=== PATIENT | female | born 1980 | race Caucasian/White ===

== ENCOUNTER 2016-11-12 07:32 | Emergency (ER) | payer OTHER ==
[2016-11-12 07:40] VITALS: TEMP 98.8
[2016-11-12] MEDS ORDERED: LEVOFLOXACIN 750MG-D5W PMX 750 MG in DEXTROSE/WATER 1 150ML.BAG IVPB STA (08:13)
[2016-11-12] MEDS ORDERED: IPRATROPIUM 0.5 MG/2.5 ML NEBU INHALATION STA ×2 (08:13→09:27)
[2016-11-12] MEDS ORDERED: SODIUM CHLORIDE 0.9% 1,000 ML IV STA ×2 (08:13)
[2016-11-12] MEDS ORDERED: LEVALBUTEROL NEB 1.25 MG/3 ML AMP INHALATION STA ×2 (08:13→09:27)
[2016-11-12] MEDS ORDERED: methylPREDNISolone SOD SUCCI 125 MG/2 ML VIAL IV STA (08:13)
[2016-11-12] MEDS ORDERED: MAGNESIUM SULFATE-D5W PMX 2 GM in DEXTROSE/WATER 1 100ML.BAG IVPB STA (08:13)
[2016-11-12] MEDS ORDERED: LORazepam 2 MG/ML SYRINGE IV STA (08:14)
[2016-11-12] MEDS ORDERED: KETOROLAC 30 MG/ML 1 ML VIAL IVP STA (08:15)
--- NOTE | 2016-11-12 08:19 | ED ---
SOB HPI - General Chief Complaint: Shortness of Breath Stated Complaint: RBIT Time Seen by Provider: 11/12/16 08:09 Source: patient Mode of arrival: wheelchair Limitations: no limitations - History of Present Illness Initial Comments: This 36-year-old white female presents with a complaint of shortness of breath. She has had it for the last 2 days. She does have a history of asthma and has been wheezing. She's been coughing with clear production. She denies any fevers. She has had occasional chest tightness. She feels very anxious as she has a history of previous asthma and COPD exacerbation requiring intubation and tracheostomy and now has posttraumatic stress disorder. She has tried her albuterol inhaler as well as her Symbicort inhaler and her albuterol nebulized treatments without any significant relief. She denies any other complaints or modifying factors. - Related Data Home Medications Medication Instructions Recorded Confirmed Albuterol Inhaler [Ventolin Hfa 2 puff INHALATION RT-Q6H PRN 11/30/14 11/12/16 Inhaler] ALPRAZolam [Xanax XR] 1 mg PO BID 06/09/15 11/12/16 Budesonide/Formoterol Fumarate 2 puff INHALATION RT-BID 06/09/15 11/12/16 [Symbicort 160-4.5 Mcg Inhaler] Doxepin HCl [SINEquan] 200 mg PO BID 06/09/15 11/12/16 Albuterol Nebulized [Ventolin 2.5 mg INHALATION RT-Q8H PRN 11/12/16 11/12/16 Nebulized] Previous Rx's Medication Instructions Recorded Montelukast [Singulair] 10 mg PO HS #30 tab 07/11/14 Doxycycline Hyclate [Vibramycin] 100 mg PO BID #20 cap 11/12/16 predniSONE 20 mg PO BID #10 tab 11/12/16 Allergies Allergy/AdvReac Type Severity Reaction Status Date / Time codeine AdvReac Vomiting Verified 11/12/16 09:12 Review of Systems ROS Statement: Those systems with pertinent positive or pertinent negative responses have been documented in the HPI. ROS Other: All systems not noted in ROS Statement are negative. Past Medical History Past Medical History: Asthma, COPD Additional Past Medical History / Comment(s): bronchitis, anxiety, depression History of Any Multi-Drug Resistant Organisms: MRSA Date of last positivie culture/infection: 2010 MDRO Source:: index finger on right hand Past Surgical History: No Surgical Hx Reported Past Anesthesia/Blood Transfusion Reactions: No Reported Reaction Past Psychological History: Anxiety, Depression Smoking Status: Current every day smoker Past Alcohol Use History: None Reported Past Drug Use History: None Reported - Past Family History Mother Family Medical History: Cancer Additional Family Medical History / Comment(s): Breast and brain CA, Uncle Pancreatic General Exam - General Exam Comments Initial Comments: GENERAL: The patient is well nourished and well hydrated. VITAL SIGNS: Heart rate, blood pressure, respiratory rate reviewed as recorded in nurse's notes. EYES: Pupils are round and reactive. Extraocular movements are intact. No conjunctival / lid redness or swelling. ENT: No external evidence of injury, swelling, or ecchymosis. Airway is patent. Throat is clear. NECK: Nontender. No swelling or evidence of injury. No subcutaneous emphysema. Trachea is midline. No thyroid mass. HEART: Tachycardic heart rate. Good peripheral pulses. LUNGS/CHEST: There is some wheezing noted to the bilateral chest. Patient is tachypneic. No ecchymosis, subcutaneous emphysema, or tenderness. ABDOMEN: Abdomen soft without tenderness. No palpable masses or organomegaly. No peritoneal signs. No abdominal wall swelling or ecchymosis. EXTREMITIES: No extremity tenderness. Normal muscle tone and function. No thoracolumbar tenderness. NEUROLOGIC: Sensation is grossly intact. Cranial nerve exam reveals face is symmetrical, tongue is midline, speech is clear. SKIN: No abrasions or ecchymosis is noted. No induration or masses noted. PSYCHIATRIC: Alert and oriented. Appears very anxious and tearful. Limitations: no limitations Course Vital Signs 11/12/16 11/12/16 11/12/16 07:37 08:03 08:22 Temperature 98.8 F Pulse Rate 141 H 129 H 128 H Respiratory 28 H 26 H Rate Blood Pressure 161/94 160/102 O2 Sat by Pulse 96 95 Oximetry 11/12/16 11/12/16 11/12/16 08:37 08:59 09:50 Temperature Pulse Rate 132 H 130 H 123 H Respiratory 24 Rate Blood Pressure 131/58 O2 Sat by Pulse 96 Oximetry 11/12/16 11/12/16 10:10 11:42 Temperature Pulse Rate 124 H 124 H Respiratory 20 Rate Blood Pressure 135/80 O2 Sat by Pulse 96 Oximetry Medical Decision Making - Medical Decision Making The patient was seen and examined. All diagnostics were reviewed. The EKG shows a sinus tachycardia at a rate of 133. There is no acute ST-T wave changes noted. The VA intervals 138, QRS duration is 70, and QTC intervals 437. An IV is started and she is hydrated. She also receives Solu-Medrol, Toradol, magnesium, and Ativan intravenously. She receives a Xopenex and Atrovent breathing treatment. The laboratory is reviewed and does show some slight decrease in the CO2 and elevation of the blood sugar. The chest x-ray does not show any acute processes. His felt as though she does have another exacerbation of her asthma and COPD. She is wheezing on recheck but this is improved. She states that she feels much improved as well. She did receive 2 Xopenex and Atrovent breathing treatments. Due to her symptom complex it is felt as though she would benefit from admission to the hospital. She refuses. Risks and benefits are discussed and ultimately detail and she leaves AGAINST MEDICAL ADVICE. Return parameters are discussed. Attempts to maximize her outpatient treatment will will be undertaken and she will be prescribed some antibiotics in case she is on underlying bronchitis as well as some steroids. She is instructed to utilize her breathing treatments every 4 hours. - Lab Data Result diagrams: 11/12/16 08:00 11/12/16 08:00 Lab Results 11/12/16 11/12/16 11/12/16 Range/Units 08:00 08:00 08:00 WBC 8.9 (3.8-10.6) k/uL RBC 4.84 (3.80-5.40) m/uL Hgb 14.8 (11.4-16.0) gm/dL Hct 42.4 (34.0-46.0) % MCV 87.6 (80.0-100.0) fL MCH 30.6 (25.0-35.0) pg MCHC 34.9 (31.0-37.0) g/dL RDW 13.8 (11.5-15.5) % Plt Count 317 (150-450) k/uL Neutrophils % 43 % Lymphocytes % 42 % Monocytes % 4 % Eosinophils % 8 % Basophils % 1 % Neutrophils # 3.8 (1.3-7.7) k/uL Lymphocytes # 3.8 (1.0-4.8) k/uL Monocytes # 0.4 (0-1.0) k/uL Eosinophils # 0.7 (0-0.7) k/uL Basophils # 0.1 (0-0.2) k/uL PT (9.0-12.0) sec INR (<1.2) APTT (22.0-30.0) sec Sodium 142 (137-145) mmol/L Potassium 3.7 (3.5-5.1) mmol/L Chloride 110 H (98-107) mmol/L Carbon Dioxide 21 L (22-30) mmol/L Anion Gap 11 mmol/L BUN 8 (7-17) mg/dL Creatinine 0.60 (0.52-1.04) mg/dL Est GFR (MDRD) Af Amer >60 (>60 ml/min/1.73 sqM) Est GFR (MDRD) Non-Af >60 (>60 ml/min/1.73 sqM) Glucose 160 H (74-99) mg/dL Calcium 9.1 (8.4-10.2) mg/dL Total Bilirubin 0.2 (0.2-1.3) mg/dL AST 15 (14-36) U/L ALT 31 (9-52) U/L Alkaline Phosphatase 90 (38-126) U/L Total Creatine Kinase 43 (30-135) U/L CK-MB (CK-2) 0.3 (0.0-2.4) ng/mL CK-MB (CK-2) Rel Index 0.7 Troponin I <0.012 (0.000-0.034) ng/mL Total Protein 6.8 (6.3-8.2) g/dL Albumin 4.0 (3.5-5.0) g/dL 11/12/16 Range/Units 08:00 WBC (3.8-10.6) k/uL RBC (3.80-5.40) m/uL Hgb (11.4-16.0) gm/dL Hct (34.0-46.0) % MCV (80.0-100.0) fL MCH (25.0-35.0) pg MCHC (31.0-37.0) g/dL RDW (11.5-15.5) % Plt Count (150-450) k/uL Neutrophils % % Lymphocytes % % Monocytes % % Eosinophils % % Basophils % % Neutrophils # (1.3-7.7) k/uL Lymphocytes # (1.0-4.8) k/uL Monocytes # (0-1.0) k/uL Eosinophils # (0-0.7) k/uL Basophils # (0-0.2) k/uL PT 10.3 (9.0-12.0) sec INR 1.0 (<1.2) APTT 23.9 (22.0-30.0) sec Sodium (137-145) mmol/L Potassium (3.5-5.1) mmol/L Chloride (98-107) mmol/L Carbon Dioxide (22-30) mmol/L Anion Gap mmol/L BUN (7-17) mg/dL Creatinine (0.52-1.04) mg/dL Est GFR (MDRD) Af Amer (>60 ml/min/1.73 sqM) Est GFR (MDRD) Non-Af (>60 ml/min/1.73 sqM) Glucose (74-99) mg/dL Calcium (8.4-10.2) mg/dL Total Bilirubin (0.2-1.3) mg/dL AST (14-36) U/L ALT (9-52) U/L Alkaline Phosphatase (38-126) U/L Total Creatine Kinase (30-135) U/L CK-MB (CK-2) (0.0-2.4) ng/mL CK-MB (CK-2) Rel Index Troponin I (0.000-0.034) ng/mL Total Protein (6.3-8.2) g/dL Albumin (3.5-5.0) g/dL Disposition Clinical Impression: Acute asthma exacerbation, Anxiety, COPD exacerbation, Bronchitis, Chest pain, Left against medical advice, Sinus tachycardia Disposition: Left Against Medical Advice Condition: Fair Instructions: Asthma (ED), Acute Bronchitis (ED), COPD (Chronic Obstructive Pulmonary Disease) (ED), Anxiety (ED) Prescriptions: Doxycycline Hyclate [Vibramycin] 100 mg PO BID #20 cap predniSONE 20 mg PO BID #10 tab Referrals: Priyanka Ashraf NPC [REFERRING] - 1-2 days Time of Disposition: 12:15
[2016-11-12 08:26] LABS: Basophils # (A) 0.1 k/uL (0-0.2); Basophils % (A) 1 %; CH 30.5; Eosinophils # (A) 0.7 k/uL (0-0.7); Eosinophils % (A) 8 %; HCT 42.4 % (34.0-46.0); HGB 14.8 gm/dL (11.4-16.0); Luc # (Auto) 0.23; Luc % (Auto) 3; Lymphocytes # (A) 3.8 k/uL (1.0-4.8); Lymphocytes % (A) 42 %; MCH 30.6 pg (25.0-35.0); MCHC 34.9 g/dL (31.0-37.0); MCV 87.6 fL (80.0-100.0); Monocytes # (A) 0.4 k/uL (0-1.0); Monocytes % (A) 4 %; Neutrophils # (A) 3.8 k/uL (1.3-7.7); Neutrophils % (A) 43 %; RBC 4.84 m/uL (3.80-5.40); RDW 13.8 % (11.5-15.5); WBC 8.9 k/uL (3.8-10.6); WBC (Perox) 8.76
[2016-11-12 08:35] LABS: Partial Thromboplastin Time 23.9 sec (22.0-30.0); Prothrombin Time 10.3 sec (9.0-12.0)
[2016-11-12 08:39] LABS: ALT 31 U/L (9-52); AST 15 U/L (14-36); Alkaline Phosphatase 90 U/L (38-126); Anion Gap 11 mmol/L; Blood Urea Nitrogen 8 mg/dL (7-17); Calcium 9.1 mg/dL (8.4-10.2); Carbon Dioxide 21 mmol/L (22-30); Chloride 110 mmol/L (98-107); Glucose 160 mg/dL (74-99); Non-African American GFR(MDRD) >60 (>60 ml/min/1.73 sqM); Potassium 3.7 mmol/L (3.5-5.1); Sodium 142 mmol/L (137-145); Total Bilirubin 0.2 mg/dL (0.2-1.3); Total Protein 6.8 g/dL (6.3-8.2)
[2016-11-12 08:49] LABS: Creatine Kinase 43 U/L (30-135)
[2016-11-12 09:01] LABS: Creatine Kinase MB 0.3 ng/mL (0.0-2.4); Troponin I <0.012 ng/mL (0.000-0.034)
--- NOTE | 2016-11-12 09:35 | XR ---
EXAMINATION TYPE: XR chest 2V DATE OF EXAM: 11/12/2016 CLINICAL HISTORY: difficulty breathing TECHNIQUE: Frontal and lateral views of the chest are obtained. COMPARISON: 12/13/14 FINDINGS: There is no focal air space opacity, pleural effusion, or pneumothorax seen. The cardiac silhouette size is within normal limits. The osseous structures are intact. IMPRESSION: No acute cardiopulmonary process.
[2016-11-12 12:53] VITALS: BP 123/71; PULSE 120; RESP 24
== END 2016-11-12 12:53 | disposition left against medical advice (07) ==
LOC: EC 07:32
DX: J44.1 Chronic obstructive pulmonary disease with (acute) exacerbation (principal); J45.901 Unspecified asthma with (acute) exacerbation; F41.9 Anxiety disorder, unspecified; R00.0 Tachycardia, unspecified; F32.9 Major depressive disorder, single episode, unspecified; Z86.14 Personal history of Methicillin resistant Staphylococcus aureus infection; Z79.51 Long term (current) use of inhaled steroids; Z79.899 Other long term (current) drug therapy; Z88.5 Allergy status to narcotic agent
CPT/HCPCS: 36415; 94640 ×2; 93005; 80053; 82550; 82553; 84484; 85025; 85610; 85730; 87040; 71020; 99285; 96365; 96368; 96375 ×3; J2060; J2930; J1885; J1956; J3475

== ENCOUNTER 2017-05-10 07:56 | Emergency (ER) | payer OTHER ==
[2017-05-10] MEDS ORDERED: ACETAMINOPHEN IV (For NPO) 1,000 MG in EMPTY BAG 1 BAG IVPB STA (08:16)
[2017-05-10] MEDS ORDERED: ONDANSETRON 4 MG/2 ML VIAL IVP STA (08:16)
[2017-05-10] MEDS ORDERED: SODIUM CHLORIDE 0.9% 1,000 ML IV STA (08:16)
--- NOTE | 2017-05-10 08:25 | ED ---
General Adult HPI - General Chief complaint: Nausea/Vomiting/Diarrhea Stated complaint: POSS FLU, WELTS ALL OVER Time Seen by Provider: 05/10/17 08:10 Source: family, RN notes reviewed Mode of arrival: ambulatory Limitations: no limitations - History of Present Illness Initial comments: Patient 37-year-old female who presents emergency room today with chief complaint of symptoms of body aches, fever, nausea vomiting diarrhea over the last 2 days. Patient does admit that she's had several bouts of nausea vomiting diarrhea no signs of blood. Does admit to cramping abdominal pain. Patient does admit to fever and chills and joint pain. Patient doesn't that she 's been trying ibuprofen with little relief the symptoms. Denies any other complaints. Patient denies any recent fever, chills, shortness of breath, chest pain, numbness or tingling, dysuria or hematuria, constipation, headaches or visual changes, or any other complaints. - Related Data Home Medications Medication Instructions Recorded Confirmed Albuterol Inhaler [Ventolin Hfa 2 puff INHALATION RT-Q6H PRN 11/30/14 11/12/16 Inhaler] ALPRAZolam [Xanax XR] 1 mg PO BID 06/09/15 11/12/16 Budesonide/Formoterol Fumarate 2 puff INHALATION RT-BID 06/09/15 11/12/16 [Symbicort 160-4.5 Mcg Inhaler] Doxepin HCl [SINEquan] 200 mg PO BID 06/09/15 11/12/16 Albuterol Nebulized [Ventolin 2.5 mg INHALATION RT-Q8H PRN 11/12/16 11/12/16 Nebulized] Previous Rx's Medication Instructions Recorded Montelukast [Singulair] 10 mg PO HS #30 tab 07/11/14 Doxycycline Hyclate [Vibramycin] 100 mg PO BID #20 cap 11/12/16 predniSONE 20 mg PO BID #10 tab 11/12/16 Nitrofurantoin Monohyd/M-Cryst 100 mg PO Q12HR #14 cap 05/10/17 [Macrobid] Allergies Allergy/AdvReac Type Severity Reaction Status Date / Time codeine AdvReac Vomiting Verified 05/10/17 08:06 Review of Systems ROS Statement: Those systems with pertinent positive or pertinent negative responses have been documented in the HPI. ROS Other: All systems not noted in ROS Statement are negative. Past Medical History Past Medical History: Asthma, COPD Additional Past Medical History / Comment(s): bronchitis, anxiety, depression History of Any Multi-Drug Resistant Organisms: MRSA Date of last positivie culture/infection: 2010 MDRO Source:: index finger on right hand Past Surgical History: No Surgical Hx Reported Past Anesthesia/Blood Transfusion Reactions: No Reported Reaction Past Psychological History: Anxiety, Depression Smoking Status: Current every day smoker Past Alcohol Use History: None Reported Past Drug Use History: None Reported - Past Family History Mother Family Medical History: Cancer Additional Family Medical History / Comment(s): Breast and brain CA, Uncle Pancreatic General Exam - General Exam Comments Initial Comments: General: The patient is awake and alert, in no distress, and does not appear acutely ill. Eye: Pupils are equal, round and reactive to light, extra-ocular movements are intact. No nystagmus. There is normal conjunctiva bilaterally. No signs of icterus. Ears, nose, mouth and throat: There are moist mucous membranes and no oral lesions. Neck: The neck is supple, there is no tenderness or JVD. Cardiovascular: Tachycardic. No murmur, rub or gallop is appreciated. Respiratory: Lungs are clear to auscultation, respirations are non-labored, breath sounds are equal. No wheezes, stridor, rales, or rhonchi. Gastrointestinal: Soft, non-distended. Mild tenderness epigastric. There is no rebound or guarding present. No CVA tenderness. Bowel sounds are unremarkable. Musculoskeletal: Normal ROM, no tenderness. Strength 5/5. Sensation intact. Pulses equal bilaterally 2+. Neurological: A&O x 3. CN II-XII intact, There are no obvious motor or sensory deficits. Coordination appears grossly intact. Speech is normal. Skin: Skin is warm and dry and no rashes or lesions are noted. Psychiatric: Cooperative, appropriate mood & affect, normal judgment. Limitations: no limitations Course Vital Signs 05/10/17 05/10/17 08:02 09:14 Temperature 98.2 F Pulse Rate 136 H 100 Respiratory 20 18 Rate Blood Pressure 133/100 123/58 O2 Sat by Pulse 98 100 Oximetry Medical Decision Making - Medical Decision Making Case discussed in detail with attending physician Dr. Pierre. Patient reexamined at this time shows no signs of distress resting comfortably. Patient 's labs shows evidence for urinary tract infection. Given 2 g Rocephin here in the emergency room. She is doing well at this time shows comfortable feeling better would like to be discharged home. Patient will be continued on antibiotics for urinary tract infection. She is advised close follow-up the family doctor over the next 2 days. Advised return to emergency room if any symptoms increase or worsen. She states understanding and is in agreement. - Lab Data Result diagrams: 05/10/17 08:29 05/10/17 08:29 Lab Results 05/10/17 05/10/17 05/10/17 Range/Units 08:29 08:29 08:29 WBC 13.8 H (3.8-10.6) k/uL RBC 4.69 (3.80-5.40) m/uL Hgb 14.2 (11.4-16.0) gm/dL Hct 41.3 (34.0-46.0) % MCV 88.0 (80.0-100.0) fL MCH 30.3 (25.0-35.0) pg MCHC 34.5 (31.0-37.0) g/dL RDW 13.5 (11.5-15.5) % Plt Count 289 (150-450) k/uL Neutrophils % 82 % Lymphocytes % 12 % Monocytes % 3 % Eosinophils % 2 % Basophils % 0 % Neutrophils # 11.3 H (1.3-7.7) k/uL Lymphocytes # 1.6 (1.0-4.8) k/uL Monocytes # 0.4 (0-1.0) k/uL Eosinophils # 0.3 (0-0.7) k/uL Basophils # 0.0 (0-0.2) k/uL Sodium 139 (137-145) mmol/L Potassium 3.3 L (3.5-5.1) mmol/L Chloride 109 H (98-107) mmol/L Carbon Dioxide 17 L (22-30) mmol/L Anion Gap 13 mmol/L BUN 9 (7-17) mg/dL Creatinine 0.65 (0.52-1.04) mg/dL Est GFR (MDRD) Af Amer >60 (>60 ml/min/1.73 sqM) Est GFR (MDRD) Non-Af >60 (>60 ml/min/1.73 sqM) Glucose 143 H (74-99) mg/dL Calcium 9.5 (8.4-10.2) mg/dL Total Bilirubin 0.7 (0.2-1.3) mg/dL AST 12 L (14-36) U/L ALT 24 (9-52) U/L Alkaline Phosphatase 111 (38-126) U/L Total Protein 6.9 (6.3-8.2) g/dL Albumin 3.9 (3.5-5.0) g/dL Lipase 56 (23-300) U/L Urine Color Urine Appearance (Clear) Urine pH (5.0-8.0) Ur Specific [place] (1.001-1.035) Urine Protein (Negative) Urine Glucose (UA) (Negative) Urine Ketones (Negative) Urine Blood (Negative) Urine Nitrite (Negative) Urine Bilirubin (Negative) Urine Urobilinogen (<2.0) mg/dL Ur Leukocyte Esterase (Negative) Urine RBC (0-5) /hpf Urine WBC (0-5) /hpf Urine WBC Clumps (None) /hpf Ur Squamous Epith Cells (0-4) /hpf Urine Bacteria (None) /hpf Hyaline Casts (0-2) /lpf Urine Mucus (None) /hpf Urine HCG, Qual Not Detected (Not Detectd) 05/10/17 Range/Units 08:29 WBC (3.8-10.6) k/uL RBC (3.80-5.40) m/uL Hgb (11.4-16.0) gm/dL Hct (34.0-46.0) % MCV (80.0-100.0) fL MCH (25.0-35.0) pg MCHC (31.0-37.0) g/dL RDW (11.5-15.5) % Plt Count (150-450) k/uL Neutrophils % % Lymphocytes % % Monocytes % % Eosinophils % % Basophils % % Neutrophils # (1.3-7.7) k/uL Lymphocytes # (1.0-4.8) k/uL Monocytes # (0-1.0) k/uL Eosinophils # (0-0.7) k/uL Basophils # (0-0.2) k/uL Sodium (137-145) mmol/L Potassium (3.5-5.1) mmol/L Chloride (98-107) mmol/L Carbon Dioxide (22-30) mmol/L Anion Gap mmol/L BUN (7-17) mg/dL Creatinine (0.52-1.04) mg/dL Est GFR (MDRD) Af Amer (>60 ml/min/1.73 sqM) Est GFR (MDRD) Non-Af (>60 ml/min/1.73 sqM) Glucose (74-99) mg/dL Calcium (8.4-10.2) mg/dL Total Bilirubin (0.2-1.3) mg/dL AST (14-36) U/L ALT (9-52) U/L Alkaline Phosphatase (38-126) U/L Total Protein (6.3-8.2) g/dL Albumin (3.5-5.0) g/dL Lipase (23-300) U/L Urine Color Yellow Urine Appearance Cloudy H (Clear) Urine pH 6.0 (5.0-8.0) Ur Specific [place] 1.018 (1.001-1.035) Urine Protein 1+ H (Negative) Urine Glucose (UA) Negative (Negative) Urine Ketones 1+ H (Negative) Urine Blood Negative (Negative) Urine Nitrite Positive H (Negative) Urine Bilirubin Negative (Negative) Urine Urobilinogen <2.0 (<2.0) mg/dL Ur Leukocyte Esterase Large H (Negative) Urine RBC 6 H (0-5) /hpf Urine WBC 59 H (0-5) /hpf Urine WBC Clumps Moderate H (None) /hpf Ur Squamous Epith Cells 4 (0-4) /hpf Urine Bacteria Rare H (None) /hpf Hyaline Casts 10 H (0-2) /lpf Urine Mucus Many H (None) /hpf Urine HCG, Qual (Not Detectd) Disposition Clinical Impression: UTI (urinary tract infection) Disposition: HOME SELF-CARE Condition: Good Instructions: Urinary Tract Infection in Women (ED) Additional Instructions: Please use medication as discussed. Please follow-up with family doctor in the next 2 days. Please return to emergency room if the symptoms increase or worsen or for any other concerns. Prescriptions: Nitrofurantoin Monohyd/M-Cryst [Macrobid] 100 mg PO Q12HR #14 cap Referrals: Stevenson Dunlap DO [Primary Care Provider] - 1-2 days Time of Disposition: 09:57
[2017-05-10 08:42] LABS: Basophils % (A) 0 %; Eosinophils # (A) 0.3 k/uL (0-0.7); Eosinophils % (A) 2 %; HCT 41.3 % (34.0-46.0); HGB 14.2 gm/dL (11.4-16.0); Lymphocytes # (A) 1.6 k/uL (1.0-4.8); Lymphocytes % (A) 12 %; MCH 30.3 pg (25.0-35.0); MCHC 34.5 g/dL (31.0-37.0); Mean Platelet Volume 7.2; Monocytes # (A) 0.4 k/uL (0-1.0); Monocytes % (A) 3 %; Neutrophils # (A) 11.3 k/uL (1.3-7.7); Neutrophils % (A) 82 %; Platelet Count 289 k/uL (150-450); RBC 4.69 m/uL (3.80-5.40); RDW 13.5 % (11.5-15.5); WBC 13.8 k/uL (3.8-10.6)
[2017-05-10 08:52] LABS: Appearance,Urine Cloudy (Clear); Bacteria,Urine Rare /hpf; Bilirubin,Urine Negative (Negative); Blood,Urine Negative (Negative); Color,Urine Yellow; Glucose,Urine (UA) Negative (Negative); Hyaline Casts,Urine 10 /lpf (0-2); Ketones,Urine 1+ (Negative); Leukocyte Esterase,Urine Large (Negative); Mucus,Urine Many /hpf; Nitrite,Urine Positive (Negative); Protein,Urine 1+ (Negative); RBC,Urine 6 /hpf (0-5); Specific Gravity,Urine 1.018 (1.001-1.035); Squamous Epithelial Cell,Urine 4 /hpf (0-4); Urobilinogen,Urine <2.0 mg/dL (<2.0); WBC,Urine 59 /hpf (0-5)
[2017-05-10 08:56] LABS: ALT 24 U/L (9-52); AST 12 U/L (14-36); Albumin 3.9 g/dL (3.5-5.0); Alkaline Phosphatase 111 U/L (38-126); Anion Gap 13 mmol/L; Blood Urea Nitrogen 9 mg/dL (7-17); Calcium 9.5 mg/dL (8.4-10.2); Carbon Dioxide 17 mmol/L (22-30); Chloride 109 mmol/L (98-107); Glucose 143 mg/dL (74-99); Lipase 56 U/L (23-300); Sodium 139 mmol/L (137-145); Total Bilirubin 0.7 mg/dL (0.2-1.3); Total Protein 6.9 g/dL (6.3-8.2)
[2017-05-10 08:57] LABS: Potassium 3.3 mmol/L (3.5-5.1)
[2017-05-10] MEDS ORDERED: cefTRIAXone IN SWFI 2,000 MG/20 ML SYRINGE IVP STA (09:08)
[2017-05-10 09:15] VITALS: RESP 18
[2017-05-10 10:18] VITALS: BP 106/64; PULSE 99; TEMP 97
== END 2017-05-10 10:18 | disposition home or self-care (01) ==
LOC: EC 07:56
DX: N39.0 Urinary tract infection, site not specified (principal); R00.0 Tachycardia, unspecified; R11.2 Nausea with vomiting, unspecified; R19.7 Diarrhea, unspecified; M25.50 Pain in unspecified joint; R50.9 Fever, unspecified; J44.9 Chronic obstructive pulmonary disease, unspecified; F32.9 Major depressive disorder, single episode, unspecified; F41.9 Anxiety disorder, unspecified; F17.200 Nicotine dependence, unspecified, uncomplicated; Z79.51 Long term (current) use of inhaled steroids; Z79.899 Other long term (current) drug therapy; Z88.5 Allergy status to narcotic agent; Z86.14 Personal history of Methicillin resistant Staphylococcus aureus infection
CPT/HCPCS: 99284; 96374; 96375 ×2; 96361; 36415; 80053; 83690; 85025; 81001; 81025; 87040; 87086; J2405; J0696; J0131; 87077; 87186

== ENCOUNTER 2017-05-11 16:48 | Emergency (ER) | payer OTHER ==
[2017-05-11 16:50] VITALS: TEMP 97.7
[2017-05-11] MEDS ORDERED: methylPREDNISolone SOD SUCCI 125 MG/2 ML VIAL IV STA (16:58)
[2017-05-11] MEDS ORDERED: FAMOTIDINE 20 MG/2 ML VIAL IV STA (16:58)
[2017-05-11] MEDS ORDERED: diphenhydrAMINE 50 MG/ML 1 ML VIAL IVP STA (16:58)
[2017-05-11] MEDS ORDERED: IPRATROPIUM-ALBUTEROL 3 ML NEB INHALATION STA (16:58)
--- NOTE | 2017-05-11 17:12 | ED ---
General Adult HPI - General Chief complaint: Allergic Reaction Stated complaint: Allergic Reaction Time Seen by Provider: 05/11/17 16:55 Source: patient, RN notes reviewed Mode of arrival: ambulatory Limitations: no limitations - History of Present Illness Initial comments: Patient 37-year-old female who presents emergency room today with a chief complaint of ALLERGIC reaction. Patient was seen here in the emergency room yesterday diagnosed with urinary tract infection. She was discharged home on Macrobid. She states she took 1 dose yesterday 1 dose earlier today. Physician of his hives earlier in the day and some swelling to the top of her lip. Patient does admit to a history of asthma also admits to some increased tightness in her chest. She denies any other complaints or associated symptoms at this time. Does not that she did take Benadryl approximate 1 PM. Patient denies any recent fever, chills, shortness of breath, chest pain, back pain, abdominal pain, nausea or vomiting, numbness or tingling, dysuria or hematuria, constipation or diarrhea, headaches or visual changes, or any other complaints. - Related Data Home Medications Medication Instructions Recorded Confirmed Albuterol Inhaler [Ventolin Hfa 2 puff INHALATION RT-Q6H PRN 11/30/14 05/11/17 Inhaler] ALPRAZolam [Xanax XR] 2 mg PO BID PRN 06/09/15 05/11/17 Budesonide/Formoterol Fumarate 2 puff INHALATION RT-BID 06/09/15 05/11/17 [Symbicort 160-4.5 Mcg Inhaler] Doxepin HCl [SINEquan] 200 mg PO HS 06/09/15 05/11/17 Albuterol Nebulized [Ventolin 2.5 mg INHALATION RT-Q8H PRN 11/12/16 05/11/17 Nebulized] Cholecalciferol [Vitamin D3] 1,000 unit PO DAILY 05/11/17 05/11/17 diphenhydrAMINE HCL [Benadryl] 50 mg PO ONCE PRN 05/11/17 05/11/17 Previous Rx's Medication Instructions Recorded Montelukast [Singulair] 10 mg PO HS #30 tab 07/11/14 Sulfamethox-Tmp 800-160Mg [Bactrim 1 tab PO Q12HR #20 tab 05/11/17 DS 800-160 mg] predniSONE 60 mg PO DAILY 5 Days tab 05/11/17 Allergies Allergy/AdvReac Type Severity Reaction Status Date / Time nitrofurantoin Allergy Swelling Verified 05/11/17 17:15 [From Macrobid] codeine AdvReac Vomiting Verified 05/11/17 17:15 Review of Systems ROS Statement: Those systems with pertinent positive or pertinent negative responses have been documented in the HPI. ROS Other: All systems not noted in ROS Statement are negative. Past Medical History Past Medical History: Asthma, COPD Additional Past Medical History / Comment(s): bronchitis, anxiety, depression History of Any Multi-Drug Resistant Organisms: MRSA Date of last positivie culture/infection: 2010 MDRO Source:: index finger on right hand Past Surgical History: No Surgical Hx Reported Past Anesthesia/Blood Transfusion Reactions: No Reported Reaction Past Psychological History: Anxiety, Depression Smoking Status: Current every day smoker Past Alcohol Use History: None Reported Past Drug Use History: None Reported - Past Family History Mother Family Medical History: Cancer Additional Family Medical History / Comment(s): Breast and brain CA, Uncle Pancreatic General Exam - General Exam Comments Initial Comments: General: The patient is awake and alert, in no distress, and does not appear acutely ill. Eye: Pupils are equal, round and reactive to light, extra-ocular movements are intact. No nystagmus. There is normal conjunctiva bilaterally. No signs of icterus. Ears, nose, mouth and throat: There are moist mucous membranes and no oral lesions. Angioedema. No togue swelling. no difficulty swallowing. tolerating oral secretions. Neck: The neck is supple, there is no tenderness or JVD. Cardiovascular: There is a regular rate and rhythm. No murmur, rub or gallop is appreciated. Respiratory: Lungs are clear to auscultation, respirations are non-labored, breath sounds are equal. No wheezes, stridor, rales, or rhonchi. Musculoskeletal: Normal ROM, no tenderness. Strength 5/5. Sensation intact. Pulses equal bilaterally 2+. Neurological: A&O x 3. CN II-XII intact, There are no obvious motor or sensory deficits. Coordination appears grossly intact. Speech is normal. Skin: Patient does have few scattered hives on the upper extremities and torso. Limitations: no limitations Course Vital Signs 05/11/17 05/11/17 16:48 17:07 Temperature 97.7 F Pulse Rate 128 H 114 H Respiratory 20 Rate Blood Pressure 151/93 O2 Sat by Pulse 97 Oximetry Medical Decision Making - Medical Decision Making Patient reexamined at this time shows no signs of distress. Patient swelling has improved. Redness has gone away. Patient feeling much better at this time after steroids, Benadryl, Pepcid urine emergency room. Patient will be discharged home with a starter pack of Bactrim to cover for her urinary tract infection which was diagnosed yesterday. She does not that the symptoms of UTI aren't improving. Patient advised to discontinue Macrobid. Advised to continue with Benadryl one to 2 tabs every 6 hours. Will be given a prescription for steroids continue over the next 3-5 days. Also advised to use Pepcid twice daily. Advised return if any symptoms increase worsen or for any other concerns. Disposition Clinical Impression: Allergic reaction Disposition: HOME SELF-CARE Condition: Good Instructions: Anaphylaxis (ED) Additional Instructions: Please discontinue Macrobid and begin Bactrim. Please use Benadryl 1- 2 tabs every 6 hours. Please use Pepcid twice daily as discussed. Please use steroids as prescribed. Please return to emergency room if any symptoms increase or worsen. Please continue follow-up the family doctor have repeat urinalysis as discussed. Please return to emergency room for new concerns. Prescriptions: predniSONE 60 mg PO DAILY 5 Days tab Sulfamethox-Tmp 800-160Mg [Bactrim DS 800-160 mg] 1 tab PO Q12HR #20 tab Referrals: Stevenson Dunlap DO [Primary Care Provider] - 1-2 days Time of Disposition: 17:51
[2017-05-11] MEDS ORDERED: SULFAMETH-TMP DS STARTER PACK 2 TAB BTL PO STA (17:52)
[2017-05-11 18:18] VITALS: BP 128/83; PULSE 112; RESP 16
== END 2017-05-11 18:36 | disposition home or self-care (01) ==
LOC: EC 16:48
DX: L50.0 Allergic urticaria (principal); T37.8X5A Adverse effect of other specified systemic anti-infectives and antiparasitics, initial encounter; N39.0 Urinary tract infection, site not specified; J44.9 Chronic obstructive pulmonary disease, unspecified; F32.9 Major depressive disorder, single episode, unspecified; F41.9 Anxiety disorder, unspecified; F17.200 Nicotine dependence, unspecified, uncomplicated; Z79.51 Long term (current) use of inhaled steroids; Z79.899 Other long term (current) drug therapy; Z88.1 Allergy status to other antibiotic agents; Z88.5 Allergy status to narcotic agent; Z86.14 Personal history of Methicillin resistant Staphylococcus aureus infection
CPT/HCPCS: 94640; 99284; 96374; 96375 ×2; J1200; J2930

== ENCOUNTER 2017-08-26 23:13 | Inpatient (IN) | payer MEDICAID, OTHER ==
[2017-08-26 23:19] VITALS: RESP 18
--- NOTE | 2017-08-26 23:20 | ED ---
General Adult HPI - General Source: patient, police, EMS, RN notes reviewed, old records reviewed Mode of arrival: EMS Limitations: no limitations <Herrera Pierre - Last Filed: 08/26/17 23:19> <Eloisa Pena - Last Filed: 08/27/17 03:10> - General Chief complaint: Psychiatric Symptoms Stated complaint: mental health Time Seen by Provider: 08/26/17 23:16 - History of Present Illness Initial comments: This is a 37-year-old female the ER for evaluation. This patient presents for evaluation regards to psychiatric illness, patient presented with PD petitioning patient for psychiatric evaluation and treatment (Herrera Pierre) - Related Data Home Medications Medication Instructions Recorded Confirmed Albuterol Inhaler [Ventolin Hfa 2 puff INHALATION RT-Q6H PRN 11/30/14 05/11/17 Inhaler] ALPRAZolam [Xanax XR] 2 mg PO BID PRN 06/09/15 05/11/17 Budesonide/Formoterol Fumarate 2 puff INHALATION RT-BID 06/09/15 05/11/17 [Symbicort 160-4.5 Mcg Inhaler] Doxepin HCl [SINEquan] 200 mg PO HS 06/09/15 05/11/17 Albuterol Nebulized [Ventolin 2.5 mg INHALATION RT-Q8H PRN 11/12/16 05/11/17 Nebulized] Cholecalciferol [Vitamin D3] 1,000 unit PO DAILY 05/11/17 05/11/17 diphenhydrAMINE HCL [Benadryl] 50 mg PO ONCE PRN 05/11/17 05/11/17 Previous Rx's Medication Instructions Recorded Montelukast [Singulair] 10 mg PO HS #30 tab 07/11/14 Sulfamethox-Tmp 800-160Mg [Bactrim 1 tab PO Q12HR #20 tab 05/11/17 DS 800-160 mg] predniSONE 60 mg PO DAILY 5 Days tab 05/11/17 Allergies Allergy/AdvReac Type Severity Reaction Status Date / Time nitrofurantoin Allergy Swelling Verified 08/26/17 23:15 [From Macrobid] codeine AdvReac Vomiting Verified 08/26/17 23:15 Review of Systems ROS Other: All systems not noted in ROS Statement are negative. <GabbyHerrera B - Last Filed: 08/26/17 23:19> ROS Other: All systems not noted in ROS Statement are negative. <Eloisa Pena - Last Filed: 08/27/17 03:10> ROS Statement: Those systems with pertinent positive or pertinent negative responses have been documented in the HPI. Past Medical History Past Medical History: Asthma, COPD Additional Past Medical History / Comment(s): bronchitis History of Any Multi-Drug Resistant Organisms: MRSA Date of last positivie culture/infection: 2010 MDRO Source:: index finger on right hand Past Surgical History: No Surgical Hx Reported Additional Past Surgical History / Comment(s): tracheotomy, cysts to wrist removed Past Anesthesia/Blood Transfusion Reactions: No Reported Reaction Past Psychological History: Anxiety, Bipolar, Depression Smoking Status: Current every day smoker Past Alcohol Use History: None Reported Past Drug Use History: Marijuana - Past Family History Mother Family Medical History: Cancer Additional Family Medical History / Comment(s): Breast and brain CA, Uncle Pancreatic <GabbyHerrera Katelyn - Last Filed: 08/26/17 23:19> General Exam Limitations: no limitations General appearance: alert, in no apparent distress Head exam: Present: atraumatic, normocephalic, normal inspection Eye exam: Present: normal appearance, PERRL, EOMI. Absent: scleral icterus, conjunctival injection, periorbital swelling ENT exam: Present: normal exam, mucous membranes moist Neck exam: Present: normal inspection. Absent: tenderness, meningismus, lymphadenopathy Respiratory exam: Present: normal lung sounds bilaterally. Absent: respiratory distress, wheezes, rales, rhonchi, stridor Cardiovascular Exam: Present: regular rate, normal rhythm, normal heart sounds. Absent: systolic murmur, diastolic murmur, rubs, gallop, clicks GI/Abdominal exam: Present: soft, normal bowel sounds. Absent: distended, tenderness, guarding, rebound, rigid Extremities exam: Present: normal inspection, full ROM, normal capillary refill. Absent: tenderness, pedal edema, joint swelling, calf tenderness Back exam: Present: normal inspection Neurological exam: Present: alert, oriented X3, CN II-XII intact Psychiatric exam: Present: normal affect, normal mood Skin exam: Present: warm, dry, intact, normal color. Absent: rash <Herrera Pierre - Last Filed: 08/26/17 23:19> Course <Herrera Pierre - Last Filed: 08/26/17 23:19> <Eloisa Pena - Last Filed: 08/27/17 03:10> Vital Signs 08/26/17 23:15 Temperature 97.1 F L Pulse Rate 111 H Respiratory 18 Rate Blood Pressure 137/95 O2 Sat by Pulse 98 Oximetry EPS informed me about their assessment they felt she ought to be admitted for inpatient treatment and evaluation (Eloisa Pena) - Reevaluation(s) Reevaluation #1: 08/26/17 23:20 Medically clear for psychiatric evaluation (Herrera Pierre) Disposition <Herrera Pierre - Last Filed: 08/26/17 23:19> <Eloisa Pena - Last Filed: 08/27/17 03:10> Clinical Impression: Suicidal ideation Disposition: ADMITTED IP TO THIS HOSP Referrals: Stevenson Dunlap DO [Primary Care Provider] - 1-2 days
[2017-08-27] MEDS ORDERED: ZIPRASIDONE 20 MG VIAL IM PRN (03:28)
[2017-08-27] MEDS ORDERED: MAGNESIUM HYDROXIDE 2,400 MG/10 ML CUP PO PRN (03:28)
[2017-08-27] MEDS ORDERED: ACETAMINOPHEN TAB 325 MG TAB PO PRN (03:28)
[2017-08-27] MEDS ORDERED: MAG HYDROX/AL HYDROX/SIMETH 30 ML CUP PO PRN (03:28)
[2017-08-27] MEDS: LORazepam 1 MG TAB PO PRN ×3 (03:55→22:12)
[2017-08-27 04:07] VITALS: BMI 30.2
[2017-08-27] MEDS ORDERED: ALBUTEROL NEBULIZED 2.5 MG/3 ML INHALATION PRN (11:23)
[2017-08-27] MEDS ORDERED: ALBUTEROL INHALER 60 PUFF/8 GM INHALER INHALATION PRN (11:23)
[2017-08-27 11:30] LABS: Basophils # (A) 0.1 k/uL (0-0.2); Basophils % (A) 1 %; Eosinophils # (A) 0.4 k/uL (0-0.7); Eosinophils % (A) 5 %; HCT 42.4 % (34.0-46.0); HGB 14.4 gm/dL (11.4-16.0); Lymphocytes # (A) 2.9 k/uL (1.0-4.8); Lymphocytes % (A) 39 %; MCH 29.8 pg (25.0-35.0); MCV 87.6 fL (80.0-100.0); Mean Platelet Volume 7.3; Monocytes # (A) 0.3 k/uL (0-1.0); Monocytes % (A) 5 %; Neutrophils # (A) 3.6 k/uL (1.3-7.7); Neutrophils % (A) 48 %; Platelet Count 282 k/uL (150-450); RBC 4.84 m/uL (3.80-5.40); RDW 14.1 % (11.5-15.5); WBC 7.4 k/uL (3.8-10.6)
[2017-08-27 11:42] LABS: ALT 28 U/L (9-52); AST 17 U/L (14-36); Albumin 4.1 g/dL (3.5-5.0); Alkaline Phosphatase 86 U/L (38-126); Anion Gap 15 mmol/L; Blood Urea Nitrogen 11 mg/dL (7-17); Calcium 9.3 mg/dL (8.4-10.2); Carbon Dioxide 19 mmol/L (22-30); Chloride 110 mmol/L (98-107); Cholesterol 163 mg/dL (<200); Glucose 83 mg/dL (74-99); HDL Cholesterol 28 mg/dL (40-60); LDL Cholesterol,Calculated 75 mg/dL (0-99); Potassium 4.1 mmol/L (3.5-5.1); Sodium 144 mmol/L (137-145); Total Bilirubin 0.3 mg/dL (0.2-1.3); Total Protein 6.7 g/dL (6.3-8.2); Triglycerides 302 mg/dL (<150)
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
[2017-08-27] MEDS ORDERED: NICOTINE 7MG/24HR PATCH TRANSDERM SCH (16:15)
[2017-08-27] MEDS: NICOTINE 21MG/24HR PATCH TRANSDERM SCH (17:12)
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
[2017-08-27] MEDS: SYMBICORT 160-4.5 MCG INHALER INHALATION SCH (20:55)
[2017-08-27] MEDS ORDERED: MONTELUKAST 10 MG TAB PO SCH (21:00)
[2017-08-27] MEDS ORDERED: DOXEPIN 25 MG CAP PO SCH (21:00)
[2017-08-28 07:35] VITALS: BP 123/70; PULSE 99; TEMP 98.2
[2017-08-28] MEDS: SYMBICORT 160-4.5 MCG INHALER INHALATION SCH (08:11)
[2017-08-28] MEDS: NICOTINE 21MG/24HR PATCH TRANSDERM SCH (08:37)
[2017-08-28] MEDS: LORazepam 1 MG TAB PO PRN (08:37)
[2017-08-28] MEDS ORDERED: CHOLECALCIFEROL 1,000 UNIT TAB PO SCH (09:00)
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
== END 2017-08-28 15:38 | disposition home or self-care (01) | DRG 881 ==
LOC: EC 23:13 → 3MHU 08-27 03:21
PROVIDERS: ADMIT Psychiatry & Neurology Psychiatry; ATTEND Psychiatry & Neurology Psychiatry
DX: F32.9 Major depressive disorder, single episode, unspecified (principal); R45.851 Suicidal ideations; J44.1 Chronic obstructive pulmonary disease with (acute) exacerbation; F12.90 Cannabis use, unspecified, uncomplicated; F17.210 Nicotine dependence, cigarettes, uncomplicated; F41.9 Anxiety disorder, unspecified; F51.04 Psychophysiologic insomnia; N39.3 Stress incontinence (female) (male); Z63.8 Other specified problems related to primary support group; Z65.3 Problems related to other legal circumstances; Z79.51 Long term (current) use of inhaled steroids; Z79.899 Other long term (current) drug therapy; Z80.0 Family history of malignant neoplasm of digestive organs; Z80.8 Family history of malignant neoplasm of other organs or systems; Z86.14 Personal history of Methicillin resistant Staphylococcus aureus infection; Z88.1 Allergy status to other antibiotic agents; Z88.5 Allergy status to narcotic agent; Z79.52 Long term (current) use of systemic steroids; Z71.6 Tobacco abuse counseling
CPT/HCPCS: 80053; 80061; 82075; 83036; 84443; 85025; 94640; 99285

== ENCOUNTER 2017-11-25 22:38 | Emergency (ER) | payer OTHER ==
[2017-11-25 22:46] VITALS: TEMP 98.3
[2017-11-25 23:48] VITALS: RESP 16
[2017-11-26] MEDS ORDERED: SODIUM CHLORIDE 0.9% 1,000 ML IV STA (00:36)
[2017-11-26] MEDS ORDERED: IPRATROPIUM-ALBUTEROL 3 ML NEB INHALATION STA (00:36)
[2017-11-26 01:10] LABS: Basophils % (A) 1 %; Eosinophils # (A) 0.2 k/uL (0-0.7); Eosinophils % (A) 3 %; HCT 40.1 % (34.0-46.0); Lymphocytes # (A) 3.3 k/uL (1.0-4.8); Lymphocytes % (A) 45 %; MCH 30.4 pg (25.0-35.0); MCHC 34.9 g/dL (31.0-37.0); MCV 87.2 fL (80.0-100.0); Mean Platelet Volume 7.6; Monocytes # (A) 0.3 k/uL (0-1.0); Monocytes % (A) 5 %; Neutrophils # (A) 3.3 k/uL (1.3-7.7); Neutrophils % (A) 45 %; Platelet Count 270 k/uL (150-450); RDW 13.2 % (11.5-15.5); WBC 7.4 k/uL (3.8-10.6)
[2017-11-26 01:19] LABS: ALT 40 U/L (9-52); AST 21 U/L (14-36); Albumin 3.9 g/dL (3.5-5.0); Alkaline Phosphatase 73 U/L (38-126); Anion Gap 8 mmol/L; Blood Urea Nitrogen 12 mg/dL (7-17); Calcium 9.4 mg/dL (8.4-10.2); Carbon Dioxide 22 mmol/L (22-30); Chloride 109 mmol/L (98-107); Glucose 96 mg/dL (74-99); Potassium 3.5 mmol/L (3.5-5.1); Sodium 139 mmol/L (137-145); Total Bilirubin 0.4 mg/dL (0.2-1.3); Total Protein 6.5 g/dL (6.3-8.2)
[2017-11-26] MEDS ORDERED: ALBUTEROL NEBULIZED 2.5 MG/3 ML INHALATION STA ×2 (01:26→02:53)
[2017-11-26 01:29] LABS: D-Dimer <0.17 mg/L FEU (<0.60); INR 1.1 (<1.2); Partial Thromboplastin Time 23.3 sec (22.0-30.0); Prothrombin Time 10.3 sec (9.0-12.0)
[2017-11-26 01:31] LABS: Creatine Kinase 26 U/L (30-135)
[2017-11-26 01:43] LABS: Creatine Kinase MB <0.2 ng/mL (0.0-2.4); Troponin I <0.012 ng/mL (0.000-0.034)
--- NOTE | 2017-11-26 02:29 | XR ---
EXAMINATION TYPE: XR chest 2V DATE OF EXAM: 11/26/2017 COMPARISON: 11/12/2016 HISTORY: Short of breath TECHNIQUE: Frontal and lateral views of the chest are obtained. FINDINGS: Heart and mediastinum are normal. Lungs are clear of consolidation. There is mild pulmonar y hyperinflation. Bony thorax is intact. IMPRESSION: There is probably some COPD. No acute lung disease. No change.
[2017-11-26] MEDS ORDERED: predniSONE 20 MG TAB PO STA (02:53)
[2017-11-26 03:10] LABS: Appearance,Urine Turbid (Clear); Bacteria,Urine Few /hpf; Bilirubin,Urine Negative (Negative); Blood,Urine Negative (Negative); Color,Urine Yellow; Glucose,Urine (UA) Negative (Negative); Ketones,Urine Negative (Negative); Leukocyte Esterase,Urine Trace (Negative); Mucus,Urine Many /hpf; Nitrite,Urine Negative (Negative); PH, Urine 5.5 (5.0-8.0); Protein,Urine Trace (Negative); Specific Gravity,Urine 1.023 (1.001-1.035); Squamous Epithelial Cell,Urine 7 /hpf (0-4); Urobilinogen,Urine <2.0 mg/dL (<2.0); WBC,Urine 8 /hpf (0-5)
[2017-11-26 03:20] VITALS: BP 120/72; PULSE 95
--- NOTE | 2017-12-04 08:20 | ED ---
SOB HPI - General Chief Complaint: Shortness of Breath Stated Complaint: Shortness of Breath Time Seen by Provider: 11/25/17 23:26 Source: patient Mode of arrival: wheelchair Limitations: no limitations - History of Present Illness Initial Comments: This patient is 37-year-old woman who presents for cough, rib pain with coughing , and shortness of breath as well as some upper respiratory symptoms that are been going on for nearly 2 days now. MD Complaint: shortness of breath, cough, chest pain Onset/Timin -: days(s) Quality: aching Consistency: constant Improves With: nothing Worsens With: coughing Context: recent URI - Related Data Home Medications Medication Instructions Recorded Confirmed Albuterol Inhaler [Ventolin Hfa 2 puff INHALATION RT-Q6H PRN 11/30/14 11/25/17 Inhaler] Budesonide/Formoterol Fumarate 2 puff INHALATION RT-BID 06/09/15 11/25/17 [Symbicort 160-4.5 Mcg Inhaler] Albuterol Nebulized [Ventolin 2.5 mg INHALATION RT-Q8H PRN 11/12/16 11/25/17 Nebulized] Cholecalciferol [Vitamin D3] 1,000 unit PO DAILY 05/11/17 11/25/17 diphenhydrAMINE HCL [Benadryl] 50 mg PO HS 05/11/17 11/25/17 Previous Rx's Medication Instructions Recorded Montelukast [Singulair] 10 mg PO HS #30 tab 07/11/14 Allergies Allergy/AdvReac Type Severity Reaction Status Date / Time nitrofurantoin Allergy Swelling Verified 11/25/17 23:26 [From Macrobid] codeine AdvReac Vomiting Verified 11/25/17 23:26 Review of Systems ROS Statement: Those systems with pertinent positive or pertinent negative responses have been documented in the HPI. ROS Other: All systems not noted in ROS Statement are negative. Constitutional: Reports: chills. Denies: fever ENT: Reports: congestion. Denies: throat pain Respiratory: Reports: cough, dyspnea, wheezes Cardiovascular: Denies: chest pain, palpitations, edema, syncope Gastrointestinal: Denies: abdominal pain, nausea, vomiting Genitourinary: Denies: dysuria, hematuria Musculoskeletal: Denies: back pain Skin: Denies: rash Neurological: Denies: headache, weakness Past Medical History Past Medical History: Asthma, COPD Additional Past Medical History / Comment(s): bronchitis History of Any Multi-Drug Resistant Organisms: MRSA Date of last positivie culture/infection: 2010 MDRO Source:: index finger on right hand Past Surgical History: No Surgical Hx Reported Additional Past Surgical History / Comment(s): tracheotomy, cysts to wrist removed Past Anesthesia/Blood Transfusion Reactions: No Reported Reaction Past Psychological History: Anxiety, Bipolar, Depression Smoking Status: Current every day smoker Past Alcohol Use History: None Reported Past Drug Use History: Marijuana - Past Family History Mother Family Medical History: Cancer Additional Family Medical History / Comment(s): Breast and brain CA, Uncle Pancreatic General Exam Limitations: no limitations General appearance: alert, in no apparent distress Head exam: Present: atraumatic, normocephalic Eye exam: Present: normal appearance. Absent: scleral icterus, conjunctival injection ENT exam: Present: normal oropharynx Neck exam: Present: normal inspection, full ROM Respiratory exam: Present: wheezes, chest wall tenderness. Absent: normal lung sounds bilaterally, respiratory distress, rales, rhonchi, stridor Cardiovascular Exam: Present: regular rate, normal rhythm, normal heart sounds. Absent: systolic murmur, diastolic murmur, rubs, gallop GI/Abdominal exam: Present: soft. Absent: distended, tenderness, guarding, rebound, rigid, mass Extremities exam: Present: normal inspection, normal capillary refill. Absent: pedal edema, calf tenderness Back exam: Present: normal inspection. Absent: CVA tenderness (R), CVA tenderness (L) Neurological exam: Present: alert Skin exam: Present: warm, dry, intact, normal color. Absent: rash Course Vital Signs 11/25/17 11/25/17 11/25/17 22:43 23:45 23:47 Temperature 98.3 F Pulse Rate 93 90 Respiratory 18 16 16 Rate Blood Pressure 127/81 106/65 O2 Sat by Pulse 97 96 Oximetry 11/26/17 11/26/17 11/26/17 01:21 01:28 01:29 Temperature Pulse Rate 88 85 83 Respiratory Rate Blood Pressure O2 Sat by Pulse Oximetry 11/26/17 11/26/17 11/26/17 01:37 03:07 03:17 Temperature Pulse Rate 83 80 84 Respiratory Rate Blood Pressure O2 Sat by Pulse Oximetry 11/26/17 03:19 Temperature Pulse Rate 95 Respiratory 16 Rate Blood Pressure 120/72 O2 Sat by Pulse 97 Oximetry Medical Decision Making - Medical Decision Making Patient is 37-year-old woman presenting with cough, wheezing, shortness of breath. History and physical are consistent with acute bronchitis. Patient did receive multiple treatments and then she requests to be discharged on seeing another patient. The patient did not want to wait until was available, however she had improved and was - Lab Data Result diagrams: 11/26/17 01:02 11/26/17 01:02 Lab Results 11/26/17 11/26/17 11/26/17 Range/Units 01:02 01:02 01:02 WBC 7.4 (3.8-10.6) k/uL RBC 4.60 (3.80-5.40) m/uL Hgb 14.0 (11.4-16.0) gm/dL Hct 40.1 (34.0-46.0) % MCV 87.2 (80.0-100.0) fL MCH 30.4 (25.0-35.0) pg MCHC 34.9 (31.0-37.0) g/dL RDW 13.2 (11.5-15.5) % Plt Count 270 (150-450) k/uL Neutrophils % 45 % Lymphocytes % 45 % Monocytes % 5 % Eosinophils % 3 % Basophils % 1 % Neutrophils # 3.3 (1.3-7.7) k/uL Lymphocytes # 3.3 (1.0-4.8) k/uL Monocytes # 0.3 (0-1.0) k/uL Eosinophils # 0.2 (0-0.7) k/uL Basophils # 0.0 (0-0.2) k/uL PT (9.0-12.0) sec INR (<1.2) APTT (22.0-30.0) sec D-Dimer (<0.60) mg/L FEU Sodium 139 (137-145) mmol/L Potassium 3.5 (3.5-5.1) mmol/L Chloride 109 H (98-107) mmol/L Carbon Dioxide 22 (22-30) mmol/L Anion Gap 8 mmol/L BUN 12 (7-17) mg/dL Creatinine 0.50 L (0.52-1.04) mg/dL Est GFR (CKD-EPI)AfAm >90 (>60 ml/min/1.73 sqM) Est GFR (CKD-EPI)NonAf >90 (>60 ml/min/1.73 sqM) Glucose 96 (74-99) mg/dL Calcium 9.4 (8.4-10.2) mg/dL Magnesium 2.0 (1.6-2.3) mg/dL Total Bilirubin 0.4 (0.2-1.3) mg/dL AST 21 (14-36) U/L ALT 40 (9-52) U/L Alkaline Phosphatase 73 (38-126) U/L Total Creatine Kinase 26 L (30-135) U/L CK-MB (CK-2) <0.2 (0.0-2.4) ng/mL CK-MB (CK-2) Rel Index Troponin I <0.012 (0.000-0.034) ng/mL Total Protein 6.5 (6.3-8.2) g/dL Albumin 3.9 (3.5-5.0) g/dL Urine Color Urine Appearance (Clear) Urine pH (5.0-8.0) Ur Specific [place] (1.001-1.035) Urine Protein (Negative) Urine Glucose (UA) (Negative) Urine Ketones (Negative) Urine Blood (Negative) Urine Nitrite (Negative) Urine Bilirubin (Negative) Urine Urobilinogen (<2.0) mg/dL Ur Leukocyte Esterase (Negative) Urine WBC (0-5) /hpf Ur Squamous Epith Cells (0-4) /hpf Urine Bacteria (None) /hpf Urine Mucus (None) /hpf Urine HCG, Qual (Not Detectd) 11/26/17 11/26/17 11/26/17 Range/Units 01:02 02:48 02:48 WBC (3.8-10.6) k/uL RBC (3.80-5.40) m/uL Hgb (11.4-16.0) gm/dL Hct (34.0-46.0) % MCV (80.0-100.0) fL MCH (25.0-35.0) pg MCHC (31.0-37.0) g/dL RDW (11.5-15.5) % Plt Count (150-450) k/uL Neutrophils % % Lymphocytes % % Monocytes % % Eosinophils % % Basophils % % Neutrophils # (1.3-7.7) k/uL Lymphocytes # (1.0-4.8) k/uL Monocytes # (0-1.0) k/uL Eosinophils # (0-0.7) k/uL Basophils # (0-0.2) k/uL PT 10.3 (9.0-12.0) sec INR 1.1 (<1.2) APTT 23.3 (22.0-30.0) sec D-Dimer <0.17 (<0.60) mg/L FEU Sodium (137-145) mmol/L Potassium (3.5-5.1) mmol/L Chloride (98-107) mmol/L Carbon Dioxide (22-30) mmol/L Anion Gap mmol/L BUN (7-17) mg/dL Creatinine (0.52-1.04) mg/dL Est GFR (CKD-EPI)AfAm (>60 ml/min/1.73 sqM) Est GFR (CKD-EPI)NonAf (>60 ml/min/1.73 sqM) Glucose (74-99) mg/dL Calcium (8.4-10.2) mg/dL Magnesium (1.6-2.3) mg/dL Total Bilirubin (0.2-1.3) mg/dL AST (14-36) U/L ALT (9-52) U/L Alkaline Phosphatase (38-126) U/L Total Creatine Kinase (30-135) U/L CK-MB (CK-2) (0.0-2.4) ng/mL CK-MB (CK-2) Rel Index Troponin I (0.000-0.034) ng/mL Total Protein (6.3-8.2) g/dL Albumin (3.5-5.0) g/dL Urine Color Yellow Urine Appearance Turbid H (Clear) Urine pH 5.5 (5.0-8.0) Ur Specific [place] 1.023 (1.001-1.035) Urine Protein Trace H (Negative) Urine Glucose (UA) Negative (Negative) Urine Ketones Negative (Negative) Urine Blood Negative (Negative) Urine Nitrite Negative (Negative) Urine Bilirubin Negative (Negative) Urine Urobilinogen <2.0 (<2.0) mg/dL Ur Leukocyte Esterase Trace H (Negative) Urine WBC 8 H (0-5) /hpf Ur Squamous Epith Cells 7 H (0-4) /hpf Urine Bacteria Few H (None) /hpf Urine Mucus Many H (None) /hpf Urine HCG, Qual Not Detected (Not Detectd) Disposition Clinical Impression: Acute asthma exacerbation, Bronchitis Disposition: Left Against Medical Advice Condition: Fair Is patient prescribed a controlled substance at d/c from ED?: No Referrals: Stevenson Dunlap DO [Primary Care Provider] - 1-2 days
== END 2017-11-26 03:30 | disposition left against medical advice (07) ==
LOC: EC 22:38
DX: J45.901 Unspecified asthma with (acute) exacerbation (principal); F17.200 Nicotine dependence, unspecified, uncomplicated; Z88.1 Allergy status to other antibiotic agents; Z88.5 Allergy status to narcotic agent; Z79.51 Long term (current) use of inhaled steroids; Z79.899 Other long term (current) drug therapy; Z86.14 Personal history of Methicillin resistant Staphylococcus aureus infection; Z93.0 Tracheostomy status
CPT/HCPCS: 36415; 94640 ×2; 93005; 85379; 80053; 82550; 82553; 83735; 84484; 85025; 85610; 85730; 81001; 81025; 71046; 99285; 96360; J7512

== ENCOUNTER 2018-03-12 19:53 | Emergency (ER) | payer OTHER ==
[2018-03-12] MEDS ORDERED: methylPREDNISolone SOD SUCCI 125 MG/2 ML VIAL IV STA (20:11)
[2018-03-12] MEDS ORDERED: IPRATROPIUM 0.5 MG/2.5 ML NEBU INHALATION STA (20:11)
[2018-03-12] MEDS ORDERED: ALBUTEROL NEBULIZED 2.5 MG/3 ML INHALATION STA (20:11)
--- NOTE | 2018-03-12 20:21 | ED ---
General Adult HPI - General Chief complaint: Upper Respiratory Infection Stated complaint: Cough, chest tightness, SOB Time Seen by Provider: 03/12/18 20:05 Source: patient Mode of arrival: ambulatory Limitations: no limitations - History of Present Illness Initial comments: 38-year-old female patient presents to the emergency department today for evaluation of shortness of breath and wheezing. Patient states that she has a history of COPD and asthma. States that she has had to have emergent tracheostomy in the past. Patient states that for the last 2-3 days she has had increased cough with sputum production. States that today she has been very short of breath has felt her heart racing. Patient states that she does feel chest tightness. States that she has done 3 breathing treatments at home prior to arrival, last one was 45 minutes ago. States she is not currently taking any steroids. She denies any fevers or chills. Denies any sweats, nausea, or vomiting. Patient denies any recent rash, abdominal pain, diarrhea, constipation, back pain, numbness, tingling, dizziness, weakness, hematuria, dysuria, urinary urgency, urinary frequency, headache, visual changes, or any other complaints. - Related Data Home Medications Medication Instructions Recorded Confirmed Albuterol Inhaler [Ventolin Hfa 2 puff INHALATION RT-Q4H PRN 11/30/14 03/12/18 Inhaler] Budesonide/Formoterol Fumarate 2 puff INHALATION RT-DAILY 06/09/15 03/12/18 [Symbicort 160-4.5 Mcg Inhaler] ALPRAZolam [Xanax] 1 mg PO BID PRN 03/12/18 03/12/18 Escitalopram [Lexapro] 20 mg PO HS 03/12/18 03/12/18 traZODone HCL 50 mg PO HS 03/12/18 03/12/18 Previous Rx's Medication Instructions Recorded Montelukast [Singulair] 10 mg PO HS #30 tab 07/11/14 Azithromycin [Zithromax Z-pack] 0 mg PO DIRECTED #6 tab 03/12/18 guaiFENesin-DM 600/30MG [Mucinex 1 each PO Q12HR #10 tab.er.12h 03/12/18 Dm] predniSONE 50 mg PO DAILY #5 tablet 03/12/18 Allergies Allergy/AdvReac Type Severity Reaction Status Date / Time nitrofurantoin Allergy Swelling Verified 03/12/18 20:51 [From Macrobid] codeine AdvReac Vomiting Verified 03/12/18 20:51 Review of Systems ROS Statement: Those systems with pertinent positive or pertinent negative responses have been documented in the HPI. ROS Other: All systems not noted in ROS Statement are negative. Past Medical History Past Medical History: Asthma, COPD Additional Past Medical History / Comment(s): bronchitis History of Any Multi-Drug Resistant Organisms: MRSA Date of last positivie culture/infection: 2010 MDRO Source:: index finger on right hand Past Surgical History: No Surgical Hx Reported Additional Past Surgical History / Comment(s): tracheotomy, cysts to wrist removed Past Anesthesia/Blood Transfusion Reactions: No Reported Reaction Past Psychological History: Anxiety, Bipolar, Depression Smoking Status: Current every day smoker Past Alcohol Use History: None Reported Past Drug Use History: Marijuana - Past Family History Mother Family Medical History: Cancer Additional Family Medical History / Comment(s): Breast and brain CA, Uncle Pancreatic General Exam Limitations: no limitations General appearance: alert, in no apparent distress, other (This is a well- developed, well-nourished adult female patient in mild respiratory distress. Vital signs upon presentation are temperature 97.8F, pulse 111, respirations 22 , blood pressure 137/94, pulse ox 97% on room air.) Eye exam: Present: normal appearance, PERRL, EOMI. Absent: scleral icterus, conjunctival injection, periorbital swelling ENT exam: Present: normal exam, normal oropharynx, mucous membranes moist Respiratory exam: Present: wheezes (There are coarse expiratory wheezes to all posterior lung briceno), other (Tachypnea). Absent: normal lung sounds bilaterally, respiratory distress, rales, rhonchi, stridor Cardiovascular Exam: Present: regular rate, normal rhythm, normal heart sounds. Absent: systolic murmur, diastolic murmur, rubs, gallop, clicks GI/Abdominal exam: Present: soft, normal bowel sounds. Absent: distended, tenderness, guarding, rebound, rigid Neurological exam: Present: alert, oriented X3, CN II-XII intact Psychiatric exam: Present: normal affect, normal mood Skin exam: Present: warm, dry, intact, normal color. Absent: rash Course Vital Signs 03/12/18 03/12/18 03/12/18 19:55 20:48 21:07 Temperature 97.8 F Pulse Rate 111 H 84 80 Respiratory 22 Rate Blood Pressure 137/94 O2 Sat by Pulse 97 Oximetry 03/12/18 03/12/18 21:39 22:36 Temperature 98.0 F Pulse Rate 78 100 Respiratory 18 Rate Blood Pressure 143/88 O2 Sat by Pulse 96 Oximetry EKG Findings - EKG Comments: EKG Findings:: EKG obtained at 2025 shows normal sinus rhythm with a ventricular rate of 91, NE interval 152, QRS duration 72, QT 370, QTC 455. No evidence of ST elevation or depression. Medical Decision Making - Medical Decision Making 38-year-old female patient with past medical history significant for asthma and COPD presents to the emergency department today for evaluation of shortness of breath and cough. Physical examination did reveal coarse expiratory wheezing throughout posterior lung briceno. Oxygen saturation was 97% on room air upon arrival. Labs reviewed and are unremarkable. Chest x-ray showed no acute cardiopulmonary process. Patient was given Solu-Medrol, a 7.5 mg albuterol breathing treatment with 1 mg of DuoNeb. Upon reevaluation patient states she is feeling much better. Symptoms are consistent with acute bronchitis and COPD exacerbation. We'll give prescription for azithromycin, prednisone, and Mucinex DM for cough. She is instructed to follow-up with her primary care physician for recheck as soon as possible. Return parameters are discussed in detail. She is discharged in stable condition. She verbalizes understanding and agrees with this plan. - Lab Data Result diagrams: 03/12/18 20:55 03/12/18 20:55 Lab Results 03/12/18 03/12/18 03/12/18 Range/Units 20:55 20:55 20:55 WBC 10.2 (3.8-10.6) k/uL RBC 5.00 (3.80-5.40) m/uL Hgb 14.6 (11.4-16.0) gm/dL Hct 43.9 (34.0-46.0) % MCV 87.8 (80.0-100.0) fL MCH 29.3 (25.0-35.0) pg MCHC 33.4 (31.0-37.0) g/dL RDW 13.5 (11.5-15.5) % Plt Count 308 (150-450) k/uL Neutrophils % 52 % Lymphocytes % 31 % Monocytes % 4 % Eosinophils % 11 % Basophils % 1 % Neutrophils # 5.3 (1.3-7.7) k/uL Lymphocytes # 3.2 (1.0-4.8) k/uL Monocytes # 0.4 (0-1.0) k/uL Eosinophils # 1.1 H (0-0.7) k/uL Basophils # 0.1 (0-0.2) k/uL PT (9.0-12.0) sec INR (<1.2) APTT (22.0-30.0) sec Sodium 140 (137-145) mmol/L Potassium 3.8 (3.5-5.1) mmol/L Chloride 111 H (98-107) mmol/L Carbon Dioxide 19 L (22-30) mmol/L Anion Gap 10 mmol/L BUN 8 (7-17) mg/dL Creatinine 0.52 (0.52-1.04) mg/dL Est GFR (CKD-EPI)AfAm >90 (>60 ml/min/1.73 sqM) Est GFR (CKD-EPI)NonAf >90 (>60 ml/min/1.73 sqM) Glucose 92 (74-99) mg/dL Calcium 9.8 (8.4-10.2) mg/dL Magnesium 2.0 (1.6-2.3) mg/dL Total Bilirubin 0.5 (0.2-1.3) mg/dL AST 14 (14-36) U/L ALT 18 (9-52) U/L Alkaline Phosphatase 94 (38-126) U/L Total Creatine Kinase 41 (30-135) U/L CK-MB (CK-2) <0.2 (0.0-2.4) ng/mL CK-MB (CK-2) Rel Index Troponin I <0.012 (0.000-0.034) ng/mL Total Protein 7.2 (6.3-8.2) g/dL Albumin 4.1 (3.5-5.0) g/dL TSH 4.120 (0.465-4.680) mIU/L 18 Range/Units 20:55 WBC (3.8-10.6) k/uL RBC (3.80-5.40) m/uL Hgb (11.4-16.0) gm/dL Hct (34.0-46.0) % MCV (80.0-100.0) fL MCH (25.0-35.0) pg MCHC (31.0-37.0) g/dL RDW (11.5-15.5) % Plt Count (150-450) k/uL Neutrophils % % Lymphocytes % % Monocytes % % Eosinophils % % Basophils % % Neutrophils # (1.3-7.7) k/uL Lymphocytes # (1.0-4.8) k/uL Monocytes # (0-1.0) k/uL Eosinophils # (0-0.7) k/uL Basophils # (0-0.2) k/uL PT 10.3 (9.0-12.0) sec INR 1.0 (<1.2) APTT 24.6 (22.0-30.0) sec Sodium (137-145) mmol/L Potassium (3.5-5.1) mmol/L Chloride (98-107) mmol/L Carbon Dioxide (22-30) mmol/L Anion Gap mmol/L BUN (7-17) mg/dL Creatinine (0.52-1.04) mg/dL Est GFR (CKD-EPI)AfAm (>60 ml/min/1.73 sqM) Est GFR (CKD-EPI)NonAf (>60 ml/min/1.73 sqM) Glucose (74-99) mg/dL Calcium (8.4-10.2) mg/dL Magnesium (1.6-2.3) mg/dL Total Bilirubin (0.2-1.3) mg/dL AST (14-36) U/L ALT (9-52) U/L Alkaline Phosphatase (38-126) U/L Total Creatine Kinase (30-135) U/L CK-MB (CK-2) (0.0-2.4) ng/mL CK-MB (CK-2) Rel Index Troponin I (0.000-0.034) ng/mL Total Protein (6.3-8.2) g/dL Albumin (3.5-5.0) g/dL TSH (0.465-4.680) mIU/L - Radiology Data Radiology results: report reviewed, image reviewed Two-view x-ray of the chest is obtained. Report was reviewed in its entirety. Impression by Dr. Antonio shows no acute cardiopulmonary findings. Disposition Clinical Impression: Acute bronchitis, COPD exacerbation Disposition: HOME SELF-CARE Condition: Good Instructions: Acute Bronchitis (ED), COPD (Chronic Obstructive Pulmonary Disease) (ED) Additional Instructions: Increase fluids. Rest. Do breathing treatments every 4 hours. Complete antibiotic and steroid prescription and full. Return immediately for any new, worsening, or concerning symptoms. Prescriptions: Azithromycin [Zithromax Z-pack] 0 mg PO DIRECTED #6 tab guaiFENesin-DM 600/30MG [Mucinex Dm] 1 each PO Q12HR #10 tab.er.12h predniSONE 50 mg PO DAILY #5 tablet Is patient prescribed a controlled substance at d/c from ED?: No Referrals: Stevenson Dunlap DO [Primary Care Provider] - 1-2 days Time of Disposition: 22:29
[2018-03-12 21:20] LABS: Basophils # (A) 0.1 k/uL (0-0.2); Basophils % (A) 1 %; Eosinophils # (A) 1.1 k/uL (0-0.7); Eosinophils % (A) 11 %; HCT 43.9 % (34.0-46.0); HGB 14.6 gm/dL (11.4-16.0); Lymphocytes # (A) 3.2 k/uL (1.0-4.8); Lymphocytes % (A) 31 %; MCH 29.3 pg (25.0-35.0); MCHC 33.4 g/dL (31.0-37.0); MCV 87.8 fL (80.0-100.0); Mean Platelet Volume 6.8; Monocytes # (A) 0.4 k/uL (0-1.0); Monocytes % (A) 4 %; Neutrophils # (A) 5.3 k/uL (1.3-7.7); Neutrophils % (A) 52 %; Platelet Count 308 k/uL (150-450); RDW 13.5 % (11.5-15.5); WBC 10.2 k/uL (3.8-10.6)
[2018-03-12 21:22] LABS: Partial Thromboplastin Time 24.6 sec (22.0-30.0); Prothrombin Time 10.3 sec (9.0-12.0)
[2018-03-12 21:25] LABS: ALT 18 U/L (9-52); AST 14 U/L (14-36); Albumin 4.1 g/dL (3.5-5.0); Alkaline Phosphatase 94 U/L (38-126); Anion Gap 10 mmol/L; Blood Urea Nitrogen 8 mg/dL (7-17); Calcium 9.8 mg/dL (8.4-10.2); Carbon Dioxide 19 mmol/L (22-30); Chloride 111 mmol/L (98-107); Glucose 92 mg/dL (74-99); Potassium 3.8 mmol/L (3.5-5.1); Sodium 140 mmol/L (137-145); Total Bilirubin 0.5 mg/dL (0.2-1.3); Total Protein 7.2 g/dL (6.3-8.2)
[2018-03-12 21:27] LABS: Creatine Kinase 41 U/L (30-135)
[2018-03-12 21:40] LABS: Creatine Kinase MB <0.2 ng/mL (0.0-2.4); Troponin I <0.012 ng/mL (0.000-0.034)
[2018-03-12 22:37] VITALS: BP 143/88; PULSE 100; RESP 18; TEMP 98
--- NOTE | 2018-03-12 23:33 | XR ---
EXAM: XR Chest, 2 Views CLINICAL HISTORY: ITS.REASON XR Reason: Chest Pain TECHNIQUE: Frontal and lateral views of the chest. COMPARISON: No relevant prior studies available. FINDINGS: Lungs: Unremarkable. No consolidation. Pleural space: Unremarkable. No pneumothorax. Heart: Unremarkable. No cardiomegaly. Mediastinum: Unremarkable. Bones/joints: Unremarkable. IMPRESSION: No acute cardiopulmonary findings..
== END 2018-03-12 22:42 | disposition home or self-care (01) ==
LOC: EC 19:53
DX: J44.0 Chronic obstructive pulmonary disease with (acute) lower respiratory infection (principal); J44.1 Chronic obstructive pulmonary disease with (acute) exacerbation; J20.9 Acute bronchitis, unspecified; F31.9 Bipolar disorder, unspecified; F41.9 Anxiety disorder, unspecified; F17.200 Nicotine dependence, unspecified, uncomplicated; Z88.1 Allergy status to other antibiotic agents; Z88.5 Allergy status to narcotic agent; Z79.899 Other long term (current) drug therapy; Z86.14 Personal history of Methicillin resistant Staphylococcus aureus infection; Z93.0 Tracheostomy status
CPT/HCPCS: 36415; 94644; 93005; 80053; 84443; 82550; 82553; 83735; 84484; 85025; 85610; 85730; 71046; 99285; 96374; J2930

== ENCOUNTER 2018-08-12 19:59 | Inpatient (IN) | payer OTHER ==
[2018-08-12] MEDS ORDERED: IPRATROPIUM 0.5 MG/2.5 ML NEBU INHALATION STA (21:27)
[2018-08-12] MEDS ORDERED: SODIUM CHLORIDE 0.9% 1,000 ML IV STA ×2 (21:27→23:13)
[2018-08-12] MEDS ORDERED: ALBUTEROL NEBULIZED 2.5 MG/3 ML INHALATION STA (21:27)
[2018-08-12] MEDS ORDERED: methylPREDNISolone SOD SUCCI 125 MG/2 ML VIAL IV STA (21:27)
[2018-08-12] MEDS ORDERED: AZITHROMYCIN 500 MG in SODIUM CHLORIDE 0.9% 250 ML IVPB STA (21:27)
[2018-08-12] MEDS ORDERED: KETOROLAC 30 MG/ML 1 ML VIAL IVP STA (21:28)
--- NOTE | 2018-08-12 21:37 | ED ---
General Adult HPI - General Chief complaint: Shortness of Breath Stated complaint: Diff Breathing Time Seen by Provider: 08/12/18 21:22 Source: patient, family, RN notes reviewed, old records reviewed Mode of arrival: ambulatory Limitations: no limitations - History of Present Illness Initial comments: 38-year-old female history of COPD, current smoker presents for evaluation of cough and dyspnea. Patient has had progressive dyspnea over the past 3 days. She is complaining of generalized pain including pain worse with cough. She's had subjective fever and chills. She reports productive cough with white sputum. Denies central radiating chest pain. Denies abdominal pain or vomiting. Denies lower extremity pain or swelling. - Related Data Home Medications Medication Instructions Recorded Confirmed Albuterol Inhaler [Ventolin Hfa 2 puff INHALATION RT-Q4H PRN 11/30/14 03/12/18 Inhaler] Budesonide/Formoterol Fumarate 2 puff INHALATION RT-DAILY 06/09/15 03/12/18 [Symbicort 160-4.5 Mcg Inhaler] ALPRAZolam [Xanax] 1 mg PO BID PRN 03/12/18 03/12/18 Escitalopram [Lexapro] 20 mg PO HS 03/12/18 03/12/18 traZODone HCL 50 mg PO HS 03/12/18 03/12/18 Previous Rx's Medication Instructions Recorded Montelukast [Singulair] 10 mg PO HS #30 tab 07/11/14 Azithromycin [Zithromax Z-pack] 0 mg PO DIRECTED #6 tab 03/12/18 guaiFENesin-DM 600/30MG [Mucinex 1 each PO Q12HR #10 tab.er.12h 03/12/18 Dm] predniSONE 50 mg PO DAILY #5 tablet 03/12/18 Allergies Allergy/AdvReac Type Severity Reaction Status Date / Time nitrofurantoin Allergy Swelling Verified 08/12/18 22:00 [From Macrobid] codeine AdvReac Vomiting Verified 08/12/18 22:00 Review of Systems ROS Statement: Those systems with pertinent positive or pertinent negative responses have been documented in the HPI. ROS Other: All systems not noted in ROS Statement are negative. Past Medical History Past Medical History: Asthma, COPD Additional Past Medical History / Comment(s): bronchitis History of Any Multi-Drug Resistant Organisms: MRSA Date of last positivie culture/infection: 2010 MDRO Source:: index finger on right hand Past Surgical History: No Surgical Hx Reported Additional Past Surgical History / Comment(s): tracheotomy, cysts to wrist removed Past Anesthesia/Blood Transfusion Reactions: No Reported Reaction Past Psychological History: Anxiety, Bipolar, Depression Smoking Status: Current every day smoker Past Alcohol Use History: None Reported Past Drug Use History: Marijuana - Past Family History Mother Family Medical History: Cancer Additional Family Medical History / Comment(s): Breast and brain CA, Uncle Pancreatic General Exam Limitations: no limitations General appearance: alert, in no apparent distress Head exam: Present: atraumatic, normocephalic Eye exam: Present: normal appearance, PERRL ENT exam: Present: mucous membranes dry Neck exam: Present: normal inspection. Absent: tenderness, meningismus Respiratory exam: Present: respiratory distress, wheezes, rhonchi, decreased breath sounds, prolonged expiratory Cardiovascular Exam: Present: normal rhythm, tachycardia GI/Abdominal exam: Present: soft. Absent: distended, tenderness, guarding, rebound Extremities exam: Present: normal inspection, normal capillary refill. Absent: pedal edema Neurological exam: Present: alert, oriented X3 Psychiatric exam: Present: normal affect, normal mood Skin exam: Present: warm, dry, intact. Absent: cyanosis, diaphoretic Course Vital Signs 08/12/18 08/12/18 08/12/18 20:31 21:27 22:11 Temperature 100.7 F H Pulse Rate 122 H 120 H 139 H Respiratory 24 Rate Blood Pressure 143/96 O2 Sat by Pulse 94 L Oximetry 08/12/18 22:17 Temperature Pulse Rate 95 Respiratory 22 Rate Blood Pressure 110/76 O2 Sat by Pulse 95 Oximetry EKG Findings - EKG Comments: EKG Findings:: Sinus tachycardia, PVC, rate of 135, OH interval 134, QRS duration 66, QTC 438, right atrial enlargement. Medical Decision Making - Medical Decision Making 38-year-old female history COPD current smoker presenting with cough and dyspnea. Patient is in moderate to severe respiratory distress with reduced air entry and expiratory wheeze, rhonchi bilaterally. Treatment is initiated emergency department. Chest x-ray negative for focal pneumonia although I suspect this patient is developing pneumonia with fever, white count of 20. Lactic acid normal. Electrolytes normal. After 3 treatments in the emergency department she has persistent wheezing and mild respiratory distress. Will be admitted for treatment of COPD exacerbation. - Lab Data Result diagrams: 08/12/18 21:05 08/12/18 21:05 Lab Results 08/12/18 08/12/18 08/12/18 Range/Units 21:05 21:05 21:05 WBC 20.1 H (3.8-10.6) k/uL RBC 5.27 (3.80-5.40) m/uL Hgb 15.7 (11.4-16.0) gm/dL Hct 47.0 H (34.0-46.0) % MCV 89.2 (80.0-100.0) fL MCH 29.8 (25.0-35.0) pg MCHC 33.4 (31.0-37.0) g/dL RDW 12.9 (11.5-15.5) % Plt Count 236 (150-450) k/uL Neutrophils % 85 % Lymphocytes % 9 % Monocytes % 4 % Eosinophils % 1 % Basophils % 0 % Neutrophils # 17.0 H (1.3-7.7) k/uL Lymphocytes # 1.9 (1.0-4.8) k/uL Monocytes # 0.7 (0-1.0) k/uL Eosinophils # 0.3 (0-0.7) k/uL Basophils # 0.0 (0-0.2) k/uL Sodium 137 (137-145) mmol/L Potassium 3.8 (3.5-5.1) mmol/L Chloride 107 (98-107) mmol/L Carbon Dioxide 19 L (22-30) mmol/L Anion Gap 11 mmol/L BUN 6 L (7-17) mg/dL Creatinine 0.50 L (0.52-1.04) mg/dL Est GFR (CKD-EPI)AfAm >90 (>60 ml/min/1.73 sqM) Est GFR (CKD-EPI)NonAf >90 (>60 ml/min/1.73 sqM) Glucose 100 H (74-99) mg/dL Plasma Lactic Acid Adelfo (0.7-2.0) mmol/L Calcium 9.5 (8.4-10.2) mg/dL Magnesium 1.8 (1.6-2.3) mg/dL Total Bilirubin 0.6 (0.2-1.3) mg/dL AST 15 (14-36) U/L ALT 12 (9-52) U/L Alkaline Phosphatase 102 (38-126) U/L Troponin I <0.012 (0.000-0.034) ng/mL Total Protein 7.0 (6.3-8.2) g/dL Albumin 4.1 (3.5-5.0) g/dL 08/12/18 Range/Units 22:00 WBC (3.8-10.6) k/uL RBC (3.80-5.40) m/uL Hgb (11.4-16.0) gm/dL Hct (34.0-46.0) % MCV (80.0-100.0) fL MCH (25.0-35.0) pg MCHC (31.0-37.0) g/dL RDW (11.5-15.5) % Plt Count (150-450) k/uL Neutrophils % % Lymphocytes % % Monocytes % % Eosinophils % % Basophils % % Neutrophils # (1.3-7.7) k/uL Lymphocytes # (1.0-4.8) k/uL Monocytes # (0-1.0) k/uL Eosinophils # (0-0.7) k/uL Basophils # (0-0.2) k/uL Sodium (137-145) mmol/L Potassium (3.5-5.1) mmol/L Chloride (98-107) mmol/L Carbon Dioxide (22-30) mmol/L Anion Gap mmol/L BUN (7-17) mg/dL Creatinine (0.52-1.04) mg/dL Est GFR (CKD-EPI)AfAm (>60 ml/min/1.73 sqM) Est GFR (CKD-EPI)NonAf (>60 ml/min/1.73 sqM) Glucose (74-99) mg/dL Plasma Lactic Acid Adelfo 0.9 (0.7-2.0) mmol/L Calcium (8.4-10.2) mg/dL Magnesium (1.6-2.3) mg/dL Total Bilirubin (0.2-1.3) mg/dL AST (14-36) U/L ALT (9-52) U/L Alkaline Phosphatase (38-126) U/L Troponin I (0.000-0.034) ng/mL Total Protein (6.3-8.2) g/dL Albumin (3.5-5.0) g/dL Critical Care Time Critical Care Time: Yes Total Critical Care Time: 35 Disposition Clinical Impression: Acute exacerbation of chronic obstructive airways disease Disposition: ADMITTED IP TO THIS [facility] Condition: Stable Is patient prescribed a controlled substance at d/c from ED?: No Referrals: Stevenson Dunlap DO [Primary Care Provider] - 1-2 days Decision to Admit Reason: Admit from EC Decision Date: 08/12/18 Decision Time: 23:07
[2018-08-12 21:51] LABS: ALT 12 U/L (9-52); AST 15 U/L (14-36); Albumin 4.1 g/dL (3.5-5.0); Alkaline Phosphatase 102 U/L (38-126); Anion Gap 11 mmol/L; Blood Urea Nitrogen 6 mg/dL (7-17); Calcium 9.5 mg/dL (8.4-10.2); Carbon Dioxide 19 mmol/L (22-30); Chloride 107 mmol/L (98-107); Glucose 100 mg/dL (74-99); Magnesium 1.8 mg/dL (1.6-2.3); Potassium 3.8 mmol/L (3.5-5.1); Sodium 137 mmol/L (137-145); Total Bilirubin 0.6 mg/dL (0.2-1.3)
[2018-08-12 22:01] LABS: Basophils % (A) 0 %; Eosinophils # (A) 0.3 k/uL (0-0.7); Eosinophils % (A) 1 %; HGB 15.7 gm/dL (11.4-16.0); Lymphocytes # (A) 1.9 k/uL (1.0-4.8); Lymphocytes % (A) 9 %; MCH 29.8 pg (25.0-35.0); MCHC 33.4 g/dL (31.0-37.0); MCV 89.2 fL (80.0-100.0); Mean Platelet Volume 8.3; Monocytes # (A) 0.7 k/uL (0-1.0); Monocytes % (A) 4 %; Neutrophils % (A) 85 %; Platelet Count 236 k/uL (150-450); RBC 5.27 m/uL (3.80-5.40); RDW 12.9 % (11.5-15.5); WBC 20.1 k/uL (3.8-10.6)
--- NOTE | 2018-08-12 22:37 | XR ---
EXAM: XR Chest, 2 Views CLINICAL HISTORY: Difficulty breathing TECHNIQUE: Frontal and lateral views of the chest. COMPARISON: Chest x-ray dated 03/12/2018 FINDINGS: Lungs: Unremarkable. No consolidation. Pleural space: Unremarkable. No pneumothorax. Heart: Unremarkable. No cardiomegaly. Mediastinum: Unremarkable. Bones/joints: Unremarkable. IMPRESSION: Normal chest x-rays.
[2018-08-12] MEDS ORDERED: HYDROmorphone 1 MG/ML 1 ML SYRINGE IVP STA (23:03)
[2018-08-12] MEDS ORDERED: IPRATROPIUM-ALBUTEROL 3 ML NEB INHALATION PRN (23:04)
[2018-08-12] MEDS ORDERED: SODIUM CHLORIDE 0.9% 1,000 ML IV ONE (23:04)
[2018-08-13] MEDS: methylPREDNISolone SOD SUCCI 125 MG/2 ML VIAL IV SCH ×3 (01:44→12:25)
[2018-08-13] MEDS: SODIUM CHLORIDE 0.9% 1,000 ML IV SCH ×2 (02:13→17:18)
[2018-08-13] MEDS: IPRATROPIUM-ALBUTEROL 3 ML NEB INHALATION SCH ×4 (08:02→20:15)
[2018-08-13 12:01] VITALS: BMI 23.3
[2018-08-13] MEDS ORDERED: ALPRAZolam 1 MG TAB PO PRN (15:41)
[2018-08-13] MEDS ORDERED: ALBUTEROL INHALER 60 PUFF/8 GM INHALER INHALATION PRN (15:41)
[2018-08-13] MEDS ORDERED: ENOXAPARIN 40 MG/0.4 ML SYRINGE SQ SCH (15:45)
[2018-08-13] MEDS ORDERED: ALBUTEROL NEBULIZED 2.5 MG/3 ML INHALATION SCH (16:00)
[2018-08-13] MEDS ORDERED: ACETAMINOPHEN TAB 325 MG TAB PO PRN (20:54)
[2018-08-13] MEDS ORDERED: MONTELUKAST 10 MG TAB PO SCH (21:00)
[2018-08-13] MEDS ORDERED: ESCITALOPRAM 20 MG TAB PO SCH (21:00)
[2018-08-13] MEDS ORDERED: traZODone HCL 50 MG TAB PO SCH (21:00)
[2018-08-13] MEDS: methylPREDNISolone SOD SUCCI 40 MG/ML 1 ML VIAL IV SCH (21:05)
[2018-08-13] MEDS: ACETAMINOPHEN TAB 325 MG TAB PO PRN (21:06)
[2018-08-13 22:06] VITALS: RESP 16; TEMP 97.8
[2018-08-13] MEDS ORDERED: guaiFENesin 600 MG TABLET.ER PO SCH (22:45)
[2018-08-13] MEDS ORDERED: LACTATED RINGERS 1,000 ML IV SCH (22:45)
[2018-08-13] MEDS ORDERED: CEFDINIR 300 MG CAP PO SCH (22:45)
[2018-08-13] MEDS ORDERED: LORATADINE-PSEUDOEPH 5-120 MG 1 EACH TAB.ER.12H PO SCH (22:45)
--- NOTE | 2018-08-13 23:38 | HP ---
HISTORY AND PHYSICAL DATE OF ADMISSION: 08/12/2018 DATE OF SERVICE: 08/13/2018 PRESENTING COMPLAINT: Cough, congested. HISTORY OF PRESENTING COMPLAINT: This is a pleasant 38-year-old patient of Dr. Dunlap who has a longstanding history of COPD and is a smoker. The patient for 3 days was becoming more and more congested, with a cough, bringing up some phlegm that was green in color. Also she has been been wheezing. She has had a fever, though was not able to take her temperature at home; does not have a thermometer. Tired, rundown. Wheezing quite a bit. Feeling tired and exhausted when I saw this patient this morning. Appetite has been okay. Bowel movements have been okay. She has continued to smoke. REVIEW OF SYSTEMS: CONSTITUTIONAL: Weak, tired, febrile. HEENT: Nasal congestion. RESPIRATORY: As above. CARDIOVASCULAR: None. GASTROINTESTINAL: None. GENITOURINARY: None. MUSCULOSKELETAL: None. DERMATOLOGICAL: None. HEMATOLOGICAL: None. LYMPHATICS: None. PSYCHIATRY: Slightly anxious. NEUROLOGICAL: None. PAST MEDICAL HISTORY: 1. COPD. 2. Medical comorbidities due to breathing issues. 3. Infection of index finger on the right hand. PAST SURGICAL HISTORY: 1. Tracheostomy. 2. Cyst on the wrist removed. 3. PEG tube that was removed. PSYCH HISTORY: Bipolar disorder. SOCIAL HISTORY: Lives home with 4 kids. Smokes anywhere from about a pack and a half a day for close to 25 years. Does marijuana about twice a week. No alcohol. FAMILY HISTORY: Lung and brain cancer. Uncle had pancreatic cancer. HOME MEDICATIONS: 1. Vitamin D3 3000 units p.o. daily. 2. Ventolin HFA 2 puffs q.4 p.r.n. 3. Spiriva 1 capsule p.o. daily. 4. Singulair 10 mg at bedtime. 5. Lexapro 20 mg p.o. at bedtime. 6. Symbicort 160/4.5 two puffs daily. 7. Ventolin 2.5 nebulizer q.8. 8. Xanax 1 mg p.o. b.i.d. p.r.n. ALLERGIES: 1. MACROBID. 2. CODEINE. PHYSICAL EXAMINATION: VITAL SIGNS ON PRESENTATION: Temperature 100.7, pulse 122, respiration 24, blood pressure 143/96, pulse ox 94% on room air. GENERAL APPEARANCE: Average built, sitting up. Congested. Tired. EYES: Pupils equal. Conjunctivae normal. HEENT: External appearance of nose and ears normal. Oral cavity normal. NECK: JVD not raised. Mass not palpable. RESPIRATORY: Effort increased. LUNGS: Diminished breath sounds. Accessory muscles are working. Not able to in full sentences. Prolonged expiration and wheezing. CARDIOVASCULAR: First and second sounds normal. No edema. ABDOMEN: Soft, nontender. Liver and spleen not palpable. LYMPHATIC: No lymph node palpable in neck or axillae. PSYCHIATRY: Alert and oriented x3. Mood and affect slightly anxious-appearing. NEUROLOGICAL: Pupils equal. Cranial nerves grossly intact. Power and sensation grossly intact. INVESTIGATIONS: White count 20.1, hemoglobin 15.7, potassium 3.8, BUN 6, creatinine 0.50. Influenza A and B negative. EKG tracing, personally reviewed by me, shows sinus tachycardia, some right atrial enlargement. Chest x-ray film, personally reviewed by me, shows hyperinflation, no obvious infiltrate. Chest is hyperinflated. ASSESSMENT: 1. Acute severe chronic obstructive pulmonary disease exacerbation in a patient who is a smoker. 2. Acute tracheobronchitis causing sepsis, POA. 3. Chronic nicotine dependence. Patient is a cigarette smoker. PLAN: Patient is started on nebulized bronchodilators, IV steroids, Mucinex. We will keep the patient on IV ceftriaxone, also. The patient is getting IV fluids. Other home medications are resumed. Care was discussed with the patient. Smoking cessation counseling: This was done with the patient. The patient was given a nicotine patch. More than 3 minutes was spent on this aspect of the case. MMODL / IJN: [id number] /
[2018-08-14] MEDS: IPRATROPIUM-ALBUTEROL 3 ML NEB INHALATION SCH ×2 (00:29→04:54)
[2018-08-14 05:37] VITALS: BP 115/76; PULSE 96
[2018-08-14] MEDS: methylPREDNISolone SOD SUCCI 40 MG/ML 1 ML VIAL IV SCH (05:38)
[2018-08-14] MEDS: ACETAMINOPHEN TAB 325 MG TAB PO PRN (05:52)
--- NOTE | 2018-08-15 05:16 | DS ---
DISCHARGE SUMMARY DATE OF ADMISSION: 08/12/2018. DATE LEFT AGAINST MEDICAL ADVICE: 08/14/2018. FINAL DIAGNOSES: 1. Acute severe chronic obstructive pulmonary disease exacerbation in a smoker. 2. Acute tracheobronchitis causing sepsis. 3. Chronic nicotine dependence, patient is a cigarette smoker. HOSPITAL COURSE: This patient presented with severe COPD exacerbation with tracheobronchitis causing sepsis. The patient is a smoker. The patient is started on bronchodilators, steroids, IV ceftriaxone. This morning, patient informed the nurse that she had to leave for an urgent matter at home and left AGAINST MEDICAL ADVICE. Copy to Dr. Stevenson Dunlap. MMODL / IJN: [id number] /
== END 2018-08-14 07:40 | disposition left against medical advice (07) | DRG 872 ==
LOC: EC 19:59 → 3NMEDONC 23:04
PROVIDERS: ADMIT Hospitalist; ATTEND Hospitalist
DX: A41.9 Sepsis, unspecified organism (principal); J44.0 Chronic obstructive pulmonary disease with (acute) lower respiratory infection; J44.1 Chronic obstructive pulmonary disease with (acute) exacerbation; E11.9 Type 2 diabetes mellitus without complications; F17.210 Nicotine dependence, cigarettes, uncomplicated; Z71.6 Tobacco abuse counseling; F31.9 Bipolar disorder, unspecified; J20.9 Acute bronchitis, unspecified; Z79.51 Long term (current) use of inhaled steroids; Z79.899 Other long term (current) drug therapy; Z80.0 Family history of malignant neoplasm of digestive organs; Z80.8 Family history of malignant neoplasm of other organs or systems; Z88.1 Allergy status to other antibiotic agents; Z88.5 Allergy status to narcotic agent
CPT/HCPCS: 36415; 71046; 80053; 83605; 83735; 84484; 85025; 87040; 87502; 93005; 94640; 94760; 96365; 96366; 96368; 96375; 99291

== ENCOUNTER 2019-10-14 21:54 | Emergency (ER) | payer OTHER ==
[2019-10-14 22:13] VITALS: RESP 18
[2019-10-14] MEDS ORDERED: KETOROLAC 30 MG/ML 1 ML VIAL IM STA (23:22)
[2019-10-14] MEDS ORDERED: IPRATROPIUM-ALBUTEROL 3 ML NEB INHALATION STA (23:22)
[2019-10-14] MEDS ORDERED: methylPREDNISolone SOD SUCCI 125 MG/2 ML VIAL IM ONE (23:23)
--- NOTE | 2019-10-15 00:18 | XR ---
EXAMINATION TYPE: XR chest 2V DATE OF EXAM: 10/14/2019 COMPARISON: 08/12/2018 HISTORY: Cough TECHNIQUE: FINDINGS: Heart and mediastinum are normal. Lungs are clear. Costophrenic angles are clear. There are no hilar masses. Bony thorax is intact. IMPRESSION: No active cardiopulmonary disease. Normal heart. There is clearing of minimal infiltrate at the left and right lung base compared to old exam.
[2019-10-15] MEDS ORDERED: LIDOCAINE 5% PATCH TOPICAL STA (00:27)
--- NOTE | 2019-10-15 00:29 | ED ---
Back Pain HPI - General Chief Complaint: Shortness of Breath Stated Complaint: Back Pain Time Seen by Provider: 10/14/19 22:39 Source: patient Limitations: no limitations - History of Present Illness Initial Comments: 39-year-old female patient presents to the emergency department today for evaluation of the left upper back pain. Patient states yesterday she was having a coughing fit when she developed a sharp pain that radiates around her shoulder blade. Patient states that the pain worsens whenever she moves the left arm her neck or takes a deep breath. States he has been having coughing today but does have a history of asthma and COPD. She does admit to smoking cigarettes. Patient denies any fever or chills. Denies any sputum production. She denies any abdominal pain, nausea, vomiting, or sweats. Denies any chest pain in the front. She did take a baclofen and a Neurontin at home today which did not help her symptoms. Patient denies any recent rash, diarrhea, constipation, back pain, numbness, tingling, dizziness, weakness, hematuria, dysuria, urinary urgency, urinary frequency, headache, visual changes, or any other complaints. - Related Data Home Medications Medication Instructions Recorded Confirmed Albuterol Inhaler (Mhu) [Ventolin 2 puff INHALATION RT-Q4H PRN 11/30/14 08/13/18 Hfa Inhaler (Mhu)] Budesonide/Formoterol Fumarate 2 puff INHALATION RT-DAILY 06/09/15 08/13/18 [Symbicort 160-4.5 Mcg Inhaler] ALPRAZolam [Xanax] 1 mg PO BID PRN 03/12/18 08/13/18 Escitalopram [Lexapro] 20 mg PO HS 03/12/18 08/13/18 Albuterol Nebulized [Ventolin 2.5 mg INHALATION RT-Q8H 08/13/18 08/13/18 Nebulized] Cholecalciferol [Vitamin D3 (25 3,000 unit PO DAILY 08/13/18 08/13/18 Mcg = 1000 Iu)] Tiotropium [place] [Spiriva] 1 cap INHALATION RT-DAILY 08/13/18 08/13/18 Previous Rx's Medication Instructions Recorded Montelukast [Singulair] 10 mg PO HS #30 tab 07/11/14 Cyclobenzaprine [Flexeril] 10 mg PO TID #15 tab 10/15/19 Famotidine [Pepcid] 20 mg PO DAILY #5 tablet 10/15/19 Ibuprofen [Motrin] 600 mg PO Q8HR PRN #30 tab 10/15/19 Lidocaine 5% Patch [Lidoderm] 1 patch TOPICAL DAILY #30 patch 10/15/19 predniSONE 50 mg PO DAILY #5 tablet 10/15/19 Allergies Allergy/AdvReac Type Severity Reaction Status Date / Time nitrofurantoin Allergy Swelling Verified 10/14/19 22:13 [From Macrobid] codeine AdvReac Vomiting Verified 10/14/19 22:13 Review of Systems ROS Statement: Those systems with pertinent positive or pertinent negative responses have been documented in the HPI. ROS Other: All systems not noted in ROS Statement are negative. Past Medical History Past Medical History: Asthma, COPD Additional Past Medical History / Comment(s): Bronchitis, medical coma due to breathing issues History of Any Multi-Drug Resistant Organisms: MRSA Date of last positivie culture/infection: 2010 MDRO Source:: index finger on right hand Past Surgical History: No Surgical Hx Reported Additional Past Surgical History / Comment(s): tracheotomy, cysts to wrist removed, peg tube(removed) Past Anesthesia/Blood Transfusion Reactions: No Reported Reaction Past Psychological History: Anxiety, Bipolar, Depression Smoking Status: Current every day smoker Past Alcohol Use History: None Reported Past Drug Use History: Marijuana - Past Family History Mother Family Medical History: Cancer Additional Family Medical History / Comment(s): Lung and brain CA, Uncle Pancreatic General Exam Limitations: no limitations General appearance: alert, in no apparent distress, other (This is a well- developed, well-nourished adult female patient in no acute distress. Vital signs upon presentation are temperature 98.1F, pulse 102, respirations 18, blood pressure 126/70, pulse ox 98% on room air.) Eye exam: Present: normal appearance, PERRL, EOMI. Absent: scleral icterus, conjunctival injection, periorbital swelling ENT exam: Present: normal exam, normal oropharynx, mucous membranes moist Respiratory exam: Present: wheezes (There is coarse inspiratory and expiratory wheezing noted in the posterior lung briceno). Absent: normal lung sounds bilaterally, respiratory distress, rales, rhonchi, stridor Cardiovascular Exam: Present: regular rate, normal rhythm, normal heart sounds. Absent: systolic murmur, diastolic murmur, rubs, gallop, clicks GI/Abdominal exam: Present: soft, normal bowel sounds. Absent: distended, tenderness, guarding, rebound, rigid Neurological exam: Present: alert, oriented X3, CN II-XII intact Psychiatric exam: Present: normal affect, normal mood Skin exam: Present: warm, dry, intact, normal color. Absent: rash Course Vital Signs 10/14/19 10/14/19 10/15/19 22:09 22:56 00:01 Temperature 98.1 F Pulse Rate 102 H 104 H Respiratory 18 18 Rate Blood Pressure 126/70 O2 Sat by Pulse 98 Oximetry 10/15/19 10/15/19 00:06 00:53 Temperature 98.8 F Pulse Rate 104 H 80 Respiratory 18 Rate Blood Pressure 145/91 O2 Sat by Pulse 98 Oximetry Medical Decision Making - Medical Decision Making 39-year-old female patient presents to the emergency department today for evaluation of left posterior shoulder pain. Pain worsens with movement of the left arm and the neck. States this started after coughing. Physical examination did reveal normal neurovascular status of the left arm. She did have tenderness surrounding the left scapula. Lungs did reveal coarse expiratory wheezing. Vital signs showed no major abnormalities. X-ray was obtained and was negative. EKG showed normal sinus rhythm. Patient was given Toradol, steroids, and a breathing treatment. Upon reevaluation she does report improvement of symptoms. She'll be discharged with anti-inflammatory medication for pain. A muscle relaxer and a course of steroids. We will give pepcid while on the medication. She also be given a Lidoderm patch. She is instructed to follow-up with her primary care physician for recheck in 1-2 days. Return parameters discussed in detail. She verbalizes understanding and agrees with this plan. - EKG Data -: EKG Interpreted by Me EKG Comments: EKG obtained at 2251 shows normal sinus rhythm with a ventricular rate of 92, CA interval 154, QRS duration 72, QT 362, QTc 447. No evidence of ST elevation or depression. - Radiology Data Radiology results: report reviewed, image reviewed Two-view x-ray of the chest is obtained. Report was reviewed in its entirety. Impression by Dr. Kerr shows no active cardiopulmonary disease. Normal heart. There is clearing of minimal infiltrate at the left and right lung base compared to old exam. Disposition Clinical Impression: Muscle spasm of left shoulder, Asthma exacerbation Disposition: HOME SELF-CARE Condition: Good Instructions (If sedation given, give patient instructions): Asthma (ED), Muscle Spasm (ED) Additional Instructions: Take medications as directed. Try warm moist heat to the shoulder and perform gentle range of motion of the neck and left arm. Follow-up with your primary care physician for recheck in 1-2 days. Return to the emergency department immediately for any new, worsening, or concerning symptoms. Prescriptions: Cyclobenzaprine [Flexeril] 10 mg PO TID #15 tab Lidocaine 5% Patch [Lidoderm] 1 patch TOPICAL DAILY #30 patch Ibuprofen [Motrin] 600 mg PO Q8HR PRN #30 tab PRN Reason: Pain Famotidine [Pepcid] 20 mg PO DAILY #5 tablet predniSONE 50 mg PO DAILY #5 tablet Is patient prescribed a controlled substance at d/c from ED?: No Referrals: Stevenson Dunlap DO [Primary Care Provider] - 1-2 days Time of Disposition: 00:28
[2019-10-15 00:55] VITALS: BP 145/91; PULSE 80; TEMP 98.8
== END 2019-10-15 00:54 | disposition home or self-care (01) ==
LOC: EC 21:54
DX: J45.901 Unspecified asthma with (acute) exacerbation (principal); M62.838 Other muscle spasm; M54.6 Pain in thoracic spine; F41.9 Anxiety disorder, unspecified; F32.9 Major depressive disorder, single episode, unspecified; F17.210 Nicotine dependence, cigarettes, uncomplicated; Z86.14 Personal history of Methicillin resistant Staphylococcus aureus infection; Z93.0 Tracheostomy status; Z79.51 Long term (current) use of inhaled steroids; Z79.899 Other long term (current) drug therapy; Z88.1 Allergy status to other antibiotic agents; Z88.5 Allergy status to narcotic agent
CPT/HCPCS: 94640; 93005; 71046; 99285; 96372 ×2; J2930; J1885

== ENCOUNTER 2020-01-25 12:58 | Emergency (ER) | payer OTHER ==
[2020-01-25 13:39] VITALS: BP 123/82; PULSE 85
[2020-01-25 13:51] VITALS: TEMP 99.2
[2020-01-25 13:53] VITALS: RESP 16
--- NOTE | 2020-01-25 14:11 | ED ---
URI HPI - General Chief Complaint: Upper Respiratory Infection Stated Complaint: COVID exposure Time Seen by Provider: 01/25/20 13:46 Source: patient, family Mode of arrival: ambulatory Limitations: no limitations - History of Present Illness Initial Comments: Patient is a 39-year-old female with history of asthma, presenting to the emergency Department with complaints of having flulike symptoms that started yesterday. Patient states her stepmother recently tested positive for coated and they are around them all the time. Patient started having body aches, night sweats, cough and shortness of breath that started yesterday. Patient has been doing at home nebulizer treatments with some relief of symptoms. She has been taking Tylenol for discomfort. She denies any chest pains, nausea, vomiting, abdominal pain. She does have some mild loss of taste. She denies any headaches or dizziness, blurry vision. She has no other complaints at this time. Upon arrival to the ER her vital signs are stable. - Related Data Home Medications Medication Instructions Recorded Confirmed Albuterol Inhaler (Mhu) [Ventolin 2 puff INHALATION RT-Q4H PRN 11/30/14 08/13/18 Hfa Inhaler (Mhu)] Budesonide/Formoterol Fumarate 2 puff INHALATION RT-DAILY 06/09/15 08/13/18 [Symbicort 160-4.5 Mcg Inhaler] ALPRAZolam [Xanax] 1 mg PO BID PRN 03/12/18 08/13/18 Escitalopram [Lexapro] 20 mg PO HS 03/12/18 08/13/18 Albuterol Nebulized [Ventolin 2.5 mg INHALATION RT-Q8H 08/13/18 08/13/18 Nebulized] Cholecalciferol [Vitamin D3 (25 3,000 unit PO DAILY 08/13/18 08/13/18 Mcg = 1000 Iu)] Tiotropium [place] [Spiriva] 1 cap INHALATION RT-DAILY 08/13/18 08/13/18 Previous Rx's Medication Instructions Recorded Montelukast [Singulair] 10 mg PO HS #30 tab 07/11/14 Cyclobenzaprine [Flexeril] 10 mg PO TID #15 tab 10/15/19 Famotidine [Pepcid] 20 mg PO DAILY #5 tablet 10/15/19 Ibuprofen [Motrin] 600 mg PO Q8HR PRN #30 tab 10/15/19 Lidocaine 5% Patch [Lidoderm] 1 patch TOPICAL DAILY #30 patch 10/15/19 predniSONE 50 mg PO DAILY #5 tablet 10/15/19 Allergies Allergy/AdvReac Type Severity Reaction Status Date / Time nitrofurantoin Allergy Swelling Verified 01/25/20 13:06 [From Macrobid] codeine AdvReac Vomiting Verified 01/25/20 13:06 Review of Systems ROS Statement: Those systems with pertinent positive or pertinent negative responses have been documented in the HPI. ROS Other: All systems not noted in ROS Statement are negative. Past Medical History Past Medical History: Asthma, COPD Additional Past Medical History / Comment(s): Bronchitis, medical coma due to breathing issues History of Any Multi-Drug Resistant Organisms: MRSA Date of last positivie culture/infection: 2010 MDRO Source:: index finger on right hand Past Surgical History: No Surgical Hx Reported Additional Past Surgical History / Comment(s): tracheotomy, cysts to wrist removed, peg tube(removed) Past Anesthesia/Blood Transfusion Reactions: No Reported Reaction Past Psychological History: Anxiety, Bipolar, Depression Smoking Status: Current every day smoker Past Alcohol Use History: None Reported Past Drug Use History: Marijuana - Past Family History Mother Family Medical History: Cancer Additional Family Medical History / Comment(s): Lung and brain CA, Uncle Pancreatic General Exam - General Exam Comments Initial Comments: GENERAL: Patient is well-developed and well-nourished. Patient is nontoxic and in no acute distress. HEAD: Atraumatic, normocephalic. EYES: Pupils equal round and reactive to light, extraocular movements intact, sclera anicteric, conjunctiva are normal. Eyelids were unremarkable. ENT: TMs normal, nares patent, oropharynx clear without exudates. Moist mucous membranes. NECK: Normal range of motion, supple without lymphadenopathy or JVD. LUNGS: Unlabored respirations. Scattered wheezes throughout, congestion mild improvement with cough. HEART: Regular rate and rhythm without murmurs, rubs or gallops. ABDOMEN: Soft, nontender, normoactive bowel sounds. No guarding, no rebound. No masses appreciated. : Deferred MUSCULOSKELETAL: Normal extremities with adequate strength and normal range of motion, no pitting or edema. No clubbing or cyanosis. NEUROLOGICAL: Patient is alert and oriented x 3. Motor and sensory are also intact. Normal speech, normal gait. PSYCH: Normal mood, normal affect. SKIN: Warm, Dry, normal turgor, no rashes or lesions noted. Limitations: no limitations Course Vital Signs 01/25/20 01/25/20 01/25/20 13:03 13:50 13:51 Temperature 97.0 F L 99.2 F Pulse Rate 85 Respiratory 18 16 Rate Blood Pressure 123/82 O2 Sat by Pulse 99 Oximetry Medical Decision Making - Medical Decision Making Patient is 39-year-old female here with flulike symptoms that started yesterday. She does have positive covert exposure to her stepmother. Her also developed symptoms yesterday as well. Her vital signs are stable. She does have scattered wheezes throughout, history of asthma. I did highly recommend a chest x-ray however patient refused stating she only wants a COVID test and wants to go home. I did discuss the risk of her having a severe infection, patient continues to refuse. Patient will be tested for covid and sent home. Recommended to continue to self quarantine. She does have nebulizer treatments at home. She is stable for discharge. Disposition Clinical Impression: Cough, Body aches, Exposure to COVID-19 virus Disposition: HOME SELF-CARE Condition: Stable Instructions (If sedation given, give patient instructions): Upper Respiratory Infection (ED) Additional Instructions: Please return to the Emergency Department if symptoms worsen or any other concerns. COVID test is pending. Recommended alternating between Tylenol and Motrin for fever and/or discomfort. Continue with breathing treatments as needed. Increase fluid intake. Follow up with PCP. Is patient prescribed a controlled substance at d/c from ED?: No Referrals: Stevenson Dunlap DO [Primary Care Provider] - 1-2 days
== END 2020-01-25 14:30 | disposition home or self-care (01) ==
LOC: EC 12:58
DX: R05 Cough (principal); R52 Pain, unspecified; R06.02 Shortness of breath; Z20.828 Contact with and (suspected) exposure to other viral communicable diseases; F41.9 Anxiety disorder, unspecified; F31.9 Bipolar disorder, unspecified; J44.9 Chronic obstructive pulmonary disease, unspecified; F17.200 Nicotine dependence, unspecified, uncomplicated; Z79.51 Long term (current) use of inhaled steroids; Z79.899 Other long term (current) drug therapy; Z88.5 Allergy status to narcotic agent; Z88.1 Allergy status to other antibiotic agents
CPT/HCPCS: 99283; U0003

== ENCOUNTER 2020-06-26 23:13 | Emergency (ER) | payer OTHER ==
[2020-06-26 23:58] VITALS: TEMP 98.2
[2020-06-27] MEDS ORDERED: methylPREDNISolone SOD SUCCI 125 MG/2 ML VIAL IV STA ×2 (00:11→01:36)
[2020-06-27] MEDS ORDERED: IPRATROPIUM-ALBUTEROL 3 ML NEB INHALATION STA (00:11)
--- NOTE | 2020-06-27 00:34 | XR ---
EXAM: XR Chest, 1 View CLINICAL HISTORY: ITS.REASON XR Reason: Suspected COVID-19 pneumonia TECHNIQUE: Frontal view of the chest. COMPARISON: Chest radiograph 10/14/2019. FINDINGS: Lungs: Hazy right lower lobe opacity may represent pneumonia in the appropriate clinical scenario. Pleural space: Unremarkable. No pneumothorax. Heart: Unremarkable. No cardiomegaly. Mediastinum: Unremarkable. Bones/joints: Unremarkable. IMPRESSION: Hazy right lower lobe opacity may represent pneumonia in the appropriate clinical scenario.
[2020-06-27 01:50] LABS: Basophils # (A) 0.1 k/uL (0-0.2); Basophils % (A) 1 %; Eosinophils # (A) 0.8 k/uL (0-0.7); Eosinophils % (A) 7 %; HCT 41.8 % (34.0-46.0); HGB 14.7 gm/dL (11.4-16.0); Lymphocytes # (A) 3.9 k/uL (1.0-4.8); Lymphocytes % (A) 36 %; MCH 31.6 pg (25.0-35.0); MCHC 35.3 g/dL (31.0-37.0); MCV 89.7 fL (80.0-100.0); Mean Platelet Volume 8.1; Monocytes # (A) 0.4 k/uL (0-1.0); Monocytes % (A) 4 %; Neutrophils # (A) 5.6 k/uL (1.3-7.7); Neutrophils % (A) 51 %; Platelet Count 286 k/uL (150-450); RBC 4.66 m/uL (3.80-5.40); RDW 12.6 % (11.5-15.5)
[2020-06-27 01:58] LABS: D-Dimer 0.24 mg/L FEU (<0.60); Partial Thromboplastin Time 24.5 sec (22.0-30.0); Prothrombin Time 10.3 sec (9.0-12.0)
[2020-06-27 02:13] LABS: ALT 9 U/L (4-34); AST 19 U/L (14-36); African American GFR (CKD) >90 (>60 ml/min/1.73 sqM); Alkaline Phosphatase 78 U/L (38-126); Anion Gap 6 mmol/L; Blood Urea Nitrogen 12 mg/dL (7-17); C Reactive Protein 7.2 mg/L (<10.0); Calcium 9.5 mg/dL (8.4-10.2); Carbon Dioxide 21 mmol/L (22-30); Chloride 111 mmol/L (98-107); Glucose 93 mg/dL (74-99); LDH 432 U/L (313-618); Magnesium 1.7 mg/dL (1.6-2.3); Non-African American GFR(CKD) >90 (>60 ml/min/1.73 sqM); Potassium 3.8 mmol/L (3.5-5.1); Sodium 138 mmol/L (137-145); Total Bilirubin 0.3 mg/dL (0.2-1.3); Total Protein 6.8 g/dL (6.3-8.2)
--- NOTE | 2020-06-27 02:41 | ED ---
SOB HPI - General Chief Complaint: Shortness of Breath Stated Complaint: BRIT Time Seen by Provider: 06/27/20 00:01 Source: patient Mode of arrival: ambulatory Limitations: no limitations - History of Present Illness Initial Comments: 40-year-old female history of asthma, COPD and previous tracheostomy secondary to respiratory failure that was reversed presents emergency department today for chief complaint of wheezing shortness of breath cough. Patient states she has had some wheezing shortness breath and cough today. Patient states she believes her asthma is acting up. Patient states he cough sounds wet. patient denies leg swelling, chest pain, jaw pain, diaphoresis, calf pain swelling, hemoptysis, pain with a deep breathing, hx of DVT/PE. Denies fevers, chills. Pt denies additional complaints. Pt is making a sound that sounds intentional from the upper airway initially once back in room resting she has stopped making this sound. - Related Data Home Medications Medication Instructions Recorded Confirmed Albuterol Inhaler (Mhu) [Ventolin 2 puff INHALATION RT-Q4H PRN 11/30/14 08/13/18 Hfa Inhaler (Mhu)] Budesonide/Formoterol Fumarate 2 puff INHALATION RT-DAILY 06/09/15 08/13/18 [Symbicort 160-4.5 Mcg Inhaler] ALPRAZolam [Xanax] 1 mg PO BID PRN 03/12/18 08/13/18 Escitalopram [Lexapro] 20 mg PO HS 03/12/18 08/13/18 Albuterol Nebulized [Ventolin 2.5 mg INHALATION RT-Q8H 08/13/18 08/13/18 Nebulized] Cholecalciferol [Vitamin D3 (25 3,000 unit PO DAILY 08/13/18 08/13/18 Mcg = 1000 Iu)] Tiotropium [place] [Spiriva] 1 cap INHALATION RT-DAILY 08/13/18 08/13/18 Previous Rx's Medication Instructions Recorded Montelukast [Singulair] 10 mg PO HS #30 tab 07/11/14 Cyclobenzaprine [Flexeril] 10 mg PO TID #15 tab 10/15/19 Famotidine [Pepcid] 20 mg PO DAILY #5 tablet 10/15/19 Ibuprofen [Motrin] 600 mg PO Q8HR PRN #30 tab 10/15/19 Lidocaine 5% Patch [Lidoderm] 1 patch TOPICAL DAILY #30 patch 10/15/19 predniSONE 50 mg PO DAILY #5 tablet 10/15/19 Azithromycin [Zithromax Z-pack (6 0 mg PO DIRECTED 5 Days #6 tab 06/27/20 tabs)] predniSONE 50 mg PO DAILY 5 Days #5 tab 06/27/20 Allergies Allergy/AdvReac Type Severity Reaction Status Date / Time nitrofurantoin Allergy Swelling Verified 06/26/20 23:53 [From Macrobid] codeine AdvReac Vomiting Verified 06/26/20 23:53 Review of Systems ROS Statement: Those systems with pertinent positive or pertinent negative responses have been documented in the HPI. ROS Other: All systems not noted in ROS Statement are negative. Past Medical History Past Medical History: Asthma, COPD Additional Past Medical History / Comment(s): Bronchitis, medical coma due to breathing issues History of Any Multi-Drug Resistant Organisms: MRSA Date of last positivie culture/infection: 2010 MDRO Source:: index finger on right hand Past Surgical History: No Surgical Hx Reported Additional Past Surgical History / Comment(s): tracheotomy, cysts to wrist removed, peg tube(removed) Past Anesthesia/Blood Transfusion Reactions: No Reported Reaction Past Psychological History: Anxiety, Bipolar, Depression Smoking Status: Current every day smoker Past Alcohol Use History: None Reported Past Drug Use History: Marijuana - Past Family History Mother Family Medical History: Cancer Additional Family Medical History / Comment(s): Lung and brain CA, Uncle Pancreatic General Exam - General Exam Comments Initial Comments: General: The patient is awake and alert, in no distress, and does not appear acutely ill. Eye: Pupils are equal, round and reactive to light, extra-ocular movements are intact. No nystagmus. There is normal conjunctiva bilaterally. No signs of icterus. Ears, nose, mouth and throat: There are moist mucous membranes and no oral lesions. Neck: The neck is supple, there is no tenderness or JVD. Scar anterior mid neck Cardiovascular: There is a regular rate and rhythm. No murmur, rub or gallop is appreciated. Respiratory: respirations are non-labored, breath sounds are equal. some minor expiratory wheeze, overall there is good air movement. No stridor, rales, or rhonchi. Gastrointestinal: Soft, non-distended, non-tender abdomen without masses or organomegaly noted. There is no rebound or guarding present. Musculoskeletal: Normal ROM, no tenderness. Strength 5/5. Sensation intact. Pulses equal bilaterally 2+. Neurological: A&O x 3. CN II-XII intact, There are no obvious motor or sensory deficits. Coordination appears grossly intact. Speech is normal. Skin: Skin is warm and dry and no rashes or lesions are noted. Psychiatric: Cooperative, appropriate mood & affect, normal judgment. Limitations: no limitations Course Vital Signs 06/26/20 06/27/20 06/27/20 23:53 00:39 00:48 Temperature 98.2 F Pulse Rate 89 82 84 Respiratory 28 H 18 Rate Blood Pressure 145/96 O2 Sat by Pulse 99 Oximetry 06/27/20 06/27/20 01:22 02:53 Temperature Pulse Rate 85 Respiratory 26 H 17 Rate Blood Pressure 153/90 O2 Sat by Pulse 96 Oximetry Medical Decision Making - Medical Decision Making Labs stable. calm once in room. only one treatment given, however there is significant air movement with mild wheeze on inital exam. pt cxr possible pneumonia. no fevers, or white count. patient requesting discharge/attempting to take IV out. felt patient needed one more treatment but she states she will do it at home and doesnt feel like she needs it because she is feeling better. patient discharged on rx for azithromycin for CAP, and prednisone. pt is to use home nebulizer and return for worsening symptoms. pt agreeable. - Lab Data Result diagrams: 06/27/20 00:46 06/27/20 00:46 Lab Results 06/27/20 06/27/20 06/27/20 Range/Units 00:46 00:46 00:46 WBC 11.0 H (3.8-10.6) k/uL RBC 4.66 (3.80-5.40) m/uL Hgb 14.7 (11.4-16.0) gm/dL Hct 41.8 (34.0-46.0) % MCV 89.7 (80.0-100.0) fL MCH 31.6 (25.0-35.0) pg MCHC 35.3 (31.0-37.0) g/dL RDW 12.6 (11.5-15.5) % Plt Count 286 (150-450) k/uL MPV 8.1 Neutrophils % 51 % Lymphocytes % 36 % Monocytes % 4 % Eosinophils % 7 % Basophils % 1 % Neutrophils # 5.6 (1.3-7.7) k/uL Lymphocytes # 3.9 (1.0-4.8) k/uL Monocytes # 0.4 (0-1.0) k/uL Eosinophils # 0.8 H (0-0.7) k/uL Basophils # 0.1 (0-0.2) k/uL PT 10.3 (9.0-12.0) sec INR 1.0 (<1.2) APTT 24.5 (22.0-30.0) sec D-Dimer 0.24 (<0.60) mg/L FEU Sodium 138 (137-145) mmol/L Potassium 3.8 (3.5-5.1) mmol/L Chloride 111 H (98-107) mmol/L Carbon Dioxide 21 L (22-30) mmol/L Anion Gap 6 mmol/L BUN 12 (7-17) mg/dL Creatinine 0.58 (0.52-1.04) mg/dL Est GFR (CKD-EPI)AfAm >90 (>60 ml/min/1.73 sqM) Est GFR (CKD-EPI)NonAf >90 (>60 ml/min/1.73 sqM) Glucose 93 (74-99) mg/dL Plasma Lactic Acid [place] (0.7-2.0) mmol/L Calcium 9.5 (8.4-10.2) mg/dL Magnesium 1.7 (1.6-2.3) mg/dL Total Bilirubin 0.3 (0.2-1.3) mg/dL AST 19 (14-36) U/L ALT 9 (4-34) U/L Alkaline Phosphatase 78 (38-126) U/L Lactate Dehydrogenase 432 (313-618) U/L Troponin I (0.000-0.034) ng/mL C-Reactive Protein 7.2 (<10.0) mg/L NT-Pro-B Natriuret Pep pg/mL Total Protein 6.8 (6.3-8.2) g/dL Albumin 4.0 (3.5-5.0) g/dL 06/27/20 06/27/20 06/27/20 Range/Units 00:46 00:46 00:46 WBC (3.8-10.6) k/uL RBC (3.80-5.40) m/uL Hgb (11.4-16.0) gm/dL Hct (34.0-46.0) % MCV (80.0-100.0) fL MCH (25.0-35.0) pg MCHC (31.0-37.0) g/dL RDW (11.5-15.5) % Plt Count (150-450) k/uL MPV Neutrophils % % Lymphocytes % % Monocytes % % Eosinophils % % Basophils % % Neutrophils # (1.3-7.7) k/uL Lymphocytes # (1.0-4.8) k/uL Monocytes # (0-1.0) k/uL Eosinophils # (0-0.7) k/uL Basophils # (0-0.2) k/uL PT (9.0-12.0) sec INR (<1.2) APTT (22.0-30.0) sec D-Dimer (<0.60) mg/L FEU Sodium (137-145) mmol/L Potassium (3.5-5.1) mmol/L Chloride (98-107) mmol/L Carbon Dioxide (22-30) mmol/L Anion Gap mmol/L BUN (7-17) mg/dL Creatinine (0.52-1.04) mg/dL Est GFR (CKD-EPI)AfAm (>60 ml/min/1.73 sqM) Est GFR (CKD-EPI)NonAf (>60 ml/min/1.73 sqM) Glucose (74-99) mg/dL Plasma Lactic Acid [place] 1.3 (0.7-2.0) mmol/L Calcium (8.4-10.2) mg/dL Magnesium (1.6-2.3) mg/dL Total Bilirubin (0.2-1.3) mg/dL AST (14-36) U/L ALT (4-34) U/L Alkaline Phosphatase (38-126) U/L Lactate Dehydrogenase (313-618) U/L Troponin I <0.012 (0.000-0.034) ng/mL C-Reactive Protein (<10.0) mg/L NT-Pro-B Natriuret Pep 51 pg/mL Total Protein (6.3-8.2) g/dL Albumin (3.5-5.0) g/dL Disposition Clinical Impression: Dyspnea, Wheezing, Pneumonia Disposition: HOME SELF-CARE Condition: Good Instructions (If sedation given, give patient instructions): Asthma (ED) Additional Instructions: Please use medication as discussed. Please follow-up with family doctor in the next 2 days. Please return to emergency room if the symptoms increase or worsen or for any other concerns. Prescriptions: predniSONE 50 mg PO DAILY 5 Days #5 tab Azithromycin [Zithromax Z-pack (6 tabs)] 0 mg PO DIRECTED 5 Days #6 tab Is patient prescribed a controlled substance at d/c from ED?: No Referrals: Stevenson Dunlap DO [Primary Care Provider] - 1-2 days Time of Disposition: 02:41
[2020-06-27 02:54] VITALS: BP 153/90; PULSE 85; RESP 17
[2020-06-27 14:20] LABS: Ferritin 15.1 ng/mL (10.0-291.0)
== END 2020-06-27 02:53 | disposition home or self-care (01) ==
LOC: EC 23:13
DX: J18.9 Pneumonia, unspecified organism (principal); R06.00 Dyspnea, unspecified; R06.2 Wheezing; F17.200 Nicotine dependence, unspecified, uncomplicated; J44.0 Chronic obstructive pulmonary disease with (acute) lower respiratory infection; Z79.1 Long term (current) use of non-steroidal anti-inflammatories (NSAID); F41.9 Anxiety disorder, unspecified; F32.9 Major depressive disorder, single episode, unspecified; F12.90 Cannabis use, unspecified, uncomplicated
CPT/HCPCS: 36415; 71045; 80053; 82728; 83605; 83615; 83735; 83880; 84145; 84484; 85025; 85379; 85610; 85730; 86140; 87040; 87635; 93005; 94640; 96374; 96375; 99285

== ENCOUNTER 2020-08-27 18:16 | Emergency (ER) | payer OTHER ==
[2020-08-27 18:23] VITALS: BP 139/89; TEMP 98.7
[2020-08-27] MEDS ORDERED: IPRATROPIUM 0.5 MG/2.5 ML NEBU INHALATION STA (18:34)
[2020-08-27] MEDS ORDERED: methylPREDNISolone SOD SUCCI 125 MG/2 ML VIAL IV STA (18:34)
[2020-08-27] MEDS ORDERED: ALBUTEROL NEBULIZED 2.5 MG/3 ML INHALATION STA (18:34)
--- NOTE | 2020-08-27 18:38 | ED ---
General Adult HPI - General Chief complaint: Shortness of Breath Stated complaint: SOB Time Seen by Provider: 08/27/20 18:20 Source: patient, RN notes reviewed, old records reviewed Mode of arrival: ambulatory Limitations: no limitations - History of Present Illness Initial comments: This is a 40-year-old female with past medical history significant for COPD. Patient states she still smokes. Patient states she's had difficulty breathing last couple days she continues to use her breathing treatments and states that her breathing is not getting any better and in fact she believes asking worse per patient states she has quite a bit of chest tightness but no chest pain. Patient denies any palpitations. Patient denies any lightheadedness or dizzi ness per patient denies headache patient denies numbness weakness per patient denies any calf tenderness or leg swelling. Patient denies any fever chills or cough. - Related Data Home Medications Medication Instructions Recorded Confirmed Albuterol Inhaler (Mhu) [Ventolin 2 puff INHALATION RT-Q4H PRN 11/30/14 08/13/18 Hfa Inhaler (Mhu)] Budesonide/Formoterol Fumarate 2 puff INHALATION RT-DAILY 06/09/15 08/13/18 [Symbicort 160-4.5 Mcg Inhaler] ALPRAZolam [Xanax] 1 mg PO BID PRN 03/12/18 08/13/18 Escitalopram [Lexapro] 20 mg PO HS 03/12/18 08/13/18 Albuterol Nebulized [Ventolin 2.5 mg INHALATION RT-Q8H 08/13/18 08/13/18 Nebulized] Cholecalciferol [Vitamin D3 (25 3,000 unit PO DAILY 08/13/18 08/13/18 Mcg = 1000 Iu)] Tiotropium [place] [Spiriva] 1 cap INHALATION RT-DAILY 08/13/18 08/13/18 Previous Rx's Medication Instructions Recorded Montelukast [Singulair] 10 mg PO HS #30 tab 07/11/14 Cyclobenzaprine [Flexeril] 10 mg PO TID #15 tab 10/15/19 Famotidine [Pepcid] 20 mg PO DAILY #5 tablet 10/15/19 Ibuprofen [Motrin] 600 mg PO Q8HR PRN #30 tab 10/15/19 Lidocaine 5% Patch [Lidoderm] 1 patch TOPICAL DAILY #30 patch 10/15/19 predniSONE 50 mg PO DAILY #5 tablet 10/15/19 Azithromycin [Zithromax Z-pack (6 0 mg PO DIRECTED 5 Days #6 tab 06/27/20 tabs)] predniSONE 50 mg PO DAILY 5 Days #5 tab 06/27/20 Allergies Allergy/AdvReac Type Severity Reaction Status Date / Time nitrofurantoin Allergy Swelling Verified 08/27/20 18:23 [From Macrobid] codeine AdvReac Vomiting Verified 08/27/20 18:23 Review of Systems ROS Statement: Those systems with pertinent positive or pertinent negative responses have been documented in the HPI. ROS Other: All systems not noted in ROS Statement are negative. Past Medical History Past Medical History: Asthma, COPD Additional Past Medical History / Comment(s): Bronchitis, medical coma due to breathing issues History of Any Multi-Drug Resistant Organisms: MRSA Date of last positivie culture/infection: 2010 MDRO Source:: index finger on right hand Past Surgical History: No Surgical Hx Reported Additional Past Surgical History / Comment(s): tracheotomy, cysts to wrist removed, peg tube(removed) Past Anesthesia/Blood Transfusion Reactions: No Reported Reaction Past Psychological History: Anxiety, Bipolar, Depression Smoking Status: Current every day smoker Past Alcohol Use History: None Reported Past Drug Use History: Marijuana - Past Family History Mother Family Medical History: Cancer Additional Family Medical History / Comment(s): Lung and brain CA, Uncle Pancreatic General Exam - General Exam Comments Initial Comments: GENERAL: Patient is well-developed and well-nourished. Patient is nontoxic and well- hydrated and is in mild distress. ENT: Neck is soft and supple. No significant lymphadenopathy is noted. Oropharynx is clear. Moist mucous membranes. Neck has full range of motion without eliciting any pain. EYES: The sclera were anicteric and conjunctiva were pink and moist. Extraocular movements were intact and pupils were equal round and reactive to light. Eyelids were unremarkable. PULMONARY: Unlabored respirations. Expiratory Wheezing diffusely with some crackles bilaterally CARDIOVASCULAR: Patient is mildly tachycardic at 100 beats a minute ABDOMEN: Soft and nontender with normal bowel sounds. SKIN: Skin is clear with no lesions or rashes and otherwise unremarkable. NEUROLOGIC: Patient is alert and oriented x3. Cranial nerves II through XII are grossly intact. Motor and sensory are also intact. Normal speech, volume and content. Symmetrical smile. MUSCULOSKELETAL: Normal extremities with adequate strength and full range of motion. No lower extremity swelling or edema. No calf tenderness. LYMPHATICS: No significant lymphadenopathy is noted PSYCHIATRIC: Normal psychiatric evaluation. Limitations: no limitations Course Vital Signs 08/27/20 08/27/20 08/27/20 18:21 18:47 19:15 Temperature 98.7 F Pulse Rate 103 H 102 H 102 H Respiratory 26 H Rate Blood Pressure 139/89 O2 Sat by Pulse 100 Oximetry 08/27/20 19:21 Temperature Pulse Rate Respiratory 18 Rate Blood Pressure O2 Sat by Pulse Oximetry Medical Decision Making - Medical Decision Making EKG shows normal sinus rhythm at 90 bpm LA interval 250 QRS is 72 QT interval 360 QTC is 450. Patient's EKG shows no ST segment elevation or depression. Patient's chest x-ray shows no acute abnormality. Patient received steroids in the emergency department as well as 2 albuterol treatments with and one Atrovent. I will back and reevaluated the patient she continued to wheeze diffusely. Was at this point time I spoke with Dr. gardiner he agreed to admit the patient admitted the patient wrote admitting orders. - Lab Data Result diagrams: 08/27/20 19:02 08/27/20 19:02 Lab Results 08/27/20 08/27/20 08/27/20 Range/Units 19:02 19:02 19:02 WBC 8.1 (3.8-10.6) k/uL RBC 4.90 (3.80-5.40) m/uL Hgb 15.2 (11.4-16.0) gm/dL Hct 44.7 (34.0-46.0) % MCV 91.2 (80.0-100.0) fL MCH 31.1 (25.0-35.0) pg MCHC 34.1 (31.0-37.0) g/dL RDW 12.7 (11.5-15.5) % Plt Count 286 (150-450) k/uL MPV 8.2 Neutrophils % 53 % Lymphocytes % 35 % Monocytes % 4 % Eosinophils % 6 % Basophils % 1 % Neutrophils # 4.3 (1.3-7.7) k/uL Lymphocytes # 2.8 (1.0-4.8) k/uL Monocytes # 0.3 (0-1.0) k/uL Eosinophils # 0.5 (0-0.7) k/uL Basophils # 0.1 (0-0.2) k/uL PT 10.7 (9.0-12.0) sec INR 1.0 (<1.2) APTT 24.9 (22.0-30.0) sec Sodium 139 (137-145) mmol/L Potassium 4.0 (3.5-5.1) mmol/L Chloride 109 H (98-107) mmol/L Carbon Dioxide 21 L (22-30) mmol/L Anion Gap 9 mmol/L BUN 10 (7-17) mg/dL Creatinine 0.54 (0.52-1.04) mg/dL Est GFR (CKD-EPI)AfAm >90 (>60 ml/min/1.73 sqM) Est GFR (CKD-EPI)NonAf >90 (>60 ml/min/1.73 sqM) Glucose 84 (74-99) mg/dL Plasma Lactic Acid [place] (0.7-2.0) mmol/L Calcium 9.9 (8.4-10.2) mg/dL Magnesium 1.7 (1.6-2.3) mg/dL Total Bilirubin 0.7 (0.2-1.3) mg/dL AST 22 (14-36) U/L ALT 8 (4-34) U/L Alkaline Phosphatase 78 (38-126) U/L Troponin I (0.000-0.034) ng/mL Total Protein 6.9 (6.3-8.2) g/dL Albumin 4.3 (3.5-5.0) g/dL 08/27/20 08/27/20 Range/Units 19:02 19:02 WBC (3.8-10.6) k/uL RBC (3.80-5.40) m/uL Hgb (11.4-16.0) gm/dL Hct (34.0-46.0) % MCV (80.0-100.0) fL MCH (25.0-35.0) pg MCHC (31.0-37.0) g/dL RDW (11.5-15.5) % Plt Count (150-450) k/uL MPV Neutrophils % % Lymphocytes % % Monocytes % % Eosinophils % % Basophils % % Neutrophils # (1.3-7.7) k/uL Lymphocytes # (1.0-4.8) k/uL Monocytes # (0-1.0) k/uL Eosinophils # (0-0.7) k/uL Basophils # (0-0.2) k/uL PT (9.0-12.0) sec INR (<1.2) APTT (22.0-30.0) sec Sodium (137-145) mmol/L Potassium (3.5-5.1) mmol/L Chloride (98-107) mmol/L Carbon Dioxide (22-30) mmol/L Anion Gap mmol/L BUN (7-17) mg/dL Creatinine (0.52-1.04) mg/dL Est GFR (CKD-EPI)AfAm (>60 ml/min/1.73 sqM) Est GFR (CKD-EPI)NonAf (>60 ml/min/1.73 sqM) Glucose (74-99) mg/dL Plasma Lactic Acid [place] 0.8 (0.7-2.0) mmol/L Calcium (8.4-10.2) mg/dL Magnesium (1.6-2.3) mg/dL Total Bilirubin (0.2-1.3) mg/dL AST (14-36) U/L ALT (4-34) U/L Alkaline Phosphatase (38-126) U/L Troponin I <0.012 (0.000-0.034) ng/mL Total Protein (6.3-8.2) g/dL Albumin (3.5-5.0) g/dL Disposition Clinical Impression: Acute exacerbation of chronic obstructive pulmonary disease, Anxiety Disposition: ADMITTED IP TO THIS HOSP Referrals: Stevenson Dunlap DO [Primary Care Provider] - 1-2 days Time of Disposition: 20:05
--- NOTE | 2020-08-27 19:03 | XR ---
EXAMINATION TYPE: XR chest 2V DATE OF EXAM: 08/27/2020 COMPARISON: NONE HISTORY: Difficulty breathing TECHNIQUE: 2 views FINDINGS: Heart and mediastinum are normal. Lungs are clear. Diaphragm is normal. Bony thorax is norm al. IMPRESSION: Normal chest.
[2020-08-27 19:17] LABS: Basophils # (A) 0.1 k/uL (0-0.2); Basophils % (A) 1 %; Eosinophils # (A) 0.5 k/uL (0-0.7); Eosinophils % (A) 6 %; HCT 44.7 % (34.0-46.0); HGB 15.2 gm/dL (11.4-16.0); Lymphocytes # (A) 2.8 k/uL (1.0-4.8); Lymphocytes % (A) 35 %; MCH 31.1 pg (25.0-35.0); MCHC 34.1 g/dL (31.0-37.0); MCV 91.2 fL (80.0-100.0); Mean Platelet Volume 8.2; Monocytes # (A) 0.3 k/uL (0-1.0); Monocytes % (A) 4 %; Neutrophils # (A) 4.3 k/uL (1.3-7.7); Neutrophils % (A) 53 %; Platelet Count 286 k/uL (150-450); RDW 12.7 % (11.5-15.5); WBC 8.1 k/uL (3.8-10.6)
[2020-08-27 19:21] VITALS: RESP 18
[2020-08-27 19:25] LABS: ALT 8 U/L (4-34); AST 22 U/L (14-36); African American GFR (CKD) >90 (>60 ml/min/1.73 sqM); Albumin 4.3 g/dL (3.5-5.0); Alkaline Phosphatase 78 U/L (38-126); Anion Gap 9 mmol/L; Blood Urea Nitrogen 10 mg/dL (7-17); Calcium 9.9 mg/dL (8.4-10.2); Carbon Dioxide 21 mmol/L (22-30); Chloride 109 mmol/L (98-107); Glucose 84 mg/dL (74-99); Magnesium 1.7 mg/dL (1.6-2.3); Non-African American GFR(CKD) >90 (>60 ml/min/1.73 sqM); Sodium 139 mmol/L (137-145); Total Bilirubin 0.7 mg/dL (0.2-1.3); Total Protein 6.9 g/dL (6.3-8.2)
[2020-08-27 19:31] VITALS: PULSE 102
[2020-08-27 19:43] LABS: Partial Thromboplastin Time 24.9 sec (22.0-30.0); Prothrombin Time 10.7 sec (9.0-12.0)
[2020-08-27] MEDS ORDERED: LORazepam 2 MG/ML INJ IV STA (20:04)
[2020-08-27] MEDS ORDERED: IPRATROPIUM-ALBUTEROL 3 ML NEB INHALATION PRN (20:05)
[2020-08-27] MEDS ORDERED: LORazepam 2 MG/ML INJ IV PRN (20:21)
[2020-08-28] MEDS ORDERED: methylPREDNISolone SOD SUCCI 125 MG/2 ML VIAL IV SCH
== END 2020-08-27 20:55 | disposition other institution (70) ==
LOC: EC 18:16 → UNDOADMOB 20:13 → 1SOBS 20:13 → EC 20:55
DX: J44.1 Chronic obstructive pulmonary disease with (acute) exacerbation (principal); F41.9 Anxiety disorder, unspecified; F32.9 Major depressive disorder, single episode, unspecified; F17.200 Nicotine dependence, unspecified, uncomplicated; F12.90 Cannabis use, unspecified, uncomplicated; Z79.51 Long term (current) use of inhaled steroids
CPT/HCPCS: 36415; 94640; 93005; 80053; 83605; 83735; 84484; 85025; 85610; 85730; 71046; 99285; 96374; J2930

== ENCOUNTER 2020-09-17 21:32 | Emergency (ER) | payer OTHER ==
[2020-09-17 21:43] VITALS: TEMP 98
[2020-09-17] MEDS ORDERED: methylPREDNISolone SOD SUCCI 125 MG/2 ML VIAL IV STA (21:52)
[2020-09-17] MEDS ORDERED: IPRATROPIUM-ALBUTEROL 3 ML NEB INHALATION STA ×2 (21:52→22:52)
[2020-09-17] MEDS ORDERED: LORazepam 2 MG/ML INJ IV STA ×2 (21:53→22:52)
--- NOTE | 2020-09-17 21:54 | ED ---
Anxiety HPI - General Chief Complaint: Anxiety Stated Complaint: BRIT Time Seen by Provider: 09/17/20 21:44 Source: patient Mode of arrival: ambulatory - History of Present Illness Initial Comments: 40-year-old female with history of COPD presents to emergency Department with a chief complaint of shortness of breath and anxiety. Patient reports increased shortness breath over the last day. States her nebulizer machine does not work. She also reports increased anxiety and is not able to get her breathing under control. She also reports increased wheezing. Denies any associated chest pain fevers or chills. She also reports bronchospastic spastic cough but denies any URI-like symptoms. Denies any nausea or vomiting. - Related Data Home Medications: Home Medications Medication Instructions Recorded Confirmed Albuterol Nebulized [Ventolin 2.5 mg INHALATION RT-Q8H PRN 08/13/18 09/17/20 Nebulized] ALPRAZolam [Xanax] 0.5 mg PO BID PRN 08/27/20 09/17/20 Albuterol Sulfate [Proair Hfa] 2 puff INHALATION RT-Q4H PRN 08/27/20 09/17/20 Ipratropium-Albuterol Nebulize 3 ml INHALATION RT-Q4H PRN 08/27/20 09/17/20 [Duoneb 0.5 mg-3 mg/3 ml Soln] Sertraline HCl [Zoloft] 100 mg PO DAILY 08/27/20 09/17/20 Tiotropium Br/Olodaterol HCl 2 puff INHALATION RT-DAILY 08/27/20 09/17/20 [Stiolto Respimat Inhal [place]] Fluticasone Propionate [Flovent 2 puff INHALATION RT-BID 09/17/20 09/17/20 Hfa 110 mcg] hydrOXYzine pamoate [hydrOXYzine 25 mg PO TID PRN 09/17/20 09/17/20 PAMOATE] Previous Rx's Medication Instructions Recorded Albuterol Sulfate [Ventolin HFA] 1 - 2 puff INHALATION Q6H PRN #1 09/17/20 inhaler predniSONE 50 mg PO DAILY #5 tab 09/17/20 Allergies/Adverse Reactions: Allergies Allergy/AdvReac Type Severity Reaction Status Date / Time nitrofurantoin Allergy Swelling Verified 09/17/20 22:34 [From Macrobid] codeine AdvReac Vomiting Verified 09/17/20 22:34 Review of Systems ROS Statement: Those systems with pertinent positive or pertinent negative responses have been documented in the HPI. ROS Other: All systems not noted in ROS Statement are negative. Past Medical History Past Medical History: Asthma, COPD Additional Past Medical History / Comment(s): Bronchitis, medical coma due to breathing issues History of Any Multi-Drug Resistant Organisms: MRSA Date of last positivie culture/infection: 2010 MDRO Source:: index finger on right hand Past Surgical History: No Surgical Hx Reported Additional Past Surgical History / Comment(s): tracheotomy, cysts to wrist removed, peg tube(removed) Past Anesthesia/Blood Transfusion Reactions: No Reported Reaction Past Psychological History: Anxiety, Bipolar, Depression Smoking Status: Current every day smoker Past Alcohol Use History: Occasional Past Drug Use History: Marijuana - Past Family History Mother Family Medical History: Cancer Additional Family Medical History / Comment(s): Lung and brain CA, Uncle Pancreatic General Exam Limitations: no limitations General appearance: alert, in no apparent distress, anxious Head exam: Present: atraumatic, normocephalic, normal inspection Eye exam: Present: normal appearance, PERRL, EOMI Pupils: Present: normal accommodation ENT exam: Present: normal exam, normal oropharynx, mucous membranes moist Neck exam: Present: normal inspection, full ROM. Absent: tenderness, lymphadenopathy Respiratory exam: Present: normal lung sounds bilaterally. Absent: respiratory distress, wheezes, rales, rhonchi, stridor, chest wall tenderness, accessory muscle use Cardiovascular Exam: Present: regular rate, normal rhythm, normal heart sounds. Absent: systolic murmur Extremities exam: Present: normal inspection, full ROM, normal capillary refill. Absent: tenderness, pedal edema, joint swelling Back exam: Present: normal inspection, full ROM. Absent: tenderness, CVA tenderness (R), CVA tenderness (L), muscle spasm, paraspinal tenderness, vert ebral tenderness Neurological exam: Present: alert, oriented X3 Psychiatric exam: Present: normal affect, normal mood, anxious Skin exam: Present: warm, dry, intact, normal color Course Vital Signs 09/17/20 09/17/20 09/17/20 21:38 22:16 22:36 Temperature 98 F Pulse Rate 65 102 H 115 H Respiratory 16 24 22 Rate Blood Pressure 124/59 O2 Sat by Pulse 99 Oximetry 09/17/20 09/17/20 09/18/20 23:28 23:45 00:17 Temperature Pulse Rate 114 H 108 H 110 H Respiratory 18 20 18 Rate Blood Pressure 134/86 134/82 O2 Sat by Pulse 94 L 94 L Oximetry Medical Decision Making - Medical Decision Making 40-year-old female with history of COPD presents to emergency Department with a chief complaint of shortness of breath and anxiety. On physical examination, patient is very anxious and crying throughout the whole examination. She also has diffuse bilateral wheezing. No signs of retractions. CBC shows leukocytosis of 13 K, likely reactive. Chest x-ray is unremarkable. Quite within normal limits. Initial troponins are negative. Patient was given anxiolytics to help with her bleeding. Patient was also given Solu-Medrol and several DuoNeb treatments. On reevaluation, she reports improvement in his symptoms. However, she continues to be still wheezing on auscultation. I did offer admission for further medical management, patient declined. States she has anxiety from the hospital and preferred to go home. Patient will be discharged with prednisone and Ventolin inhaler. Strict return parameters were thoroughly discussed patient was in a sitting ago. Case discussed with Dr. be - Lab Data Result diagrams: 09/17/20 22:15 09/17/20 22:15 Lab Results 09/17/20 09/17/20 09/17/20 Range/Units 22:15 22:15 22:15 WBC 13.8 H (3.8-10.6) k/uL RBC 4.35 (3.80-5.40) m/uL Hgb 13.7 (11.4-16.0) gm/dL Hct 38.7 (34.0-46.0) % MCV 88.9 (80.0-100.0) fL MCH 31.6 (25.0-35.0) pg MCHC 35.5 (31.0-37.0) g/dL RDW 12.2 (11.5-15.5) % Plt Count 319 (150-450) k/uL MPV 7.6 Neutrophils % 75 % Lymphocytes % 15 % Monocytes % 4 % Eosinophils % 5 % Basophils % 1 % Neutrophils # 10.4 H (1.3-7.7) k/uL Lymphocytes # 2.1 (1.0-4.8) k/uL Monocytes # 0.6 (0-1.0) k/uL Eosinophils # 0.6 (0-0.7) k/uL Basophils # 0.1 (0-0.2) k/uL PT 10.5 (9.0-12.0) sec INR 1.0 (<1.2) APTT 23.4 (22.0-30.0) sec Sodium 142 (137-145) mmol/L Potassium 3.6 (3.5-5.1) mmol/L Chloride 112 H (98-107) mmol/L Carbon Dioxide 20 L (22-30) mmol/L Anion Gap 10 mmol/L BUN 6 L (7-17) mg/dL Creatinine 0.51 L (0.52-1.04) mg/dL Est GFR (CKD-EPI)AfAm >90 (>60 ml/min/1.73 sqM) Est GFR (CKD-EPI)NonAf >90 (>60 ml/min/1.73 sqM) Glucose 102 H (74-99) mg/dL Calcium 9.6 (8.4-10.2) mg/dL Total Bilirubin 0.2 (0.2-1.3) mg/dL AST 18 (14-36) U/L ALT 9 (4-34) U/L Alkaline Phosphatase 94 (38-126) U/L Troponin I (0.000-0.034) ng/mL Total Protein 6.8 (6.3-8.2) g/dL Albumin 4.2 (3.5-5.0) g/dL 09/17/20 Range/Units 22:15 WBC (3.8-10.6) k/uL RBC (3.80-5.40) m/uL Hgb (11.4-16.0) gm/dL Hct (34.0-46.0) % MCV (80.0-100.0) fL MCH (25.0-35.0) pg MCHC (31.0-37.0) g/dL RDW (11.5-15.5) % Plt Count (150-450) k/uL MPV Neutrophils % % Lymphocytes % % Monocytes % % Eosinophils % % Basophils % % Neutrophils # (1.3-7.7) k/uL Lymphocytes # (1.0-4.8) k/uL Monocytes # (0-1.0) k/uL Eosinophils # (0-0.7) k/uL Basophils # (0-0.2) k/uL PT (9.0-12.0) sec INR (<1.2) APTT (22.0-30.0) sec Sodium (137-145) mmol/L Potassium (3.5-5.1) mmol/L Chloride (98-107) mmol/L Carbon Dioxide (22-30) mmol/L Anion Gap mmol/L BUN (7-17) mg/dL Creatinine (0.52-1.04) mg/dL Est GFR (CKD-EPI)AfAm (>60 ml/min/1.73 sqM) Est GFR (CKD-EPI)NonAf (>60 ml/min/1.73 sqM) Glucose (74-99) mg/dL Calcium (8.4-10.2) mg/dL Total Bilirubin (0.2-1.3) mg/dL AST (14-36) U/L ALT (4-34) U/L Alkaline Phosphatase (38-126) U/L Troponin I <0.012 (0.000-0.034) ng/mL Total Protein (6.3-8.2) g/dL Albumin (3.5-5.0) g/dL - EKG Data EKG Comments: Sinus tachycardia Ventricular rate 114,. 152, QRS 68, QTC 482 Disposition Clinical Impression: Acute anxiety, Asthma with exacerbation, Acute exacerbation of chronic obstructive pulmonary disease Disposition: HOME SELF-CARE Condition: Stable Instructions (If sedation given, give patient instructions): Generalized Anxiety Disorder (ED) Additional Instructions: Please return to the Emergency Department if symptoms worsen or any other concerns. Prescriptions: predniSONE 50 mg PO DAILY #5 tab Albuterol Sulfate [Ventolin HFA] 1 - 2 puff INHALATION Q6H PRN #1 inhaler PRN Reason: Wheezing Is patient prescribed a controlled substance at d/c from ED?: No Referrals: Stevenson Dunlap DO [Primary Care Provider] - 1-2 days Time of Disposition: 23:58
--- NOTE | 2020-09-17 22:49 | XR ---
EXAMINATION TYPE: XR chest 2V DATE OF EXAM: 09/17/2020 COMPARISON: 08/27/2020 HISTORY: Difficulty breathing TECHNIQUE: FINDINGS: Heart and mediastinum are normal. Lungs are clear. Diaphragm is normal. Bony thorax appears normal. There is no heart failure. IMPRESSION: Normal chest. No change.
[2020-09-17 22:51] LABS: ALT 9 U/L (4-34); AST 18 U/L (14-36); African American GFR (CKD) >90 (>60 ml/min/1.73 sqM); Albumin 4.2 g/dL (3.5-5.0); Alkaline Phosphatase 94 U/L (38-126); Anion Gap 10 mmol/L; Blood Urea Nitrogen 6 mg/dL (7-17); Calcium 9.6 mg/dL (8.4-10.2); Carbon Dioxide 20 mmol/L (22-30); Chloride 112 mmol/L (98-107); Glucose 102 mg/dL (74-99); Non-African American GFR(CKD) >90 (>60 ml/min/1.73 sqM); Potassium 3.6 mmol/L (3.5-5.1); Sodium 142 mmol/L (137-145); Total Bilirubin 0.2 mg/dL (0.2-1.3); Total Protein 6.8 g/dL (6.3-8.2)
[2020-09-17 22:56] LABS: Partial Thromboplastin Time 23.4 sec (22.0-30.0); Prothrombin Time 10.5 sec (9.0-12.0)
[2020-09-17 22:57] LABS: Basophils # (A) 0.1 k/uL (0-0.2); Basophils % (A) 1 %; Eosinophils # (A) 0.6 k/uL (0-0.7); Eosinophils % (A) 5 %; HCT 38.7 % (34.0-46.0); HGB 13.7 gm/dL (11.4-16.0); Lymphocytes # (A) 2.1 k/uL (1.0-4.8); Lymphocytes % (A) 15 %; MCH 31.6 pg (25.0-35.0); MCHC 35.5 g/dL (31.0-37.0); MCV 88.9 fL (80.0-100.0); Mean Platelet Volume 7.6; Monocytes # (A) 0.6 k/uL (0-1.0); Monocytes % (A) 4 %; Neutrophils # (A) 10.4 k/uL (1.3-7.7); Neutrophils % (A) 75 %; Platelet Count 319 k/uL (150-450); RBC 4.35 m/uL (3.80-5.40); RDW 12.2 % (11.5-15.5); WBC 13.8 k/uL (3.8-10.6)
[2020-09-18 00:18] VITALS: BP 134/82; PULSE 110; RESP 18
== END 2020-09-18 00:20 | disposition home or self-care (01) ==
LOC: EC 21:32
DX: J44.1 Chronic obstructive pulmonary disease with (acute) exacerbation (principal); F41.9 Anxiety disorder, unspecified; F31.9 Bipolar disorder, unspecified; F17.200 Nicotine dependence, unspecified, uncomplicated; F12.90 Cannabis use, unspecified, uncomplicated; Z79.52 Long term (current) use of systemic steroids; Z79.51 Long term (current) use of inhaled steroids; Z79.899 Other long term (current) drug therapy; Z88.5 Allergy status to narcotic agent
CPT/HCPCS: 96374 ×2; 96375 ×2; 96376 ×2; 99285 ×2; 36415; 94640 ×2; 93005; 80053; 84484; 85025; 85610; 85730; 71046; J2060; J2930

== ENCOUNTER 2021-01-25 10:19 | Emergency (ER) | payer OTHER ==
[2021-01-25 10:36] VITALS: RESP 18; TEMP 98.1
--- NOTE | 2021-01-25 11:32 | XR ---
EXAMINATION TYPE: XR chest 2V DATE OF EXAM: 01/25/2021 COMPARISON: 09/17/2020 HISTORY: 40-year-old female chest congestion TECHNIQUE: PA and lateral views FINDINGS: The cardiomediastinal silhouette, aorta, and pulmonary vasculature are within normal limits. Lungs an d pleural spaces are clear. IMPRESSION: No acute cardiopulmonary process.
[2021-01-25 12:03] LABS: Appearance,Urine Cloudy (Clear); Bacteria,Urine Occasional /hpf; Bilirubin,Urine Negative (Negative); Blood,Urine Negative (Negative); Color,Urine Yellow; Glucose,Urine (UA) Negative (Negative); Ketones,Urine 1+ (Negative); Leukocyte Esterase,Urine Large (Negative); Mucus,Urine Rare /hpf; Nitrite,Urine Negative (Negative); Protein,Urine Negative (Negative); Specific Gravity,Urine 1.011 (1.001-1.035); Squamous Epithelial Cell,Urine 5 /hpf (0-4); Urobilinogen,Urine <2.0 mg/dL (<2.0); WBC,Urine 137 /hpf (0-5)
[2021-01-25] MEDS ORDERED: cefTRIAXone 1,000 MG VIAL (IM USE) IM STA (12:13)
--- NOTE | 2021-01-25 12:17 | ED ---
General Adult HPI - General Chief complaint: ENT Stated complaint: SOB/not feeling good Time Seen by Provider: 01/25/21 10:39 Source: patient, RN notes reviewed Mode of arrival: ambulatory Limitations: no limitations - History of Present Illness Initial comments: Patient is a 40-year-old female that presents to the emergency room with sinus congestion and postnasal drip and cough. She notes that she does have a history of COPD and has had severe complications the past. She denied any sick contacts. She also notes that she might have a UTI she's had some lower abdomen discomfort with frequency of urination. She is otherwise well-appearing. She denied chest pain shortness of breath headache nausea vomiting diarrhea constipation fever fatigue chills. - Related Data Home Medications Medication Instructions Recorded Confirmed Albuterol Nebulized [Ventolin 2.5 mg INHALATION RT-Q8H PRN 08/13/18 09/17/20 Nebulized] ALPRAZolam [Xanax] 0.5 mg PO BID PRN 08/27/20 09/17/20 Albuterol Sulfate [Proair Hfa] 2 puff INHALATION RT-Q4H PRN 08/27/20 09/17/20 Ipratropium-Albuterol Nebulize 3 ml INHALATION RT-Q4H PRN 08/27/20 09/17/20 [Duoneb 0.5 mg-3 mg/3 ml Soln] Sertraline HCl [Zoloft] 100 mg PO DAILY 08/27/20 09/17/20 Tiotropium Br/Olodaterol HCl 2 puff INHALATION RT-DAILY 08/27/20 09/17/20 [Stiolto Respimat Inhal [place]] Fluticasone Propionate [Flovent 2 puff INHALATION RT-BID 09/17/20 09/17/20 Hfa 110 mcg] hydrOXYzine pamoate [hydrOXYzine 25 mg PO TID PRN 09/17/20 09/17/20 PAMOATE] Previous Rx's Medication Instructions Recorded Albuterol Sulfate [Ventolin HFA] 1 - 2 puff INHALATION Q6H PRN #1 09/17/20 inhaler predniSONE 50 mg PO DAILY #5 tab 09/17/20 Cephalexin [Keflex] 500 mg PO Q6HR #40 cap 01/25/21 Allergies Allergy/AdvReac Type Severity Reaction Status Date / Time nitrofurantoin Allergy Swelling Verified 01/25/21 10:36 [From Macrobid] codeine AdvReac Vomiting Verified 01/25/21 10:36 Review of Systems ROS Statement: Those systems with pertinent positive or pertinent negative responses have been documented in the HPI. ROS Other: All systems not noted in ROS Statement are negative. Past Medical History Past Medical History: Asthma, COPD Additional Past Medical History / Comment(s): Bronchitis, medical coma due to breathing issues History of Any Multi-Drug Resistant Organisms: MRSA Date of last positivie culture/infection: 2010 MDRO Source:: index finger on right hand Past Surgical History: No Surgical Hx Reported Additional Past Surgical History / Comment(s): tracheotomy, cysts to wrist removed, peg tube(removed) Past Anesthesia/Blood Transfusion Reactions: No Reported Reaction Past Psychological History: Anxiety, Bipolar, Depression Smoking Status: Current every day smoker Past Alcohol Use History: Occasional Past Drug Use History: Marijuana - Past Family History Mother Family Medical History: Cancer Additional Family Medical History / Comment(s): Lung and brain CA, Uncle Pancreatic General Exam Limitations: no limitations General appearance: alert, in no apparent distress Head exam: Present: atraumatic, normocephalic, normal inspection Eye exam: Present: normal appearance, PERRL, EOMI. Absent: scleral icterus, conjunctival injection, periorbital swelling ENT exam: Present: normal exam, mucous membranes moist Neck exam: Present: normal inspection Respiratory exam: Present: normal lung sounds bilaterally. Absent: respiratory distress, wheezes, rales, rhonchi, stridor Cardiovascular Exam: Present: regular rate, normal rhythm, normal heart sounds. Absent: systolic murmur, diastolic murmur, rubs, gallop, clicks GI/Abdominal exam: Present: soft, normal bowel sounds. Absent: distended, tenderness, guarding, rebound, rigid Extremities exam: Present: normal inspection, full ROM, normal capillary refill. Absent: tenderness, pedal edema, joint swelling, calf tenderness Neurological exam: Present: alert, oriented X3 Psychiatric exam: Present: normal affect, normal mood Skin exam: Present: warm, dry, intact, normal color. Absent: rash Course Vital Signs 01/25/21 10:34 Temperature 98.1 F Pulse Rate 100 Respiratory 18 Rate Blood Pressure 139/84 O2 Sat by Pulse 98 Oximetry Medical Decision Making - Medical Decision Making 40-year-old female complaining of cough and congestion nasal drip and urinary f requency. Covid test, urinalysis, chest x-ray ordered. X-ray negative for any acute cardio pointer process. Covid test. Urinalysis shows 137 white blood cells and occasional bacteria. 1 g Rocephin ordered. Antibody syndrome for which. Case discussed with Dr. Nur, patient discharge home. - Lab Data Lab Results 01/25/21 01/25/21 Range/Units 11:03 11:03 Urine Color Yellow Urine Appearance Cloudy H (Clear) Urine pH 5.0 (5.0-8.0) Ur Specific [place] 1.011 (1.001-1.035) Urine Protein Negative (Negative) Urine Glucose (UA) Negative (Negative) Urine Ketones 1+ H (Negative) Urine Blood Negative (Negative) Urine Nitrite Negative (Negative) Urine Bilirubin Negative (Negative) Urine Urobilinogen <2.0 (<2.0) mg/dL Ur Leukocyte Esterase Large H (Negative) Urine WBC 137 H (0-5) /hpf Urine WBC Clumps Moderate H (None) /hpf Ur Squamous Epith Cells 5 H (0-4) /hpf Urine Bacteria Occasional H (None) /hpf Urine Mucus Rare H (None) /hpf Coronavirus (PCR) Not Detected (Not Detectd) - Radiology Data Radiology results: report reviewed, image reviewed Chest x-ray: No acute cardiopulmonary process. Disposition Clinical Impression: Postnasal drip, Upper respiratory tract infection, Urinary tract infection Disposition: HOME SELF-CARE Instructions (If sedation given, give patient instructions): Urinary Tract Infection in Women (ED) Additional Instructions: Please return to the Emergency Department if symptoms worsen or any other concerns. Can take [id number] nasal decongestion such as Flonase. Follow-up primary care 1-2 days Take antibiotics as prescribed until complete. Prescriptions: Cephalexin [Keflex] 500 mg PO Q6HR #40 cap Is patient prescribed a controlled substance at d/c from ED?: No Referrals: Stevenson Dunlap DO [Primary Care Provider] - 1-2 days Time of Disposition: 12:17
[2021-01-25 12:30] VITALS: BP 129/85; PULSE 99
== END 2021-01-25 12:30 | disposition home or self-care (01) ==
LOC: EC 10:19
DX: J06.9 Acute upper respiratory infection, unspecified (principal); N39.0 Urinary tract infection, site not specified; J44.9 Chronic obstructive pulmonary disease, unspecified; F31.9 Bipolar disorder, unspecified; F41.9 Anxiety disorder, unspecified; F17.200 Nicotine dependence, unspecified, uncomplicated; F12.90 Cannabis use, unspecified, uncomplicated; Z79.51 Long term (current) use of inhaled steroids; Z79.52 Long term (current) use of systemic steroids; Z88.1 Allergy status to other antibiotic agents; Z88.5 Allergy status to narcotic agent; Z79.899 Other long term (current) drug therapy
CPT/HCPCS: 99284 ×2; 96372 ×2; 81001; 87086; 87077; 87186; 87635; 71046; J0696

== ENCOUNTER → 2021-03-06 | Outpatient (CLI) | payer OTHER | LOC: CPPFTMAIN 08:52 | PROVIDERS: ATTEND Family Medicine | DX: J44.9 Chronic obstructive pulmonary disease, unspecified (principal); F17.200 Nicotine dependence, unspecified, uncomplicated; Z88.5 Allergy status to narcotic agent; Z88.1 Allergy status to other antibiotic agents | CPT/HCPCS: 94060; 94726; 94729 ==

== ENCOUNTER 2021-08-13 22:36 | Inpatient (IN) | payer OTHER ==
[2021-08-13 22:47] LABS: Glucose,Whole Blood 147 mg/dL (75-99)
--- NOTE | 2021-08-13 23:12 | CT ---
EXAMINATION TYPE: CT brain wo con for TPA DATE OF EXAM: 08/13/2021 COMPARISON: 12/08/2014 HISTORY: stroke CT DLP: 1096.8 mGycm Automated exposure control for dose reduction was used. Images obtained of the brain with no contrast. Ventricles have normal size. There is no mass effect or midline shift. No sign of intracranial hemorr deandre. Calvarium is intact. There is fluid levels in the maxillary sinuses. There is normal aeration o f the mastoid sinuses. IMPRESSION: Negative unenhanced head CT scan. Axillary sinusitis noted. Brain is not changed compared to old exam .
--- NOTE | 2021-08-13 23:13 | XR ---
EXAMINATION TYPE: XR chest 1V DATE OF EXAM: 08/13/2021 COMPARISON: NONE HISTORY: Altered mental status TECHNIQUE: Single view FINDINGS: Heart and mediastinum are normal. Lungs are clear. Diaphragm is normal. Bony thorax is inta ct. There are chest leads. IMPRESSION: Normal chest. No change.
[2021-08-13 23:30] LABS: ALT 30 U/L (4-34); AST 27 U/L (14-36); African American GFR (CKD) >90 (>60 ml/min/1.73 sqM); Albumin 3.6 g/dL (3.5-5.0); Alkaline Phosphatase 67 U/L (38-126); Anion Gap 9 mmol/L; Blood Urea Nitrogen 20 mg/dL (7-17); Calcium 8.7 mg/dL (8.4-10.2); Carbon Dioxide 22 mmol/L (22-30); Chloride 101 mmol/L (98-107); Glucose 152 mg/dL (74-99); Non-African American GFR(CKD) >90 (>60 ml/min/1.73 sqM); Potassium 3.9 mmol/L (3.5-5.1); Sodium 132 mmol/L (137-145); Total Bilirubin 0.7 mg/dL (0.2-1.3); Total Protein 6.2 g/dL (6.3-8.2)
[2021-08-13 23:31] LABS: Partial Thromboplastin Time 22.4 sec (22.0-30.0)
[2021-08-13 23:46] LABS: Basophils # (A) 0.1 k/uL (0-0.2); Basophils % (A) 0 %; Eosinophils % (A) 0 %; HCT 44.9 % (34.0-46.0); HGB 15.5 gm/dL (11.4-16.0); Lymphocytes % (A) 4 %; MCH 30.9 pg (25.0-35.0); MCHC 34.4 g/dL (31.0-37.0); MCV 89.9 fL (80.0-100.0); Mean Platelet Volume 8.9; Monocytes # (A) 0.7 k/uL (0-1.0); Monocytes % (A) 3 %; Neutrophils # (A) 22.4 k/uL (1.3-7.7); Neutrophils % (A) 92 %; Platelet Count 236 k/uL (150-450); RDW 12.6 % (11.5-15.5); WBC 24.4 k/uL (3.8-10.6)
--- NOTE | 2021-08-13 23:58 | ED ---
Neuro HPI - General Chief Complaint: Neuro Symptoms/Deficit Stated Complaint: stroke Time Seen by Provider: 08/13/21 22:45 Source: patient Mode of arrival: EMS Limitations: physical limitation - History of Present Illness Is the patient presenting with stroke symptoms?: Yes Initial Comments: 41-year-old female past medical history of COPD, asthma presents emergency department with strokelike symptoms. Reports that 30 minutes prior to hospital arrival she had sudden onset of expressive aphasia and numbness in her lower extremities with the left being worse on the right. No history of stroke. Not on any anticoagulation. No recent head trauma. No fevers. She was hospitalized for several days at [facility] where she was on steroids. He was recently discharged today. Upon arrival his speech is resolving. - Related Data Home Medications: Home Medications Medication Instructions Recorded Confirmed Albuterol Sulfate [Proair Hfa] 2 puff INHALATION RT-Q4H PRN 08/27/20 08/14/21 Ipratropium-Albuterol Nebulize 3 ml INHALATION RT-Q4H PRN 08/27/20 08/14/21 [Duoneb 0.5 mg-3 mg/3 ml Soln] Sertraline HCl [Zoloft] 100 mg PO DAILY 08/27/20 08/14/21 hydrOXYzine pamoate [hydrOXYzine 25 mg PO TID PRN 09/17/20 08/14/21 PAMOATE] Cetirizine HCl 10 mg PO DAILY PRN 03/28/21 08/14/21 Fluticasone Propionate [Flovent 2 puff INHALATION RT-BID 03/28/21 08/14/21 Hfa 220 mcg] Acetaminophen Tab [Tylenol] 650 mg PO Q6H PRN 08/14/21 08/14/21 Diclofenac Sodium Gel [Voltaren 2 gm TOPICAL QID 08/14/21 08/14/21 Gel] Famotidine [Pepcid] 20 mg PO BID 08/14/21 08/14/21 Fluticasone/Umeclidin/Vilanter 1 puff INHALATION RT-DAILY 08/14/21 08/14/21 [Trelegy Ellipta 200-62.5-25] Ibuprofen [Motrin] 600 mg PO Q8HR PRN 08/14/21 08/14/21 Nicotine 14Mg/24Hr Patch [Habitrol] 1 patch TRANSDERM DAILY 08/14/21 08/14/21 Previous Rx's Medication Instructions Recorded Atorvastatin [Lipitor] 40 mg PO DAILY 30 Days #30 tab 08/17/21 Budesonide-Formot 160-4.5 Mcg 2 puff INHALATION RT-BID 30 Days 08/17/21 [Symbicort 160-4.5 Mcg Inhaler] #1 each Furosemide [Lasix] 20 mg PO DAILY 30 Days #30 tab 08/17/21 Ipratropium-Albuterol Nebulize 3 ml INHALATION RT-QID each 08/17/21 [Duoneb 0.5 mg-3 mg/3 ml Soln] carvediloL [Coreg] 6.25 mg PO BID-W/MEALS 30 Days #60 08/17/21 tab Allergies/Adverse Reactions: Allergies Allergy/AdvReac Type Severity Reaction Status Date / Time nitrofurantoin Allergy Swelling Verified 08/14/21 06:56 [From Macrobid] codeine AdvReac Vomiting Verified 08/14/21 06:56 Review of Systems ROS Statement: Those systems with pertinent positive or pertinent negative responses have been documented in the HPI. ROS Other: All systems not noted in ROS Statement are negative. General Exam General appearance: alert, in no apparent distress, anxious Head exam: Present: atraumatic, normocephalic, normal inspection Eye exam: Present: normal appearance, PERRL, EOMI. Absent: scleral icterus, conjunctival injection, periorbital swelling ENT exam: Present: normal exam, mucous membranes moist Neck exam: Present: normal inspection. Absent: tenderness, meningismus, lymphadenopathy Respiratory exam: Present: normal lung sounds bilaterally. Absent: respiratory distress, wheezes, rales, rhonchi, stridor Cardiovascular Exam: Present: regular rate, normal rhythm, normal heart sounds. Absent: systolic murmur, diastolic murmur, rubs, gallop, clicks GI/Abdominal exam: Present: soft, normal bowel sounds. Absent: distended, tenderness, guarding, rebound, rigid Extremities exam: Present: normal inspection, full ROM, normal capillary refill. Absent: tenderness, pedal edema, joint swelling, calf tenderness Back exam: Present: normal inspection Neurological exam: Present: alert, oriented X3, CN II-XII intact Psychiatric exam: Present: normal affect, normal mood Skin exam: Present: warm, dry, intact, normal color. Absent: rash Stroke MDM - Lab Data Result diagrams: 08/15/21 06:29 08/15/21 06:29 Lab Results 08/13/21 08/13/21 08/13/21 Range/Units 22:45 23:05 23:05 WBC 24.4 H (3.8-10.6) k/uL RBC 5.00 (3.80-5.40) m/uL Hgb 15.5 (11.4-16.0) gm/dL Hct 44.9 (34.0-46.0) % MCV 89.9 (80.0-100.0) fL MCH 30.9 (25.0-35.0) pg MCHC 34.4 (31.0-37.0) g/dL RDW 12.6 (11.5-15.5) % Plt Count 236 (150-450) k/uL MPV 8.9 Neutrophils % 92 % Lymphocytes % 4 % Monocytes % 3 % Eosinophils % 0 % Basophils % 0 % Neutrophils # 22.4 H (1.3-7.7) k/uL Lymphocytes # 1.0 (1.0-4.8) k/uL Monocytes # 0.7 (0-1.0) k/uL Eosinophils # 0.0 (0-0.7) k/uL Basophils # 0.1 (0-0.2) k/uL PT 11.0 (9.0-12.0) sec INR 1.0 (<1.2) APTT 22.4 (22.0-30.0) sec Sodium (137-145) mmol/L Potassium (3.5-5.1) mmol/L Chloride (98-107) mmol/L Carbon Dioxide (22-30) mmol/L Anion Gap mmol/L BUN (7-17) mg/dL Creatinine (0.52-1.04) mg/dL Est GFR (CKD-EPI)AfAm (>60 ml/min/1.73 sqM) Est GFR (CKD-EPI)NonAf (>60 ml/min/1.73 sqM) Glucose (74-99) mg/dL POC Glucose (mg/dL) 147 H (75-99) mg/dL POC Glu Grain [employer]ader ID [employer] Calcium (8.4-10.2) mg/dL Total Bilirubin (0.2-1.3) mg/dL AST (14-36) U/L ALT (4-34) U/L Alkaline Phosphatase (38-126) U/L Troponin I (0.000-0.034) ng/mL Total Protein (6.3-8.2) g/dL Albumin (3.5-5.0) g/dL 08/13/21 08/13/21 Range/Units 23:05 23:05 WBC (3.8-10.6) k/uL RBC (3.80-5.40) m/uL Hgb (11.4-16.0) gm/dL Hct (34.0-46.0) % MCV (80.0-100.0) fL MCH (25.0-35.0) pg MCHC (31.0-37.0) g/dL RDW (11.5-15.5) % Plt Count (150-450) k/uL MPV Neutrophils % % Lymphocytes % % Monocytes % % Eosinophils % % Basophils % % Neutrophils # (1.3-7.7) k/uL Lymphocytes # (1.0-4.8) k/uL Monocytes # (0-1.0) k/uL Eosinophils # (0-0.7) k/uL Basophils # (0-0.2) k/uL PT (9.0-12.0) sec INR (<1.2) APTT (22.0-30.0) sec Sodium 132 L (137-145) mmol/L Potassium 3.9 (3.5-5.1) mmol/L Chloride 101 (98-107) mmol/L Carbon Dioxide 22 (22-30) mmol/L Anion Gap 9 mmol/L BUN 20 H (7-17) mg/dL Creatinine 0.54 (0.52-1.04) mg/dL Est GFR (CKD-EPI)AfAm >90 (>60 ml/min/1.73 sqM) Est GFR (CKD-EPI)NonAf >90 (>60 ml/min/1.73 sqM) Glucose 152 H (74-99) mg/dL POC Glucose (mg/dL) (75-99) mg/dL POC Glu Grain Grader ID Calcium 8.7 (8.4-10.2) mg/dL Total Bilirubin 0.7 (0.2-1.3) mg/dL AST 27 (14-36) U/L ALT 30 (4-34) U/L Alkaline Phosphatase 67 (38-126) U/L Troponin I 0.474 H* (0.000-0.034) ng/mL Total Protein 6.2 L (6.3-8.2) g/dL Albumin 3.6 (3.5-5.0) g/dL - Medical Decision Making Upon arrival patient was placed into trauma 2. Thorough history and physical exam was performed. NIH is assessed and is 5. Code alteplase is activated. Patient is over for CT of her brain which demonstrates no acute abnormality. Laboratory studies are conducted. White count 24.4. Troponin 0.474. Patient sent back for CT of her chest abdomen and pelvis due to elevated troponin. No signs of dissection, aneurysm. No PE. Spoke with Dr. Torres regarding heparin in the setting of elevated trop. Does not recommend heparinization with concern that the patient had a stroke. Patient will be admitted with cardiology and neurology consult. She is pending a bed on the floor in stable condition 08/13/21 23:57 EKG demonstrates sinus rhythm with a rate of 94. TN interval 142. QRS 71. QTC 387. J-point elevation 2, 3, aVF as well as V4 through V6. Repeat EKG at 1:15 demonstrates sinus rhythm with a rate of 97. TN interval 143. QRS 82. QTC 411. J-point elevation 2, 3, aVF, V4-6 with no reciprocal changes Past Medical History Past Medical History: Asthma, COPD Additional Past Medical History / Comment(s): Bronchitis, medical coma due to breathing issues History of Any Multi-Drug Resistant Organisms: MRSA Date of last positivie culture/infection: 2010 MDRO Source:: index finger on right hand Past Surgical History: No Surgical Hx Reported Additional Past Surgical History / Comment(s): tracheotomy, cysts to wrist removed, peg tube(removed) Past Anesthesia/Blood Transfusion Reactions: No Reported Reaction Past Psychological History: Anxiety, Bipolar, Depression Smoking Status: Current every day smoker Past Alcohol Use History: Occasional Past Drug Use History: Marijuana - Past Family History Mother Family Medical History: Cancer Additional Family Medical History / Comment(s): Lung and brain CA, Uncle Pancreatic Course Vital Signs 08/13/21 08/13/2122 22:43 22:50 23:00 Temperature 97.9 F Pulse Rate 98 92 106 H Pulse Rate [ Pulse Oximetery ] Respiratory 18 18 18 Rate Blood Pressure 108/92 123/94 143/100 Blood Pressure [Right Arm] O2 Sat by Pulse 94 L 94 L 92 L Oximetry 08/13/21 08/13/21 08/14/21 23:15 23:30 00:00 Temperature Pulse Rate 95 90 100 Pulse Rate [ Pulse Oximetery ] Respiratory 18 18 18 Rate Blood Pressure 141/101 143/97 134/96 Blood Pressure [Right Arm] O2 Sat by Pulse 92 L 94 L 93 L Oximetry 08/14/21 08/14/21 08/14/21 00:30 01:00 02:00 Temperature Pulse Rate 95 113 H 99 Pulse Rate [ Pulse Oximetery ] Respiratory 18 18 18 Rate Blood Pressure 131/91 117/94 143/97 Blood Pressure [Right Arm] O2 Sat by Pulse 94 L 92 L 92 L Oximetry 08/14/21 08/14/21 08/14/21 03:00 08:00 11:44 Temperature 98.1 F Pulse Rate 95 88 Pulse Rate [ 80 Pulse Oximetery ] Respiratory 18 22 Rate Blood Pressure 146/97 Blood Pressure 110/84 [Right Arm] O2 Sat by Pulse 94 L 90 L Oximetry 08/14/21 08/14/21 08/14/21 11:54 12:00 14:00 Temperature Pulse Rate 104 H Pulse Rate [ 75 Pulse Oximetery ] Respiratory 18 22 Rate Blood Pressure Blood Pressure 117/81 [Right Arm] O2 Sat by Pulse 95 Oximetry 08/14/21 08/14/21 08/14/21 16:47 17:00 17:15 Temperature 98.3 F Pulse Rate 84 88 Pulse Rate [ 93 Pulse Oximetery ] Respiratory 19 Rate Blood Pressure Blood Pressure 104/77 [Right Arm] O2 Sat by Pulse 91 L Oximetry - Reevaluation(s) Reevaluation #1: Spoke with Dr. Torres - does not recommend heparin in the setting of concern for ischemic stroke 08/14/21 01:45 Critical Care Time Critical Care Time: Yes Critical Care Time: 35 minutes Disposition Clinical Impression: NSTEMI (non-ST elevated myocardial infarction), Expressive aphasia, Lower extremity weakness Disposition: ADMITTED IP TO THIS [facility] Condition: Stable Is patient prescribed a controlled substance at d/c from ED?: No Time of Disposition: 01:36 Decision to Admit Reason: Admit from EC Decision Date: 08/14/21 Decision Time: 01:36
--- NOTE | 2021-08-14 00:05 | CT ---
EXAMINATION TYPE: CT angio head neck DATE OF EXAM: 08/13/2021 COMPARISON: None HISTORY: stroke like symptoms. lower leg weakness CT DLP: 386.6 mGycm Automated exposure control for dose reduction was used. CONTRAST: Performed with IV Contrast, patient injected with 65ml mL of Isovue 370. Images obtained from the thoracic inlet to the vertex of the brain without IV contrast. There are Thr ee-D postprocessed images. There is normal branching pattern of the great vessels on the aortic arch. There is bilateral arteria l flow in the subclavian arteries. There is arterial flow in the common internal and external carotid arteries bilaterally. There is wide patency of the carotid artery bifurcations. There is arterial fl ow in both vertebral arteries. There is no evidence of carotid or vertebral artery aneurysm or dissection. There is arterial flow in the anterior middle and posterior cerebral arteries. No evidence of intracr anial aneurysm or neovascularity. No mass effect. There is normal enhancement of the venous sinuses. No evidence of intracranial hemodynamic arterial stenosis. There are fluid levels in the maxillary si nuses. IMPRESSION: Normal CT angiogram of the neck. Normal CT angiogram of the brain.
[2021-08-14] MEDS ORDERED: SODIUM CHLORIDE 0.9% 1,000 ML IV ONE (00:33)
[2021-08-14] MEDS ORDERED: ONDANSETRON 4 MG/2 ML VIAL IVP STA (00:47)
[2021-08-14] MEDS ORDERED: LORazepam 2 MG/ML INJ IV STA (00:49)
--- NOTE | 2021-08-14 01:15 | CT ---
EXAMINATION TYPE: CT angio thor/abd pel aorta DATE OF EXAM: 08/14/2021 COMPARISON: None HISTORY: elevated trop and leg numbness CT DLP: 890.1 mGycm Automated exposure control for dose reduction was used. CONTRAST: Performed with IV Contrast, patient injected with 100ml mL of Isovue 370. Images obtained from the thoracic inlet to the floor of the pelvis with and without IV contrast. Ther e are 3-D post processed images. FINDINGS: There is patchy groundglass pulmonary interstitial edema. Heart size is normal. No pericardial effusi on. There are no hilar masses. There is no mediastinal adenopathy. Thoracic aorta is intact. No aneur ysm or dissection. The ascending aorta measures 2.9 cm. There is no evidence of filling defect in the pulmonary arteries. Liver spleen stomach pancreas and gallbladder appear intact. The bile ducts are not dilated. There is no adrenal mass. Kidneys show satisfactory contrast opacification. There is no hydronephrosi s. There is no retroperitoneal adenopathy. Bladder distends smoothly with pre-existing contrast. Uter us is anteverted. No pelvic mass. No free fluid in the pelvis. There is fat-containing 3 x 2 cm umbilical hernia. There is no sign of thickened appendix. Abdominal aorta is intact. There is arterial flow in the celiac artery and superior mesenteric artery . There is arterial flow in the renal and iliac and femoral arteries. No evidence of aneurysm or diss ection. No evidence of stenosis. IMPRESSION: Normal CT angiogram of the chest abdomen pelvis.
[2021-08-14] MEDS ORDERED: NALOXONE 0.4 MG/ML 1 ML VIAL IV PRN (01:40)
[2021-08-14] MEDS ORDERED: ASPIRIN 325 MG TAB PO STA (01:46)
[2021-08-14] MEDS: ATORVASTATIN 40 MG TAB PO SCH ×2 (02:16→11:43)
[2021-08-14 02:51] LABS: Amphetamine Screen,Urine Not Detected (NotDetected); Barbiturate Screen,Urine Not Detected (NotDetected); Benzodiazepines Screen,Urine Detected (NotDetected); Cocaine Screen,Urine Not Detected (NotDetected); Methadone Screen, Urine Not Detected (NotDetected); Opiate Screen,Urine Not Detected (NotDetected); Oxycodone Screen, Urine Not Detected (NotDetected); Phencyclidine Screen,Urine Not Detected (NotDetected); Tricyclic Antidepressant,Urine Not Detected (NotDetected); Urn Cannabinoid Scrn Detected (NotDetected)
[2021-08-14] MEDS ORDERED: HEPARIN SODIUM,PORCINE/PF 5,000 UNIT/0.5 ML SYRINGE SQ SCH (08:00)
[2021-08-14] MEDS ORDERED: IPRATROPIUM-ALBUTEROL 3 ML NEB INHALATION PRN (10:42)
[2021-08-14] MEDS ORDERED: IPRATROPIUM-ALBUTEROL 3 ML NEB INHALATION STA (10:42)
[2021-08-14 10:47] LABS: African American GFR (CKD) >90 (>60 ml/min/1.73 sqM); Anion Gap 8 mmol/L; Basophils # (A) 0.1 k/uL (0-0.2); Basophils % (A) 0 %; Blood Urea Nitrogen 18 mg/dL (7-17); Calcium 8.8 mg/dL (8.4-10.2); Carbon Dioxide 22 mmol/L (22-30); Chloride 107 mmol/L (98-107); Eosinophils # (A) 0.4 k/uL (0-0.7); Eosinophils % (A) 2 %; Glucose 104 mg/dL (74-99); HCT 46.8 % (34.0-46.0); HGB 15.5 gm/dL (11.4-16.0); Lymphocytes % (A) 18 %; MCH 30.5 pg (25.0-35.0); MCV 92.4 fL (80.0-100.0); Monocytes # (A) 0.9 k/uL (0-1.0); Monocytes % (A) 4 %; Neutrophils # (A) 16.8 k/uL (1.3-7.7); Neutrophils % (A) 74 %; Non-African American GFR(CKD) >90 (>60 ml/min/1.73 sqM); Platelet Count 254 k/uL (150-450); Potassium 3.8 mmol/L (3.5-5.1); RBC 5.07 m/uL (3.80-5.40); RDW 12.8 % (11.5-15.5); Sodium 137 mmol/L (137-145); WBC 22.6 k/uL (3.8-10.6)
--- NOTE | 2021-08-14 11:27 | P.CNNES ---
History of Present Illness Consult date: 08/14/21 Requesting physician: Eugenia Galeano Reason for Consult: acute transient expressive aphasia History of Present Illness: This is a 41-year-old woman with history of COPD, tobacco use, remote illicit drug use who presented to the emergency depratment on 08/13/2021 for bilateral lower extremity weakness and paresthesia and speech difficulty. She is accompanied by her step-mother. It seems that the patient had a recent the hospitalization at [facility] and that she was complaining of shortness of breath for the last 1 week and as a result she presented to their facility and that because of worsening of shortness of breath she was intubated then went is extubated and she was discharged yesterday. Yesterday as she took a nap at home for 45 minutes and when she woke up she noticed that she's having numbness and tingling of bilateral lower extremities from the waist down and she noticed weakness in the legs. She noticed this issue around 3 to 3:15 PM yesterday. Then around the between 8 and 9 she noticed that that she's having difficulty getting her words out and possibly he could've a lasted for 1 hour. She also had a bowel incontinence while at [facility] yesterday. She's been having urinary and bowel incontinence. Denies any back pain that is worse. Currently he denies of any headache. She feels her speech is back to baseline. She stated that for her recent flu she got Tamiflu at [facility]. Denies any history of stroke or TIA or seizures. She's not on any antiplatelet or coagulation. She used to smoke a pack and a half a day but the she stated down to less than half a pack a day. Some other workup in the hospital consisted of: Initial white blood cell is 24.4 and it's the neutrophilic. Her initial serum glucose is 147 CT of the head is reported as negative unenhanced head CT scan. I personally reviewed the CT of the head and I agree with the report CT angiography of the head and neck was reported as normal EKG is reported as sinus rhythm. Possible right atrial enlargement. Possible left atrial enlargement. Possible anterior myocardial infarction of indeterminate age. Troponin is 0.474 and a repeat his 0.344. Urine drug train as a positive for benzo as well as marijuana. The ED team notified me about the patient and about starting heparin to him I notified him to hold off for now especially with the patient with acute stroke symptoms to avoid hemorrhagic transformation if possible. Review of Systems Review of system: The 12 point system was reviewed and apparent positive and negative per HPI. Past Medical History Past Medical History: Asthma, COPD Additional Past Medical History / Comment(s): Bronchitis, medical coma due to breathing issues History of Any Multi-Drug Resistant Organisms: MRSA Date of last positivie culture/infection: 2010 MDRO Source:: index finger on right hand Past Surgical History: No Surgical Hx Reported Additional Past Surgical History / Comment(s): tracheotomy, cysts to wrist removed, peg tube(removed) Past Anesthesia/Blood Transfusion Reactions: No Reported Reaction Past Psychological History: Anxiety, Bipolar, Depression Smoking Status: Current every day smoker Past Alcohol Use History: Occasional Past Drug Use History: Marijuana - Past Family History Mother Family Medical History: Cancer Additional Family Medical History / Comment(s): Lung and brain CA, Uncle Pancreatic Medications and Allergies Home Medications Medication Instructions Recorded Confirmed Type Albuterol Sulfate [Proair Hfa] 2 puff INHALATION RT-Q4H PRN 08/27/20 08/14/21 History Ipratropium-Albuterol Nebulize 3 ml INHALATION RT-Q4H PRN 08/27/20 08/14/21 History [Duoneb 0.5 mg-3 mg/3 ml Soln] Sertraline HCl [Zoloft] 100 mg PO DAILY 08/27/20 08/14/21 History Tiotropium Br/Olodaterol HCl 2 puff INHALATION RT-DAILY 08/27/20 08/14/21 History [Stiolto Respimat Inhal [place]] hydrOXYzine pamoate [hydrOXYzine 25 mg PO TID PRN 09/17/20 08/14/21 History PAMOATE] Cetirizine HCl 10 mg PO DAILY PRN 03/28/21 08/14/21 History Fluticasone Propionate [Flovent 2 puff INHALATION RT-BID 03/28/21 08/14/21 History Hfa 220 mcg] predniSONE See Taper PO DAILY 03/28/21 08/14/21 History Acetaminophen Tab [Tylenol] 650 mg PO Q6H PRN 08/14/21 08/14/21 History Diclofenac Sodium Gel [Voltaren 2 gm TOPICAL QID 08/14/21 08/14/21 History Gel] Famotidine [Pepcid] 20 mg PO BID 08/14/21 08/14/21 History Fluticasone/Umeclidin/Vilanter 1 puff INHALATION RT-DAILY 08/14/21 08/14/21 History [Felixlehugh Ellipta 200-62.5-25] Ibuprofen [Motrin] 600 mg PO Q8HR PRN 08/14/21 08/14/21 History Nicotine 14Mg/24Hr Patch [Habitrol 1 patch TRANSDERM DAILY 08/14/21 08/14/21 History 14Mg/24Hr Patch] cloNIDine HCL [Catapres] 0.1 mg PO Q8H 08/14/21 08/14/21 History Allergies Allergy/AdvReac Type Severity Reaction Status Date / Time nitrofurantoin Allergy Swelling Verified 08/14/21 06:56 [From Macrobid] codeine AdvReac Vomiting Verified 08/14/21 06:56 Physical Examination - Vital Signs Vital Signs: Vital Signs Temp Pulse Resp BP Pulse Ox 08/14/21 03:00 95 18 146/97 94 L 08/14/21 02:00 99 18 143/97 92 L 08/14/21 01:00 113 H 18 117/94 92 L 08/14/21 00:30 95 18 131/91 94 L 08/14/21 00:00 100 18 134/96 93 L 08/13/21 23:30 90 18 143/97 94 L 08/13/21 23:15 95 18 141/101 92 L 08/13/21 23:00 106 H 18 143/100 92 L 08/13/21 22:50 92 18 123/94 94 L 08/13/21 22:43 97.9 F 98 18 108/92 94 L Intake and Output 08/13/21 08/14/21 08/14/21 22:59 06:59 14:59 Other: Weight 59.7 kg GENERAL: The patient is lying in bed and is not in acute distress. CHEST: The heart rate is regular rate rhythm. No murmurs to auscultation. No carotid bruit bilaterally. LUNG: Clear to auscultation bilaterally no wheezing noted throughout. Not labored breathing. ABDOMEN/GI: Bowel sounds present in all 4 quadrants. No tenderness to palpation throughout. NEUROLOGICAL: Higher mental function: The patient is awake, alert, oriented to self, place and time. Patient is following commands. No aphasia and no neglect. Cranial nerves: The pupils are round, equal and reactive to light and accommodation. Visual briceno are full to confrontation throughout. Extraocular movement is intact no nystagmus is noted. Facial sensation is normal to touch throughout. The facial strength is normal throughout. Hearing is normal bilaterally to hand rub. Tongue is midline and moved [id number] without any difficulty. No dysarthria is noted. Shoulder shrug is normal bilaterally. Motor: Gait is deferred. The strength is left lower extremity is 3-4. While the right lower is about 5-. Otherwise 5 over 5 throughout upper. Slightly decrease tone over the left lower. Cerebellum: Normal finger to nose bilaterally. Sensation: Sensation is decreased from wait down and feel dull over the right lower while numb on the left lower to touch. Reflexes (right/left): 2+ throughout. Plantars are mute bilaterally. Results - Laboratory Findings CBC and BMP: 08/14/21 09:04 08/14/21 09:04 Abnormal Lab Findings: Abnormal Labs 08/13/21 08/13/21 08/13/21 22:45 23:05 23:05 WBC 24.4 H Neutrophils # 22.4 H Sodium 132 L BUN 20 H Glucose 152 H POC Glucose (mg/dL) 147 H Troponin I Total Protein 6.2 L U Benzodiazepines Scrn U Marijuana (THC) Screen 08/13/21 08/14/21 08/14/21 23:05 02:17 03:05 WBC Neutrophils # Sodium BUN Glucose POC Glucose (mg/dL) Troponin I 0.474 H* 0.344 H* Total Protein U Benzodiazepines Scrn Detected H U Marijuana (THC) Screen Detected H Assessment and Plan Assessment: Acute lower paresthesia and lower extremity weakness and transient expressive aphasia, urinary and bowel incontinence (on examination had weakness over the left lower but had intact reflexes). Possibly stroke. Rule out any Lumbosacral compression/or enhancement. Elevated troponin Leukocytosis and the patient is on steroids seems reactive from medication. Patient is afebrile. COPD Tobacco use Plan: I ordered MRI of the brain and Lumbar spine stat In the ED patient was given aspirin 325 once then started on aspirin 325 daily. As well as the patient was started on Lipitor 40 mg daily. I'll not start the patient on dual antiplatelets for now unless we get more imaging. 2-D echo, lipid panel is ordered and is pending I ordered TSH level, HbA1c, vitamin B12, folate. Continue neuro checks Continue cardiac monitoring PT OT and [employer] DEMONSTRATOR are consulted Cardiology is consulted She was counseled on tobacco cessation for 3 minutes. We'll defer the rest of medical management to the primary team For DVT prophylaxis: Use SCD for now until we get imaging results. The plan is discussed with patient and her nurse. Thank you for the consultation. Mitch Torres M.D. Neuro-hospitalist Time with Patient: Greater than 30
[2021-08-14] MEDS: IPRATROPIUM-ALBUTEROL 3 ML NEB INHALATION SCH ×3 (11:41→19:42)
[2021-08-14] MEDS: carvediloL 3.125 MG TAB PO SCH ×2 (11:45→17:20)
[2021-08-14] MEDS: cloNIDine HCL 0.1 MG TAB PO SCH ×2 (11:45→17:20)
--- NOTE | 2021-08-14 11:53 | P.CRDCN ---
History of Present Illness History of present illness: HISTORY OF PRESENT ILLNESS: This is a 41-year-old female with a past medical history significant for COPD, anxiety, depression, bipolar disorder, and marijuana use. Patient does not follow with a dsp engineer. We have been asked to see the patient in consultation for abnormal troponins. Patient examined at the bedside. Patient's mother at the bedside and providing a portion of the HPI. The patient was just discharged yesterday from [facility]. The patient was admitted there secondary to. Influenza, COPD, and asthma. The patient was intubated. Patient's stepmother says the patient was moved out of ICU yesterday to a general medical floor and was discharged home yesterday afternoon. The patient presented back to the emergency room with weakness of her lower extremities, incontinence, shortness of breath, coughing, and chest discomfort. Patient currently reports mild chest discomfort when she is coughing. * EKG reveals sinus tachycardia with no signs of acute ischemia * Chest xray negative for acute process * CT brain: Negative for acute process * Laboratory data: WBC 24.4. Hemoglobin 15.5. Platelet count 236. Sodium 132. Potassium 3.9. BUN 20. Creatinine 0.54. Troponin 0.474. 0.344. * Current home cardiac medications include Catapres 0.1 mg every 8 hours * Most recent echocardiogram obtained in November 2014 revealed ejection fraction 50-55%, mild mitral regurgitation, septal hypokinesis REVIEW OF SYSTEMS: At the time of my exam: CONSTITUTIONAL: Denies fever or chills. HEENT: Denies blurred vision, vision changes, or eye pain. Denies hemoptysis CARDIOVASCULAR: Denies chest pain. Denies orthopnea. Denies PND. Denies palpitations RESPIRATORY: Denies shortness of breath. GASTROINTESTINAL: Denies abdominal pain. Denies nausea or vomiting. HEMATOLOGIC: Denies bleeding disorders. GENITOURINARY: Denies any blood in urine. SKIN: Denies pruitis. Denies rash. PHYSICAL EXAM: VITAL SIGNS: Reviewed. GENERAL: Well-developed in no acute distress. HEENT: Head is normocephalic. Pupils are equal, round. Sclerae anicteric. Mucous membranes of the mouth are moist. Neck supple. No JVD or thyromegaly LUNGS: Respirations even and unlabored. Lungs diminished with expiratory wheezing noted HEART: Regular rate and rhythm. S1 and S2 heard. ABDOMEN: Soft. Nondistended. Nontender. EXTREMITIES: Normal range of motion. No clubbing or cyanosis. Peripheral pulses intact. No lower extremity edema NEUROLOGIC: Awake and alert. Oriented x 3. ASSESSMENT: Possible TIA/CVA Lower extremity weakness with incontinence Shortness of breath with cough Possible mild CHF, BNP 3250, echo pending Recent influzena and COPD exacerbation requiring mechanical ventilation at [facility] Abnormal troponins COPD Anxiety Depression Bipolar disorder Marijuana use PLAN: Obtain 2-D echo to assess cardiac structure and function Begin carvedilol 3.125 mg twice a day Begin lasix 20mg IV q 12 hours Continue telemetry monitoring Neurology and pulmonary consulted Further recommendations pending patient's course Nurse practitioner note has been reviewed by physician. Signing provider agrees with the documented findings, assessment, and plan of care. Past Medical History Past Medical History: Asthma, COPD Additional Past Medical History / Comment(s): Bronchitis, medical coma due to breathing issues History of Any Multi-Drug Resistant Organisms: MRSA Date of last positivie culture/infection: 2010 MDRO Source:: index finger on right hand Past Surgical History: No Surgical Hx Reported Additional Past Surgical History / Comment(s): tracheotomy, cysts to wrist removed, peg tube(removed) Past Anesthesia/Blood Transfusion Reactions: No Reported Reaction Past Psychological History: Anxiety, Bipolar, Depression Smoking Status: Current every day smoker Past Alcohol Use History: Occasional Past Drug Use History: Marijuana - Past Family History Mother Family Medical History: Cancer Additional Family Medical History / Comment(s): Lung and brain CA, Uncle Pancreatic Medications and Allergies Home Medications Medication Instructions Recorded Confirmed Type Albuterol Sulfate [Proair Hfa] 2 puff INHALATION RT-Q4H PRN 08/27/20 08/14/21 History Ipratropium-Albuterol Nebulize 3 ml INHALATION RT-Q4H PRN 08/27/20 08/14/21 History [Duoneb 0.5 mg-3 mg/3 ml Soln] Sertraline HCl [Zoloft] 100 mg PO DAILY 08/27/20 08/14/21 History Tiotropium Br/Olodaterol HCl 2 puff INHALATION RT-DAILY 08/27/20 08/14/21 History [Stiolto Respimat Inhal [place]] hydrOXYzine pamoate [hydrOXYzine 25 mg PO TID PRN 09/17/20 08/14/21 History PAMOATE] Cetirizine HCl 10 mg PO DAILY PRN 03/28/21 08/14/21 History Fluticasone Propionate [Flovent 2 puff INHALATION RT-BID 03/28/21 08/14/21 History Hfa 220 mcg] predniSONE See Taper PO DAILY 03/28/21 08/14/21 History Acetaminophen Tab [Tylenol] 650 mg PO Q6H PRN 08/14/21 08/14/21 History Diclofenac Sodium Gel [Voltaren 2 gm TOPICAL QID 08/14/21 08/14/21 History Gel] Famotidine [Pepcid] 20 mg PO BID 08/14/21 08/14/21 History Fluticasone/Umeclidin/Vilanter 1 puff INHALATION RT-DAILY 08/14/21 08/14/21 History [Trelegy Ellipta 200-62.5-25] Ibuprofen [Motrin] 600 mg PO Q8HR PRN 08/14/21 08/14/21 History Nicotine 14Mg/24Hr Patch [Habitrol 1 patch TRANSDERM DAILY 08/14/21 08/14/21 History 14Mg/24Hr Patch] cloNIDine HCL [Catapres] 0.1 mg PO Q8H 08/14/21 08/14/21 History Allergies Allergy/AdvReac Type Severity Reaction Status Date / Time nitrofurantoin Allergy Swelling Verified 08/14/21 06:56 [From Macrobid] codeine AdvReac Vomiting Verified 08/14/21 06:56 Physical Exam Vitals: Vital Signs Temp Pulse Resp BP Pulse Ox 08/14/21 03:00 95 18 146/97 94 L 08/14/21 02:00 99 18 143/97 92 L 08/14/21 01:00 113 H 18 117/94 92 L 08/14/21 00:30 95 18 131/91 94 L 08/14/21 00:00 100 18 134/96 93 L 08/13/21 23:30 90 18 143/97 94 L 08/13/21 23:15 95 18 141/101 92 L 08/13/21 23:00 106 H 18 143/100 92 L 08/13/21 22:50 92 18 123/94 94 L 08/13/21 22:43 97.9 F 98 18 108/92 94 L Intake and Output 08/13/21 08/14/21 08/14/21 22:59 06:59 14:59 Other: Weight 59.7 kg Results 08/14/21 09:04 08/14/21 09:04 Cardiac Enzymes 08/13/21 08/13/21 08/14/21 Range/Units 23:05 23:05 03:05 AST 27 (14-36) U/L Troponin I 0.474 H* 0.344 H* (0.000-0.034) ng/mL Coagulation 08/13/21 Range/Units 23:05 PT 11.0 (9.0-12.0) sec APTT 22.4 (22.0-30.0) sec CBC 08/13/21 Range/Units 23:05 WBC 24.4 H (3.8-10.6) k/uL RBC 5.00 (3.80-5.40) m/uL Hgb 15.5 (11.4-16.0) gm/dL Hct 44.9 (34.0-46.0) % Plt Count 236 (150-450) k/uL Comprehensive Metabolic Panel 08/13/21 Range/Units 23:05 Sodium 132 L (137-145) mmol/L Potassium 3.9 (3.5-5.1) mmol/L Chloride 101 (98-107) mmol/L Carbon Dioxide 22 (22-30) mmol/L BUN 20 H (7-17) mg/dL Creatinine 0.54 (0.52-1.04) mg/dL Glucose 152 H (74-99) mg/dL Calcium 8.7 (8.4-10.2) mg/dL AST 27 (14-36) U/L ALT 30 (4-34) U/L Alkaline Phosphatase 67 (38-126) U/L Total Protein 6.2 L (6.3-8.2) g/dL Albumin 3.6 (3.5-5.0) g/dL Current Medications Generic Name Dose Route Start Last Admin Trade Name Freq PRN Reason Stop Dose Admin Aspirin 325 mg 08/15/21 09:00 Aspirin 325 Mg Tab PO DAILY [facility] Atorvastatin Calcium 40 mg 08/14/21 02:00 08/14/21 02:16 Atorvastatin 40 Mg Tab PO 40 mg DAILY [facility] Administration Naloxone HCl 0.2 mg 08/14/21 01:40 Naloxone 0.4 Mg/Ml 1 Ml Vial IV Q2M PRN Opioid Reversal Intake and Output 08/13/21 08/14/21 08/14/21 22:59 06:59 14:59 Other: Weight 59.7 kg 08/13/21 23:05 08/13/21 23:05
[2021-08-14] MEDS: FUROSEMIDE 10 MG/ML 2 ML VIAL IV SCH ×2 (13:17→21:21)
--- NOTE | 2021-08-14 14:41 | MR ---
MR brain without contrast HISTORY: Stroke, aphasia Multiplanar multisequence imaging through the brain and correlated to CT brain 08/13/2021 These: there is artifact, motion on the exam. There is no hemorrhage or hydrocephalus. No restricted diffusion to suggest subacute ischemia. The co rpus callosum, pituitary, cervical medullary junction, cerebellopontine angles are normal. Orbits paula w symmetric appearance. There is inflammatory change within the ethmoid air cells, possible is retent ion cysts within the maxillary sinuses, there is associated mucoperiosteal thickening. Mastoid air ce lls are showing some mild retained fluid. There are expected vascular flow voids. IMPRESSION: Sinus disease. No evident subacute ischemia.
--- NOTE | 2021-08-14 14:54 | P.HPIM ---
History of Present Illness H&P Date: 08/14/21 This is a 41-year-old female who presented to the emergency department with some bilateral lower extremity weakness more so on the left along with expressive aphasia with sudden onset with continued numbness of the left lower extremities. Patient was recently discharged from [facility] after prolonged hospitalization and requiring intubation secondary to COPD/asthma and found to have influenza. Patient reports on discharge she was feeling better and able to walk with no deficits noted. Patient was tired and hungry and had continued coughing spells. Patient was discharged on a prednisone taper from [facility]. Per ER documentation NIH on arrival was 5 and a code alteplase was activated patient underwent CT of the brain which demonstrated no acute abnormality. Patient was also found to have an elevated troponin along with an elevated white count of 24.4 and patient was admitted here for neurology workup and cardiology evaluation. EKG was sinus rhythm. Patient does have a past medical history of asthma and COPD along with bronchitis and reports to being intubated most recently 1 week ago for her extensive asthma. Patient reports to smoking 1-1-1/2 packs of cigarettes and most recently had been cutting down to half a pack a day. Patient has not smoked in over one week. Patient had elevated in troponins and cardiology consulted. Brain MRI was ordered and pending. Imaging: Brain CT: Negative unenhanced head CT axillary sinusitis noted with no mass effect or midline shift and no sign of intracranial hemorrhage Chest x-ray: Normal chest with no change CT angio: Normal CT angiogram of the neck and normal CT angiogram of the brain Thoracic CT: [place] pulmonary interstitial edema heart size is normal with no pericardial effusion no aneurysm or dissection noted the ascending aortic measures 2.9 cm with no evidence of filling defect in the pulmonary arteries and findings are normal of the chest abdomen pelvis EKG: Sinus rhythm Labs: WBC is 24.4, hemoglobin is 15.5, platelets are 236, INR is 1.0, sodium is 132, potassium 3.9, BUN 20, creatinine 0.54, glucose 152 calcium 8.7, troponin 0.474, and Zosyn are detected along with marijuana Review Of Systems: Constitutional: No fever, no chills, no night sweats. No weight change. Reports of weakness and fatigue. No daytime sleepiness. EENT: No headache. No blurred vision or double vision, no loss of vision. No loss of Hearing, no ringing in the ears, no dizziness. No nasal drainage or con gestion. No epistaxis. No sore throat. Lungs: Reports shortness of breath intermittently, reports continued cough, reports frothy sputum production. Reports wheezing. Cardiovascular: Reports chest pain with coughing, no lower extremity edema. No palpitations. No paroxysmal nocturnal dyspnea. No orthopnea. No lightheadedness or dizziness. No syncopal episodes. Abdominal: No abdominal pain. No nausea, vomiting. No diarrhea. No constipation. No bloody or tarry stools.. No loss of appetite. Genitourinary: No dysuria, increased frequency, urgency. No urinary retention. Musculoskeletal: No myalgias. Reports muscle weakness, no gait dysfunction, no frequent falls. No back pain. No neck pain. Reports weakness of bilateral lower extremities more so on the left Integumentary: No wounds, no lesions. No rash or pruritus. No unusual bruising. No change in hair or nails. Neurologic: Reports expressive aphasia on initial ED presentation that has resolved. Reports right facial droop. No change in mentation. No head injury. No headache. No paralysis. No paresthesia. Psychiatric: No depression. Reports some anxiety. No mood swings. Endocrine: No abnormal blood sugars. No weight change. No excessive sweating or thirst. No cold intolerance. Rest of 14 point review of systems are negative except for mentioned above PHYSICAL EXAMINATION: GENERAL: The patient is alert and oriented x4, thin built HEENT: Pupils are round and equally reacting to light. EOMI. no scleral icterus. No conjunctival pallor. Normocephalic, atraumatic. No pharyngeal erythema. No thyromegaly. CARDIOVASCULAR: S1 and S2 muffled PULMONARY: diminished breath sounds bilaterally with expiratory wheezing noted. Frequent coughing spells with dry hacking cough and frothy sputum production ABDOMEN: soft. Nontender on exam. non-distended, normoactive bowel sounds. No palpable organomegaly. MUSCULOSKELETAL: No joint swelling or deformity. EXTREMITIES: No cyanosis, clubbing, or pedal edema. Bilateral lower extremity weakness strength is 4-5 on left strength 5/5 on the right, upper extremities reveal 4/5 strength on left, 5/5 strength on right NEUROLOGICAL: Gross neurological examination did not reveal any focal deficits. Diffuse weakness SKIN: No rashes. Assessment: Bilateral lower extremity paresthesia with weakness and associated transient expressive aphasia along with urine and bowel incontinence, possibly secondary to acute CVA Elevated troponin Leukocytosis possibly reactive as patient has been on high-dose steroids from recent hospitalization and discharged on a prednisone taper COPD, acute exacerbation Continued ongoing tobacco use Gastroesophageal reflux disease History of asthma/COPD and has been intubated in the past requiring tracheostomy THC use Recent hospitalization requiring intubation secondary to COPD exacerbation and hypoxic respiratory failure also secondary to influenza GI prophylaxis DVT prophylaxis Full code Plan: Recommend to continue with current medications and cardiology along with neurology following. 2-D echo is ordered along with BNP and other lab studies. CT of the brain along with thoracic CT and Angio CT was done which are negative and currently an MRI of the brain is ordered and pending. Patient was recently hospitalized at [facility] for a week secondary to COPD exacerbation and influenza requiring intubation and was discharged yesterday and subsequently woke up after a nap after having the symptoms of expressive aphasia and bilateral lower extremity weakness and bowel and bladder incontinence. Ralph rology currently undergoing further workup and will await MRI of the brain. Troponins elevated and cardiology following and 2-D echo is ordered and pending read. Patient continues with weakness and also continued shortness of breath with frequent coughing spells and will consult pulmonary and appreciate input and recommendations. Will add DuoNeb treatments and resume appropriate home medications and continue to monitor closely. Recommend repeat labs and follow- up on MRI of the brain. Due to multiple complex medical issues, prognosis is guarded. The impression and plan of care has been dictated by Darlyn Naranjo, nurse practitioner as directed. Dr. Yusef MD I have performed a history and examination and MDM of this patient, discussed the same with the dictator, and agree with the dictator's assessment and plan as written ,documented as a scribe. Based on total visit time, I have performed more than 50% of the visit. Any additional findings or plans will be noted. Past Medical History Past Medical History: Asthma, COPD Additional Past Medical History / Comment(s): Bronchitis, medical coma due to breathing issues History of Any Multi-Drug Resistant Organisms: MRSA Date of last positivie culture/infection: 2010 MDRO Source:: index finger on right hand Past Surgical History: No Surgical Hx Reported Additional Past Surgical History / Comment(s): tracheotomy, cysts to wrist removed, peg tube(removed) Past Anesthesia/Blood Transfusion Reactions: No Reported Reaction Past Psychological History: Anxiety, Bipolar, Depression Smoking Status: Current every day smoker Past Alcohol Use History: Occasional Past Drug Use History: Marijuana - Past Family History Mother Family Medical History: Cancer Additional Family Medical History / Comment(s): Lung and brain CA, Uncle Pancreatic Medications and Allergies Home Medications Medication Instructions Recorded Confirmed Type Albuterol Sulfate [Proair Hfa] 2 puff INHALATION RT-Q4H PRN 08/27/20 08/14/21 History Ipratropium-Albuterol Nebulize 3 ml INHALATION RT-Q4H PRN 08/27/20 08/14/21 History [Duoneb 0.5 mg-3 mg/3 ml Soln] Sertraline HCl [Zoloft] 100 mg PO DAILY 08/27/20 08/14/21 History Tiotropium Br/Olodaterol HCl 2 puff INHALATION RT-DAILY 08/27/20 08/14/21 History [Stiolto Respimat Inhal [place]] hydrOXYzine pamoate [hydrOXYzine 25 mg PO TID PRN 09/17/20 08/14/21 History PAMOATE] Cetirizine HCl 10 mg PO DAILY PRN 03/28/21 08/14/21 History Fluticasone Propionate [Flovent 2 puff INHALATION RT-BID 03/28/21 08/14/21 History Hfa 220 mcg] predniSONE See Taper PO DAILY 03/28/21 08/14/21 History Acetaminophen Tab [Tylenol] 650 mg PO Q6H PRN 08/14/21 08/14/21 History Diclofenac Sodium Gel [Voltaren 2 gm TOPICAL QID 08/14/21 08/14/21 History Gel] Famotidine [Pepcid] 20 mg PO BID 08/14/21 08/14/21 History Fluticasone/Umeclidin/Vilanter 1 puff INHALATION RT-DAILY 08/14/21 08/14/21 History [Trelegy Ellipta 200-62.5-25] Ibuprofen [Motrin] 600 mg PO Q8HR PRN 08/14/21 08/14/21 History Nicotine 14Mg/24Hr Patch [Habitrol 1 patch TRANSDERM DAILY 08/14/21 08/14/21 History 14Mg/24Hr Patch] cloNIDine HCL [Catapres] 0.1 mg PO Q8H 08/14/21 08/14/21 History Allergies Allergy/AdvReac Type Severity Reaction Status Date / Time nitrofurantoin Allergy Swelling Verified 08/14/21 06:56 [From Macrobid] codeine AdvReac Vomiting Verified 08/14/21 06:56 Physical Exam Vitals: Vital Signs Temp Pulse Resp BP Pulse Ox 08/14/21 03:00 95 18 146/97 94 L 08/14/21 02:00 99 18 143/97 92 L 08/14/21 01:00 113 H 18 117/94 92 L 08/14/21 00:30 95 18 131/91 94 L 08/14/21 00:00 100 18 134/96 93 L 08/13/21 23:30 90 18 143/97 94 L 08/13/21 23:15 95 18 141/101 92 L 08/13/21 23:00 106 H 18 143/100 92 L 08/13/21 22:50 92 18 123/94 94 L 08/13/21 22:43 97.9 F 98 18 108/92 94 L Intake and Output 08/13/21 08/14/21 08/14/21 22:59 06:59 14:59 Other: Weight 59.7 kg Results CBC & Chem 7: 08/14/21 09:04 08/14/21 09:04 Labs: Abnormal Lab Results - Last 24 Hours (Table) 08/13/21 08/13/21 08/13/21 Range/Units 22:45 23:05 23:05 WBC 24.4 H (3.8-10.6) k/uL Neutrophils # 22.4 H (1.3-7.7) k/uL Sodium 132 L (137-145) mmol/L BUN 20 H (7-17) mg/dL Glucose 152 H (74-99) mg/dL POC Glucose (mg/dL) 147 H (75-99) mg/dL Troponin I (0.000-0.034) ng/mL Total Protein 6.2 L (6.3-8.2) g/dL U Benzodiazepines Scrn (NotDetected) U Marijuana (THC) Screen (NotDetected) 08/13/21 08/14/21 08/14/21 Range/Units 23:05 02:17 03:05 WBC (3.8-10.6) k/uL Neutrophils # (1.3-7.7) k/uL Sodium (137-145) mmol/L BUN (7-17) mg/dL Glucose (74-99) mg/dL POC Glucose (mg/dL) (75-99) mg/dL Troponin I 0.474 H* 0.344 H* (0.000-0.034) ng/mL Total Protein (6.3-8.2) g/dL U Benzodiazepines Scrn Detected H (NotDetected) U Marijuana (THC) Screen Detected H (NotDetected)
--- NOTE | 2021-08-14 15:24 | MR ---
EXAMINATION TYPE: MR lumbar spine wo/w con DATE OF EXAM: 08/14/2021 COMPARISON: None HISTORY: Left leg weakness with urinary/bowel issues TECHNIQUE: Multiplanar, multisequence images of the lumbar spine were acquired without and with 6 mL intravenous Gadavist gadolinium contrast. There is some motion, artifact on the exam. L1-L2: Normal disc appearance without desiccation. No herniation, protrusion or disc bulging. No ca nal stenosis is present. Foramina are patent bilaterally. L2-L3: Normal disc appearance without desiccation. No herniation, protrusion or disc bulging. No ca nal stenosis is present. Foramina are patent bilaterally. L3-L4: Loss of disc height signal consistent with disc desiccation. No herniation, protrusion or dis c bulging. No canal stenosis is present. Foramina are patent bilaterally. L4-L5: Normal disc appearance without desiccation. No herniation, protrusion or disc bulging. No ca nal stenosis is present. Foramina are patent bilaterally. L5-S1: Loss of disc height and signal consistent with disc desiccation. No herniation, protrusion or disc bulging. No canal stenosis is present. Foramina are patent bilaterally. Lumbar segments are intact. No paraspinal masses are identified. Conus medullaris has a normal appe arance. Lumbar vertebral bodies show preserved height, alignment, and bone marrow signal. No abnormal enhancement fine contrast administration. IMPRESSION: Mild degenerative disc disease, no evident disc herniation
--- NOTE | 2021-08-14 16:26 | P.CNPUL ---
History of Present Illness Consult date: 08/14/21 Requesting physician: Juliann Camarena Reason for consult: dyspnea Chief complaint: Shortness of breath, acute expressive aphasia, non-ST elevated AL History of present illness: This is a 41-year-old female patient with past medical history of COPD with a component of chronic bronchial asthma, chronic smoker, anxiety, depression, bipolar disorder, marijuana use, recent hospitalization at the [facility] for influenza infection, acute COPD exacerbation, and acute respiratory failure requiring intubation and mechanical support for 6 days. Patient was discharged home yesterday on 08/13/2021. Patient states she was doing well at home after discharge, ambulating. Yesterday afternoon she recently started not feeling good, had an episode of stabbing chest discomfort lasting 15 minutes, accompanied by shortness of breath, she felt like she was going to pass out. Her family assisted her to bed and when she woke up 45 minutes later she was having trouble with speech, and numbness in her bilateral lower extremities left greater than right, weakness, to the point the patient co uld not walk, and patient states she had 2 episodes of bladder and bowel lost control. Today on 08/14/2021 patient was brought into the emergency department for evaluation of stroke like symptoms. Patient had a sudden onset of expressive aphasia, and numbness in her lower extremities with her left side being worse than the right. She has no prior history of CVA, she denies any recent trauma, denies any fever or chills. Not on any anticoagulation. Brain CT without contrast showed negative unenhanced CT of the head. CT angios of the head and neck showed normal CT angiogram of the brain and neck. CT angiogram of the thoracic and abdominal aorta was within normal limits. EKG showed sinus rhythm. Admission blood work showed elevated white count of 24.4, hemoglobin of 15.5, INR of 1.0, sodium of 132, the rest of the electrolytes were within normal limits, BUN is 20, creatinine 0.54, troponin was 0.474, 0.344, 0.191. ProBNP was 3250, TSH was 2.840, urine drug screen was positive for benzodiazepines and marijuana. Addition to neurological symptoms patient was also complaining of s hortness of breath, coughing chest discomfort, and generalized weakness. Chest x-ray was negative for acute pulmonary process. Patient was started on nebulized bronchodilators, she was started on IV Lasix 20 mg every 12 hours, cardiology consultation has been obtained, echocardiogram has been completed, report is pending, neurology services are also following, MR/MRI of the brain and lumbar spine has been ordered. Review of Systems All systems: negative Constitutional: Reports weakness, Denies chills, Denies fever Eyes: denies blurred vision, denies pain Ears, nose, mouth and throat: Denies headache, Denies sore throat Cardiovascular: Denies chest pain, Denies shortness of breath Respiratory: Reports dyspnea, Denies cough Gastrointestinal: Denies abdominal pain, Denies diarrhea, Denies nausea, Denies vomiting Genitourinary: Denies dysuria, Denies hematuria Musculoskeletal: Denies myalgias Integumentary: Denies pruritus, Denies rash Neurological: Reports aphasia, Reports change in mentation, Denies numbness, Denies weakness Psychiatric: Denies anxiety, Denies depression Endocrine: Denies fatigue, Denies weight change Past Medical History Past Medical History: Asthma, COPD Additional Past Medical History / Comment(s): Bronchitis, medical coma due to breathing issues History of Any Multi-Drug Resistant Organisms: MRSA Date of last positivie culture/infection: 2010 MDRO Source:: index finger on right hand Past Surgical History: No Surgical Hx Reported Additional Past Surgical History / Comment(s): tracheotomy, cysts to wrist removed, peg tube(removed) Past Anesthesia/Blood Transfusion Reactions: No Reported Reaction Past Psychological History: Anxiety, Bipolar, Depression Smoking Status: Current every day smoker Past Alcohol Use History: Occasional Past Drug Use History: Marijuana - Past Family History Mother Family Medical History: Cancer Additional Family Medical History / Comment(s): Lung and brain CA, Uncle Pancreatic Medications and Allergies Home Medications Medication Instructions Recorded Confirmed Type Albuterol Sulfate [Proair Hfa] 2 puff INHALATION RT-Q4H PRN 08/27/20 08/14/21 History Ipratropium-Albuterol Nebulize 3 ml INHALATION RT-Q4H PRN 08/27/20 08/14/21 His tory [Duoneb 0.5 mg-3 mg/3 ml Soln] Sertraline HCl [Zoloft] 100 mg PO DAILY 08/27/20 08/14/21 History Tiotropium Br/Olodaterol HCl 2 puff INHALATION RT-DAILY 08/27/20 08/14/21 History [Stiolto Respimat Inhal [place]] hydrOXYzine pamoate [hydrOXYzine 25 mg PO TID PRN 09/17/20 08/14/21 History PAMOATE] Cetirizine HCl 10 mg PO DAILY PRN 03/28/21 08/14/21 History Fluticasone Propionate [Flovent 2 puff INHALATION RT-BID 03/28/21 08/14/21 History Hfa 220 mcg] predniSONE See Taper PO DAILY 03/28/21 08/14/21 History Acetaminophen Tab [Tylenol] 650 mg PO Q6H PRN 08/14/21 08/14/21 History Diclofenac Sodium Gel [Voltaren 2 gm TOPICAL QID 08/14/21 08/14/21 History Gel] Famotidine [Pepcid] 20 mg PO BID 08/14/21 08/14/21 History Fluticasone/Umeclidin/Vilanter 1 puff INHALATION RT-DAILY 08/14/21 08/14/21 History [Trelegy Ellipta 200-62.5-25] Ibuprofen [Motrin] 600 mg PO Q8HR PRN 08/14/21 08/14/21 History Nicotine 14Mg/24Hr Patch [Habitrol 1 patch TRANSDERM DAILY 08/14/21 08/14/21 History 14Mg/24Hr Patch] cloNIDine HCL [Catapres] 0.1 mg PO Q8H 08/14/21 08/14/21 History Allergies Allergy/AdvReac Type Severity Reaction Status Date / Time nitrofurantoin Allergy Swelling Verified 08/14/21 06:56 [From Macrobid] codeine AdvReac Vomiting Verified 08/14/21 06:56 Physical Exam Vitals: Vital Signs Temp Pulse Pulse Resp BP BP Pulse Ox 08/14/21 11:54 104 H 08/14/21 11:44 88 08/14/21 08:00 98.1 F 80 22 110/84 90 L 08/14/21 03:00 95 18 146/97 94 L 08/14/21 02:00 99 18 143/97 92 L 08/14/21 01:00 113 H 18 117/94 92 L 08/14/21 00:30 95 18 131/91 94 L 08/14/21 00:00 100 18 134/96 93 L 08/13/21 23:30 90 18 143/97 94 L 08/13/21 23:15 95 18 141/101 92 L 08/13/21 23:00 106 H 18 143/100 92 L 08/13/21 22:50 92 18 123/94 94 L 08/13/21 22:43 97.9 F 98 18 108/92 94 L Intake and Output 08/13/21 08/14/21 08/14/21 22:59 06:59 14:59 Other: Weight 59.7 kg 59.7 kg GENERAL EXAM: Alert, very pleasant, 41-year-old, white female, room air, with pulse ox of 90% comfortable in no apparent distress. HEAD: Normocephalic/atraumatic. EYES: Normal reaction of pupils, equal size. Conjunctiva pink, sclera white. NOSE: Clear with pink turbinates. THROAT: No erythema or exudates. NECK: No masses, no JVD, no thyroid enlargement, no adenopathy. CHEST: No chest wall deformity. Symmetrical expansion. LUNGS: Equal air entry with scattered wheezes CVS: Regular rate and rhythm, normal S1 and S2, no gallops, no murmurs, no rubs ABDOMEN: Soft, nontender. No hepatosplenomegaly, normal bowel sounds, no guarding or rigidity. EXTREMITIES: No clubbing, no edema, no cyanosis, 2+ pulses and upper and lower extremities. MUSCULOSKELETAL: Muscle strength and tone normal. SPINE: No scoliosis or deformity SKIN: No rashes CENTRAL NERVOUS SYSTEM: Alert and oriented -3. No focal deficits, tone is norm al in all 4 extremities. PSYCHIATRIC: Alert and oriented -3. Appropriate affect. Intact judgment and insight. Results - Laboratory Findings CBC and BMP: 08/15/21 06:29 08/15/21 06:29 PT/INR, D-dimer PT 11.0 sec (9.0-12.0) 08/13/21 23:05 INR 1.0 (<1.2) 08/13/21 23:05 Abnormal lab findings: Abnormal Labs 08/13/21 08/13/21 08/13/21 22:45 23:05 23:05 WBC 24.4 H Hct Neutrophils # 22.4 H Sodium 132 L BUN 20 H Glucose 152 H POC Glucose (mg/dL) 147 H Troponin I Total Protein 6.2 L U Benzodiazepines Scrn U Marijuana (THC) Screen 08/13/21 08/14/21 08/14/21 23:05 02:17 03:05 WBC Hct Neutrophils # Sodium BUN Glucose POC Glucose (mg/dL) Troponin I 0.474 H* 0.344 H* Total Protein U Benzodiazepines Scrn Detected H U Marijuana (THC) Screen Detected H 08/14/21 08/14/21 08/14/21 09:04 09:04 09:04 WBC 22.6 H Hct 46.8 H Neutrophils # 16.8 H Sodium BUN 18 H Glucose 104 H POC Glucose (mg/dL) Troponin I 0.191 H* Total Protein U Benzodiazepines Scrn U Marijuana (THC) Screen 08/14/21 11:46 WBC Hct Neutrophils # Sodium BUN Glucose POC Glucose (mg/dL) Troponin I 0.147 H* Total Protein U Benzodiazepines Scrn U Marijuana (THC) Screen - Diagnostic Findings Chest x-ray: report reviewed, image reviewed Additional studies: CT of the brain, angiography CT, EKG reviewed Assessment and Plan Plan: Assessment: #1. Acute onset of expressive aphasia, urinary and bowel incontinence, lower extremity weakness and paresthesia, rule out possibility of CVA, versus lumbosacral compression or enhancement #2. Recent hospitalization for acute influenza infection, acute COPD/severe persistent bronchial asthma exacerbation and acute respiratory failure requiring mechanical ventilatory support, discharged from the [facility] yesterday of 08/13/2021 #3. Chest pain, dyspnea, related to chronic COPD, rule out possibility of ACS #4. Elevated troponin, rule out possibility of non-ST elevated myocardial inf arction #5. Leukocytosis, possibly related to steroids #6. History of COPD, baseline FEV1 of 1.63 L of 50% predicted, stage III, and component of severe persistent bronchial asthma #7. Chronic and ongoing history of tobacco abuse #8. Anxiety and depression #9. Bipolar disorder #10. Marijuana use #11. Previous episode of acute exacerbation of severe persistent bronchial asthma requiring mechanical ventilator support with subsequent tracheostomy and PEG tube placement for weaning. Patient had since been decannulated and PEG tube had been removed Plan: Continue breathing treatments We will add IV steroids Diuretics per cardiology Echocardiogram is pending Neurology consultation and recommendations Close neurological monitoring Continue to follow I have personally seen and examined the patient, performed the documentation and the assessment and plan as written. Number of minutes spent on the visit: [15] I have personally seen and examined the patient and reviewed the documentation. I performed a joint evaluation with the nurse practitioner in this evaluation was done more than 30 minutes. I fully agree with the documentation above and the plan of care. The patient is very well-known to me. Of taking care of her at [facility] during a recent ventilator-dependent respiratory failure. She is coming in with some new onset neurologic deficits is on that investigation for now. Same time, there is an elevation of troponin consistent with an acute non-STEMI. We'll manage the bronchial asthma for now. We'll admit this patient to the hospital. Neuro workup is in progress. We'll continue to follow. Time with Patient: Greater than 30
[2021-08-14 17:16] LABS: Glucose,Whole Blood 111 mg/dL (75-99)
[2021-08-14] MEDS: methylPREDNISolone SOD SUCCI 40 MG/ML 1 ML VIAL IV SCH ×2 (17:20→21:22)
[2021-08-14] MEDS: INSULIN ASPART (NovoLOG) 100 UNIT/ML VIAL SQ SCH ×2 (17:24→21:23)
[2021-08-14] MEDS: SYMBICORT 160-4.5 MCG INHALER INHALATION SCH (19:41)
[2021-08-14 19:43] LABS: Glucose,Whole Blood 144 mg/dL (75-99)
--- NOTE | 2021-08-14 19:47 | CA ---
Transthoracic Echo Report Name: Bill Faith Age: 41 Gender: F : 1980 Exam Date: 08/14/2021 11:15 Exam Location: [facility] Ht (in): 67 Wt (lb): 131 Ordering Physician: Ruthy Rockwell Attending/Referring Phys: [id number], Moiz Tubing Machine Operator Hellen Díaz, CLAY Procedure CPT: Indications: LV function Cardiac Hx: Technical Quality: Fair Contrast 1: Total Dose (mL): Contrast 2: Total Dose (mL): MEASUREMENTS (Male / Female) Normal Values 2D ECHO LV Diastolic Diameter PLAX 3.8 cm 4.2 - 5.9 / 3.9 - 5.3 cm LV Systolic Diameter PLAX 2.4 cm IVS Diastolic Thickness 1.0 cm 0.6 - 1.0 / 0.6 - 0.9 cm LVPW Diastolic Thickness 0.9 cm 0.6 - 1.0 / 0.6 - 0.9 cm LV Relative Wall Thickness 0.5 RV Internal Dim ED PLAX 2.3 cm LA Systolic Diameter LX 2.4 cm 3.0 - 4.0 / 2.7 - 3.8 cm M-MODE Aortic Root Diameter MM 2.9 cm MV E Point Septal Separation 0.7 cm AV Cusp Separation MM 2.1 cm DOPPLER AV Peak Velocity 108.5 cm/s AV Peak Gradient 4.7 mmHg MV Area PHT 7.1 cm??? Mitral E Point Velocity 70.7 cm/s Mitral A Point Velocity 84.7 cm/s Mitral E to A Ratio 0.8 MV Deceleration Time 106.3 ms TR Peak Velocity 262.1 cm/s TR Peak Gradient 27.5 mmHg Right Ventricular Systolic Press 32.5 mmHg FINDINGS Left Ventricle Left ventricular ejection fraction is estimated at 55-60 %. Left ventricular cavity size normal. Left ventricular wall thickness normal. Right Ventricle Normal right ventricular size and function. Right ventricular systolic pressure within normal limits. Right Atrium Normal right atrial size. Left Atrium Normal left atrial size. No evidence for an atrial septal defect. Mitral Valve Structurally normal mitral valve. No mitral stenosis, regurgitation or prolapse. Aortic Valve Trileaflet aortic valve. No aortic valve stenosis or regurgitation. Tricuspid Valve Mild tricuspid regurgitation. Pulmonic Valve Structurally normal pulmonic valve. Pericardium Normal pericardium. Aorta Normal size aortic root and proximal ascending aorta. CONCLUSIONS Normal LV systolic function without any wall motion abnormalities No significant valvular abnormalities Previewed by: Dr. Sheldon Oden MD (Electronically Signed) Final Date: 14 Aug 2021 19:46
[2021-08-14] MEDS: FAMOTIDINE 20 MG TAB PO SCH (21:21)
[2021-08-14] MEDS ORDERED: ZOLPIDEM 5 MG TAB PO PRN (21:32)
[2021-08-14] MEDS: ONDANSETRON 4 MG/2 ML VIAL IVP PRN (21:57)
[2021-08-15] MEDS: cloNIDine HCL 0.1 MG TAB PO SCH ×3 (03:19→16:17)
[2021-08-15 05:25] LABS: Glucose,Whole Blood 111 mg/dL (75-99)
[2021-08-15] MEDS: INSULIN ASPART (NovoLOG) 100 UNIT/ML VIAL SQ SCH ×2 (06:27→13:51)
[2021-08-15] MEDS: carvediloL 3.125 MG TAB PO SCH ×2 (06:28→16:17)
[2021-08-15 07:25] LABS: Basophils # (A) 0.1 k/uL (0-0.2); Basophils % (A) 1 %; Eosinophils # (A) 0.5 k/uL (0-0.7); Eosinophils % (A) 3 %; HGB 16.5 gm/dL (11.4-16.0); Lymphocytes # (A) 3.6 k/uL (1.0-4.8); Lymphocytes % (A) 22 %; MCH 30.4 pg (25.0-35.0); MCHC 32.9 g/dL (31.0-37.0); MCV 92.3 fL (80.0-100.0); Mean Platelet Volume 8.8; Monocytes # (A) 0.8 k/uL (0-1.0); Monocytes % (A) 5 %; Neutrophils # (A) 11.1 k/uL (1.3-7.7); Neutrophils % (A) 68 %; Platelet Count 280 k/uL (150-450); RBC 5.42 m/uL (3.80-5.40); RDW 12.6 % (11.5-15.5); WBC 16.4 k/uL (3.8-10.6)
[2021-08-15 07:51] LABS: African American GFR (CKD) >90 (>60 ml/min/1.73 sqM); Anion Gap 10 mmol/L; Blood Urea Nitrogen 24 mg/dL (7-17); Calcium 9.2 mg/dL (8.4-10.2); Carbon Dioxide 23 mmol/L (22-30); Chloride 102 mmol/L (98-107); Glucose 97 mg/dL (74-99); Non-African American GFR(CKD) >90 (>60 ml/min/1.73 sqM); Potassium 4.3 mmol/L (3.5-5.1); Sodium 135 mmol/L (137-145)
[2021-08-15] MEDS: FUROSEMIDE 10 MG/ML 2 ML VIAL IV SCH ×2 (08:21→21:06)
[2021-08-15] MEDS: FAMOTIDINE 20 MG TAB PO SCH ×2 (08:22→21:05)
[2021-08-15] MEDS: ASPIRIN 325 MG TAB PO SCH (08:22)
[2021-08-15] MEDS: SERTRALINE 100 MG TAB PO SCH (08:23)
[2021-08-15] MEDS: methylPREDNISolone SOD SUCCI 40 MG/ML 1 ML VIAL IV SCH (08:23)
[2021-08-15] MEDS: ATORVASTATIN 40 MG TAB PO SCH (08:23)
[2021-08-15] MEDS: NICOTINE 14MG/24HR PATCH TRANSDERM SCH (08:42)
[2021-08-15] MEDS: IPRATROPIUM-ALBUTEROL 3 ML NEB INHALATION SCH ×4 (09:00→21:19)
[2021-08-15] MEDS: SYMBICORT 160-4.5 MCG INHALER INHALATION SCH ×2 (09:01→21:19)
--- NOTE | 2021-08-15 10:17 | P.PN ---
Subjective Progress Note Date: 08/15/21 This is a 41-year-old female patient with past medical history of COPD with a c omponent of chronic bronchial asthma, chronic smoker, anxiety, depression, bipolar disorder, marijuana use, recent hospitalization at the [facility] for influenza infection, acute COPD exacerbation, and acute respiratory failure requiring intubation and mechanical support for 6 days. Patient was discharged home yesterday on 08/13/2021. Patient states she was doing well at home after discharge, ambulating. Yesterday afternoon she recently started not feeling good, had an episode of stabbing chest discomfort lasting 15 minutes, accompanied by shortness of breath, she felt like she was going to pass out. Her family assisted her to bed and when she woke up 45 minutes later she was having trouble with speech, and numbness in her bilateral lower extremities left greater than right, weakness, to the point the patient could not walk, and patient states she had 2 episodes of bladder and bowel lost control. Today on 08/14/2021 patient was brought into the emergency department for evaluation of stroke like symptoms. Patient had a sudden onset of expressive aphasia, and numbness in her lower extremities with her left side being worse than the right. She has no prior history of CVA, she denies any recent trauma, denies any fever or chills. Not on any anticoagulation. Brain CT without contrast showed negative unenhanced CT of the head. CT angios of the head and neck showed normal CT angiogram of the brain and neck. CT angiogram of the thoracic and abdominal aorta was within normal limits. EKG showed sinus rhythm. Admission blood work showed elevated white count of 24.4, hemoglobin of 15.5, INR of 1.0, sodium of 132, the rest of the electrolytes were within normal limits, BUN is 20, creatinine 0.54, troponin was 0.474, 0.344, 0.191. ProBNP was 3250, TSH was 2.840, urine drug screen was positive for benzodiazepines and marijuana. Addition to neurological symptoms patient was also complaining of shortness of breath, coughing chest discomfort, and generalized weakness. Chest x-ray was negative for acute pulmonary process. Patient was started on nebul ized bronchodilators, she was started on IV Lasix 20 mg every 12 hours, cardiology consultation has been obtained, echocardiogram has been completed, report is pending, neurology services are also following, MR/MRI of the brain and lumbar spine has been ordered. On today's evaluation, the patient is awake and alert without any significant respiratory distress. Nevertheless, she is experiencing some weakness in the lower extremities bilaterally which is making it difficult for this patient to walk. Reflexes are diminished bilaterally. She was given a walker. MRI of the lumbar spine showed no evidence of any degenerative changes or this disease. MRI of the brain was also negative. No seizure activity has been noted. The patient did complain of some chest discomfort and pain prior to admission and his troponins were positive consistent with acute non-STEMI. ProBNP level was also slightly elevated and the patient is going to undergo a cardio workup. Her COPD/asthma is currently inactive in stable and he sees post ventilator- dependent respiratory failure. Objective - Vital Signs Vital signs: Vital Signs Temp 98 F 08/15/21 08:00 Pulse 110 H 08/15/21 09:13 Resp 16 08/15/21 08:00 BP 97/62 08/15/21 08:00 Pulse Ox 94 L 08/15/21 08:00 FiO2 Intake & Output 08/14/21 08/15/21 08/15/21 18:59 06:59 18:59 Intake Total 658 240 120 Balance 658 240 120 Intake: Oral 658 240 120 - Exam GENERAL EXAM: Alert, very pleasant, 41-year-old, white female, room air, with pulse ox of 90% comfortable in no apparent distress. HEAD: Normocephalic/atraumatic. EYES: Normal reaction of pupils, equal size. Conjunctiva pink, sclera white. NOSE: Clear with pink turbinates. THROAT: No erythema or exudates. NECK: No masses, no JVD, no thyroid enlargement, no adenopathy. CHEST: No chest wall deformity. Symmetrical expansion. LUNGS: Equal air entry with scattered wheezes CVS: Regular rate and rhythm, normal S1 and S2, no gallops, no murmurs, no rubs ABDOMEN: Soft, nontender. No hepatosplenomegaly, normal bowel sounds, no guarding or rigidity. EXTREMITIES: No clubbing, no edema, no cyanosis, 2+ pulses and upper and lower extremities. MUSCULOSKELETAL: Muscle strength and tone normal. SPINE: No scoliosis or deformity SKIN: No rashes CENTRAL NERVOUS SYSTEM: Alert and oriented -3. No focal deficits, tone is normal in all 4 extremities. Water weakness in lower extremities bilaterally and the patient has diminished reflexes. No Babinski. No clonus. Upper extremity strength is within normal limits PSYCHIATRIC: Alert and oriented -3. Appropriate affect. Intact judgment and insight. - Labs CBC & Chem 7: 08/15/21 06:29 08/15/21 06:29 Labs: Abnormal Lab Results - Last 24 Hours (Table) 08/14/21 08/14/21 08/14/21 Range/Units 09:04 09:04 09:04 WBC 22.6 H (3.8-10.6) k/uL RBC (3.80-5.40) m/uL Hgb (11.4-16.0) gm/dL Hct 46.8 H (34.0-46.0) % Neutrophils # 16.8 H (1.3-7.7) k/uL Sodium (137-145) mmol/L BUN 18 H (7-17) mg/dL Glucose 104 H (74-99) mg/dL POC Glucose (mg/dL) (75-99) mg/dL Troponin I 0.191 H* (0.000-0.034) ng/mL Vitamin B12 (200.0-944.0) pg/mL 08/14/21 08/14/21 08/14/21 Range/Units 11:46 11:46 17:14 WBC (3.8-10.6) k/uL RBC (3.80-5.40) m/uL Hgb (11.4-16.0) gm/dL Hct (34.0-46.0) % Neutrophils # (1.3-7.7) k/uL Sodium (137-145) mmol/L BUN (7-17) mg/dL Glucose (74-99) mg/dL POC Glucose (mg/dL) 111 H (75-99) mg/dL Troponin I 0.147 H* (0.000-0.034) ng/mL Vitamin B12 1248.0 H (200.0-944.0) pg/mL 08/14/21 08/15/21 08/15/21 Range/Units 19:42 05:21 06:29 WBC 16.4 H (3.8-10.6) k/uL RBC 5.42 H (3.80-5.40) m/uL Hgb 16.5 H (11.4-16.0) gm/dL Hct 50.0 H (34.0-46.0) % Neutrophils # 11.1 H (1.3-7.7) k/uL Sodium (137-145) mmol/L BUN (7-17) mg/dL Glucose (74-99) mg/dL POC Glucose (mg/dL) 144 H 111 H (75-99) mg/dL Troponin I (0.000-0.034) ng/mL Vitamin B12 (200.0-944.0) pg/mL 08/15/21 Range/Units 06:29 WBC (3.8-10.6) k/uL RBC (3.80-5.40) m/uL Hgb (11.4-16.0) gm/dL Hct (34.0-46.0) % Neutrophils # (1.3-7.7) k/uL Sodium 135 L (137-145) mmol/L BUN 24 H (7-17) mg/dL Glucose (74-99) mg/dL POC Glucose (mg/dL) (75-99) mg/dL Troponin I (0.000-0.034) ng/mL Vitamin B12 (200.0-944.0) pg/mL Assessment and Plan Plan: Assessment: #1. Acute onset of expressive aphasia, urinary and bowel incontinence, lower extremity weakness and paresthesia, and this morning, the patient continues to have some weakness in lower extremities bilaterally with diminished reflexes. Normal strength in upper extremity. Normal mentation. MRI of the brain was negative. MRI of the lumbar spine is also negative. She is still having some weakness in lower extremities, questionable demyelinating process involving lower extremities could be post viral versus autoimmune. We'll be awaiting neurology evaluation. #2. Recent hospitalization for acute influenza infection, acute COPD/severe persistent bronchial asthma exacerbation and acute respiratory failure requiring mechanical ventilatory support, discharged from the [facility] yesterday of 08/13/2021 #3. Chest pain, dyspnea, related to chronic COPD, rule out possibility of ACS #4. Elevated troponin, rule out possibility of non-ST elevated myocardial infarction #5. Leukocytosis, possibly related to steroids #6. History of COPD, baseline FEV1 of 1.63 L of 50% predicted, stage III, and component of severe persistent bronchial asthma #7. Chronic and ongoing history of tobacco abuse #8. Anxiety and depression #9. Bipolar disorder #10. Marijuana use #11. Previous episode of acute exacerbation of severe persistent bronchial asthma requiring mechanical ventilator support with subsequent tracheostomy and PEG tube placement for weaning. Patient had since been decannulated and PEG tube had been removed Plan: Continues to have motor weakness in the lower extremities bilaterally. Awaiting final neurology recommendation. Consider demyelinating process in lower extremities causing motor weakness. Mental status is back to normal. The patient is fully alert and awake an MRI of the brain was essentially within normal limits. May need a lumbar puncture for narrow things down. Awaiting final neurology Continue breathing treatments Put the patient On oral prednisone Diuretics per cardiology Echocardiogram is within normal limits Neurology consultation and recommendations Close neurological monitoring Continue to follow
[2021-08-15] MEDS ORDERED: LORazepam 2 MG/ML INJ IV PRN (11:26)
--- NOTE | 2021-08-15 11:46 | P.PN ---
Subjective Progress Note Date: 08/15/21 The patient is seen at bedside and feels she is minimally improving but continues to have weakness in left leg and her sensation continues to be off in lowers. Denies any issues in uppers. Objective - Vital Signs Vital signs: Vital Signs Temp 98 F 08/15/21 08:00 Pulse 110 H 08/15/21 09:13 Resp 16 08/15/21 08:00 BP 97/62 08/15/21 08:00 Pulse Ox 94 L 08/15/21 08:00 FiO2 Intake & Output 08/14/21 08/15/21 08/15/21 18:59 06:59 18:59 Intake Total 658 240 120 Balance 658 240 120 Intake: Oral 658 240 120 - Exam GENERAL: The patient is lying in bed and is not in acute distress. NEUROLOGICAL: Higher mental function: The patient is awake, alert, oriented to self, place and time. Patient is following commands. No aphasia and no neglect. Cranial nerves: The pupils are round, equal and reactive to light and accommodation. Visual briceno are full to confrontation throughout. Extraocular movement is intact no nystagmus is noted. Facial sensation is normal to touch throughout. The facial strength is normal throughout. Hearing is normal bilaterally to hand rub. Tongue is midline and moved [id number] without any difficulty. No dysarthria is noted. Shoulder shrug is normal bilaterally. Motor: Gait is deferred. The strength is left lower extremity is 4. Otherwise 5 over 5 throughout upper and right lower. Slightly decrease tone over the left lower. Cerebellum: Normal finger to nose bilaterally. Sensation: Sensation is decreased from wait down and feel dull over the right lower while numb on the left lower to touch. Reflexes (right/left): 2+ throughout except ankles are 1-2 bilaterally. Plantars are mute bilaterally. SOME OF THE WORK-UP: Vitamin B12 is at thousand 248 Serum folate is 9.10 Hemoglobin A1c is 5.20 MR the brain is reported as sinus disease. No evidence of subacute ischemia. MRI Lumbar spoine w/ and w/o: Is reported as mild degenerative disc disease. No evidence of disc herniation. No abnormal enhancement. - Labs CBC & Chem 7: 08/15/21 06:29 08/15/21 06:29 Labs: Abnormal Lab Results - Last 24 Hours (Table) 08/14/21 08/14/2122 Range/Units 11:46 11:46 17:14 WBC (3.8-10.6) k/uL RBC (3.80-5.40) m/uL Hgb (11.4-16.0) gm/dL Hct (34.0-46.0) % Neutrophils # (1.3-7.7) k/uL Sodium (137-145) mmol/L BUN (7-17) mg/dL POC Glucose (mg/dL) 111 H (75-99) mg/dL Troponin I 0.147 H* (0.000-0.034) ng/mL Vitamin B12 1248.0 H (200.0-944.0) pg/mL 08/14/21 08/15/21 08/15/21 Range/Units 19:42 05:21 06:29 WBC 16.4 H (3.8-10.6) k/uL RBC 5.42 H (3.80-5.40) m/uL Hgb 16.5 H (11.4-16.0) gm/dL Hct 50.0 H (34.0-46.0) % Neutrophils # 11.1 H (1.3-7.7) k/uL Sodium (137-145) mmol/L BUN (7-17) mg/dL POC Glucose (mg/dL) 144 H 111 H (75-99) mg/dL Troponin I (0.000-0.034) ng/mL Vitamin B12 (200.0-944.0) pg/mL 08/15/21 Range/Units 06:29 WBC (3.8-10.6) k/uL RBC (3.80-5.40) m/uL Hgb (11.4-16.0) gm/dL Hct (34.0-46.0) % Neutrophils # (1.3-7.7) k/uL Sodium 135 L (137-145) mmol/L BUN 24 H (7-17) mg/dL POC Glucose (mg/dL) (75-99) mg/dL Troponin I (0.000-0.034) ng/mL Vitamin B12 (200.0-944.0) pg/mL Assessment and Plan Assessment: Acute lower extremity paresthesia and lower extremity with transient expressive aphasia, urinary and bowel incontinence (on examination had weakness over the left lower but had intact reflexes). Rule out acute inflammatory demylinating polyneuropathy (seem atypical since has intact reflexes) vs post-viral syndrome. Not stroke since Brain is normal Elevated troponin Leukocytosis and the patient is on steroids seems reactive from medication. Patient is afebrile. COPD Tobacco use Plan: I ordered MRI of the cervical and thoracic spine with and without. If those are negative then I will pursue with a lumbar puncture. From a neurologic perspective the patient does not have a stroke and does not need to be on antiplatelets. In the ED patient was given aspirin 325 once then started on aspirin 325 daily. As well as the patient was started on Lipitor 40 mg daily. Continue neuro checks Continue cardiac monitoring PT OT and LINE FIXER are consulted Cardiology is consulted We'll defer the rest of medical management to the primary team For DVT prophylaxis: Use SCD for now since likely will pursue with lumbar puncture. The plan is discussed with patient and her nurse. Mitch Torres M.D. Neuro-hospitalist Time with Patient: Less than 30
[2021-08-15] MEDS: ALPRAZolam 0.25 MG TAB PO PRN ×2 (11:47→23:18)
[2021-08-15 13:33] LABS: Chol/HDL Ratio 4.78 Ratio; LDL Cholesterol,Calculated 106.3 mg/dL (0.0-131.0)
[2021-08-15] MEDS: ONDANSETRON 4 MG/2 ML VIAL IVP PRN (16:18)
[2021-08-15] MEDS ORDERED: NITROGLYCERIN SL TABS 0.4 MG TAB SUBLINGUAL PRN (16:47)
--- NOTE | 2021-08-15 16:47 | P.PN ---
Subjective Progress Note Date: 08/15/21 This is a 41-year-old female with a past medical history significant for COPD, anxiety, depression, bipolar disorder, and marijuana use. 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 We have been asked to see the patient in consultation for abnormal troponins. Patient examined at the bedside. Patient's mother at the bedside and providing a portion of the HPI. The patient was just discharged yesterday from [facility]. The patient was admitted there secondary to. Influenza, COPD, and asthma. The patient was intubated. Patient's stepmother says the patient was moved out of ICU yesterday to a general medical floor and was discharged home yesterday afternoon. The patient presented back to the emergency room with weakness of her lower extremities, incontinence, shortness of breath, coughing, and chest discomfort. Patient currently reports mild chest discomfort when she is coughing. * EKG reveals sinus tachycardia with no signs of acute ischemia * Chest xray negative for acute process * CT brain: Negative for acute process * Laboratory data: WBC 24.4. Hemoglobin 15.5. Platelet count 236. Sodium 132. Potassium 3.9. BUN 20. Creatinine 0.54. Troponin 0.474. 0.344. * Current home cardiac medications include Catapres 0.1 mg every 8 hours * Most recent echocardiogram obtained in November 2014 revealed ejection fraction 50-55%, mild mitral regurgitation, septal hypokinesis. 08/15/2021: This patient seemed to be feeling much better as far as her breathing and chest pain or concern. Lungs show less wheezing. However, she is complaining of weakness and inability to walk. MRI of the spine and brain were normal. Neurology stink of some kind of demyelinization process. Patient BNP was high and patient was started on IV Lasix yesterday. Echo Cardigan showed normal LV function without any segmental wall motion defects. Troponin values are abnormal with a downward trend. The significance of this is not clear. Her chest pain appeared to be very atypical. Patient may need further evaluation in the form of pharmacologic stress test to rule out any underlying ischemic heart disease. As patient is clinically stable at this time, I will defer this e valuation until after her weakness in the legs improves. We'll continue with medical therapy at this time including beta cyril, nitrates, aspirin and nitro as needed Objective - Vital Signs Vital signs: Vital Signs Temp 98.2 F 08/15/21 15:48 Pulse 96 08/15/21 16:17 Resp 16 08/15/21 15:48 BP 100/66 08/15/21 15:48 Pulse Ox 98 08/15/21 15:48 FiO2 Intake & Output 08/14/21 08/15/21 08/15/21 18:59 06:59 18:59 Intake Total 658 240 240 Balance 658 240 240 Intake: Oral 658 240 240 - Exam GENERAL EXAM: Patient is alert and oriented and doesn't appear to be in any acute distress HEENT: Normocephalic. Normal reaction of pupils, equal size, normal range of extraocular motion. No erythema or exudates in the throat. NECK: No masses, no nuchal rigidity. CHEST: No chest wall deformity. LUNGS: Improved aeration and less wheezing HEART: S1 and S2 normal with no audible mumurs or gallops. Regular rhythm, femorals equal on both sides.. ABDOMEN: No hepatosplenomegaly, normal bowel sounds, no guarding or rigidity. SKIN: No rashes CENTRAL NERVOUS SYSTEM: As per neurology EXTREMITIES: No cyanosis, clubbing or edema. - Labs CBC & Chem 7: 08/15/21 06:29 08/15/21 06:29 Labs: Abnormal Lab Results - Last 24 Hours (Table) 08/14/21 08/14/21 08/14/21 Range/Units 11:46 17:14 19:42 WBC (3.8-10.6) k/uL RBC (3.80-5.40) m/uL Hgb (11.4-16.0) gm/dL Hct (34.0-46.0) % Neutrophils # (1.3-7.7) k/uL Sodium (137-145) mmol/L BUN (7-17) mg/dL POC Glucose (mg/dL) 111 H 144 H (75-99) mg/dL Triglycerides (0.00-149.00) mg/dL HDL Cholesterol (40.00-60.00) mg/dL Vitamin B12 1248.0 H (200.0-944.0) pg/mL 08/15/21 08/15/21 08/15/21 Range/Units 05:21 06:29 06:29 WBC 16.4 H (3.8-10.6) k/uL RBC 5.42 H (3.80-5.40) m/uL Hgb 16.5 H (11.4-16.0) gm/dL Hct 50.0 H (34.0-46.0) % Neutrophils # 11.1 H (1.3-7.7) k/uL Sodium 135 L (137-145) mmol/L BUN 24 H (7-17) mg/dL POC Glucose (mg/dL) 111 H (75-99) mg/dL Triglycerides 188.00 H (0.00-149.00) mg/dL HDL Cholesterol 38.10 L (40.00-60.00) mg/dL Vitamin B12 (200.0-944.0) pg/mL Assessment and Plan (1) Troponin level elevated Current Visit: Yes Status: Acute Code(s): R77.8 - OTHER SPECIFIED ABNORMALITIES OF PLASMA PROTEINS SNOMED Code(s): 496593542 (2) Acute exacerbation of chronic obstructive airways disease Current Visit: No Status: Acute Code(s): J44.1 - CHRONIC OBSTRUCTIVE PULMONARY DISEASE W (ACUTE) EXACERBATION SNOMED Code(s): 455260630 (3) Diastolic CHF Current Visit: Yes Status: Acute Code(s): I50.30 - UNSPECIFIED DIASTOLIC (CONGESTIVE) HEART FAILURE SNOMED Code(s): 363560930 (4) Lower extremity weakness Current Visit: Yes Status: Acute Code(s): R29.898 - OTH SYMPTOMS AND SIGNS INVOLVING THE MUSCULOSKELETAL SYSTEM SNOMED Code(s): 485153507 Plan: Patient is clinically doing well except weakness in the legs. Continued to further evaluation by neurology. From a cardiac standpoint, will continue medical therapy at this time. Patient will require further evaluation to rule out an underlying ischemic heart disease which will be carried out in the future once her neurological status stable. Meanwhile, we'll continue medical therapy including beta cyril, nitrates, aspirin and lipid-lowering agent
--- NOTE | 2021-08-15 17:40 | MR ---
EXAMINATION TYPE: MR cspine/tspine wo/w con DATE OF EXAM: 08/15/2021 COMPARISON: None HISTORY: Acute expressive aphasia, numbness left leg. CONTRAST: Standard multiplanar, multisequence MRI departmental protocol images were obtained without contrast a nd with 6 mL intravenous Gadavist gadolinium contrast. Multiplanar multiecho imaging of the cervical and thoracic spine without and with IV contrast. The cervical vertebra show a mild kyphotic deformity. There is minor degenerative disc space narrowin g at C4-5 and C5-6 and C6-7. There is posterior mild disc bulging at C4-5. There is developmentally a dequate spinal canal. The spinal canal measures 8.4 mm at C4-5 which is the narrowest point. Cervical spinal cord has normal signal pattern. No edema. The brainstem appears intact. No cervical compressi on fracture. Facet joints are intact. There is no cervical paraspinal mass. Thoracic Vertebra have normal spacing and alignment. No compression fracture. No evidence of focal diann ne destruction. Thoracic spinal cord has normal signal pattern. No edema. There is no thoracic spinal stenosis. There is developmentally large thoracic spinal canal. No thoracic paraspinal mass. Contrast images show no pathologic enhancement of the thoracic and cervical spine. IMPRESSION: Normal MR scan of the thoracic spine. There is cervical kyphotic deformity that could relate to old ligamentous injury. Small posterior dis c herniations present at C4-5 and C5-6 and C6-7 without impingement on the neural elements.
--- NOTE | 2021-08-15 19:25 | P.PN ---
Subjective Progress Note Date: 08/15/21 This is a 41-year-old female who presented to the emergency department with some bilateral lower extremity weakness more so on the left along with expressive aphasia with sudden onset with continued numbness of the left lower extremities. Patient was recently discharged from [facility] after prolonged hospitalization and requiring intubation secondary to COPD/asthma and found to have influenza. Patient reports on discharge she was feeling better and able to walk with no deficits noted. Patient was tired and hungry and had continued coughing spells. Patient was discharged on a prednisone taper from [facility]. Per ER documentation NIH on arrival was 5 and a code alteplase was activated patient underwent CT of the brain which demonstrated no acute abnormality. Patient was also found to have an elevated troponin along with an elevated white count of 24.4 and patient was admitted here for neurology workup and cardiology evaluation. EKG was sinus rhythm. Patient does have a past medical history of asthma and COPD along with bronchitis and reports to being intubated most recent ly 1 week ago for her extensive asthma. Patient reports to smoking 1-1-1/2 packs of cigarettes and most recently had been cutting down to half a pack a day. Patient has not smoked in over one week. Patient had elevated in troponins and cardiology consulted. Brain MRI was ordered and pending. 08/15/2021 Patient is seen this morning and is anxious and tearful on exam. Patient is frustrated as she continues with lower extremity weakness and all tests thus far have been negative. Neurology, cardiology, and pulmonary following closely. Patient is continued on current medication regimen and also breathing inhalational treatments and will continue. Neurology ordered thoracic mri which is pending for today. Patient is anxious. Patient denies worsening chest pain or shortness of breath. Patient is afebrile. Patient denies nausea or vomiting. BNP was elevated and was initiated on IV lasix. Imaging: Brain CT: Negative unenhanced head CT axillary sinusitis noted with no mass effect or midline shift and no sign of intracranial hemorrhage brain MRI: negative Chest x-ray: Normal chest with no change CT angio: Normal CT angiogram of the neck and normal CT angiogram of the brain Thoracic CT: Groundglass pulmonary interstitial edema heart size is normal with no pericardial effusion no aneurysm or dissection noted the ascending aortic measures 2.9 cm with no evidence of filling defect in the pulmonary arteries and findings are normal of the chest abdomen pelvis EKG: Sinus rhythm Review Of Systems: Constitutional: No fever, no chills, no night sweats. No weight change. Reports of weakness and fatigue. No daytime sleepiness. Lungs: Reports shortness of breath intermittently, reports continued cough, reports frothy sputum production. Reports wheezing. Cardiovascular: Reports chest pain with coughing, no lower extremity edema. No palpitations. No paroxysmal nocturnal dyspnea. No orthopnea. No lightheadedness or dizziness. No syncopal episodes. Abdominal: No abdominal pain. No nausea, vomiting. No diarrhea. No constipation. No bloody or tarry stools.. No loss of appetite. Genitourinary: No dysuria, increased frequency, urgency. No urinary retention. Musculoskeletal: No myalgias. Reports muscle weakness, no gait dysfunction, no frequent falls. No back pain. No neck pain. Reports weakness of bilateral lower extremities more so on the left Neurologic: Reports expressive aphasia on initial ED presentation that has resolved. Reports right facial droop. No change in mentation. No head injury. No headache. No paralysis. No paresthesia. Active Medications Albuterol/Ipratropium (Ipratropium-Albuterol 3 Ml Neb) 3 ml INHALATION RT-Q4H PRN PRN Reason: Shortness Of Breath Or Wheezing Albuterol/Ipratropium (Ipratropium-Albuterol 3 Ml Neb) 3 ml INHALATION RT-QID [facility] Last Admin: 08/15/21 16:07 Dose: 3 ml Alprazolam (Alprazolam 0.25 Mg Tab) 0.25 mg PO BID PRN PRN Reason: Anxiety Last Admin: 08/15/21 11:47 Dose: 0.25 mg Aspirin (Aspirin 325 Mg Tab) 325 mg PO DAILY [facility] Last Admin: 08/15/21 08:22 Dose: 325 mg Atorvastatin Calcium (Atorvastatin 40 Mg Tab) 40 mg PO DAILY [facility] Last Admin: 08/15/21 08:23 Dose: 40 mg Budesonide/Formoterol Fumarate (Symbicort 160-4.5 Mcg Inhaler) 2 puff INHALATION RT-BID [facility] Last Admin: 08/15/21 09:01 Dose: 2 puff Carvedilol (Carvedilol 3.125 Mg Tab) 3.125 mg PO BID-W/MEALS [facility] Last Admin: 05/25/22 16:17 Dose: 3.125 mg Clonidine (Clonidine Hcl 0.1 Mg Tab) 0.1 mg PO Q8H [facility] Last Admin: 08/15/21 16:17 Dose: 0.1 mg Famotidine (Famotidine 20 Mg Tab) 20 mg PO BID [facility] Last Admin: 08/15/21 08:22 Dose: 20 mg Furosemide (Furosemide 10 Mg/Ml 2 Ml Vial) 20 mg IV Q12HR [facility] Last Admin: 08/15/21 08:21 Dose: 20 mg Lorazepam (Lorazepam 2 Mg/Ml Inj) 1 mg IV ONCE PRN PRN Reason: for mri Last Admin: 08/15/21 16:17 Dose: 1 mg Naloxone HCl (Naloxone 0.4 Mg/Ml 1 Ml Vial) 0.2 mg IV Q2M PRN PRN Reason: Opioid Reversal Nicotine (Nicotine 14mg/24hr Patch) 1 patch TRANSDERM DAILY [facility] Last Admin: 08/15/21 08:42 Dose: Not Given Nitroglycerin (Nitroglycerin Sl Tabs 0.4 Mg Tab) 0.4 mg SUBLINGUAL Q5M PRN PRN Reason: Chest Pain Ondansetron HCl (Ondansetron 4 Mg/2 Ml Vial) 4 mg IVP Q6HR PRN PRN Reason: Nausea And Vomiting Stop: 08/19/21 21:32 Last Admin: 08/15/21 16:18 Dose: 4 mg Prednisone (Prednisone 20 Mg Tab) 40 mg PO DAILY [facility] Sertraline HCl (Sertraline 100 Mg Tab) 100 mg PO DAILY [facility] Last Admin: 08/15/21 08:23 Dose: 100 mg Zolpidem Tartrate (Zolpidem 5 Mg Tab) 5 mg PO HS PRN PRN Reason: Insomnia Stop: 08/15/21 21:33 Last Admin: 08/14/21 21:57 Dose: 5 mg PHYSICAL EXAMINATION: GENERAL: The patient is alert and oriented x4, thin built HEENT: Pupils are round and equally reacting to light. EOMI. no scleral icterus. No conjunctival pallor. Normocephalic, atraumatic. No pharyngeal erythema. No thyromegaly. CARDIOVASCULAR: S1 and S2 muffled PULMONARY: diminished breath sounds bilaterally with expiratory wheezing noted. less wheezy and room air ABDOMEN: soft. Nontender on exam. non-distended, normoactive bowel sounds. No palpable organomegaly. MUSCULOSKELETAL: No joint swelling or deformity. EXTREMITIES: No cyanosis, clubbing, or pedal edema. Bilateral lower extremity weakness strength is 4-5 on left strength 5/5 on the right, upper extremities reveal 4/5 strength on left, 5/5 strength on right NEUROLOGICAL: Gross neurological examination did not reveal any focal deficits. Diffuse weakness SKIN: No rashes. Assessment: Bilateral lower extremity paresthesia with weakness and associated transient expressive aphasia along with urine and bowel incontinence, possibly secondary to acute TIA, CVA less likely per neuro and brain mri is negative Elevated troponin, ruled out acs Leukocytosis possibly reactive as patient has been on high-dose steroids from recent hospitalization and discharged on a prednisone taper COPD, acute exacerbation Continued ongoing tobacco use Gastroesophageal reflux disease History of asthma/COPD and has been intubated in the past requiring tracheostomy THC use Recent hospitalization requiring intubation secondary to COPD exacerbation and hypoxic respiratory failure also secondary to influenza anxiety GI prophylaxis DVT prophylaxis Full code Plan: Recommend to continue with current medications and cardiology along with neurology following. 2-D echo was done and bnp was elevated and maintained on IV lasix. MRI of the brain and L spine was negative. MRI of the thoracic spine ordered and if negative, neurology suggesting lumbar puncture. Patient continues with weakness and will continue PT/OT therapy. continue to monitor closely. Recommend repeat labs and follow-up on MRI of the spine. Due to multiple complex medical issues, prognosis is guarded. The impression and plan of care has been dictated by Darlyn Naranjo, nurse practitioner as directed. Dr. iMgue MD I have performed a history and examination and MDM of this patient, discussed the same with the dictator, and agree with the dictator's assessment and plan as written ,documented as a scribe. Based on total visit time, I have performed more than 50% of the visit. Any additional findings or plans will be noted. Objective - Vital Signs Vital signs: Vital Signs Temp 98 F 08/15/21 08:00 Pulse 110 H 08/15/21 09:13 Resp 16 08/15/21 08:00 BP 97/62 08/15/21 08:00 Pulse Ox 94 L 08/15/21 08:00 FiO2 Intake & Output 08/14/21 08/15/21 08/15/21 18:59 06:59 18:59 Intake Total 658 240 Balance 658 240 Intake: Oral 658 240 - Labs CBC & Chem 7: 08/15/21 06:29 08/15/21 06:29 Labs: Abnormal Lab Results - Last 24 Hours (Table) 08/14/21 08/14/21 08/14/21 Range/Units 09:04 09:04 09:04 WBC 22.6 H (3.8-10.6) k/uL RBC (3.80-5.40) m/uL Hgb (11.4-16.0) gm/dL Hct 46.8 H (34.0-46.0) % Neutrophils # 16.8 H (1.3-7.7) k/uL Sodium (137-145) mmol/L BUN 18 H (7-17) mg/dL Glucose 104 H (74-99) mg/dL POC Glucose (mg/dL) (75-99) mg/dL Troponin I 0.191 H* (0.000-0.034) ng/mL Vitamin B12 (200.0-944.0) pg/mL 08/14/21 08/14/21 08/14/21 Range/Units 11:46 11:46 17:14 WBC (3.8-10.6) k/uL RBC (3.80-5.40) m/uL Hgb (11.4-16.0) gm/dL Hct (34.0-46.0) % Neutrophils # (1.3-7.7) k/uL Sodium (137-145) mmol/L BUN (7-17) mg/dL Glucose (74-99) mg/dL POC Glucose (mg/dL) 111 H (75-99) mg/dL Troponin I 0.147 H* (0.000-0.034) ng/mL Vitamin B12 1248.0 H (200.0-944.0) pg/mL 08/14/21 08/15/21 08/15/21 Range/Units 19:42 05:21 06:29 WBC 16.4 H (3.8-10.6) k/uL RBC 5.42 H (3.80-5.40) m/uL Hgb 16.5 H (11.4-16.0) gm/dL Hct 50.0 H (34.0-46.0) % Neutrophils # 11.1 H (1.3-7.7) k/uL Sodium (137-145) mmol/L BUN (7-17) mg/dL Glucose (74-99) mg/dL POC Glucose (mg/dL) 144 H 111 H (75-99) mg/dL Troponin I (0.000-0.034) ng/mL Vitamin B12 (200.0-944.0) pg/mL 08/15/21 Range/Units 06:29 WBC (3.8-10.6) k/uL RBC (3.80-5.40) m/uL Hgb (11.4-16.0) gm/dL Hct (34.0-46.0) % Neutrophils # (1.3-7.7) k/uL Sodium 135 L (137-145) mmol/L BUN 24 H (7-17) mg/dL Glucose (74-99) mg/dL POC Glucose (mg/dL) (75-99) mg/dL Troponin I (0.000-0.034) ng/mL Vitamin B12 (200.0-944.0) pg/mL
[2021-08-16] MEDS: cloNIDine HCL 0.1 MG TAB PO SCH ×3 (02:57→15:12)
[2021-08-16] MEDS: IPRATROPIUM-ALBUTEROL 3 ML NEB INHALATION SCH ×4 (07:50→21:25)
[2021-08-16] MEDS: SYMBICORT 160-4.5 MCG INHALER INHALATION SCH ×2 (07:50→21:26)
[2021-08-16] MEDS: NICOTINE 14MG/24HR PATCH TRANSDERM SCH (08:13)
[2021-08-16] MEDS: carvediloL 3.125 MG TAB PO SCH (08:23)
[2021-08-16] MEDS: ASPIRIN 325 MG TAB PO SCH (08:24)
[2021-08-16] MEDS: SERTRALINE 100 MG TAB PO SCH (08:28)
[2021-08-16] MEDS: predniSONE 20 MG TAB PO SCH (08:31)
[2021-08-16] MEDS: FAMOTIDINE 20 MG TAB PO SCH ×2 (08:32→20:08)
[2021-08-16] MEDS: ATORVASTATIN 40 MG TAB PO SCH (08:32)
--- NOTE | 2021-08-16 09:48 | P.PN ---
Subjective Progress Note Date: 08/16/21 HISTORY OF PRESENT ILLNESS: This is a 41-year-old female with a past medical history significant for COPD, anxiety, depression, bipolar disorder, and marijuana use. Patient does not follow with a tube cleaner. We have been asked to see the patient in consultation for abnormal troponins. Patient examined at the bedside. Patient's mother at the bedside and providing a portion of the HPI. The patient was just discharged yesterday from [facility]. The patient was admitted there secondary to. Influenza, COPD, and asthma. The patient was intubated. Patient's stepmother says the patient was moved out of ICU yesterday to a general medical floor and was discharged home yesterday afternoon. The patient presented back to the emergency room with weakness of her lower extremities, incontinence, shortness of breath, coughing, and chest discomfort. Patient currently reports mild chest discomfort when she is coughing. * EKG reveals sinus tachycardia with no signs of acute ischemia * Chest xray negative for acute process * CT brain: Negative for acute process * Laboratory data: WBC 24.4. Hemoglobin 15.5. Platelet count 236. Sodium 132. Potassium 3.9. BUN 20. Creatinine 0.54. Troponin 0.474. 0.344. * Current home cardiac medications include Catapres 0.1 mg every 8 hours * Most recent echocardiogram obtained in November 2014 revealed ejection fraction 50-55%, mild mitral regurgitation, septal hypokinesis 08/15/2021: This patient seemed to be feeling much better as far as her breathing and chest pain or concern. Lungs show less wheezing. However, she is complaining of weakness and inability to walk. MRI of the spine and brain were normal. Neurology stink of some kind of demyelinization process. Patient BNP was high and patient was started on IV Lasix yesterday. Echo Cardigan showed normal LV function without any segmental wall motion defects. Troponin values are abnormal with a downward trend. The significance of this is not clear. Her chest pain appeared to be very atypical. Patient may need further evaluation in the form of pharmacologic stress test to rule out any underlying ischemic heart disease. As patient is clinically stable at this time, I will defer this evaluation until after her weakness in the legs improves. We'll continue with medical therapy at this time including beta cyril, nitrates, aspirin and nitro as needed 08/16/2021 Patient examined this morning at the bedside. Patient denies chest pain or pressure. She denies shortness of breath. She states that her right leg feels normal this morning and she has regained her strength. However she continues to have weakness in her left leg. Patient is scheduled for lumbar puncture today. Patient's blood pressures are running on the low side with a systolic in the 90s. PHYSICAL EXAM: VITAL SIGNS: Reviewed. GENERAL: Well-developed in no acute distress. HEENT: Head is normocephalic. Pupils are equal, round. Sclerae anicteric. Mucous membranes of the mouth are moist. Neck supple. No JVD or thyromegaly LUNGS: Respirations even and unlabored. Lungs diminished with expiratory wheezing noted HEART: Regular rate and rhythm. S1 and S2 heard. ABDOMEN: Soft. Nondistended. Nontender. EXTREMITIES: Normal range of motion. No clubbing or cyanosis. Peripheral pulses intact. No lower extremity edema NEUROLOGIC: Awake and alert. Oriented x 3. ASSESSMENT: Possible TIA/CVA Lower extremity weakness with incontinence Shortness of breath with cough Mild congestive heart failure with preserved EF Recent influzena and COPD exacerbation requiring mechanical ventilation at [facility] Abnormal troponins COPD Anxiety Depression Bipolar disorder Marijuana use PLAN: Increase carvedilol to 6.25 mg twice a day Wean down Catapres to once daily and ultimately will discontinue Hold blood pressure medications for systolic blood pressure less than 90 Discontinue IV Lasix Begin oral Lasix 20 mg daily Patient will likely require stress test to be performed when appropriate. She is scheduled for lumbar puncture today. Further recommendations pending patient's course Nurse practitioner note has been reviewed by physician. Signing provider agrees with the documented findings, assessment, and plan of care. Objective - Vital Signs Vital signs: Vital Signs Temp 97.5 F L 08/16/21 08:00 Pulse 97 08/16/21 08:07 Resp 16 08/16/21 08:00 BP 102/68 08/16/21 08:00 Pulse Ox 97 08/16/21 08:00 FiO2 Intake & Output 08/15/21 08/16/21 08/16/21 18:59 06:59 18:59 Intake Total 360 Balance 360 Intake: Oral 360 - Labs CBC & Chem 7: 08/15/21 06:29 08/15/21 06:29 Labs: Abnormal Lab Results - Last 24 Hours (Table) 08/15/21 Range/Units 06:29 Triglycerides 188.00 H (0.00-149.00) mg/dL HDL Cholesterol 38.10 L (40.00-60.00) mg/dL
--- NOTE | 2021-08-16 10:16 | P.PN ---
Subjective Progress Note Date: 08/16/21 This is a 41-year-old female patient with past medical history of COPD with a c omponent of chronic bronchial asthma, chronic smoker, anxiety, depression, bipolar disorder, marijuana use, recent hospitalization at the [facility] for influenza infection, acute COPD exacerbation, and acute respiratory failure requiring intubation and mechanical support for 6 days. Patient was discharged home yesterday on 08/13/2021. Patient states she was doing well at home after discharge, ambulating. Yesterday afternoon she recently started not feeling good, had an episode of stabbing chest discomfort lasting 15 minutes, accompanied by shortness of breath, she felt like she was going to pass out. Her family assisted her to bed and when she woke up 45 minutes later she was having trouble with speech, and numbness in her bilateral lower extremities left greater than right, weakness, to the point the patient could not walk, and patient states she had 2 episodes of bladder and bowel lost control. Today on 08/14/2021 patient was brought into the emergency department for evaluation of stroke like symptoms. Patient had a sudden onset of expressive aphasia, and numbness in her lower extremities with her left side being worse than the right. She has no prior history of CVA, she denies any recent trauma, denies any fever or chills. Not on any anticoagulation. Brain CT without contrast showed negative unenhanced CT of the head. CT angios of the head and neck showed normal CT angiogram of the brain and neck. CT angiogram of the thoracic and abdominal aorta was within normal limits. EKG showed sinus rhythm. Admission blood work showed elevated white count of 24.4, hemoglobin of 15.5, INR of 1.0, sodium of 132, the rest of the electrolytes were within normal limits, BUN is 20, creatinine 0.54, troponin was 0.474, 0.344, 0.191. ProBNP was 3250, TSH was 2.840, urine drug screen was positive for benzodiazepines and marijuana. Addition to neurological symptoms patient was also complaining of shortness of breath, coughing chest discomfort, and generalized weakness. Chest x-ray was negative for acute pulmonary process. Patient was started on nebul ized bronchodilators, she was started on IV Lasix 20 mg every 12 hours, cardiology consultation has been obtained, echocardiogram has been completed, report is pending, neurology services are also following, MR/MRI of the brain and lumbar spine has been ordered. On today's evaluation, the patient is awake and alert without any significant respiratory distress. Nevertheless, she is experiencing some weakness in the lower extremities bilaterally which is making it difficult for this patient to walk. Reflexes are diminished bilaterally. She was given a walker. MRI of the lumbar spine showed no evidence of any degenerative changes or this disease. MRI of the brain was also negative. No seizure activity has been noted. The patient did complain of some chest discomfort and pain prior to admission and his troponins were positive consistent with acute non-STEMI. ProBNP level was also slightly elevated and the patient is going to undergo a cardio workup. Her COPD/asthma is currently inactive in stable and he sees post ventilator- dependent respiratory failure. His evaluation of 08/16/2021, the patient reports some improvement in the motor functions in the legs. The strength on the left has improved. Meanwhile, the patient underwent an MRI of the thoracic spine and the patient was also given MRI of the cervical spine. There is cervical kyphosis/deformity and small posterior disc herniation at the level of C4-C5 and C5-C6 and C6-C7. There was no nerve impingement. The T-spine was also within normal limits. There was no evidence of any compressions or any other abnormalities. As such, the patient is still being investigated for her lower extremity motor weakness. The respiratory status is stable. White cell count 16.4 with hemoglobin 16.6. The LDL cholesterol was 106. Electrolytes are all within normal limits. The vitamin B12 level was also adequate and the serum folate was adequate. HbA1c was at 5.2. As mentioned, there is a possibility of demyelinating polyneuropathy and the patient may benefit from a lumbar puncture. Other comorbid conditions are stable for now. The patient is moving around without help of a walker. Objective - Vital Signs Vital signs: Vital Signs Temp 97.5 F L 08/16/21 08:00 Pulse 97 08/16/21 08:07 Resp 16 08/16/21 08:00 BP 102/68 08/16/21 08:00 Pulse Ox 97 08/16/21 08:00 FiO2 Intake & Output 08/15/21 08/16/21 08/16/21 18:59 06:59 18:59 Intake Total 360 Balance 360 Intake: Oral 360 - Exam GENERAL EXAM: Alert, very pleasant, 41-year-old, white female, room air, with pulse ox of 90% comfortable in no apparent distress. HEAD: Normocephalic/atraumatic. EYES: Normal reaction of pupils, equal size. Conjunctiva pink, sclera white. NOSE: Clear with pink turbinates. THROAT: No erythema or exudates. NECK: No masses, no JVD, no thyroid enlargement, no adenopathy. CHEST: No chest wall deformity. Symmetrical expansion. LUNGS: Equal air entry with scattered wheezes CVS: Regular rate and rhythm, normal S1 and S2, no gallops, no murmurs, no rubs ABDOMEN: Soft, nontender. No hepatosplenomegaly, normal bowel sounds, no guarding or rigidity. EXTREMITIES: No clubbing, no edema, no cyanosis, 2+ pulses and upper and lower extremities. MUSCULOSKELETAL: Muscle strength and tone normal. SPINE: No scoliosis or deformity SKIN: No rashes CENTRAL NERVOUS SYSTEM: Alert and oriented -3. No focal deficits, tone is normal in all 4 extremities. motor weakness in lower extremities bilaterally and the patient has diminished reflexes. No Babinski. No clonus. Upper extremity strength is within normal limits PSYCHIATRIC: Alert and oriented -3. Appropriate affect. Intact judgment and insight. - Labs CBC & Chem 7: 08/15/21 06:29 08/15/21 06:29 Labs: Abnormal Lab Results - Last 24 Hours (Table) 08/15/21 Range/Units 06:29 Triglycerides 188.00 H (0.00-149.00) mg/dL HDL Cholesterol 38.10 L (40.00-60.00) mg/dL Assessment and Plan Plan: Assessment: #1. Acute onset of expressive aphasia, urinary and bowel incontinence, lower ex tremity weakness and paresthesia, and this morning, the patient continues to have some weakness in lower extremities bilaterally with diminished reflexes. Normal strength in upper extremity. Normal mentation. MRI of the brain was negative. MRI of the lumbar spine is also negative. Further investigation with an MRI of the thoracic spine and the cervical spine showed no significant abnormalities or nerve impingement. There is concern for demyelinating polyneuropathy and the patient may benefit from lumbar puncture. Neurologist on the case. Meanwhile, the patient reports improvement in the motor function the right was essentially back to baseline. There is still some weakness on the l eft although she has adequate sensation on the left. No issues with pain. Neurologist on the case. #2. Recent hospitalization for acute influenza infection, acute COPD/severe persistent bronchial asthma exacerbation and acute respiratory failure requiring mechanical ventilatory support, discharged from the [facility] yesterday of 08/13/2021 #3. Chest pain, dyspnea, related to chronic COPD, rule out possibility of ACS #4. Elevated troponin, rule out possibility of non-ST elevated myocardial infarction #5. Leukocytosis, possibly related to steroids #6. History of COPD, baseline FEV1 of 1.63 L of 50% predicted, stage III, and component of severe persistent bronchial asthma #7. Chronic and ongoing history of tobacco abuse #8. Anxiety and depression #9. Bipolar disorder #10. Marijuana use #11. Previous episode of acute exacerbation of severe persistent bronchial asthma requiring mechanical ventilator support with subsequent tracheostomy and PEG tube placement for weaning. Patient had since been decannulated and PEG tube had been removed Plan: Her status is stable Continue the prednisone burst taper Possible lumbar puncture regarding the possibility of demyelinating process involving the lower extremity which could be essentially post viral in nature. MRI of the brain and the spine was essentially within normal limits. Diuretics per cardiology Echocardiogram is within normal limits Neurology consultation and recommendations Close neurological monitoring Continue to follow
[2021-08-16] MEDS ORDERED: ALPRAZolam 0.25 MG TAB ONE (13:10)
--- NOTE | 2021-08-16 14:44 | P.PN ---
Subjective Progress Note Date: 08/16/21 The patient is seen at bedside and feels somewhat better today compared to yesterday. She continues to have weakness over the left leg. MRI of the thoracic is reported as normal. We'll MRI of the cervical is reported as small posterior disc herniation at the level of C4-C5 and C5-C6 and C6-C7 there is no nerve impingement. I personally reviewed it and I felt was moderate cervical spondylosis. There is no myelopathy noted. Objective - Vital Signs Vital signs: Vital Signs Temp 97.5 F L 08/16/21 08:00 Pulse 97 08/16/21 08:07 Resp 16 08/16/21 08:05 BP 102/68 08/16/21 08:00 Pulse Ox 97 08/16/21 08:00 FiO2 Intake & Output 08/15/21 08/16/21 08/16/21 18:59 06:59 18:59 Intake Total 360 Balance 360 Intake: Oral 360 - Exam GENERAL: The patient is lying in bed and is not in acute distress. NEUROLOGICAL: Higher mental function: The patient is awake, alert, oriented to self, place and time. Patient is following commands. No aphasia and no neglect. Cranial nerves: The pupils are round, equal and reactive to light and ac commodation. Visual briceno are full to confrontation throughout. Extraocular movement is intact no nystagmus is noted. Facial sensation is normal to touch throughout. The facial strength is normal throughout. Hearing is normal bilaterally to hand rub. Tongue is midline and moved [id number] without any difficulty. No dysarthria is noted. Shoulder shrug is normal bilaterally. Motor: Gait is deferred. The strength is left lower extremity is 4. Otherwise 5 over 5 throughout upper and right lower. Slightly decrease tone over the left lower. Cerebellum: Normal finger to nose bilaterally. Sensation: Sensation is decreased from wait down and feel dull over the right lower while numb on the left lower to touch. Reflexes (right/left): 2+ throughout except ankles are 1-2 bilaterally. Plantars are mute bilaterally. SOME OF THE WORK-UP: Vitamin B12 is at thousand 248 Serum folate is 9.10 Hemoglobin A1c is 5.20 MR the brain is reported as sinus disease. No evidence of subacute ischemia. MRI Lumbar spoine w/ and w/o: Is reported as mild degenerative disc disease. No evidence of disc herniation. No abnormal enhancement. MRI of the thoracic is reported as normal. We'll MRI of the cervical is reported as small posterior disc herniation at the level of C4-C5 and C5-C6 and C6-C7 there is no nerve impingement. I personally reviewed it and I felt was moderate cervical spondylosis. There is no myelopathy noted. - Labs CBC & Chem 7: 08/15/21 06:29 08/15/21 06:29 Labs: Abnormal Lab Results - Last 24 Hours (Table) 08/15/21 Range/Units 06:29 Triglycerides 188.00 H (0.00-149.00) mg/dL HDL Cholesterol 38.10 L (40.00-60.00) mg/dL Assessment and Plan Assessment: Acute lower extremity paresthesia and lower extremity with transient expressive aphasia, urinary and bowel incontinence (on examination had weakness over the left lower but had intact reflexes). Rule out acute inflammatory demylinating polyneuropathy (seem atypical since has intact reflexes) vs post-viral syndrome. Not stroke since Brain is normal Has moderate cervical spondylosis C5-C7 region Elevated troponin--trending down--likely reactive. Leukocytosis and the patient is on steroids seems reactive from medication. Patient is afebrile. COPD Tobacco use Plan: Today patient is going for lumbar puncture. If shows albuminocytological dissociation then recommend IVIG for 3-5 days. Recommend EMG with NCS of lowers as outpatient. Consulted Dr. Trammell for her cervical spondylosis. From a neurologic perspective the patient does not have a stroke and does not need to be on antiplatelets. In the ED patient was given aspirin 325 once then started on aspirin 325 daily. As well as the patient was started on Lipitor 40 mg daily. Continue neuro checks Continue cardiac monitoring PT OT and INDUSTRIAL PRODUCTION MANAGER are consulted Cardiology is consulted Pulmonary team is on board. We'll defer the rest of medical management to the primary team For DVT prophylaxis: Use SCD for now since likely will pursue with lumbar puncture. The plan is discussed with patient and her nurse. Mitch Torres M.D. Neuro-hospitalist Time with Patient: Less than 30
[2021-08-16 14:50] LABS: West Nile Virus IgM Antibody <0.01 INDEX (<0.90)
[2021-08-16 16:27] LABS: Glucose,Whole Blood 158 mg/dL (75-99)
[2021-08-16] MEDS: FUROSEMIDE 20 MG TAB PO SCH (16:28)
[2021-08-16 16:53] LABS: Glucose,CSF 73 mg/dL (40-70); Total Protein,CSF 62 mg/dL (12-60)
[2021-08-16 17:31] LABS: Appearance,CSF Clear; CSF Tube Number 4; Nucleated Cells, CSF 0 u/L (0-5); Red Blood Cell,CSF 0 u/L (0-10)
--- NOTE | 2021-08-16 17:35 | P.CNOR ---
History of Present Illness - [facility] Consult date: 08/16/21 Consult reason: other (Cervical stenosis) History of present illness: History of Presenting Illness Patient is a 41 year old female that presents with BLE weakness. The patient had a recent hospitalization at [facility] due to a complaint of shortness of breath for the last week and as a result she presented to their facility and that because of worsening of shortness of breath she was intubated then went is extubated and she was discharged yesterday. Yesterday as she took a nap at home for 45 minutes and when she woke up she noticed that she's having numbness and tingling of bilateral lower extremities from the waist down and she noticed weakness in the legs. She currently states today that her right lower extremity has improved. She does present with left lower extremity weakness. Encouraged patient to continue to do nerve gliding exercises while in bed, and encourage ambulation. Patient has full range of motion of bilateral upper extremities. She denies any neck pain at this time. Review of imaging does not permit any surgical intervention at this time.. Review of Systems Pertinent positives and negatives as discussed in HPI, a complete review of s ystems was performed and all other systems are negative. Physical Examination General: The patient is awake and alert, in no acute distress Skin: Skin is warm and dry with no obvious rashes or lesions. Hairy patches absent, no dorsal skin dimples, no cafe au lait spots, and no surgical incisions. Eye: Pupils are equal, round and reactive to light, extra-ocular movements are intact; there is normal conjunctiva bilaterally. Neck: The neck is supple, there is no tenderness and ROM intact. Cardiovascular: There is a regular rate and rhythm. No murmur, rub or gallop is appreciated. Respiratory: Lungs are clear to auscultation, respirations are non-labored, breath sounds are equal. Gastrointestinal: Soft, non-distended, non-tender abdomen. Back: There is no tenderness to palpation in the midline, paralumbar, parathoracic or buttocks region. There is no obvious deformity. Musculoskeletal: FROM and 5/5 in all major muscle groups except Left lower extremity is 4/5. Neurological: CN 2-12 intact. There are no obvious motor or sensory deficits. Movement and coordination equal and intact. Sensory exam to light touch intact C5-T1 and intact from L2-S1. Reflexes 2/4 in bilateral upper and lower extremities. Negative Hoffmans, babinski, and clonus signs. Psychiatric: Cooperative, appropriate mood & affect, normal judgment. Assessment and Plan Plan: -Appreciate it solutions sales consultant and team management. -Activity: Ambulate QID, OOB all meals, up and about. Use walker or cane if needed for stability. -Daily PT/OT, increase ambulation strength and balance. -Encourage IS 10x/hr -No surgical intervention at this time. Patient is cleared from Orthopedics standpoint. Patient may follow up in office after discharge as needed. *I reviewed and discussed this case with my attending Dr. Trammell, whom has reviewed this chart and films and is in agreement with assessment and plan of care as outlined above. I have personally seen and examined the patient, performed the documentation and the assessment and plan as written. Number of minutes spent on the visit: 20m. Past Medical History Past Medical History: Asthma, COPD Additional Past Medical History / Comment(s): Bronchitis, medical coma due to breathing issues History of Any Multi-Drug Resistant Organisms: MRSA Year Discovered:: 2010 MDRO Source:: index finger on right hand Past Surgical History: No Surgical Hx Reported Additional Past Surgical History / Comment(s): tracheotomy, cysts to wrist re moved, peg tube(removed) Past Anesthesia/Blood Transfusion Reactions: No Reported Reaction Past Psychological History: Anxiety, Bipolar, Depression Smoking Status: Current every day smoker Past Alcohol Use History: Occasional Past Drug Use History: Marijuana - Past Family History Mother Family Medical History: Cancer Additional Family Medical History / Comment(s): Lung and brain CA, Uncle Pa ncreatic Medications and Allergies Home Medications Medication Instructions Recorded Confirmed Type Albuterol Sulfate [Proair Hfa] 2 puff INHALATION RT-Q4H PRN 08/27/20 08/14/21 History Ipratropium-Albuterol Nebulize 3 ml INHALATION RT-Q4H PRN 08/27/20 08/14/21 History [Duoneb 0.5 mg-3 mg/3 ml Soln] Sertraline HCl [Zoloft] 100 mg PO DAILY 08/27/20 08/14/21 History Tiotropium Br/Olodaterol HCl 2 puff INHALATION RT-DAILY 08/27/20 08/14/21 History [Stiolto Respimat Inhal [place]] hydrOXYzine pamoate [hydrOXYzine 25 mg PO TID PRN 09/17/20 08/14/21 History PAMOATE] Cetirizine HCl 10 mg PO DAILY PRN 03/28/21 08/14/21 History Fluticasone Propionate [Flovent 2 puff INHALATION RT-BID 03/28/21 08/14/21 History Hfa 220 mcg] predniSONE See Taper PO DAILY 03/28/21 08/14/21 History Acetaminophen Tab [Tylenol] 650 mg PO Q6H PRN 08/14/21 08/14/21 History Diclofenac Sodium Gel [Voltaren 2 gm TOPICAL QID 08/14/21 08/14/21 History Gel] Famotidine [Pepcid] 20 mg PO BID 08/14/21 08/14/21 History Fluticasone/Umeclidin/Vilanter 1 puff INHALATION RT-DAILY 08/14/21 08/14/21 History [Trelegy Ellipta 200-62.5-25] Ibuprofen [Motrin] 600 mg PO Q8HR PRN 08/14/21 08/14/21 History Nicotine 14Mg/24Hr Patch [Habitrol 1 patch TRANSDERM DAILY 08/14/21 08/14/21 History 14Mg/24Hr Patch] cloNIDine HCL [Catapres] 0.1 mg PO Q8H 08/14/21 08/14/21 History Allergies Allergy/AdvReac Type Severity Reaction Status Date / Time nitrofurantoin Allergy Swelling Verified 08/14/21 06:56 [From Macrobid] codeine AdvReac Vomiting Verified 08/14/21 06:56 Results - Labs Labs: Abnormal Lab Results - Last 24 Hours (Table) 08/16/21 08/16/21 Range/Units 15:30 16:25 POC Glucose (mg/dL) 158 H (75-99) mg/dL CSF Glucose 73 H (40-70) mg/dL CSF Total Protein 62 H (12-60) mg/dL H & H 08/13/21 08/14/21 08/15/21 Range/Units 23:05 09:04 06:29 Hgb 15.5 15.5 16.5 H (11.4-16.0) gm/dL Hct 44.9 46.8 H 50.0 H (34.0-46.0) % Coagulation 08/13/21 Range/Units 23:05 INR 1.0 (<1.2) Result Diagrams: 08/15/21 06:29 08/15/21 06:29
[2021-08-16] MEDS: carvediloL 6.25 MG TAB PO SCH (17:48)
[2021-08-16 20:43] LABS: Glucose,Whole Blood 88 mg/dL (75-99)
[2021-08-16] MEDS: ALPRAZolam 0.25 MG TAB PO PRN (23:11)
--- NOTE | 2021-08-17 03:12 | P.PN ---
Subjective Progress Note Date: 08/16/21 This is a 41-year-old female who presented to the emergency department with some bilateral lower extremity weakness more so on the left along with expressive aphasia with sudden onset with continued numbness of the left lower extremities. Patient was recently discharged from [facility] after prolonged hospitalization and requiring intubation secondary to COPD/asthma and found to have influenza. Patient reports on discharge she was feeling better and able to walk with no deficits noted. Patient was tired and hungry and had continued coughing spells. Patient was discharged on a prednisone taper from [facility]. Per ER documentation NIH on arrival was 5 and a code alteplase was activated patient underwent CT of the brain which demonstrated no acute abnormality. Patient was also found to have an elevated troponin along with an elevated white count of 24.4 and patient was admitted here for neurology workup and cardiology evaluation. EKG was sinus rhythm. Patient does have a past medical history of asthma and COPD along with bronchitis and reports to being intubated most recent ly 1 week ago for her extensive asthma. Patient reports to smoking 1-1-1/2 packs of cigarettes and most recently had been cutting down to half a pack a day. Patient has not smoked in over one week. Patient had elevated in troponins and cardiology consulted. Brain MRI was ordered and pending. 08/15/2021 Patient is seen this morning and is anxious and tearful on exam. Patient is frustrated as she continues with lower extremity weakness and all tests thus far have been negative. Neurology, cardiology, and pulmonary following closely. Patient is continued on current medication regimen and also breathing inhalational treatments and will continue. Neurology ordered thoracic mri which is pending for today. Patient is anxious. Patient denies worsening chest pain or shortness of breath. Patient is afebrile. Patient denies nausea or vomiting. BNP was elevated and was initiated on IV lasix. 08/16/2021 Patient continues with lower extremity weakness and awaiting lumbar puncture today. Patient being followed by cardiology and pulmonary along with neurology and ortho consulted for stenosis noted on thoracic MRI. No plans for surgical intervention and will follow up outpatient. Patient is afebrile and denies any chest pain or shortness of breath. Patient continues to be anxious and wants to go home. Awaiting LP. Patient transitioned to oral lasix. Imaging: Brain CT: Negative unenhanced head CT axillary sinusitis noted with no mass effect or midline shift and no sign of intracranial hemorrhage brain MRI: negative Chest x-ray: Normal chest with no change CT angio: Normal CT angiogram of the neck and normal CT angiogram of the brain Thoracic CT: Ground[place] pulmonary interstitial edema heart size is normal with no pericardial effusion no aneurysm or dissection noted the ascending aortic measures 2.9 cm with no evidence of filling defect in the pulmonary arteries and findings are normal of the chest abdomen pelvis EKG: Sinus rhythm Review Of Systems: Constitutional: No fever, no chills, no night sweats. No weight change. Reports of weakness and fatigue. No daytime sleepiness. Lungs: Reports shortness of breath intermittently, reports continued cough, reports frothy sputum production. Reports wheezing. Cardiovascular: Reports chest pain with coughing, no lower extremity edema. No palpitations. No paroxysmal nocturnal dyspnea. No orthopnea. No lightheadedness or dizziness. No syncopal episodes. Abdominal: No abdominal pain. No nausea, vomiting. No diarrhea. No constipation. No bloody or tarry stools.. No loss of appetite. Genitourinary: No dysuria, increased frequency, urgency. No urinary retention. Musculoskeletal: No myalgias. Reports muscle weakness, no gait dysfunction, no frequent falls. No back pain. No neck pain. Reports weakness of bilateral lower extremities more so on the left Neurologic: Reports expressive aphasia on initial ED presentation that has resolved. Reports right facial droop. No change in mentation. No head injury. No headache. No paralysis. No paresthesia. Active Medications Albuterol/Ipratropium (Ipratropium-Albuterol 3 Ml Neb) 3 ml INHALATION RT-Q4H PRN PRN Reason: Shortness Of Breath Or Wheezing Albuterol/Ipratropium (Ipratropium-Albuterol 3 Ml Neb) 3 ml INHALATION RT-QID S Last Admin: 08/15/21 16:07 Dose: 3 ml Alprazolam (Alprazolam 0.25 Mg Tab) 0.25 mg PO BID PRN PRN Reason: Anxiety Last Admin: 08/15/21 11:47 Dose: 0.25 mg Aspirin (Aspirin 325 Mg Tab) 325 mg PO DAILY [facility] Last Admin: 08/15/21 08:22 Dose: 325 mg Atorvastatin Calcium (Atorvastatin 40 Mg Tab) 40 mg PO DAILY [facility] Last Admin: 08/15/21 08:23 Dose: 40 mg Budesonide/Formoterol Fumarate (Symbicort 160-4.5 Mcg Inhaler) 2 puff INHALATION RT-BID [facility] Last Admin: 08/15/21 09:01 Dose: 2 puff Carvedilol (Carvedilol 3.125 Mg Tab) 3.125 mg PO BID-W/MEALS [facility] Last Admin: 08/15/21 16:17 Dose: 3.125 mg Clonidine (Clonidine Hcl 0.1 Mg Tab) 0.1 mg PO Q8H [facility] Last Admin: 08/15/21 16:17 Dose: 0.1 mg Famotidine (Famotidine 20 Mg Tab) 20 mg PO BID [facility] Last Admin: 08/15/21 08:22 Dose: 20 mg Furosemide (Furosemide 10 Mg/Ml 2 Ml Vial) 20 mg IV Q12HR [facility] Last Admin: 08/15/21 08:21 Dose: 20 mg Lorazepam (Lorazepam 2 Mg/Ml Inj) 1 mg IV ONCE PRN PRN Reason: for mri Last Admin: 08/15/21 16:17 Dose: 1 mg Naloxone HCl (Naloxone 0.4 Mg/Ml 1 Ml Vial) 0.2 mg IV Q2M PRN PRN Reason: Opioid Reversal Nicotine (Nicotine 14mg/24hr Patch) 1 patch TRANSDERM DAILY [facility] Last Admin: 08/15/21 08:42 Dose: Not Given Nitroglycerin (Nitroglycerin Sl Tabs 0.4 Mg Tab) 0.4 mg SUBLINGUAL Q5M PRN PRN Reason: Chest Pain Ondansetron HCl (Ondansetron 4 Mg/2 Ml Vial) 4 mg IVP Q6HR PRN PRN Reason: Nausea And Vomiting Stop: 08/19/21 21:32 Last Admin: 08/15/21 16:18 Dose: 4 mg Prednisone (Prednisone 20 Mg Tab) 40 mg PO DAILY [facility] Sertraline HCl (Sertraline 100 Mg Tab) 100 mg PO DAILY [facility] Last Admin: 08/15/21 08:23 Dose: 100 mg Zolpidem Tartrate (Zolpidem 5 Mg Tab) 5 mg PO HS PRN PRN Reason: Insomnia Stop: 08/15/21 21:33 Last Admin: 08/14/21 21:57 Dose: 5 mg PHYSICAL EXAMINATION: GENERAL: The patient is alert and oriented x4, thin built HEENT: Pupils are round and equally reacting to light. EOMI. no scleral icterus. No conjunctival pallor. Normocephalic, atraumatic. No pharyngeal erythema. No thyromegaly. CARDIOVASCULAR: S1 and S2 muffled PULMONARY: diminished breath sounds bilaterally with minimal wheezing noted. less wheezy and room air ABDOMEN: soft. Nontender on exam. non-distended, normoactive bowel sounds. No palpable organomegaly. MUSCULOSKELETAL: No joint swelling or deformity. EXTREMITIES: No cyanosis, clubbing, or pedal edema. Bilateral lower extremity weakness strength is 4-5 on left strength 5/5 on the right, upper extremities reveal 4/5 strength on left, 5/5 strength on right NEUROLOGICAL: Gross neurological examination did not reveal any focal deficits. Diffuse weakness SKIN: No rashes. Assessment: Bilateral lower extremity paresthesia with weakness and associated transient expressive aphasia along with urine and bowel incontinence, possibly secondary to acute TIA, CVA less likely per neuro and brain mri is negative Elevated troponin, ruled out acs Leukocytosis possibly reactive as patient has been on high-dose steroids from recent hospitalization and discharged on a prednisone taper COPD, acute exacerbation Continued ongoing tobacco use Gastroesophageal reflux disease History of asthma/COPD and has been intubated in the past requiring tracheostomy THC use Recent hospitalization requiring intubation secondary to COPD exacerbation and hypoxic respiratory failure also secondary to influenza anxiety GI prophylaxis DVT prophylaxis Full code Plan: Recommend to continue with current medications and cardiology along with neurology following. 2-D echo was done and bnp was elevated and maintained on IV lasix now transitioned to oral lasix. MRI of the brain and L spine was negative. MRI of the thoracic spine negative, neurology suggesting lumbar puncture which will be done today. Patient continues with weakness and will continue PT/OT therapy. continue to monitor closely. Patient is anxious to leave and was told if LP is negative could be discharged. Will await LP. Discussed with neuro that patient will need outpatient follow up with ortho and neuro. Due to multiple complex medical issues, prognosis is guarded. Possible discharge later today or in am if LP is done and negative. The impression and plan of care has been dictated by Darlyn Naranjo, nurse practitioner as directed. Dr. Migue MD I have performed a history and examination and MDM of this patient, discussed the same with the dictator, and agree with the dictator's assessment and plan as written ,documented as a scribe. Based on total visit time, I have performed more than 50% of the visit. Any additional findings or plans will be noted. Objective - Vital Signs Vital signs: Vital Signs Temp 97.5 F L 08/16/21 08:00 Pulse 97 08/16/21 08:07 Resp 16 08/16/21 08:00 BP 102/68 08/16/21 08:00 Pulse Ox 97 08/16/21 08:00 FiO2 Intake & Output 08/15/21 08/16/21 08/16/21 18:59 06:59 18:59 Intake Total 360 Balance 360 Intake: Oral 360 - Labs CBC & Chem 7: 08/15/21 06:29 08/15/21 06:29 Labs: Abnormal Lab Results - Last 24 Hours (Table) 08/15/21 Range/Units 06:29 Triglycerides 188.00 H (0.00-149.00) mg/dL HDL Cholesterol 38.10 L (40.00-60.00) mg/dL
[2021-08-17 04:23] VITALS: RESP 18
[2021-08-17 05:41] LABS: Glucose,Whole Blood 107 mg/dL (75-99)
[2021-08-17] MEDS: carvediloL 6.25 MG TAB PO SCH (06:23)
[2021-08-17] MEDS: SYMBICORT 160-4.5 MCG INHALER INHALATION SCH (07:47)
[2021-08-17] MEDS: IPRATROPIUM-ALBUTEROL 3 ML NEB INHALATION SCH (07:47)
[2021-08-17] MEDS ORDERED: ACETAMINOPHEN TAB 325 MG TAB PO PRN (07:56)
[2021-08-17] MEDS: FUROSEMIDE 20 MG TAB PO SCH (08:12)
[2021-08-17] MEDS: ALPRAZolam 0.25 MG TAB PO PRN (08:13)
[2021-08-17] MEDS: cloNIDine HCL 0.1 MG TAB PO SCH (08:13)
[2021-08-17] MEDS: FAMOTIDINE 20 MG TAB PO SCH (08:13)
[2021-08-17] MEDS: NICOTINE 14MG/24HR PATCH TRANSDERM SCH ×2 (08:13→09:08)
[2021-08-17] MEDS: predniSONE 20 MG TAB PO SCH (08:13)
[2021-08-17] MEDS: ATORVASTATIN 40 MG TAB PO SCH (08:13)
[2021-08-17] MEDS: SERTRALINE 100 MG TAB PO SCH (08:13)
[2021-08-17] MEDS: ASPIRIN 325 MG TAB PO SCH (08:13)
--- NOTE | 2021-08-17 09:49 | P.PN ---
Subjective Progress Note Date: 08/17/21 HISTORY OF PRESENT ILLNESS: This is a 41-year-old female with a past medical history significant for COPD, anxiety, depression, bipolar disorder, and marijuana use. 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 We have been asked to see the patient in consultation for abnormal troponins. Patient examined at the bedside. Patient's mother at the bedside and providing a portion of the HPI. The patient was just discharged yesterday from [facility]. The patient was admitted there secondary to. Influenza, COPD, and asthma. The patient was intubated. Patient's stepmother says the patient was moved out of ICU yesterday to a general medical floor and was discharged home yesterday afternoon. The patient presented back to the emergency room with weakness of her lower extremities, incontinence, shortness of breath, coughing, and chest discomfort. Patient currently reports mild chest discomfort when she is coughing. * EKG reveals sinus tachycardia with no signs of acute ischemia * Chest xray negative for acute process * CT brain: Negative for acute process * Laboratory data: WBC 24.4. Hemoglobin 15.5. Platelet count 236. Sodium 132. Potassium 3.9. BUN 20. Creatinine 0.54. Troponin 0.474. 0.344. * Current home cardiac medications include Catapres 0.1 mg every 8 hours * Most recent echocardiogram obtained in November 2014 revealed ejection fraction 50-55%, mild mitral regurgitation, septal hypokinesis 08/15/2021: This patient seemed to be feeling much better as far as her breathing and chest pain or concern. Lungs show less wheezing. However, she is complaining of weakness and inability to walk. MRI of the spine and brain were normal. Neurology stink of some kind of demyelinization process. Patient BNP was high and patient was started on IV Lasix yesterday. Echo Cardigan showed normal LV function without any segmental wall motion defects. Troponin values are abnormal with a downward trend. The significance of this is not clear. Her chest pain appeared to be very atypical. Patient may need further evaluation in the form of pharmacologic stress test to rule out any underlying ischemic heart disease. As patient is clinically stable at this time, I will defer this evaluation until after her weakness in the legs improves. We'll continue with medical therapy at this time including beta cyril, nitrates, aspirin and nitro as needed 08/16/2021 Patient examined this morning at the bedside. Patient denies chest pain or pressure. She denies shortness of breath. She states that her right leg feels normal this morning and she has regained her strength. However she continues to have weakness in her left leg. Patient is scheduled for lumbar puncture today. Patient's blood pressures are running on the low side with a systolic in the 90s. 08/17/2021 Patient examined this morning at the bedside. Patient denies chest pain or pressure. She denies shortness of breath. She continues to report increased strength in her lower extremities. She underwent LP yesterday. Results are not available at this time. PHYSICAL EXAM: VITAL SIGNS: Reviewed. GENERAL: Well-developed in no acute distress. HEENT: Head is normocephalic. Pupils are equal, round. Sclerae anicteric. Mucous membranes of the mouth are moist. Neck supple. No JVD or thyromegaly LUNGS: Respirations even and unlabored. Lungs diminished with expiratory wheezing noted HEART: Regular rate and rhythm. S1 and S2 heard. ABDOMEN: Soft. Nondistended. Nontender. EXTREMITIES: Normal range of motion. No clubbing or cyanosis. Peripheral pulses intact. No lower extremity edema NEUROLOGIC: Awake and alert. Oriented x 3. ASSESSMENT: Possible TIA/CVA, ruled out per neurology Lower extremity weakness with incontinence, s/p lumbar puncture Shortness of breath with cough Mild congestive heart failure with preserved EF Recent influzena and COPD exacerbation requiring mechanical ventilation at [facility] Abnormal troponins COPD Anxiety Depression Bipolar disorder Marijuana use PLAN: Discontinue catapres Continue additional cardiac medications Await LP results Patient will require Dobutamine stress test to be performed on an outpatient basis Further recommendations pending patient's course Nurse practitioner note has been reviewed by physician. Signing provider agrees with the documented findings, assessment, and plan of care. Objective - Vital Signs Vital signs: Vital Signs Temp 98.4 F 08/16/21 20:10 Pulse 91 08/17/21 08:00 Resp 18 08/17/21 03:50 BP 94/63 08/17/21 03:50 Pulse Ox 95 08/17/21 03:50 FiO2 Intake & Output 08/16/21 08/17/21 08/17/21 18:59 06:59 18:59 Weight 59.9 kg - Labs CBC & Chem 7: 08/15/21 06:29 08/15/21 06:29 Labs: Abnormal Lab Results - Last 24 Hours (Table) 08/16/21 08/16/21 08/17/21 Range/Units 15:30 16:25 05:34 POC Glucose (mg/dL) 158 H 107 H (75-99) mg/dL CSF Glucose 73 H (40-70) mg/dL CSF Total Protein 62 H (12-60) mg/dL Microbiology - Last 24 Hours (Table) 08/16/21 15:30 CSF Gram Stain - Preliminary Cerebral Spinal Fluid CSF Culture - Preliminary
--- NOTE | 2021-08-17 11:28 | P.PN ---
Subjective Progress Note Date: 08/17/21 This is a 41-year-old female patient with past medical history of COPD with a c omponent of chronic bronchial asthma, chronic smoker, anxiety, depression, bipolar disorder, marijuana use, recent hospitalization at the [facility] for influenza infection, acute COPD exacerbation, and acute respiratory failure requiring intubation and mechanical support for 6 days. Patient was discharged home yesterday on 08/13/2021. Patient states she was doing well at home after discharge, ambulating. Yesterday afternoon she recently started not feeling good, had an episode of stabbing chest discomfort lasting 15 minutes, accompanied by shortness of breath, she felt like she was going to pass out. Her family assisted her to bed and when she woke up 45 minutes later she was having trouble with speech, and numbness in her bilateral lower extremities left greater than right, weakness, to the point the patient could not walk, and patient states she had 2 episodes of bladder and bowel lost control. Today on 08/14/2021 patient was brought into the emergency department for evaluation of stroke like symptoms. Patient had a sudden onset of expressive aphasia, and numbness in her lower extremities with her left side being worse than the right. She has no prior history of CVA, she denies any recent trauma, denies any fever or chills. Not on any anticoagulation. Brain CT without contrast showed negative unenhanced CT of the head. CT angios of the head and neck showed normal CT angiogram of the brain and neck. CT angiogram of the thoracic and abdominal aorta was within normal limits. EKG showed sinus rhythm. Admission blood work showed elevated white count of 24.4, hemoglobin of 15.5, INR of 1.0, sodium of 132, the rest of the electrolytes were within normal limits, BUN is 20, creatinine 0.54, troponin was 0.474, 0.344, 0.191. ProBNP was 3250, TSH was 2.840, urine drug screen was positive for benzodiazepines and marijuana. Addition to neurological symptoms patient was also complaining of shortness of breath, coughing chest discomfort, and generalized weakness. Chest x-ray was negative for acute pulmonary process. Patient was started on nebul ized bronchodilators, she was started on IV Lasix 20 mg every 12 hours, cardiology consultation has been obtained, echocardiogram has been completed, report is pending, neurology services are also following, MR/MRI of the brain and lumbar spine has been ordered. On today's evaluation, the patient is awake and alert without any significant respiratory distress. Nevertheless, she is experiencing some weakness in the lower extremities bilaterally which is making it difficult for this patient to walk. Reflexes are diminished bilaterally. She was given a walker. MRI of the lumbar spine showed no evidence of any degenerative changes or this disease. MRI of the brain was also negative. No seizure activity has been noted. The patient did complain of some chest discomfort and pain prior to admission and his troponins were positive consistent with acute non-STEMI. ProBNP level was also slightly elevated and the patient is going to undergo a cardio workup. Her COPD/asthma is currently inactive in stable and he sees post ventilator- dependent respiratory failure. His evaluation of 08/16/2021, the patient reports some improvement in the motor functions in the legs. The strength on the left has improved. Meanwhile, the patient underwent an MRI of the thoracic spine and the patient was also given MRI of the cervical spine. There is cervical kyphosis/deformity and small posterior disc herniation at the level of C4-C5 and C5-C6 and C6-C7. There was no nerve impingement. The T-spine was also within normal limits. There was no evidence of any compressions or any other abnormalities. As such, the patient is still being investigated for her lower extremity motor weakness. The respiratory status is stable. White cell count 16.4 with hemoglobin 16.6. The LDL cholesterol was 106. Electrolytes are all within normal limits. The vitamin B12 level was also adequate and the serum folate was adequate. HbA1c was at 5.2. As mentioned, there is a possibility of demyelinating polyneuropathy and the patient may benefit from a lumbar puncture. Other comorbid conditions are stable for now. The patient is moving around without help of a walker. 08/17/2021, no active respiratory issues. The motor weakness is improving her lower extremities and the patient is being considered for discharge. Lumbar puncture showed no major abnormalities. Neurology is not concerned about GBS. There is also requested a rapid taper of the steroids which I think his stool but as long as the patient's respiratory status is stable. The patient will likely go home today. No cough. No chest tightness. No wheezing. No other significant issues otherwise for now. Motor function is improving and the reflexes seems to be preserved in the lower extremities. Objective - Vital Signs Vital signs: Vital Signs Temp 98.4 F 08/16/21 20:10 Pulse 91 08/17/21 08:00 Resp 18 08/17/21 03:50 BP 94/63 08/17/21 03:50 Pulse Ox 95 08/17/21 03:50 FiO2 Intake & Output 08/16/21 08/17/21 08/17/21 18:59 06:59 18:59 Weight 59.9 kg - Exam GENERAL EXAM: Alert, very pleasant, 41-year-old, white female, room air, with pulse ox of 90% comfortable in no apparent distress. HEAD: Normocephalic/atraumatic. EYES: Normal reaction of pupils, equal size. Conjunctiva pink, sclera white. NOSE: Clear with pink turbinates. THROAT: No erythema or exudates. NECK: No masses, no JVD, no thyroid enlargement, no adenopathy. CHEST: No chest wall deformity. Symmetrical expansion. LUNGS: Equal air entry with scattered wheezes CVS: Regular rate and rhythm, normal S1 and S2, no gallops, no murmurs, no rubs ABDOMEN: Soft, nontender. No hepatosplenomegaly, normal bowel sounds, no guarding or rigidity. EXTREMITIES: No clubbing, no edema, no cyanosis, 2+ pulses and upper and lower extremities. MUSCULOSKELETAL: Muscle strength and tone normal. SPINE: No scoliosis or deformity SKIN: No rashes CENTRAL NERVOUS SYSTEM: Alert and oriented -3. No focal deficits, tone is normal in all 4 extremities. motor weakness in lower extremities bilaterally and the patient has adequate reflexes. No Babinski. No clonus. Upper extremity strength is within normal limits PSYCHIATRIC: Alert and oriented -3. Appropriate affect. Intact judgment and insight. - Labs CBC & Chem 7: 08/15/21 06:29 08/15/21 06:29 Labs: Abnormal Lab Results - Last 24 Hours (Table) 08/16/21 08/16/21 08/17/21 Range/Units 15:30 16:25 05:34 POC Glucose (mg/dL) 158 H 107 H (75-99) mg/dL CSF Glucose 73 H (40-70) mg/dL CSF Total Protein 62 H (12-60) mg/dL Microbiology - Last 24 Hours (Table) 08/16/21 15:30 CSF Gram Stain - Preliminary Cerebral Spinal Fluid CSF Culture - Preliminary Assessment and Plan Plan: Assessment: #1. Acute onset of expressive aphasia, urinary and bowel incontinence, lower extremity weakness and paresthesia, and this morning, the patient continues to have some weakness in lower extremities bilaterally with diminished reflexes. Normal strength in upper extremity. Normal mentation. MRI of the brain was negative. MRI of the lumbar spine is also negative. Further investigation with an MRI of the thoracic spine and the cervical spine showed no significant abnormalities or nerve impingement. There is concern for demyelinating polyneuropathy and the patient may benefit from lumbar puncture. Neurologist on the case. Meanwhile, the patient reports improvement in the motor function the right was essentially back to baseline. The motor function is improving at this point in time. Reflexes are preserved in the lumbar puncture was nonrevealing. Neurologically, the patient is awake and alert. #2. Recent hospitalization for acute influenza infection, acute COPD/severe pe rsistent bronchial asthma exacerbation and acute respiratory failure requiring mechanical ventilatory support, discharged from the [facility] yesterday of 08/13/2021 #3. Chest pain, dyspnea, related to chronic COPD, rule out possibility of ACS #4. Elevated troponin, rule out possibility of non-ST elevated myocardial infarction #5. Leukocytosis, possibly related to steroids #6. History of COPD, baseline FEV1 of 1.63 L of 50% predicted, stage III, and component of severe persistent bronchial asthma #7. Chronic and ongoing history of tobacco abuse #8. Anxiety and depression #9. Bipolar disorder #10. Marijuana use #11. Previous episode of acute exacerbation of severe persistent bronchial asthma requiring mechanical ventilator support with subsequent tracheostomy and PEG tube placement for weaning. Patient had since been decannulated and PEG tube had been removed Plan: Her pulmonary status is stable Continue the prednisone burst taper, we'll put the patient 20 mg of prednisone for 3 days and 10 mg for 3 days and stop. As far as outpatient therapy, the patient will use Symbicort 2 puffs twice a day, albuterol as needed, no smoking, and this includes marijuana. The patient will see her back in the office in a few weeks time for a follow-up. She will contact me should there be any worsening shortness of breath. Neurology has cleared the patient. The patient will also need an outpatient neurology evaluation regarding the motor weakness. Dr. Torres has cleared this patient regarding the lower extremity weakness which is essentially improving. Echocardiogram is within normal limits Neurology consultation and recommendations Close neurological monitoring discharge today.
[2021-08-17 12:00] VITALS: BP 115/76; PULSE 98; TEMP 97.9
[2021-08-17 12:02] LABS: Glucose,Whole Blood 114 mg/dL (75-99)
--- NOTE | 2021-08-17 15:45 | P.PN ---
Subjective Progress Note Date: 08/17/21 The patient is seen at bedside and feeling she is improving on a daily basis. She feels her left leg strength is improving but not back to baseline. Continues to have numbness in lower extremities. Objective - Vital Signs Vital signs: Vital Signs Temp 97.9 F 08/17/21 08:00 Pulse 98 08/17/21 08:00 Resp 18 08/17/21 08:00 BP 115/76 08/17/21 08:00 Pulse Ox 96 08/17/21 08:00 FiO2 Intake & Output 08/16/21 08/17/21 08/17/21 18:59 06:59 18:59 Weight 59.9 kg - Exam GENERAL: The patient is lying in bed and is not in acute distress. NEUROLOGICAL: Higher mental function: The patient is awake, alert, oriented to self, place and time. Patient is following commands. No aphasia and no neglect. Cranial nerves: The pupils are round, equal and reactive to light and accommodation. Visual briceno are full to confrontation throughout. Extraocular movement is intact no nystagmus is noted. Facial sensation is normal to touch throughout. The facial strength is normal throughout. Hearing is normal bilaterally to hand rub. Tongue is midline and moved [id number] without any difficulty. No dysarthria is noted. Shoulder shrug is normal bilaterally. Motor: Gait is deferred. The strength is left lower extremity is 4. Otherwise 5 over 5 throughout upper and right lower. Slightly decrease tone over the left lower. Cerebellum: Normal finger to nose bilaterally. Sensation: Sensation is decreased from wait down and feel dull over the right lower while numb on the left lower to touch. Reflexes (right/left): 2+ throughout except ankles are 1-2 bilaterally. Plantars are mute bilaterally. SOME OF THE WORK-UP: Vitamin B12 is at thousand 248 Serum folate is 9.10 Hemoglobin A1c is 5.20 MR the brain is reported as sinus disease. No evidence of subacute ischemia. MRI Lumbar spoine w/ and w/o: Is reported as mild degenerative disc disease. No evidence of disc herniation. No abnormal enhancement. MRI of the thoracic is reported as normal. We'll MRI of the cervical is reported as small posterior disc herniation at the level of C4-C5 and C5-C6 and C6-C7 there is no nerve impingement. I personally reviewed it and I felt was moderate cervical spondylosis. There is no myelopathy noted. CSF: Clear, colorless, rbc 0, total nucleated cells 0, glucose 73 (normal 40-70) and protein 62 (normal is 12-60). CSF gram stain is no organism seen. - Labs CBC & Chem 7: 08/15/21 06:29 08/15/21 06:29 Labs: Abnormal Lab Results - Last 24 Hours (Table) 08/16/21 08/16/21 08/17/21 Range/Units 15:30 16:25 05:34 POC Glucose (mg/dL) 158 H 107 H (75-99) mg/dL CSF Glucose 73 H (40-70) mg/dL CSF Total Protein 62 H (12-60) mg/dL 08/17/21 Range/Units 12:00 POC Glucose (mg/dL) 114 H (75-99) mg/dL CSF Glucose (40-70) mg/dL CSF Total Protein (12-60) mg/dL Microbiology - Last 24 Hours (Table) 08/16/21 15:30 CSF Gram Stain - Preliminary Cerebral Spinal Fluid CSF Culture - Preliminary Assessment and Plan Assessment: * Acute lower extremity paresthesia and lower extremity with transient expressive aphasia, urinary and bowel incontinence (on examination had weakness over the left lower but had intact reflexes). Unsure exact cause Does not appear Acute inflammatory demylinating polyneuropathy (since has intact reflexes of lowers. Cannot rule out Atypical. Her CSF was inconclusive and had protein and glucose was minimally elevated and could be due to post-viral syndrome vs Acute COPD exacerbation and she received ster oids as outpatient). Not stroke since Brain is normal * Has moderate cervical spondylosis C5-C7 region * Elevated troponin--trending down--likely reactive. * Leukocytosis and the patient is on steroids seems reactive from medication. Patient is afebrile. * COPD * Tobacco use Plan: Recommend EMG with NCS of lowers as outpatient. Consulted Dr. Trammell. I spoke with and does not feel cervical is significant or any spinal region and I agree with him. From a neurologic perspective the patient does not have a stroke and does not need to be on antiplatelets. In the ED patient was given aspirin 325 once then started on aspirin 325 daily. As well as the patient was started on Lipitor 40 mg daily. Continue neuro checks Continue cardiac monitoring PT OT and ALARM FIELD TECHNICIAN are consulted Cardiology is consulted Pulmonary team is on board. We'll defer the rest of medical management to the primary team Patient needs to follow-up with a neurologist as outpatient within 1-2 weeks. Patient is clear for discharge from neurological perspective. Mitch Torres M.D. Neuro-hospitalist Time with Patient: Less than 30
--- NOTE | 2021-08-22 09:41 | P.DS ---
Providers Date of admission: 08/14/21 01:40 Expected date of discharge: 08/17/21 Attending physician: Juliann Camarena Consults: 08/14/21 01:42 Consult Physician Urgent Consulting Provider: Mitch Torres Consult Reason/Comments: acute transient expressive aphasia Do you want consulting provider notified?: Yes Consult Physician Urgent Consulting Provider: [facility] Consult Reason/Comments: nstemi Do you want consulting provider notified?: Yes 08/14/21 09:53 Consult Physician Routine Consulting Provider: Ben Torres Consult Reason/Comments: sob, recent intubation Do you want consulting provider notified?: Yes 08/16/21 07:55 Consult Physician Routine Consulting Provider: Venkatesh Trammell Consult Reason/Comments: cervical spondylosis Do you want consulting provider notified?: Yes Primary care physician: Stevenson Dunlap Hospital Course: Final diagnosis Bilateral lower extremity paresthesia with weakness and associated transient expressive aphasia along with urine and bowel incontinence, possibly secondary to acute TIA, CVA less likely per neuro and brain mri is negative Elevated troponin, ruled out acs Leukocytosis possibly reactive as patient has been on high-dose steroids from recent hospitalization and discharged on a prednisone taper COPD, acute exacerbation Continued ongoing tobacco use Gastroesophageal reflux disease History of asthma/COPD and has been intubated in the past requiring tracheostomy THC use Recent hospitalization requiring intubation secondary to COPD exacerbation and hypoxic respiratory failure also secondary to influenza anxiety GI prophylaxis DVT prophylaxis Full code Discharge disposition Patient is being discharged in a stable condition with guarded prognosis to home with home care. Patient will follow-up with Dr. Dunlap in the outpatient setting upon discharge. Patient is to follow-up with cardiology and pulmonary and neurology as scheduled. Patient will continue with Lasix 20 mg daily, statin, and also finish her prednisone taper Total time taken is greater than 35 minutes. Hospital course This is a 41-year-old female who was recently admitted with some bilateral lower extremity weakness worse on the left along with expressive aphasia and send onset with continued numbness of the left lower extremities. Patient also reports to being incontinent of urine and stool requiring diapers. Patient was recently discharged from [facility] and had been on mechanical vent for COPD and influenza exacerbation for 1 week. Patient underwent extensive neuro workup including LP and all workup has been negative. Patient encouraged and instructed to follow-up with neurology for further EMG studies. Patient was seen and evaluated by physical therapy along with pulmonary and cardiology and will follow-up in the outpatient setting. Patient will have home care on discharge. Patient reports to feeling much better and continues with some weakness but is extremely anxious about going home. Patient has been cleared by neurology and will follow up with neurology as scheduled. Currently no reports of chest pain, shortness of breath, or palpitations. Patient is afebrile. No reports of nausea or vomiting and patient is tolerating diet. Patient will be discharged home today. Guarded prognosis. On exam vital signs are stable. Cardio S1, S2 are muffled. Respiratory system shows diminished breath sounds at the bases with no wheezing or rhonchi noted. Abdomen is soft and nontender. Nervous system shows diffuse weakness Please refer to medication reconciliation sheet for a list of medications. The impression and plan of care has been dictated by Darlyn Naranjo, Nurse Practitioner as directed. Dr. Apoorva MD I have performed a history and examination and MDM of this patient, discussed the same with the dictator, and agree with the dictator's assessment and plan as written ,documented as a scribe. Based on total visit time, I have performed more than 50% of the visit. Patient Condition at Discharge: Stable Plan - Discharge Summary New Discharge Prescriptions: New Furosemide [Lasix] 20 mg PO DAILY 30 Days #30 tab Atorvastatin [Lipitor] 40 mg PO DAILY 30 Days #30 tab Budesonide-Formot 160-4.5 Mcg [Symbicort 160-4.5 Mcg Inhaler] 2 puff INHALATION RT-BID 30 Days #1 each carvediloL [Coreg] 6.25 mg PO BID-W/MEALS 30 Days #60 tab Ipratropium-Albuterol Nebulize [Duoneb 0.5 mg-3 mg/3 ml Soln] 3 ml INHALATION RT-QID each Continue hydrOXYzine pamoate [hydrOXYzine PAMOATE] 25 mg PO TID PRN PRN Reason: Anxiety Fluticasone Propionate [Flovent Hfa 220 mcg] 2 puff INHALATION RT-BID Acetaminophen Tab [Tylenol] 650 mg PO Q6H PRN PRN Reason: Pain Or Fever > 100.5 Sertraline HCl [Zoloft] 100 mg PO DAILY Albuterol Sulfate [Proair Hfa] 2 puff INHALATION RT-Q4H PRN PRN Reason: Shortness Of Breath Ipratropium-Albuterol Nebulize [Duoneb 0.5 mg-3 mg/3 ml Soln] 3 ml INHALATION RT-Q4H PRN PRN Reason: Shortness Of Breath Cetirizine HCl 10 mg PO DAILY PRN PRN Reason: Allergy Symptoms Diclofenac Sodium Gel [Voltaren Gel] 2 gm TOPICAL QID Famotidine [Pepcid] 20 mg PO BID Fluticasone/Umeclidin/Vilanter [Trelegy Ellipta 200-62.5-25] 1 puff INHALATION RT-DAILY Ibuprofen [Motrin] 600 mg PO Q8HR PRN PRN Reason: Pain Or Fever > 100.5 Nicotine 14Mg/24Hr Patch [Habitrol] 1 patch TRANSDERM DAILY Discontinued Tiotropium Br/Olodaterol HCl [Stiolto Respimat Inhal [place]] 2 puff INHALATION RT-DAILY predniSONE See Taper PO DAILY cloNIDine HCL [Catapres] 0.1 mg PO Q8H Discharge Medication List Albuterol Sulfate [Proair Hfa] 2 puff INHALATION RT-Q4H PRN 08/27/20 [History] Ipratropium-Albuterol Nebulize [Duoneb 0.5 mg-3 mg/3 ml Soln] 3 ml INHALATION RT-Q4H PRN 08/27/20 [History] Sertraline HCl [Zoloft] 100 mg PO DAILY 08/27/20 [History] hydrOXYzine pamoate [hydrOXYzine PAMOATE] 25 mg PO TID PRN 09/17/20 [History] Cetirizine HCl 10 mg PO DAILY PRN 03/28/21 [History] Fluticasone Propionate [Flovent Hfa 220 mcg] 2 puff INHALATION RT-BID 03/28/21 [History] Acetaminophen Tab [Tylenol] 650 mg PO Q6H PRN 08/14/21 [History] Diclofenac Sodium Gel [Voltaren Gel] 2 gm TOPICAL QID 08/14/21 [History] Famotidine [Pepcid] 20 mg PO BID 08/14/21 [History] Fluticasone/Umeclidin/Vilanter [Trelegy Ellipta 200-62.5-25] 1 puff INHALATION RT-DAILY 08/14/21 [History] Ibuprofen [Motrin] 600 mg PO Q8HR PRN 08/14/21 [History] Nicotine 14Mg/24Hr Patch [Habitrol] 1 patch TRANSDERM DAILY 08/14/21 [History] Atorvastatin [Lipitor] 40 mg PO DAILY 30 Days #30 tab 08/17/21 [Rx] Budesonide-Formot 160-4.5 Mcg [Symbicort 160-4.5 Mcg Inhaler] 2 puff INHALATION RT-BID 30 Days #1 each 08/17/21 [Rx] Furosemide [Lasix] 20 mg PO DAILY 30 Days #30 tab 08/17/21 [Rx] Ipratropium-Albuterol Nebulize [Duoneb 0.5 mg-3 mg/3 ml Soln] 3 ml INHALATION RT-QID each 08/17/21 [Rx] carvediloL [Coreg] 6.25 mg PO BID-W/MEALS 30 Days #60 tab 08/17/21 [Rx] Follow up Appointment(s)/Referral(s): Guy Kessler MD [STAFF PHYSICIAN] - 1 Week (Please call and make appointment for follow up ) [facility], [NON-STAFF] - 1 Week Stevenson Dunlap DO [Primary Care Provider] - 1-2 days (Please call and make appointment for follow up ) Judy Anthony MD [Medical Doctor] - 1 Week (please call to make appointment for follow up appointment) Parth Love MD [STAFF PHYSICIAN] - 1 Week (Please call to make follow up appointment ) Activity/Diet/Wound Care/Special Instructions: Please provide work note for the patient Activity Limited until follow-up Follow-up with primary care provider on discharge Follow-up with neurology in 1-2 weeks Follow-up with pulmonary outpatient in 1-2 weeks Follow-up cardiology outpatient for stress testing Continue taking medications as prescribed Continue to avoid smoking Discharge Disposition: HOME WITH HOME HEALTH SERVICES
== END 2021-08-17 14:27 | disposition home health service (06) | DRG 69 ==
LOC: EC 22:36 → 3SCARD 08-14 01:40
PROVIDERS: ADMIT Hospitalist; ATTEND Hospitalist
PROC: 009U3ZX Drainage of Spinal Canal, Percutaneous Approach, Diagnostic (ICD-10-PCS; principal; 2021-08-16 11:45)
DX: G45.9 Transient cerebral ischemic attack, unspecified (principal); I50.30 Unspecified diastolic (congestive) heart failure; R47.01 Aphasia; G93.3 Postviral and related fatigue syndromes; F17.210 Nicotine dependence, cigarettes, uncomplicated; F31.9 Bipolar disorder, unspecified; F41.9 Anxiety disorder, unspecified; I34.0 Nonrheumatic mitral (valve) insufficiency; R77.8 Other specified abnormalities of plasma proteins; Z93.0 Tracheostomy status; K21.9 Gastro-esophageal reflux disease without esophagitis; J44.9 Chronic obstructive pulmonary disease, unspecified; J45.50 Severe persistent asthma, uncomplicated; M40.202 Unspecified kyphosis, cervical region; M47.812 Spondylosis without myelopathy or radiculopathy, cervical region; M48.02 Spinal stenosis, cervical region; M50.221 Other cervical disc displacement at C4-C5 level; M50.222 Other cervical disc displacement at C5-C6 level; M50.223 Other cervical disc displacement at C6-C7 level; R32 Unspecified urinary incontinence; R15.9 Full incontinence of feces; Z79.51 Long term (current) use of inhaled steroids; Z79.899 Other long term (current) drug therapy; Z80.8 Family history of malignant neoplasm of other organs or systems; Z80.0 Family history of malignant neoplasm of digestive organs; Z80.1 Family history of malignant neoplasm of trachea, bronchus and lung; Z28.310 Unvaccinated for COVID-19; D72.829 Elevated white blood cell count, unspecified; T38.0X5A Adverse effect of glucocorticoids and synthetic analogues, initial encounter; Z86.14 Personal history of Methicillin resistant Staphylococcus aureus infection; Z87.09 Personal history of other diseases of the respiratory system
CPT/HCPCS: 36415; 62270; 70450; 70496; 70498; 70551; 71045; 71275; 72156; 72157; 72158; 74174; 80048; 80053; 80061; 80306; 82607; 82746; 82945; 83036; 83873; 83880; 84157; 84443; 84484; 84702; 85025; 85610; 85730; 86788; 86789; 87070; 87205; 87252; 89050; 93005; 93306; 94640; 96361; 96374; 96375; 99285

== ENCOUNTER 2022-01-10 12:14 | Observation (INO) | payer OTHER ==
[2022-01-10] MEDS ORDERED: methylPREDNISolone SOD SUCCI 125 MG/2 ML VIAL IV STA (12:20)
[2022-01-10] MEDS ORDERED: IPRATROPIUM-ALBUTEROL 3 ML NEB INHALATION STA (12:20)
[2022-01-10] MEDS ORDERED: SODIUM CHLORIDE 0.9% 1,000 ML IV STA (12:20)
[2022-01-10] MEDS ORDERED: SODIUM CHLORIDE 0.9% 2,000 ML IV STA (12:22)
[2022-01-10] MEDS ORDERED: ALBUTEROL NEBULIZED 2.5 MG/3 ML INHALATION STA ×2 (12:29)
[2022-01-10] MEDS ORDERED: MAGNESIUM SULFATE-D5W PMX 1 GM in DEXTROSE/WATER 1 100ML.BAG IVPB ONE (12:30)
--- NOTE | 2022-01-10 12:39 | ED ---
SOB HPI - General Chief Complaint: Shortness of Breath Stated Complaint: BRIT Time Seen by Provider: 01/10/22 12:20 Source: patient Mode of arrival: wheelchair Limitations: no limitations - History of Present Illness Initial Comments: 41-year-old female past medical history of asthma, COPD who presents to the emergency room for shortness of breath. Patient has been intubated twice for increased worker breathing. 7 years ago the patient had a trach and PEG due to inability to wean off the vent. She continues to smoke half pack a day. States that she woke and at 6 AM this morning she had significant worsening breathing. She has been using her inhalers without improvement. 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 Love was going to see her in office at 1245. States that she could not wait and therefore called an ambulance. Has not had any antibiotics or steroids since July. Denies fevers, chills or cough. No sick contacts no history of cardiac problems. She denies any chest pain. No peripheral swelling. No history of DVT or PE. No other alleviating, precipitating or modifying factors - Related Data Home Medications Medication Instructions Recorded Confirmed Ipratropium-Albuterol Nebulize 3 ml INHALATION RT-Q4H PRN 08/27/20 01/10/22 [Duoneb 0.5 mg-3 mg/3 ml Soln] Sertraline HCl [Zoloft] 100 mg PO DAILY 08/27/20 01/10/22 hydrOXYzine pamoate [hydrOXYzine 25 mg PO TID PRN 09/17/20 01/10/22 PAMOATE] Cetirizine HCl 10 mg PO DAILY 03/28/21 01/10/22 Ibuprofen [Motrin] 600 mg PO Q8HR PRN 08/14/21 01/10/22 ALPRAZolam [Xanax] 0.25 mg PO TID PRN 01/10/22 01/10/22 Previous Rx's Medication Instructions Recorded Albuterol Sulfate [Proair Hfa] 2 puff INHALATION RT-Q4H PRN 30 01/11/22 Days #1 each Budesonide-Formot 160-4.5 Mcg 2 puff INHALATION RT-BID 30 Days 01/11/22 [Symbicort 160-4.5 Mcg Inhaler] #1 each Doxycycline [Vibramycin] 100 mg PO BID 6 Days #12 cap 01/11/22 Nicotine 21Mg/24Hr Patch [Habitrol] 1 patch TRANSDERM DAILY 30 Days 01/11/22 #30 patch predniSONE See Taper PO DIRECTED 20 Days 01/11/22 #50 tab Allergies Allergy/AdvReac Type Severity Reaction Status Date / Time codeine Allergy Swelling & Verified 01/10/22 13:49 vomiting nitrofurantoin Allergy Swelling & Verified 01/10/22 13:49 [From Macrobid] vomiting Review of Systems ROS Statement: Those systems with pertinent positive or pertinent negative responses have been documented in the HPI. ROS Other: All systems not noted in ROS Statement are negative. Past Medical History Past Medical History: Asthma, COPD Additional Past Medical History / Comment(s): Bronchitis, medical coma due to breathing issues History of Any Multi-Drug Resistant Organisms: MRSA Date of last positivie culture/infection: 2010 MDRO Source:: index finger on right hand Past Surgical History: No Surgical Hx Reported Additional Past Surgical History / Comment(s): tracheotomy, cysts to wrist removed, peg tube(removed) Past Anesthesia/Blood Transfusion Reactions: No Reported Reaction Past Psychological History: Anxiety, Bipolar, Depression Smoking Status: Current every day smoker Past Alcohol Use History: Occasional Past Drug Use History: Marijuana - Past Family History Mother Family Medical History: Cancer Additional Family Medical History / Comment(s): Lung and brain CA, Uncle Pancreatic General Exam Limitations: no limitations General appearance: alert, anxious Eye exam: Present: normal appearance, PERRL, EOMI. Absent: scleral icterus, conjunctival injection, periorbital swelling ENT exam: Present: normal exam, mucous membranes moist Respiratory exam: Present: respiratory distress, wheezes, accessory muscle use Cardiovascular Exam: Present: normal rhythm, tachycardia GI/Abdominal exam: Present: soft, normal bowel sounds. Absent: distended, tenderness, guarding, rebound, rigid Extremities exam: Present: normal inspection, full ROM, normal capillary refill. Absent: tenderness, pedal edema, joint swelling, calf tenderness Neurological exam: Present: alert, oriented X3, CN II-XII intact Psychiatric exam: Present: anxious Course Vital Signs 01/10/22 01/10/22 01/10/22 12:16 12:18 12:20 Temperature 98 F Pulse Rate 149 H Respiratory 26 H 24 Rate Blood Pressure 93/51 O2 Sat by Pulse 95 98 Oximetry 10/01/10/22 01/10/22 12:25 13:00 13:18 Temperature Pulse Rate 147 H 112 H 117 H Respiratory 24 18 20 Rate Blood Pressure 143/89 156/105 O2 Sat by Pulse 97 98 98 Oximetry 01/10/22 01/10/22 01/10/22 13:41 14:00 15:00 Temperature Pulse Rate 125 H 122 H 120 H Respiratory 20 22 Rate Blood Pressure 152/96 123/92 O2 Sat by Pulse 98 95 Oximetry 01/10/22 01/10/22 01/10/22 15:27 15:39 16:00 Temperature Pulse Rate 122 H 126 H 125 H Respiratory 18 Rate Blood Pressure 150/106 O2 Sat by Pulse 98 Oximetry 01/10/22 01/10/22 01/10/22 17:00 18:00 20:03 Temperature Pulse Rate 128 H 133 H 130 H Respiratory 21 20 Rate Blood Pressure 150/98 148/97 O2 Sat by Pulse 98 98 Oximetry 01/10/22 01/10/22 20:14 20:51 Temperature Pulse Rate 134 H 117 H Respiratory 19 Rate Blood Pressure 147/92 O2 Sat by Pulse 96 Oximetry - Reevaluation(s) Reevaluation #1: Recommended admission. Patient requests to think about it 01/10/22 13:55 Medical Decision Making - Medical Decision Making Vital patient was placed in room 1. Thorough history and physical exam was per formed. IV access is established. Patient was given a DuoNeb breathing treatment followed by 2 albuterol treatments. Labs were conducted. Chest x-ray was performed. Covid and influenza are negative. Chest x-ray demonstrates possible reactive airway disease. Patient was reevaluated and continues to be diffusely wheezy. Recommended admission for which the patient was agreeable. Spoke with Dr. Kelly who was agreeable to admission. - Lab Data Result diagrams: 01/11/22 05:47 01/11/22 05:47 Lab Results 01/10/22 01/10/22 01/10/22 Range/Units 12:36 12:36 12:36 WBC 8.2 (3.8-10.6) k/uL RBC 5.34 (3.80-5.40) m/uL Hgb 16.5 H (11.4-16.0) gm/dL Hct 47.4 H (34.0-46.0) % MCV 88.8 (80.0-100.0) fL MCH 31.0 (25.0-35.0) pg MCHC 34.9 (31.0-37.0) g/dL RDW 12.6 (11.5-15.5) % Plt Count 354 (150-450) k/uL MPV 8.1 Neutrophils % 52 % Lymphocytes % 32 % Monocytes % 3 % Eosinophils % 11 % Basophils % 1 % Neutrophils # 4.2 (1.3-7.7) k/uL Lymphocytes # 2.6 (1.0-4.8) k/uL Monocytes # 0.3 (0-1.0) k/uL Eosinophils # 0.9 H (0-0.7) k/uL Basophils # 0.1 (0-0.2) k/uL PT (9.0-12.0) sec INR (<1.2) APTT (22.0-30.0) sec Sodium (137-145) mmol/L Potassium (3.5-5.1) mmol/L Chloride (98-107) mmol/L Carbon Dioxide (22-30) mmol/L Anion Gap mmol/L BUN (7-17) mg/dL Creatinine (0.52-1.04) mg/dL Est GFR (CKD-EPI)AfAm (>60 ml/min/1.73 sqM) Est GFR (CKD-EPI)NonAf (>60 ml/min/1.73 sqM) Glucose (74-99) mg/dL Plasma Lactic Acid Adelfo (0.7-2.0) mmol/L Calcium (8.4-10.2) mg/dL Total Bilirubin (0.2-1.3) mg/dL AST (14-36) U/L ALT (4-34) U/L Alkaline Phosphatase (38-126) U/L Troponin I (0.000-0.034) ng/mL Total Protein (6.3-8.2) g/dL Albumin (3.5-5.0) g/dL Coronavirus (PCR) Not Detected (Not Detectd) Influenza Type A RNA Not Detected (Not Detectd) Influenza Type B (PCR) Not Detected (Not Detectd) 01/10/22 01/10/22 01/10/22 Range/Units 12:36 12:57 12:57 WBC (3.8-10.6) k/uL RBC (3.80-5.40) m/uL Hgb (11.4-16.0) gm/dL Hct (34.0-46.0) % MCV (80.0-100.0) fL MCH (25.0-35.0) pg MCHC (31.0-37.0) g/dL RDW (11.5-15.5) % Plt Count (150-450) k/uL MPV Neutrophils % % Lymphocytes % % Monocytes % % Eosinophils % % Basophils % % Neutrophils # (1.3-7.7) k/uL Lymphocytes # (1.0-4.8) k/uL Monocytes # (0-1.0) k/uL Eosinophils # (0-0.7) k/uL Basophils # (0-0.2) k/uL PT 10.3 (9.0-12.0) sec INR 0.9 (<1.2) APTT 25.1 (22.0-30.0) sec Sodium (137-145) mmol/L Potassium (3.5-5.1) mmol/L Chloride (98-107) mmol/L Carbon Dioxide (22-30) mmol/L Anion Gap mmol/L BUN (7-17) mg/dL Creatinine (0.52-1.04) mg/dL Est GFR (CKD-EPI)AfAm (>60 ml/min/1.73 sqM) Est GFR (CKD-EPI)NonAf (>60 ml/min/1.73 sqM) Glucose (74-99) mg/dL Plasma Lactic Acid Adelfo 1.9 (0.7-2.0) mmol/L Calcium (8.4-10.2) mg/dL Total Bilirubin (0.2-1.3) mg/dL AST (14-36) U/L ALT (4-34) U/L Alkaline Phosphatase (38-126) U/L Troponin I <0.012 (0.000-0.034) ng/mL Total Protein (6.3-8.2) g/dL Albumin (3.5-5.0) g/dL Coronavirus (PCR) (Not Detectd) Influenza Type A RNA (Not Detectd) Influenza Type B (PCR) (Not Detectd) 01/10/22 Range/Units 12:57 WBC (3.8-10.6) k/uL RBC (3.80-5.40) m/uL Hgb (11.4-16.0) gm/dL Hct (34.0-46.0) % MCV (80.0-100.0) fL MCH (25.0-35.0) pg MCHC (31.0-37.0) g/dL RDW (11.5-15.5) % Plt Count (150-450) k/uL MPV Neutrophils % % Lymphocytes % % Monocytes % % Eosinophils % % Basophils % % Neutrophils # (1.3-7.7) k/uL Lymphocytes # (1.0-4.8) k/uL Monocytes # (0-1.0) k/uL Eosinophils # (0-0.7) k/uL Basophils # (0-0.2) k/uL PT (9.0-12.0) sec INR (<1.2) APTT (22.0-30.0) sec Sodium 140 (137-145) mmol/L Potassium 4.0 (3.5-5.1) mmol/L Chloride 110 H (98-107) mmol/L Carbon Dioxide 20 L (22-30) mmol/L Anion Gap 10 mmol/L BUN 8 (7-17) mg/dL Creatinine 0.50 L (0.52-1.04) mg/dL Est GFR (CKD-EPI)AfAm >90 (>60 ml/min/1.73 sqM) Est GFR (CKD-EPI)NonAf >90 (>60 ml/min/1.73 sqM) Glucose 121 H (74-99) mg/dL Plasma Lactic Acid Adelfo (0.7-2.0) mmol/L Calcium 8.9 (8.4-10.2) mg/dL Total Bilirubin 0.4 (0.2-1.3) mg/dL AST 16 (14-36) U/L ALT 16 (4-34) U/L Alkaline Phosphatase 88 (38-126) U/L Troponin I (0.000-0.034) ng/mL Total Protein 6.7 (6.3-8.2) g/dL Albumin 4.2 (3.5-5.0) g/dL Coronavirus (PCR) (Not Detectd) Influenza Type A RNA (Not Detectd) Influenza Type B (PCR) (Not Detectd) - EKG Data EKG Comments: EKG demonstrates sinus tachycardia with a rate of 140. MI interval 120. QRS 70. QTC of 410. Significant baseline artifact. No acute ST segment elevations or depressions. Disposition Clinical Impression: Acute exacerbation of chronic obstructive airways disease Disposition: ADMITTED IP TO THIS HOSP Condition: Stable Is patient prescribed a controlled substance at d/c from ED?: No Time of Disposition: 14:36 Decision to Admit Reason: Admit from EC Decision Date: 01/10/22 Decision Time: 14:36
[2022-01-10 12:51] LABS: Basophils # (A) 0.1 k/uL (0-0.2); Basophils % (A) 1 %; Eosinophils # (A) 0.9 k/uL (0-0.7); Eosinophils % (A) 11 %; HCT 47.4 % (34.0-46.0); HGB 16.5 gm/dL (11.4-16.0); Lymphocytes # (A) 2.6 k/uL (1.0-4.8); Lymphocytes % (A) 32 %; MCHC 34.9 g/dL (31.0-37.0); MCV 88.8 fL (80.0-100.0); Mean Platelet Volume 8.1; Monocytes # (A) 0.3 k/uL (0-1.0); Monocytes % (A) 3 %; Neutrophils # (A) 4.2 k/uL (1.3-7.7); Neutrophils % (A) 52 %; Platelet Count 354 k/uL (150-450); RBC 5.34 m/uL (3.80-5.40); RDW 12.6 % (11.5-15.5); WBC 8.2 k/uL (3.8-10.6)
[2022-01-10 13:14] LABS: INR 0.9 (<1.2); Partial Thromboplastin Time 25.1 sec (22.0-30.0); Prothrombin Time 10.3 sec (9.0-12.0)
[2022-01-10 13:27] LABS: ALT 16 U/L (4-34); AST 16 U/L (14-36); African American GFR (CKD) >90 (>60 ml/min/1.73 sqM); Albumin 4.2 g/dL (3.5-5.0); Alkaline Phosphatase 88 U/L (38-126); Anion Gap 10 mmol/L; Blood Urea Nitrogen 8 mg/dL (7-17); Calcium 8.9 mg/dL (8.4-10.2); Carbon Dioxide 20 mmol/L (22-30); Chloride 110 mmol/L (98-107); Glucose 121 mg/dL (74-99); Non-African American GFR(CKD) >90 (>60 ml/min/1.73 sqM); Sodium 140 mmol/L (137-145); Total Bilirubin 0.4 mg/dL (0.2-1.3); Total Protein 6.7 g/dL (6.3-8.2)
--- NOTE | 2022-01-10 13:27 | XR ---
EXAMINATION TYPE: XR chest 2V DATE OF EXAM: 01/10/2022 COMPARISON: Chest x-ray 08/13/2021 HISTORY: Difficulty breathing TECHNIQUE: Frontal and lateral views of the chest are obtained on 3 images. FINDINGS: There is questionable patchy basilar density, right middle lobee. The cardiac silhouette size is within normal limits. Mild pectus deformity is present. The osseous structures are intact. T here are overlying leads. Prominent lung volume may be indicative of underlying COPD, correlate. Bron chial wall thickening noted. IMPRESSION: Correlate for possible reactive airways disease, bronchitis, difficult to exclude pneumo chan, additional findings above, consider follow-up as indicated.
[2022-01-10] MEDS ORDERED: NALOXONE 0.4 MG/ML 1 ML VIAL IV PRN (14:37)
[2022-01-10] MEDS ORDERED: IBUPROFEN 600 MG TAB PO PRN (14:47)
[2022-01-10] MEDS ORDERED: hydrOXYzine pamoate 25 MG CAP PO PRN (14:47)
[2022-01-10] MEDS ORDERED: IPRATROPIUM-ALBUTEROL 3 ML NEB INHALATION PRN (14:59)
[2022-01-10] MEDS ORDERED: IPRATROPIUM-ALBUTEROL 3 ML NEB INHALATION SCH ×2 (15:00→16:00)
[2022-01-10] MEDS ORDERED: LORazepam 2 MG/ML INJ IV STA (15:28)
--- NOTE | 2022-01-10 15:35 | P.HPIM ---
History of Present Illness H&P Date: 01/10/22 History of Presenting Illness: Patient is a very pleasant 41-year-old female with a past medical history of COPD and asthma with continued nicotine dependence smoking half a pack of cigarettes daily. Patient reports she awoke around 6 AM experiencing increased shortness of breath. Patient reports she was using her inhalers and trying to calm herself down but states the more she tried the more she panicked and the worse her breathing became so she came to the emergency department for evaluation. Patient reports history of 2 previous intubations secondary to asthma/COPD exacerbations with the last being in July. Patient reports that shortness of breath awoke in her from a sleep and states that it is accompanied by a dry cough and wheezing but denies having any dizziness, lightheadedness, fevers, chills, diaphoresis, chest pain, palpitations, or experiencing any numb ness/tingling/swelling in her extremities. She underwent full evaluation in the emergency department. Upon arrival to the emergency department patient was tachypneic with respiratory rate of 26 and labored with heart rate of 149. She was provided with IV steroids Solu-Medrol, multiple DuoNeb treatments, and placed on supplemental oxygen. CBC revealed elevated hemoglobin of 16.5. CMP revealing hypocarbia with carbon dioxide of 20. Covid PCR, influenza A, and influenza B were all negative. Chest x-ray revealing reactive airway disease with prominent lung volumes indicative of COPD, bronchitis and unable to rule out pneumonia with patchy basilar density in the right middle lobe. EKG rev ealed sinus tachycardia at 140 bpm. Patient admitted under our services with consultation to pulmonology. Review of systems: Pertinent positives and negatives as discussed in HPI, a complete review of systems was performed and all other systems are negative. Physical exam: Vital signs reviewed and stable. General: Nontoxic, appears stated age. Mild distress secondary to increased respiratory effort. Derm: Skin warm and dry, normal coloration for ethnicity. Head: Atraumatic, normocephalic and symmetric. Eyes: EOMs intact, no lid lag, and anicteric sclera Mouth: no lip lesions, mucus membranes moist Cardiovascular: Tachycardic rate with regular rhythm, normal S1S2, no murmur, positive posterior tibial pulses bilaterally, and cap refill < 2 seconds. Lungs: Respirations tachypneic with increased effort on 2 L. Lungs tight with moderate diffuse expiratory wheezes throughout all briceno Abdominal: soft, nontender to palpation, no guarding, no appreciable organomegaly Ext: ROM intact. No gross muscle atrophy, no edema, no contractures Neuro: Speech clear, face symmetrical and CN II-XII grossly intact with no noted focal neuro deficits Psych: Alert and oriented to person, place, time, and situation. Appropriate and pleasant affect, anxious regarding hospital stay. Assessment and Plan of Care: Acute on chronic respiratory failure secondary to COPD exacerbation Community-acquired pneumonia Sinus tachycardia secondary to above -Consult to Pulmonology -Oxygenation to be administered and titrated as needed to maintain SPO2 equal to or greater than 92% -Telemetry monitoring. -Monitor Pulse-oximetry -Duonebs scheduled and as needed for SOB and/or wheezing -Symbicort -Incentive Spirometry -Steroids: Solu-Medrol -Antibiotics: Doxycycline Nicotine dependence -Recommend smoking cessation. Patient reports previously smoking 1-2 packs of cigarettes per day but since her last intubation in July she has cut down to half of a pack per day. -Nicotine patch CODE STATUS: Full code DVT prophylaxis: Heparin Discussed with: Patient and patient's daughter at bedside Anticipated discharge date: 1-[address]: Home A total of 44 minutes was spent on the care of this complex patient more than 50% of the time was spent in counseling and care coordination. I reviewed the documentation as provided by the MARY above, who is the original author of this note. I agree with the documented assessment and plan, with the following changes: none Past Medical History Past Medical History: Asthma, COPD Additional Past Medical History / Comment(s): Bronchitis, medical coma due to breathing issues History of Any Multi-Drug Resistant Organisms: MRSA Date of last positivie culture/infection: 2010 MDRO Source:: index finger on right hand Past Surgical History: No Surgical Hx Reported Additional Past Surgical History / Comment(s): tracheotomy, cysts to wrist removed, peg tube(removed) Past Anesthesia/Blood Transfusion Reactions: No Reported Reaction Past Psychological History: Anxiety, Bipolar, Depression Smoking Status: Current every day smoker Past Alcohol Use History: Occasional Past Drug Use History: Marijuana - Past Family History Mother Family Medical History: Cancer Additional Family Medical History / Comment(s): Lung and brain CA, Uncle Pancreatic Medications and Allergies Home Medications Medication Instructions Recorded Confirmed Type Albuterol Sulfate [Proair Hfa] 2 puff INHALATION RT-Q4H PRN 08/27/20 01/10/22 History Ipratropium-Albuterol Nebulize 3 ml INHALATION RT-Q4H PRN 08/27/20 01/10/22 History [Duoneb 0.5 mg-3 mg/3 ml Soln] Sertraline HCl [Zoloft] 100 mg PO DAILY 08/27/20 01/10/22 History hydrOXYzine pamoate [hydrOXYzine 25 mg PO TID PRN 09/17/20 01/10/22 History PAMOATE] Cetirizine HCl 10 mg PO DAILY 03/28/21 01/10/22 History Ibuprofen [Motrin] 600 mg PO Q8HR PRN 08/14/21 01/10/22 History Budesonide-Formot 160-4.5 Mcg 2 puff INHALATION RT-BID 30 Days 08/17/21 01/10/22 Rx [Symbicort 160-4.5 Mcg Inhaler] #1 each ALPRAZolam [Xanax] 0.25 mg PO TID PRN 01/10/22 01/10/22 History Allergies Allergy/AdvReac Type Severity Reaction Status Date / Time codeine Allergy Swelling & Verified 01/10/22 13:49 vomiting nitrofurantoin Allergy Swelling & Verified 01/10/22 13:49 [From Macrobid] vomiting Physical Exam Osteopathic Statement: *. No significant issues noted on an osteopathic structural exam other than those noted in the History and Physical/Consult. Vitals: Vital Signs Temp Pulse Resp BP Pulse Ox 01/10/22 14:00 122 H 20 152/96 98 01/10/22 13:18 117 H 20 98 01/10/22 13:00 112 H 18 156/105 98 01/10/22 12:25 147 H 24 143/89 97 01/10/22 12:20 98 01/10/22 12:18 24 01/10/22 12:16 98 F 149 H 26 H 93/51 95 Intake and Output 01/09/22 01/10/22 01/10/22 22:59 06:59 14:59 Other: Weight 70.307 kg Results CBC & Chem 7: 01/10/22 12:36 01/10/22 12:57 Labs: Abnormal Lab Results - Last 24 Hours (Table) 01/10/22 01/10/22 Range/Units 12:36 12:57 Hgb 16.5 H (11.4-16.0) gm/dL Hct 47.4 H (34.0-46.0) % Eosinophils # 0.9 H (0-0.7) k/uL Chloride 110 H (98-107) mmol/L Carbon Dioxide 20 L (22-30) mmol/L Creatinine 0.50 L (0.52-1.04) mg/dL Glucose 121 H (74-99) mg/dL
[2022-01-10] MEDS: NICOTINE 21MG/24HR PATCH TRANSDERM SCH (16:21)
[2022-01-10] MEDS: methylPREDNISolone SOD SUCCI 40 MG/ML 1 ML VIAL IV SCH ×2 (16:21→22:53)
[2022-01-10] MEDS: HEPARIN SODIUM,PORCINE/PF 5,000 UNIT/0.5 ML SYRINGE SQ SCH ×2 (16:25→22:53)
[2022-01-10] MEDS: IPRATROPIUM-ALBUTEROL 3 ML NEB INHALATION SCH ×2 (20:02→23:34)
[2022-01-10] MEDS: SYMBICORT 160-4.5 MCG INHALER INHALATION SCH (20:02)
[2022-01-10] MEDS ORDERED: ONDANSETRON 4 MG/2 ML VIAL IVP STA (22:36)
[2022-01-10] MEDS: DOXYCYCLINE 100 MG CAP PO SCH (22:53)
[2022-01-10] MEDS ORDERED: ONDANSETRON 4 MG/2 ML VIAL IVP PRN (23:01)
[2022-01-10] MEDS ORDERED: PANTOPRAZOLE 40 MG TABLET PO STA (23:03)
[2022-01-10] MEDS ORDERED: NAPROXEN 250 MG TAB PO STA (23:03)
[2022-01-11] MEDS: IPRATROPIUM-ALBUTEROL 3 ML NEB INHALATION SCH ×4 (03:46→15:47)
[2022-01-11] MEDS ORDERED: PANTOPRAZOLE 40 MG TABLET PO SCH (07:30)
[2022-01-11] MEDS: SYMBICORT 160-4.5 MCG INHALER INHALATION SCH (08:27)
[2022-01-11] MEDS: methylPREDNISolone SOD SUCCI 125 MG/2 ML VIAL IV SCH ×2 (08:34→15:24)
[2022-01-11] MEDS: HEPARIN SODIUM,PORCINE/PF 5,000 UNIT/0.5 ML SYRINGE SQ SCH ×2 (08:35→15:24)
[2022-01-11] MEDS: DOXYCYCLINE 100 MG CAP PO SCH (08:35)
[2022-01-11] MEDS: NICOTINE 21MG/24HR PATCH TRANSDERM SCH (08:35)
[2022-01-11] MEDS ORDERED: diphenhydrAMINE 50 MG/ML 1 ML VIAL IVP STA (08:59)
[2022-01-11] MEDS ORDERED: PROCHLORPERAZINE INJ 10 MG/2 ML VIAL IVP STA (08:59)
[2022-01-11] MEDS ORDERED: KETOROLAC 15 MG/ML 1 ML VIAL IVP STA (08:59)
[2022-01-11] MEDS ORDERED: LORATADINE 10 MG TAB PO SCH (09:00)
[2022-01-11] MEDS ORDERED: SERTRALINE 100 MG TAB PO SCH (09:00)
[2022-01-11] MEDS: ALPRAZolam 0.25 MG TAB PO PRN ×2 (09:03→15:24)
[2022-01-11 09:23] LABS: HCT 41.1 % (37.2-46.3); HGB 14.3 g/dL (12.0-15.0); MCH 30.6 pg (27.0-32.0); MCHC 34.8 g/dL (32.0-37.0); Mean Platelet Volume 10.4 fL (9.5-12.2); NRBC Per 100 WBC 0 /100 WBCS (0.0-0.0); Platelet Count 380 X 10*3/uL (140-440); RBC 4.67 X 10*6/uL (4.10-5.20); RDW 12.8 % (11.5-14.5); WBC 30.15 X 10*3/uL (4.50-10.00)
[2022-01-11 09:44] LABS: African American GFR (CKD) 132.1 (60.0-200.0); Anion Gap 12.4 mmol/L (10.00-18.00); BUN/Creat Ratio 18.17 Ratio (12.00-20.00); Blood Urea Nitrogen 10.9 mg/dL (9.0-27.0); Calcium 9.6 mg/dL (8.7-10.3); Carbon Dioxide 18.6 mmol/L (20.0-27.5); Potassium 4.5 mmol/L (3.5-5.5)
[2022-01-11 10:25] LABS: Basophils # (A) 0.03 X 10*3/uL (0.00-0.10); Basophils % (A) 0.1 %; Eosinophils # (A) 0 X 10*3/uL (0.04-0.35); Eosinophils % (A) 0 %; Immature Grans, Automated 0.9 %; Lymphocytes # (A) 1.14 X 10*3/uL (0.90-5.00); Lymphocytes % (A) 3.8 %; Monocytes # (A) 0.46 X 10*3/uL (0.20-1.00); Monocytes % (A) 1.5 %; Neutrophils # (A) 28.25 X 10*3/uL (1.80-7.70); Neutrophils % (A) 93.7 %
--- NOTE | 2022-01-11 11:37 | P.CNPUL ---
History of Present Illness Consult date: 01/11/22 Requesting physician: Risa Leslie Reason for consult: dyspnea, COPD Chief complaint: Redness of breath, cough, congestion History of present illness: This is a very pleasant 41-year-old female patient who has a history of moderate persistent chronic bronchial asthma, chronic obstructive pulmonary disease with an FEV1 value 50% of predicted which is 1.63 L. She had been maintained on Sy mbicort, Singulair, pro-air and nebulized treatments. She does have a previous history of hypoxemic respiratory failure requiring intubation mechanical ventilation, prolonged requiring tracheostomy and PEG tube placements with subsequent removal. She had also been hospitalized and on mechanical ventilator at [facility] in July 2021. She does continue to smoke. She has a marijuana user. She has a history of anxiety/depression. She presented here to the emergency room yesterday with increasing shortness of breath, cough and congestion. She states she has been without her inhalers for some time now. She had loaned her daughter her nebulizer and did not have that available either. A fever chills. No nausea vomiting. Positive for headache. Chest x- ray revealed no acute pulmonary process. Evidence of bronchitis. White count 8.2. Hemoglobin 16.5. D-dimer 0.51. Sodium 138. Potassium 4.5. BUN 10. Creatinine 0.6. Glucose 149. Power virus by PCR negative. Influenza screen negative. She's been initiated on Symbicort, DuoNeb inhalations, IV Solu- Medrol. Empiric antibiotics in the form of doxycycline. NicoDerm patch in place. She is seen today in consultation on the regular medical floor. She is currently sitting up in the bed side having breakfast. Awake and alert in no acute distress. Feeling a bit better today compared to yesterday. She still has a dry nonproductive cough. She is maintaining good O2 saturations in the mid 90s on room air. She's afebrile. Slightly tachycardic. Blood pressure stable. She is quite anxious to go home. Review of Systems REVIEW OF SYSTEMS: CONSTITUTIONAL: Denies any recent significant weight loss or weight gain. EYES: Denies change in vision. EARS, NOSE, MOUTH, THROAT: Denies headaches, denies sore throat. CARDIOVASCULAR: Denies chest pain, palpitations or syncopal episodes. RESPIRATORY: Positive for shortness of breath, cough, congestion no hemoptysis. GASTROINTESTINAL: Denies change in appetite, denies abdominal pain GENITOURINARY: Denies hematuria, denies infections. MUSKULOSKELETAL: Denies pain, denies swelling. INTEGUMENTARY: Denies rash, denies eczema. NEUROLOGICAL: Denies recent memory loss, no recent seizure activity. PSYCHIATRIC: Positive for anxiety, depression. HEMATOLOGIC/LYMPHATIC: Denies anemia, denies enlarged lymph nodes. Past Medical History Past Medical History: Asthma, COPD Additional Past Medical History / Comment(s): Bronchitis, medical coma due to breathing issues History of Any Multi-Drug Resistant Organisms: MRSA Date of last positivie culture/infection: 2010 MDRO Source:: index finger on right hand Past Surgical History: No Surgical Hx Reported Additional Past Surgical History / Comment(s): tracheotomy, cysts to wrist removed, peg tube(removed) Past Anesthesia/Blood Transfusion Reactions: No Reported Reaction Past Psychological History: Anxiety, Bipolar, Depression Smoking Status: Current every day smoker Past Alcohol Use History: Occasional Past Drug Use History: Marijuana - Past Family History Mother Family Medical History: Cancer Additional Family Medical History / Comment(s): Lung and brain CA, Uncle Pancreatic Medications and Allergies Home Medications Medication Instructions Recorded Confirmed Type Albuterol Sulfate [Proair Hfa] 2 puff INHALATION RT-Q4H PRN 08/27/20 01/10/22 History Ipratropium-Albuterol Nebulize 3 ml INHALATION RT-Q4H PRN 08/27/20 01/10/22 History [Duoneb 0.5 mg-3 mg/3 ml Soln] Sertraline HCl [Zoloft] 100 mg PO DAILY 08/27/20 01/10/22 History hydrOXYzine pamoate [hydrOXYzine 25 mg PO TID PRN 09/17/20 01/10/22 History PAMOATE] Cetirizine HCl 10 mg PO DAILY 03/28/21 01/10/22 History Ibuprofen [Motrin] 600 mg PO Q8HR PRN 08/14/21 01/10/22 History Budesonide-Formot 160-4.5 Mcg 2 puff INHALATION RT-BID 30 Days 08/17/21 01/10/22 Rx [Symbicort 160-4.5 Mcg Inhaler] #1 each ALPRAZolam [Xanax] 0.25 mg PO TID PRN 01/10/22 01/10/22 History Allergies Allergy/AdvReac Type Severity Reaction Status Date / Time codeine Allergy Swelling & Verified 01/10/22 13:49 vomiting nitrofurantoin Allergy Swelling & Verified 01/10/22 13:49 [From Macrobid] vomiting Physical Exam Vitals: Vital Signs Temp Pulse Pulse Resp BP BP Pulse Ox 01/11/22 08:39 128 H 01/11/22 08:35 21 01/11/22 08:27 128 H 01/11/22 07:23 98.2 F 132 H 21 128/81 95 01/11/22 03:57 103 H 01/11/22 03:46 100 01/11/22 01:28 18 01/10/22 23:41 98.0 F 124 H 22 163/86 94 L 01/10/22 20:51 117 H 19 147/92 96 01/10/22 20:14 134 H 01/10/22 20:03 130 H 01/10/22 18:00 133 H 20 148/97 98 01/10/22 17:00 128 H 21 150/98 98 01/10/22 16:00 125 H 18 150/106 98 01/10/22 15:39 126 H 01/10/22 15:27 122 H 01/10/22 15:00 120 H 22 123/92 95 01/10/22 14:00 122 H 20 152/96 98 01/10/22 13:41 125 H 01/10/22 13:18 117 H 20 98 01/10/22 13:00 112 H 18 156/105 98 01/10/22 12:25 147 H 24 143/89 97 01/10/22 12:20 98 01/10/22 12:18 24 01/10/22 12:16 98 F 149 H 26 H 93/51 95 Intake and Output 01/10/22 01/11/22 01/11/22 22:59 06:59 14:59 Intake Total 500 Balance 500 Intake: Oral 500 Other: Voiding Method Toilet Toilet Weight 70.307 kg GENERAL EXAM: Alert, pleasant 41-year-old female, on room air, comfortable in no apparent distress. HEAD: Normocephalic. EYES: Normal reaction of pupils, equal size. NOSE: Clear with pink turbinates. THROAT: No erythema or exudates. NECK: No masses, no JVD. CHEST: No chest wall deformity. LUNGS: Equal air entry with bilateral end expiratory wheeze, diminished. CVS: S1 and S2 normal with no audible murmur, regular rhythm. Tachycardic. ABDOMEN: No hepatosplenomegaly, normal bowel sounds, no guarding or rigidity. SPINE: No scoliosis or deformity SKIN: No rashes CENTRAL NERVOUS SYSTEM: No focal deficits, tone is normal in all 4 extremities. EXTREMITIES: There is no peripheral edema. No clubbing, no cyanosis. Peripheral pulses are intact. Results - Laboratory Findings CBC and BMP: 01/11/22 05:47 01/11/22 05:47 PT/INR, D-dimer PT 10.3 sec (9.0-12.0) 01/10/22 12:36 INR 0.9 (<1.2) 01/10/22 12:36 D-Dimer 0.51 mg/L FEU (<0.60) 01/11/22 10:18 Abnormal lab findings: Abnormal Labs 01/10/22 01/10/22 01/11/22 12:36 12:57 05:47 WBC 30.15 H Hgb 16.5 H Hct 47.4 H Immature Gran # 0.27 H Neutrophils # 28.25 H Eosinophils # 0.9 H 0 L Chloride 110 H Carbon Dioxide 20 L Creatinine 0.50 L Glucose 121 H 01/11/22 05:47 WBC Hgb Hct Immature Gran # Neutrophils # Eosinophils # Chloride Carbon Dioxide 18.6 L Creatinine Glucose 149 H - Diagnostic Findings Chest x-ray: image reviewed Assessment and Plan Assessment: Acute exacerbation of chronic obstructive pulmonary disease, complicated by purulent tracheobronchitis History of moderate chronic obstructive pulmonary disease with an FEV1 value 50% of predicted which is 1.63 L History of moderate persistent chronic bronchial asthma Chronic and ongoing tobacco dependence Recent hospitalization requiring intubation and mechanical ventilator support in July 2021 History of oxygen dependent respiratory failure requiring intubation mechanical ventilation subsequent tracheostomy and PEG tube placements with reversal History of anxiety/depression History of marijuana use Lang: The patient was seen and evaluated Chest x-ray, labs and medications reviewed The patient is quite anxious to go home Complete a prednisone taper starting at 40 mg daily 5 days Complete a course of doxycycline 7 days Symbicort, Singulair, pro-air and DuoNeb inhalations to be reordered Educated regarding the importance of complete smoking cessation Continue with NicoDerm patches as tolerated Follow up in our office in 1 week I have personally seen and examined the patient, performed the documentation and the assessment and plan as written. Number of minutes spent on the visit: 20.
[2022-01-11 15:04] VITALS: BP 128/75; RESP 20; TEMP 97.8
--- NOTE | 2022-01-11 15:44 | P.DS ---
Providers Date of admission: 01/10/22 14:37 Expected date of discharge: 01/11/22 Attending physician: Risa Leslie MD Consults: 01/10/22 14:43 Consult Physician Urgent Consulting Provider: Cynthia Hale Consult Reason/Comments: aecopd Do you want consulting provider notified?: Yes Primary care physician: [facility] Course: Discharge Diagnosis: Acute on chronic respiratory failure secondary to COPD exacerbation Community-acquired pneumonia Sinus tachycardia secondary to above Nicotine dependence. Recommend smoking cessation. Hospital Course: Patient is a very pleasant 41-year-old female with a past medical history of COPD and asthma with continued nicotine dependence smoking half a pack of cigarettes daily. Patient reports she awoke around 6 AM experiencing increased shortness of breath. Patient reports she was using her inhalers and trying to calm herself down but states the more she tried the more she panicked and the worse her breathing became so she came to the emergency department for evaluation. Patient reports history of 2 previous intubations secondary to asthma/COPD exacerbations with the last being in July. Patient reports that shortness of breath awoke in her from a sleep and states that it is accompanied by a dry cough and wheezing but denies having any dizziness, lightheadedness, fevers, chills, diaphoresis, chest pain, palpitations, or experiencing any numbness/tingling/swelling in her extremities. She underwent full evaluation in the emergency department. Upon arrival to the emergency department patient was tachypneic with respiratory rate of 26 and labored with heart rate of 149. She was provided with IV steroids Solu-Medrol, multiple DuoNeb treatments, and placed on supplemental oxygen. CBC revealed elevated hemoglobin of 16.5. CMP revealing hypocarbia with carbon dioxide of 20. Covid PCR, influenza A, and influenza B were all negative. Chest x-ray revealing reactive airway disease with prominent lung volumes indicative of COPD, bronchitis and unable to rule out pneumonia with patchy basilar density in the right middle lobe. EKG revealed sinus tachycardia at 140 bpm. Patient admitted under our services with consultation to pulmonology. Patient underwent 24 hours of IV steroids as well as scheduled and as needed breathing treatments. Patient very anxious throughout her entire hospitalization. A d-dimer was obtained and was negative. Patient's heart rate maintained in 120s occasionally dropping down to 1 teens. Patient again very anxious throughout hospitalization stating that she has a 9-year-old disabled son at home that requires 24-7 care and that he is currently in the care of her 20 year old daughter and she needs to get home to take care of him. Patient being discharged per her request at this time. Patient was strongly encouraged to avoid any nicotine use or exposure to secondhand smoke. Patient educated on the importance of continuing scheduled and as needed breathing treatments over the next 5-7 days and may then resume as needed. Patient being discharged home on prednisone taper, doxycycline, and a refill was provided for her inhalers. Patient to follow-up with PCP in 1-2 days and pulmonology in one week. Physical exam: Vital signs reviewed and stable. General: Nontoxic, appears stated age. Mild distress secondary to increased respiratory effort. Derm: Skin warm and dry, normal coloration for ethnicity. Head: Atraumatic, normocephalic and symmetric. Eyes: EOMs intact, no lid lag, and anicteric sclera Mouth: no lip lesions, mucus membranes moist Cardiovascular: Tachycardic rate with regular rhythm, normal S1S2, no murmur, positive posterior tibial pulses bilaterally, and cap refill < 2 seconds. Lungs: Respirations tachypneic with increased effort on 2 L. Lungs tight with moderate diffuse expiratory wheezes throughout all briceno Abdominal: soft, nontender to palpation, no guarding, no appreciable organomegaly Ext: ROM intact. No gross muscle atrophy, no edema, no contractures Neuro: Speech clear, face symmetrical and CN II-XII grossly intact with no noted focal neuro deficits Psych: Alert and oriented to person, place, time, and situation. Appropriate and pleasant affect, anxious regarding hospital stay. A total of 34 minutes of time were spent preparing this complex discharge summary. Pt was discharged on 01/11/22 at 3:33 PM. I reviewed the documentation as provided by the MARY above, who is the original author of this note. I agree with the documented assessment and plan, with the following changes: none Patient Condition at Discharge: Stable Plan - Discharge Summary New Discharge Prescriptions: New Nicotine 21Mg/24Hr Patch [Habitrol] 1 patch TRANSDERM DAILY 30 Days #30 patch predniSONE See Taper PO DIRECTED 20 Days #50 tab Doxycycline [Vibramycin] 100 mg PO BID 6 Days #12 cap Continue hydrOXYzine pamoate [hydrOXYzine PAMOATE] 25 mg PO TID PRN PRN Reason: Anxiety Albuterol Sulfate [Proair Hfa] 2 puff INHALATION RT-Q4H PRN 30 Days #1 each PRN Reason: Shortness Of Breath Sertraline HCl [Zoloft] 100 mg PO DAILY Ipratropium-Albuterol Nebulize [Duoneb 0.5 mg-3 mg/3 ml Soln] 3 ml INHALATION RT-Q4H PRN PRN Reason: Shortness Of Breath Cetirizine HCl 10 mg PO DAILY Ibuprofen [Motrin] 600 mg PO Q8HR PRN PRN Reason: Pain Or Fever > 100.5 ALPRAZolam [Xanax] 0.25 mg PO TID PRN PRN Reason: Anxiety Budesonide-Formot 160-4.5 Mcg [Symbicort 160-4.5 Mcg Inhaler] 2 puff INHALATION RT-BID 30 Days #1 each Discharge Medication List Ipratropium-Albuterol Nebulize [Duoneb 0.5 mg-3 mg/3 ml Soln] 3 ml INHALATION RT-Q4H PRN 08/27/20 [History] Sertraline HCl [Zoloft] 100 mg PO DAILY 08/27/20 [History] hydrOXYzine pamoate [hydrOXYzine PAMOATE] 25 mg PO TID PRN 09/17/20 [History] Cetirizine HCl 10 mg PO DAILY 03/28/21 [History] Ibuprofen [Motrin] 600 mg PO Q8HR PRN 08/14/21 [History] ALPRAZolam [Xanax] 0.25 mg PO TID PRN 01/10/22 [History] Albuterol Sulfate [Proair Hfa] 2 puff INHALATION RT-Q4H PRN 30 Days #1 each 01/11/22 [Rx] Budesonide-Formot 160-4.5 Mcg [Symbicort 160-4.5 Mcg Inhaler] 2 puff INHALATION RT-BID 30 Days #1 each 01/11/22 [Rx] Doxycycline [Vibramycin] 100 mg PO BID 6 Days #12 cap 01/11/22 [Rx] Nicotine 21Mg/24Hr Patch [Habitrol] 1 patch TRANSDERM DAILY 30 Days #30 patch 01/11/22 [Rx] predniSONE See Taper PO DIRECTED 20 Days #50 tab 01/11/22 [Rx] Follow up Appointment(s)/Referral(s): Ben Torres DO [Doctor of Osteopathic Medicine] - 1 Week Stevenson Dunlap DO [Primary Care Provider] - 1-2 days Patient Instructions/Handouts: How to Stop Smoking (DC), COPD (Chronic Obstructive Pulmonary Disease) (DC), Chronic Lung Disease and Infection Prevention (DC), Pulmonary Rehabilitation (DC) Activity/Diet/Wound Care/Special Instructions: Activity: As tolerated. Take breaks as needed. Diet: Heart healthy and carb consistent diet. Avoid salts, or foods with hidden salts such as canned or boxed foods and frozen dinners. Extra salt makes your heart work harder and traps the fluid in your body for longer. Special Instructions: Take all of your medications as directed and remember to keep all of your doctor's appointments and follow-up as needed. Strongly recommend stopping smoking and exposing yourself to any secondhand smoke. You will need to follow up with your x ray examiner of aircraft in 1 week. You are being discharged home with the COPD Navigator program. This was discussed with respiratory and someone will be calling to follow-up with you outpatient. You are being discharged home with a prednisone taper and refills on your inhalers. You declined a refill on the nebulizer treatments as she stated you have multiple boxes at home. It is very important for you to continue scheduled breathing treatments every 6 hours as well as as needed over the next 5-7 days and then you may resume using only as needed as needed. Thank you for allowing us to participate in your care, it was truly a pleasure having you for our patient!!! Discharge/Stand Alone Forms: Community Resources, Outpatient Counseling Discharge Disposition: HOME SELF-CARE
[2022-01-11 16:00] VITALS: PULSE 120
== END 2022-01-11 17:10 | disposition home or self-care (01) ==
LOC: EC 12:14 → 6NMEDSUR 14:37
PROVIDERS: ADMIT Internal Medicine; ATTEND Internal Medicine
DX: J96.20 Acute and chronic respiratory failure, unspecified whether with hypoxia or hypercapnia (principal); J44.0 Chronic obstructive pulmonary disease with (acute) lower respiratory infection; J44.1 Chronic obstructive pulmonary disease with (acute) exacerbation; R00.0 Tachycardia, unspecified; J18.9 Pneumonia, unspecified organism; F17.210 Nicotine dependence, cigarettes, uncomplicated; F31.9 Bipolar disorder, unspecified; F41.9 Anxiety disorder, unspecified; F12.90 Cannabis use, unspecified, uncomplicated; Z79.899 Other long term (current) drug therapy; Z79.51 Long term (current) use of inhaled steroids; Z88.5 Allergy status to narcotic agent; Z88.3 Allergy status to other anti-infective agents; Z80.8 Family history of malignant neoplasm of other organs or systems; Z80.1 Family history of malignant neoplasm of trachea, bronchus and lung; Z80.0 Family history of malignant neoplasm of digestive organs; Z20.822 Contact with and (suspected) exposure to COVID-19
CPT/HCPCS: 96376 ×3; 96372 ×3; 96375 ×3; 96361; 96365; 99285; 36415; 94640 ×4; 94760; 93005; 85379; 80053; 80048; 83605; 84484; 85025 ×2; 85610; 85730; 87502; 87635; 71046; G0378 ×2; S4990 ×2; J2060; J1200; J0780; J2920; J2930 ×2; J2405 ×2; J3475; J1885; J1644 ×2

== ENCOUNTER 2023-01-13 08:08 | Emergency (ER) | payer OTHER ==
[2023-01-13] MEDS ORDERED: SODIUM CHLORIDE 0.9% 1,000 ML IV STA (08:30)
[2023-01-13] MEDS ORDERED: ONDANSETRON 4 MG/2 ML VIAL IVP STA (08:30)
[2023-01-13] MEDS ORDERED: ACETAMINOPHEN IV (For NPO) 1,000 MG in EMPTY BAG 1 BAG IVPB STA (08:31)
[2023-01-13] MEDS ORDERED: KETOROLAC 15 MG/ML 1 ML VIAL IVP STA (08:31)
[2023-01-13] MEDS ORDERED: FAMOTIDINE 20 MG/2 ML VIAL IV STA (08:31)
--- NOTE | 2023-01-13 08:33 | ED ---
General Adult HPI - General Chief complaint: Nausea/Vomiting/Diarrhea Stated complaint: Vomiting Time Seen by Provider: 01/13/23 08:24 Source: patient, RN notes reviewed Mode of arrival: ambulatory Limitations: no limitations - History of Present Illness Initial comments: Patient is a pleasant 42-year-old female presenting to the emergency department with concerns with nausea vomiting. Onset of symptoms was last night. Patient is vomited multiple times. He should states no abdominal pain, slightly upset from vomiting. Patient feels achy all over. Patient unclear if she could've had fevers. Patient has had mild cough. - Related Data Home Medications Medication Instructions Recorded Confirmed Ipratropium-Albuterol Nebulize 3 ml INHALATION RT-Q4H PRN 08/27/20 01/13/23 [Duoneb 0.5 mg-3 mg/3 ml Soln] Sertraline HCl [Zoloft] 100 mg PO HS 08/27/20 01/13/23 Cetirizine HCl 10 mg PO DAILY 03/28/21 01/13/23 Ibuprofen [Motrin] 600 mg PO Q8HR PRN 08/14/21 01/13/23 ALPRAZolam [Xanax] 0.25 mg PO TID PRN 01/10/22 01/13/23 Fluticasone Propionate 220 Mcg 2 puff INHALATION RT-BID 01/13/23 01/13/23 [Flovent 220 Mcg Inhaler] Previous Rx's Medication Instructions Recorded Albuterol Sulfate [Proair Hfa] 2 puff INHALATION RT-Q4H PRN 30 01/11/22 Days #1 each Ondansetron Odt [Zofran Odt] 4 mg PO Q8HR PRN #10 tab 01/13/23 Allergies Allergy/AdvReac Type Severity Reaction Status Date / Time codeine Allergy Swelling & Verified 01/13/23 10:48 vomiting nitrofurantoin Allergy Swelling & Verified 01/13/23 10:48 [From Macrobid] vomiting Review of Systems ROS Statement: Those systems with pertinent positive or pertinent negative responses have been documented in the HPI. ROS Other: All systems not noted in ROS Statement are negative. Constitutional: Reports: as per HPI Eyes: Denies: eye pain ENT: Denies: ear pain Respiratory: Reports: as per HPI, cough. Denies: dyspnea Cardiovascular: Denies: chest pain Endocrine: Denies: fatigue Gastrointestinal: Reports: as per HPI, nausea, vomiting. Denies: diarrhea, constipation Genitourinary: Denies: dysuria Musculoskeletal: Denies: back pain Skin: Denies: rash Neurological: Denies: weakness Past Medical History Past Medical History: Asthma, COPD Additional Past Medical History / Comment(s): Bronchitis, medical coma due to breathing issues History of Any Multi-Drug Resistant Organisms: MRSA Date of last positivie culture/infection: 2010 MDRO Source:: index finger on right hand Past Surgical History: No Surgical Hx Reported Additional Past Surgical History / Comment(s): tracheotomy, cysts to wrist removed, peg tube(removed) Past Anesthesia/Blood Transfusion Reactions: No Reported Reaction Past Psychological History: Anxiety, Bipolar, Depression Smoking Status: Current every day smoker Past Alcohol Use History: Occasional Past Drug Use History: Marijuana - Past Family History Mother Family Medical History: Cancer Additional Family Medical History / Comment(s): Lung and brain CA, Uncle Pancreatic General Exam Limitations: no limitations General appearance: alert, in no apparent distress Head exam: Present: normocephalic Eye exam: Present: normal appearance ENT exam: Present: normal oropharynx Neck exam: Present: normal inspection. Absent: meningismus Respiratory exam: Present: normal lung sounds bilaterally Cardiovascular Exam: Present: regular rate, normal rhythm GI/Abdominal exam: Present: soft, normal bowel sounds. Absent: distended, tenderness, guarding, rebound, rigid, pulsatile mass Extremities exam: Present: normal inspection Neurological exam: Present: alert Psychiatric exam: Present: normal affect, normal mood Skin exam: Present: normal color Course Vital Signs 01/13/23 01/13/23 08:19 11:07 Temperature 98.9 F 98 F Pulse Rate 106 H 98 Respiratory 24 18 Rate Blood Pressure 135/75 106/64 O2 Sat by Pulse 97 99 Oximetry Medical Decision Making - Medical Decision Making Was pt. sent in by a medical professional or institution (, PA, PLATE AND FRAME FILTER OPERATOR, urgent care, hospital, or fpc...) When possible be specific @ -No Did you speak to anyone other than the patient for history (EMS, parent, family, police, friend...)? What history was obtained from this source @ -No Did you review nursing and triage notes (agree or disagree)? Why? @ -I reviewed and agree with nursing and triage notes Were old charts reviewed (outside hosp., previous admission, EMS record, old EKG, old radiological studies, urgent care reports/EKG's, fpc records)? Report findings @ -No old charts were reviewed Differential Diagnosis (chest pain, altered mental status, abdominal pain women, abdominal pain men, vaginal bleeding, weakness, fever, dyspnea, syncope, heada murray, dizziness, GI bleed, back pain, seizure, CVA, palpatations, mental health, musculoskeletal)? @ -Differential Abdominal Pain Women: Appendicitis, Cholecystitis, diverticulosis, ischemic bowel, pancreatitis, hepatitis, UTI, gastroenteritis, AAA, incarcerated hernia, bowel obstruction, constipation, inflammatory bowel, hepatitis, peptic ulcer disease, splenic infarction, perforated viscus, vulvitis, ovarian torsion, PID, kidney stone, placenta abruption, this is not meant to be an all-inclusive list EKG interpreted by me (3pts min.). @ -As above X-rays interpreted by me (1pt min.). @ -Chest x-ray shows no acute process CT interpreted by me (1pt min.). @ -None done U/S interpreted by me (1pt. min.). @ -None done What testing was considered but not performed or refused? (CT, X-rays, U/S, labs)? Why? @ -None What meds were considered but not given or refused? Why? @ -None Did you discuss the management of the patient with other professionals (professionals i.e. , PA, PLATE AND FRAME FILTER OPERATOR, lab, RT, psych nurse, secondary social studies teacher, ediphone operator, teacher, college service officer, binder caser)? Give summary @ -No Was smoking cessation discussed for >3mins.? @ -No Was critical care preformed (if so, how long)? @ -No Were there social determinants of health that impacted care today? How? (Homelessness, low income, unemployed, alcoholism, drug addiction, transportation, low edu. Level, literacy, decrease access to med. care, fci, rehab)? @ -No Was there de-escalation of care discussed even if they declined (Discuss DNR or withdrawal of care, Hospice)? DNR status @ -No What co-morbidities impacted this encounter? (DM, HTN, Smoking, COPD, CAD, Cancer, CVA, ARF, Chemo, Hep., AIDS, mental health diagnosis, sleep apnea, morbid obesity)? @ -None Was patient admitted / discharged? Hospital course, mention meds given and r oute, prescriptions, significant lab abnormalities, going to OR and other pertinent info. @ -Patient reevaluated and feeling much better. Patient requesting discharge home. Patient updated on results and need for follow-up. Undiagnosed new problem with uncertain prognosis? @ -No Drug Therapy requiring intensive monitoring for toxicity (Heparin, Nitro, Insulin, Cardizem)? @ -No Were any procedures done? @ -No Diagnosis/symptom? @ -Vomiting Acute, or Chronic, or Acute on Chronic? @ -Acute Uncomplicated (without systemic symptoms) or Complicated (systemic symptoms)? @ -default Side effects of treatment? @ -No Exacerbation, Progression, or Severe Exacerbation? @ -No Poses a threat to life or bodily function? How? (Chest pain, [place], [place], pneumonia, PE, COPD, DKA, ARF, appy, cholecystitis, CVA, Diverticulitis, Homicidal, Suicidal, threat to staff... and all critical care pts) @ -No - Lab Data Result diagrams: 01/13/23 09:54 01/13/23 09:54 Lab Results 01/13/23 01/13/23 01/13/23 Range/Units 09:54 09:54 09:54 WBC 5.6 (3.8-10.6) k/uL RBC 4.86 (3.80-5.40) m/uL Hgb 15.1 (11.4-16.0) gm/dL Hct 44.5 (34.0-46.0) % MCV 91.6 (80.0-100.0) fL MCH 31.1 (25.0-35.0) pg MCHC 34.0 (31.0-37.0) g/dL RDW 12.2 (11.5-15.5) % Plt Count 246 (150-450) k/uL MPV 8.5 Neutrophils % 83 % Lymphocytes % 8 % Monocytes % 6 % Eosinophils % 2 % Basophils % 0 % Neutrophils # 4.7 (1.3-7.7) k/uL Lymphocytes # 0.5 L (1.0-4.8) k/uL Monocytes # 0.3 (0-1.0) k/uL Eosinophils # 0.1 (0-0.7) k/uL Basophils # 0.0 (0-0.2) k/uL Sodium 136 L (137-145) mmol/L Potassium 3.6 (3.5-5.1) mmol/L Chloride 106 (98-107) mmol/L Carbon Dioxide 18 L (22-30) mmol/L Anion Gap 12 mmol/L BUN 10 (7-17) mg/dL Creatinine 0.57 (0.52-1.04) mg/dL Est GFR (CKD-EPI)AfAm >90 (>60 ml/min/1.73 sqM) Est GFR (CKD-EPI)NonAf >90 (>60 ml/min/1.73 sqM) Glucose 108 H (74-99) mg/dL Calcium 9.9 (8.4-10.2) mg/dL Total Bilirubin 0.5 (0.2-1.3) mg/dL AST 16 (14-36) U/L ALT 13 (4-34) U/L Alkaline Phosphatase 83 (38-126) U/L Total Protein 7.4 (6.3-8.2) g/dL Albumin 4.4 (3.5-5.0) g/dL Amylase 69 (30-110) U/L Lipase 84 (23-300) U/L Urine Color Yellow Urine Appearance Clear (Clear) Urine pH 5.5 (5.0-8.0) Ur Specific [place] 1.025 (1.001-1.035) Urine Protein Negative (Negative) Urine Glucose (UA) Negative (Negative) Urine Ketones 1+ (Negative) Urine Blood Negative (Negative) Urine Nitrite Positive (Negative) Urine Bilirubin Negative (Negative) Urine Urobilinogen <2.0 (<2.0) mg/dL Ur Leukocyte Esterase 10 (Negative) Disposition Clinical Impression: Vomiting Disposition: HOME SELF-CARE Condition: Stable Instructions (If sedation given, give patient instructions): Acute Nausea and Vomiting (ED) Additional Instructions: Prescription for nausea medicine sent to pharmacy. Please do follow-up with primary care physician in the next day or 2 for recheck. Return for not tolerating fluids, abdominal pain, fever, worsening symptoms or other concerns. Prescriptions: Ondansetron Odt [Zofran Odt] 4 mg PO Q8HR PRN #10 tab PRN Reason: Nausea Is patient prescribed a controlled substance at d/c from ED?: No Referrals: Stevenson Dunlap DO [Primary Care Provider] - 1-2 days Time of Disposition: 12:23
[2023-01-13 10:09] LABS: Basophils % (A) 0 %; Eosinophils # (A) 0.1 k/uL (0-0.7); Eosinophils % (A) 2 %; HCT 44.5 % (34.0-46.0); HGB 15.1 gm/dL (11.4-16.0); Lymphocytes # (A) 0.5 k/uL (1.0-4.8); Lymphocytes % (A) 8 %; MCH 31.1 pg (25.0-35.0); MCV 91.6 fL (80.0-100.0); Mean Platelet Volume 8.5; Monocytes # (A) 0.3 k/uL (0-1.0); Monocytes % (A) 6 %; Neutrophils # (A) 4.7 k/uL (1.3-7.7); Neutrophils % (A) 83 %; Platelet Count 246 k/uL (150-450); RBC 4.86 m/uL (3.80-5.40); RDW 12.2 % (11.5-15.5); WBC 5.6 k/uL (3.8-10.6)
[2023-01-13 10:21] LABS: ALT 13 U/L (4-34); AST 16 U/L (14-36); African American GFR (CKD) >90 (>60 ml/min/1.73 sqM); Albumin 4.4 g/dL (3.5-5.0); Alkaline Phosphatase 83 U/L (38-126); Amylase 69 U/L (30-110); Anion Gap 12 mmol/L; Blood Urea Nitrogen 10 mg/dL (7-17); Calcium 9.9 mg/dL (8.4-10.2); Carbon Dioxide 18 mmol/L (22-30); Chloride 106 mmol/L (98-107); Glucose 108 mg/dL (74-99); Lipase 84 U/L (23-300); Non-African American GFR(CKD) >90 (>60 ml/min/1.73 sqM); Potassium 3.6 mmol/L (3.5-5.1); Sodium 136 mmol/L (137-145); Total Bilirubin 0.5 mg/dL (0.2-1.3); Total Protein 7.4 g/dL (6.3-8.2)
--- NOTE | 2023-01-13 10:25 | XR ---
EXAMINATION TYPE: XR chest 2V DATE OF EXAM: 01/13/2023 10:20 AM COMPARISON: Chest radiographs from 01/10/2022 TECHNIQUE: XR chest 2V Frontal and lateral views of the chest. CLINICAL INDICATION:Female, 42 years old with history of cough; FINDINGS: Lungs/Pleura: There is no evidence of pleural effusion, focal consolidation, or pneumothorax. Pulmonary vascularity: Unremarkable. Heart/mediastinum: Cardiomediastinal silhouette is unremarkable. Musculoskeletal: No acute osseous pathology. IMPRESSION: No acute cardiopulmonary disease/process.
[2023-01-13 11:23] VITALS: RESP 18
[2023-01-13 12:10] LABS: Appearance,Urine Clear (Clear); Bilirubin,Urine Negative (Negative); Blood,Urine Negative (Negative); Color,Urine Yellow; Glucose,Urine (UA) Negative (Negative); Ketones,Urine 1+ (Negative); Leukocyte Esterase,Urine 10 (Negative); Nitrite,Urine Positive (Negative); PH, Urine 5.5 (5.0-8.0); Protein,Urine Negative (Negative); Specific Gravity,Urine 1.025 (1.001-1.035); Urobilinogen,Urine <2.0 mg/dL (<2.0)
[2023-01-13 12:25] LABS: Squamous Epithelial Cell,Urine 50 /hpf (0-4)
[2023-01-13 12:26] LABS: Mucus,Urine TRACE /hpf; RBC,Urine 2 /hpf (0-5); WBC,Urine 10 /hpf (0-5)
[2023-01-13 12:27] LABS: Bacteria,Urine Moderate /hpf
[2023-01-13 12:42] VITALS: BP 93/61; PULSE 80; TEMP 98.4
== END 2023-01-13 12:39 | disposition home or self-care (01) ==
LOC: EC 08:08
DX: R11.2 Nausea with vomiting, unspecified (principal); J44.9 Chronic obstructive pulmonary disease, unspecified; F41.9 Anxiety disorder, unspecified; F31.9 Bipolar disorder, unspecified; F17.200 Nicotine dependence, unspecified, uncomplicated; F12.90 Cannabis use, unspecified, uncomplicated; Z88.1 Allergy status to other antibiotic agents; Z88.5 Allergy status to narcotic agent; Z79.51 Long term (current) use of inhaled steroids; Z79.899 Other long term (current) drug therapy
CPT/HCPCS: 36415; 80053; 82150; 83690; 85025; 81001; 71046; 99284; 96365; 96366 ×2; 96375 ×3; J2405; J3490; J0131; J1885

== ENCOUNTER 2023-07-06 13:45 | Emergency (ER) | payer OTHER ==
--- NOTE | 2023-07-06 14:01 | ED ---
General Adult HPI - General Source: patient, RN notes reviewed Mode of arrival: ambulatory Limitations: no limitations <Grecia Walker - Last Filed: 07/06/23 14:01> <Desmond Elizalde - Last Filed: 07/06/23 18:30> - General Stated complaint: Vomiting,fever Time Seen by Provider: 07/06/23 14:01 - History of Present Illness Initial comments: Quick note: 43-year-old female presented to the ER with a chief complaint of myalgias and fevers. She states for the past couple days she has been not feeling well. Admits to cough and congestion. (Grecia Walker) 43-year-old female with a past medical history significant for COPD presenting to the ED with complaints of URI symptoms. Patient states for the past 4 days has had myalgias, arthralgias, nausea, vomiting, diarrhea, congestion, cough, and subjective fevers. Reports that she has been taking ibuprofen at home with some relief of symptoms however despite this reports still feeling unwell prompting presentation to the ED for further evaluation. Denies chest pain. No other complaints at this time. She reports that she has not received her flu shot. (Desmond Elizalde) - Related Data Home Medications Medication Instructions Recorded Confirmed Ipratropium-Albuterol Nebulize 3 ml INHALATION RT-Q4H PRN 08/27/20 01/13/23 [Duoneb 0.5 mg-3 mg/3 ml Soln] Sertraline HCl [Zoloft] 100 mg PO HS 08/27/20 01/13/23 Cetirizine HCl 10 mg PO DAILY 03/28/21 01/13/23 Ibuprofen [Motrin] 600 mg PO Q8HR PRN 08/14/21 01/13/23 ALPRAZolam [Xanax] 0.25 mg PO TID PRN 01/10/22 01/13/23 Fluticasone Propionate 220 Mcg 2 puff INHALATION RT-BID 01/13/23 01/13/23 [Flovent 220 Mcg Inhaler] Previous Rx's Medication Instructions Recorded Albuterol Sulfate [Proair Hfa] 2 puff INHALATION RT-Q4H PRN 30 01/11/22 Days #1 each Ondansetron Odt [Zofran Odt] 4 mg PO Q8HR PRN #10 tab 01/13/23 Ondansetron Odt [Zofran Odt] 4 mg PO Q8HR PRN #10 tab 07/06/23 Oseltamivir [Tamiflu] 75 mg PO Q12HR 5 Days #10 cap 07/06/23 predniSONE [Deltasone] 20 mg PO BID 5 Days #10 tab 07/06/23 Allergies Allergy/AdvReac Type Severity Reaction Status Date / Time codeine Allergy Swelling & Verified 07/06/23 14:43 vomiting nitrofurantoin Allergy Swelling & Verified 07/06/23 14:43 [From Macrobid] vomiting Review of Systems ROS Other: All systems not noted in ROS Statement are negative. <Grecia Walker - Last Filed: 07/06/23 14:01> ROS Other: All systems not noted in ROS Statement are negative. <Desmond Elizalde - Last Filed: 07/06/23 18:30> ROS Statement: Those systems with pertinent positive or pertinent negative responses have been documented in the HPI. Past Medical History Past Medical History: Asthma, COPD Additional Past Medical History / Comment(s): Bronchitis, medical coma due to breathing issues History of Any Multi-Drug Resistant Organisms: MRSA Date of last positivie culture/infection: 2010 MDRO Source:: index finger on right hand Past Surgical History: No Surgical Hx Reported Additional Past Surgical History / Comment(s): tracheotomy, cysts to wrist removed, peg tube(removed) Past Anesthesia/Blood Transfusion Reactions: No Reported Reaction Past Psychological History: Anxiety, Bipolar, Depression Smoking Status: Current every day smoker Past Alcohol Use History: Occasional Past Drug Use History: Marijuana - Past Family History Mother Family Medical History: Cancer Additional Family Medical History / Comment(s): Lung and brain CA, Uncle Pancreatic <Grecia Walker - Last Filed: 07/06/23 14:01> General Exam <Grecia Walker - Last Filed: 07/06/23 14:01> General appearance: alert, in no apparent distress Eye exam: Present: normal appearance ENT exam: Present: mucous membranes moist Neck exam: Present: normal inspection Respiratory exam: Present: wheezes Cardiovascular Exam: Present: regular rate GI/Abdominal exam: Present: soft, normal bowel sounds. Absent: distended, tenderness, guarding, rebound, rigid Neurological exam: Present: alert, oriented X3 Skin exam: Present: warm, dry <Desmond Elizalde - Last Filed: 07/06/23 18:30> - General Exam Comments Initial Comments: Visual Physical Exam Vital signs reviewed General: Well-appearing, nontoxic, no acute distress. Head: Normocephalic, atraumatic Eyes: PERRLA, EOMI ENT: Airway patent Chest: Nonlabored breathing Skin: No visual rash, normal skin tone Neuro: Alert and oriented 3 Musculoskeletal: No gross abnormalities (Grecia Walker) Course Vital Signs 07/06/23 07/06/23 07/06/23 14:37 16:17 16:57 Temperature 97.9 F Pulse Rate 110 H 111 H Respiratory 16 20 20 Rate Blood Pressure 134/98 O2 Sat by Pulse 97 Oximetry 07/06/23 07/06/23 17:04 17:25 Temperature 98.5 F Pulse Rate 111 H Respiratory 18 Rate Blood Pressure O2 Sat by Pulse Oximetry Medical Decision Making <Grecia Walker - Last Filed: 07/06/23 14:01> <Desmond Elizalde - Last Filed: 07/06/23 18:30> - Medical Decision Making I performed the quick note portion of this chart. Electronically signed by Grecia Walker PA-C (Grecia Walker) Was pt. sent in by a medical professional or institution ([facility], SUPERINTENDENT [employer]EL[employer], urgent care, hospital, or alf...) When possible be specific @ -No Did you speak to anyone other than the patient for history (EMS, parent, family, police, friend...)? What history was obtained from this source @ -No Did you review nursing and triage notes (agree or disagree)? Why? @ -I reviewed and agree with nursing and triage notes Were old charts reviewed (outside hosp., previous admission, EMS record, old EKG, old radiological studies, urgent care reports/EKG's, alf records)? Report findings @ -No old charts were reviewed Differential Diagnosis (chest pain, altered mental status, abdominal pain women, abdominal pain men, vaginal bleeding, weakness, fever, dyspnea, syncope, headache, dizziness, GI bleed, back pain, seizure, CVA, palpatations, mental health, musculoskeletal)? @ -Differential Dyspnea: Coronary syndrome, arrhythmia, tamponade, asthma, COPD, pulmonary embolism, pneumonia, pneumothorax, pulmonary effusion, anaphylaxis, diabetic ketoacidosis, flailed chest, pulmonary contusion, diaphragmatic rupture, anemia, neuromuscul ar, this is not meant to be an all-inclusive list. EKG interpreted by me (3pts min.). @ -None X-rays interpreted by me (1pt min.). @ -Chest x-ray interpreted me which revealed no evidence of acute finding. CT interpreted by me (1pt min.). @ -None done U/S interpreted by me (1pt. min.). @ -None done What testing was considered but not performed or refused? (CT, X-rays, U/S, labs)? Why? @ -None What meds were considered but not given or refused? Why? @ -None Did you discuss the management of the patient with other professionals (professionals i.e. , PA, SUPERINTENDENT PIPELINES, lab, RT, psych nurse, social service director, knurling machine operator, teacher, community service patrol officer, caser in)? Give summary @ -No Was smoking cessation discussed for >3mins.? @ -No Was critical care preformed (if so, how long)? @ -No Were there social determinants of health that impacted care today? How? (Homelessness, low income, unemployed, alcoholism, drug addiction, transportation, low edu. Level, literacy, decrease access to med. care, assisted, rehab)? @ -No Was there de-escalation of care discussed even if they declined (Discuss DNR or withdrawal of care, Hospice)? DNR status @ -No What co-morbidities impacted this encounter? (DM, HTN, Smoking, COPD, CAD, Cancer, CVA, ARF, Chemo, Hep., AIDS, mental health diagnosis, sleep apnea, morbid obesity)? @ -COPD Was patient admitted / discharged? Hospital course, mention meds given and route, prescriptions, significant lab abnormalities, going to OR and other pertinent info. @ -Discharge 43-year-old female with past medical history significant for COPD presenting to the ED with complaints of URI symptoms for the past 4 days. Reports myalgias, arthralgias, nausea, vomiting, diarrhea, subjective fevers, congestion, cough, and feeling short of breath. Serology panel reviewed. Patient positive for influenza B. Chest x-ray reviewed which revealed no evidence of acute infiltrates or other acute process. Patient provided IV fluids, Toradol, Tylenol, Zofran, and steroids here in the ED. upon reevaluation, patient reports feeling significantly improved. Discharged home in stable condition with prescription for prednisone, Tamiflu, and Zofran. Discussed return precautions with patient verbalized agreement. Undiagnosed new problem with uncertain prognosis? @ -No Drug Therapy requiring intensive monitoring for toxicity (Heparin, Nitro, Insulin, Cardizem)? @ -No Were any procedures done? @ -No Diagnosis/symptom? @ -Influenza B, COPD exacerbation Acute, or Chronic, or Acute on Chronic? @ -Acute Uncomplicated (without systemic symptoms) or Complicated (systemic symptoms)? @ -Uncomplicated Side effects of treatment? @ -No Exacerbation, Progression, or Severe Exacerbation? @ -COPD exacerbation Poses a threat to life or bodily function? How? (Chest pain, [place], [place], pneumonia, PE, COPD, DKA, ARF, appy, cholecystitis, CVA, Diverticulitis, Homicidal, Suicidal, threat to staff... and all critical care pts) @ -Unlikely (Desmond Elizalde) - Lab Data Lab Results 07/06/23 Range/Units 14:19 Influenza Type A (PCR) Not Detected (Not Detectd) Influenza Type B (PCR) Detected A (Not Detectd) RSV (PCR) Not Detected (Not Detectd) SARS-CoV-2 (PCR) Not Detected (Not Detectd) Disposition <Grecia Walker - Last Filed: 07/06/23 14:01> Is patient prescribed a controlled substance at d/c from ED?: No Time of Disposition: 17:45 <Desmond Elizalde - Last Filed: 07/06/23 18:30> Clinical Impression: Influenza, COPD exacerbation Disposition: HOME SELF-CARE Condition: Good Additional Instructions: Please return to the Emergency Department if symptoms worsen or any other concerns. Please follow-up with your primary care provider. Prescriptions: predniSONE [Deltasone] 20 mg PO BID 5 Days #10 tab Oseltamivir [Tamiflu] 75 mg PO Q12HR 5 Days #10 cap Ondansetron Odt [Zofran Odt] 4 mg PO Q8HR PRN #10 tab PRN Reason: Nausea Referrals: Stevenson Dunlap DO [Primary Care Provider] - 1-2 days
--- NOTE | 2023-07-06 14:36 | XR ---
EXAMINATION TYPE: XR chest 2V DATE OF EXAM: 07/06/2023 2:28 PM CLINICAL INDICATION:Female, 43 years old with history of cough; [facility] COMPARISON: 01/13/2023 TECHNIQUE: XR chest 2V. Frontal and lateral views of the chest.. FINDINGS: Lines/Tubes/Devices: No indwelling lines are seen. Heart/mediastinum: Heart size is normal. Mediastinum appears normal. Pulmonary vascularity: Not increased, Lungs/Pleura: There is no evidence of pleural effusion, focal consolidation, or pneumothorax. Musculoskeletal: No acute osseous abnormality demonstrated in the limits of the exam. Other findings: None. IMPRESSION: No acute cardiopulmonary abnormality.
[2023-07-06] MEDS: ONDANSETRON 4 MG/2 ML VIAL IVP STA (16:46)
[2023-07-06] MEDS: KETOROLAC 15 MG/ML 1 ML VIAL IVP STA (16:46)
[2023-07-06] MEDS: predniSONE 20 MG TAB PO STA (16:46)
[2023-07-06] MEDS: ACETAMINOPHEN TAB 500 MG TAB PO STA (16:47)
[2023-07-06] MEDS: SODIUM CHLORIDE 0.9% 1,000 ML IV STA (16:48)
[2023-07-06] MEDS: IPRATROPIUM-ALBUTEROL 3 ML NEB INHALATION STA (16:57)
[2023-07-06 17:22] VITALS: RESP 18
[2023-07-06 19:17] VITALS: BP 117/74; PULSE 98; TEMP 98.2
== END 2023-07-06 18:54 | disposition home or self-care (01) ==
LOC: EC 13:45
DX: J44.1 Chronic obstructive pulmonary disease with (acute) exacerbation (principal); J10.1 Influenza due to other identified influenza virus with other respiratory manifestations; F17.200 Nicotine dependence, unspecified, uncomplicated; F12.90 Cannabis use, unspecified, uncomplicated; Z88.5 Allergy status to narcotic agent; Z88.8 Allergy status to other drugs, medicaments and biological substances
CPT/HCPCS: 94640; 87636; 71046; 99284; 96374; 96375; 96361; J2405; J1885; J7512